=== PATIENT | female | born 1970 | race African-American/Black ===

== ENCOUNTER 2019-11-25 13:17 | Outpatient (CLI) | payer MEDICARE, MEDICAID, SELFPAY ==
--- NOTE | ~2019-11-25 | XR_ITS ---
EXAMINATION: XR chest 2V EXAM DATE: 11/25/2019 14:09 INDICATION: Shortness of breath. TECHNIQUE: Frontal and lateral projections of the chest obtained and reviewed. Comparison is made to prior examination from 07/29/2019. FINDINGS: There is mild to moderate amount of bilateral ill-defined airspace disease right greater t freitas left, with significant interval improvement compared to previous examination. Uncertain whether o r not this is residual from that process or redevelopment of acute airspace disease. Cardiomediastina l silhouette is normal. There is no pneumothorax suspected. There are no pleural effusions. There are no osseous abnormalities identified. IMPRESSION: Patchy bilateral right greater than left airspace disease, clinical correlation. Reviewed, dictated and finalized at location B. OPERATOR IMPRESSION: Patchy bilateral right greater than left airspace disease, clinica l correlation.
[2019-11-25 14:13] LABS: Hematocrit 39.6 % (37.0-47.0); Hemoglobin 12.3 g/dL (12.0-15.0)
[2019-11-25 14:27] LABS: Alanine Aminotransferase 23 U/L (4-35); Alkaline Phosphatase 63 U/L (38-126); Aspartate Amino Transferase 29 U/L (14-36); Bilirubin,Total 0.3 mg/dL (0.2-1.3); Blood Urea Nitrogen 7 mg/dL (7-17); Calcium 9.5 mg/dL (8.4-10.2); Carbon Dioxide 30 mmol/L (22-30); Chloride 96 mmol/L (98-107); Cholesterol 158 mg/dL (0-200); Estimated Glomerular Filt Rate > 60; Glucose 128 mg/dL (65-105); HDL Direct 47 mg/dL; Potassium 3.8 mmol/L (3.4-5.0); Sodium 139 mmol/L (137-145); Triglycerides 180 mg/dL (<150)
[2019-11-25 14:29] LABS: Hemoglobin A1C 6.8 % (<5.7)
[2019-11-25 14:39] LABS: LDL Cholesterol Direct 80 mg/dL
[2019-11-25 14:54] LABS: Creatinine Urine 85.6 mg/dL
[2019-11-25 14:58] LABS: MALB Creatinine Ratio 74.6 mg/g (0-30); Microalbumin Urine Random 63.9 mg/L (0-16.7)
[2019-11-25 15:01] LABS: Thyroid Stimulating Hormone 0.103 uIU/mL (0.465-4.680)
[2019-11-25 15:05] LABS: Iron 41 ug/dL (37-170)
[2019-11-25 15:14] LABS: Percent Iron Saturation 12 % (20-50)
[2019-11-25 15:29] LABS: Vitamin D 25 Hydroxy 27.8 ng/mL
== END 2019-11-25 13:18 | disposition home or self-care (01) ==
PROVIDERS: Referring Provider Nurse Practitioner Family; Visit Provider Internal Medicine
DX: R06.02 Shortness of breath (principal); D50.9 Iron deficiency anemia, unspecified; E11.9 Type 2 diabetes mellitus without complications; I10 Essential (primary) hypertension; Z13.6 Encounter for screening for cardiovascular disorders; E03.9 Hypothyroidism, unspecified; E55.9 Vitamin D deficiency, unspecified
CPT/HCPCS: 36415; 71046; 80053; 80061; 82043; 82306; 83036; 83540; 83550; 84443; 85014; 85018

== ENCOUNTER 2019-12-30 12:22 | Outpatient (CLI) | payer MEDICARE, MEDICAID, SELFPAY ==
[2019-12-30 12:49] LABS: Hematocrit 37.8 % (37.0-47.0); Hemoglobin 11.7 g/dL (12.0-15.0); Mean Corpuscular Hemoglobin 25.4 pg (26-34); Mean Corpuscular Volume 82.2 fl (80-100); Mean Platelet Volume 10.7 fl (7.4-10.4); Platelet Count Result 325 k/mm3 (150-375); White Blood Count 8.3 K/mm3 (4.5-10.0)
[2019-12-30 16:46] LABS: Alanine Aminotransferase 22 U/L (4-35); Albumin Level 3.9 g/dL (3.5-5.1); Alkaline Phosphatase 68 U/L (38-126); Aspartate Amino Transferase 25 U/L (14-36); Bilirubin,Total 0.4 mg/dL (0.2-1.3); Blood Urea Nitrogen 10 mg/dL (7-17); Calcium 9.2 mg/dL (8.4-10.2); Carbon Dioxide 31 mmol/L (22-30); Chloride 100 mmol/L (98-107); Estimated Glomerular Filt Rate > 60; Glucose 143 mg/dL (65-105); Potassium 3.9 mmol/L (3.4-5.0); Sodium 137 mmol/L (137-145)
[2019-12-30 16:54] LABS: Complement C3 163 mg/dL (88-165)
[2020-01-02 04:53] LABS: Lupus dRVVT 1:1 Mix Interpreta Not Indicated; Lupus dRVVT Screen 36 sec (<=45); PTT-LA Screen 35 sec (<=40)
[2020-01-02 10:35] LABS: ANA Cascade Screen Positive (Negative); ANCA Screen P-ANCA POS (Negative); P-ANCA Titer 1:20 Titer (<1:20); P-ANCA Titer Reflex Chg Test YES
[2020-01-03 10:04] LABS: Chromatin (Nucleosomal) Ab <1.0; Chromatin Antibody Charge YES; DNA (ds) Antibody Charge YES; RNP Antibody 1.1; RNP Antibody Charge YES; Sm Antibody <1.0; Sm Antibody Charge YES; Sm/RNP Antibody <1.0; Sm/RNP Antibody Charge YES
== END 2019-12-30 12:23 | disposition home or self-care (01) ==
PROVIDERS: Visit Provider Internal Medicine
DX: J18.9 Pneumonia, unspecified organism (principal); R76.8 Other specified abnormal immunological findings in serum; M19.90 Unspecified osteoarthritis, unspecified site; Z79.899 Other long term (current) drug therapy
CPT/HCPCS: 36415; 80053; 85027; 85613; 85730; 86021; 86038; 86160; 86225; 86235

== ENCOUNTER 2020-01-02 10:32 | Outpatient (CLI) | payer MEDICARE, MEDICAID, SELFPAY ==
--- NOTE | ~2020-01-02 | CT_ITS ---
EXAMINATION: CT chest wo con DATE: 01/02/2020 11:14 INDICATION: Shortness of breath, follow-up pneumonia TECHNIQUE: Computed tomography (CT) of the chest was performed without intravenous contrast. The dose -length product (DLP) was 1034.67 mGy-cm. Automated exposure control and iterative reconstruction gale hnique were employed. COMPARISON: 07/29/2019, 01/17/2019 FINDINGS: Bilateral airspace opacities described on the most recent chest CT have significantly impro una. There are a few scattered groundglass opacities of the lungs. There are several residual nodules scattered throughout all lobes of the lungs has ascites of previously seen larger areas of consolida tion. The largest measures 1.7 x 1.2 cm in the left upper lobe. There is no pleural effusion or pneum othorax. There is chronic mediastinal lymphadenopathy. The heart size is normal. There is moderate th oracic spondylosis. IMPRESSION: 1. Significant improvement in previously described diffuse lung airspace opacities with some residual groundglass and nodular opacities, likely resolving infection/inflammation. The previously described underlying chronic lung disease such as hypersensitivity pneumonitis, chronic infection, or possibly sarcoid could be obscured. Reviewed, dictated and finalized at location A. IMPRESSION: 1. Significant improvement in previously described diffuse lung airspace opacit ies with some residual groundglass and nodular opacities, likely resolving infe ction/inflammation. The previously described underlying chronic lung disease peacock ch as hypersensitivity pneumonitis, chronic infection, or possibly sarcoid coul d be obscured.
== END 2020-01-02 10:33 | disposition home or self-care (01) ==
LOC: ANHIMG 10:33
PROVIDERS: Visit Provider Nurse Practitioner Family
DX: J18.9 Pneumonia, unspecified organism (principal)
CPT/HCPCS: 71250

== ENCOUNTER 2020-06-08 08:11 | Outpatient (CLI) | payer MEDICARE, MEDICAID, SELFPAY ==
--- NOTE | 2020-06-08 17:06 | WPDPFTINT ---
PFT Interpretation PFT Interpretation: DOS: 06/08/2020 REQUESTING: Roger Phillips NP REASON FOR TESTING: no smoking history; asthma-COPD, hypoxia; history of ILD, + pANCA PULMONARY FUNCTION TESTS Results are reliable and reproducible. Spirometry: FEV1 68% mildly decreased. FVC 66%, mildly decreased. Normal FEV1%. PCW76-82% is decreased at 51%. After Bronchodilator there is a 35% increase in the small airways flows. This is statistically significant. Lung volumes: TLC 109% normal. RV 186% consistent with severe air trapping. No increase in airway resistance. Diffusion: DLCO moderately decreased 55%. Flow volume loop: Mild scooping of the expiratory limb. IMPRESSION: Mild obstructive ventilatory impairment, severe in the small airways with good response to bronchodilator in the small airways. Severe air trapping. Moderate diffusion defect. Compared to a study 03/08/2018, the RAT23-98% is much lower 51% compared to 71%. Spirometry values otherwise are similar. DLCO has dropped from 64% to 55% consistent with a progression of interstitial lung disease. Clinical correlation is recommended. Heather Diallo MD
--- NOTE | 2020-06-08 17:32 | WPDSIXMINUTE ---
Six Minute Walk Six Minute Walk: DOS: 06/08/2020 REQUESTING: Roger Phillips NP REASON FOR TESTING: asthma-COPD; ILD SIX MINUTE WALK This test was conductive per ATS guidelines. The patient walked on room air with an initial saturation of 96% and a heart rate of 98. During walking saturation decreased to 88% by the end of the walk. She had to stop for 45 seconds to rest due to knee pain. Heart rate increased to 141. During recovery saturation gradually increased from 88% to baseline 97%. Heart rate remained elevated at the end of recovery at 108 beats per minute. Distance walked was 600 ft/183 m, which is less than predicted per age. IMPRESSION: This walk study shows mild desaturation without randa hypoxemia. Supplemental oxygen is not indicated with exertion. Distance walked is less than expected for age.
== END 2020-06-08 08:12 | disposition home or self-care (01) ==
LOC: ANHPFT 08:15
PROVIDERS: PCP Internal Medicine; Visit Provider Nurse Practitioner Family
DX: R09.02 Hypoxemia (principal); J44.9 Chronic obstructive pulmonary disease, unspecified; R94.2 Abnormal results of pulmonary function studies
CPT/HCPCS: 94060; 94618; 94726; 94729

== ENCOUNTER 2020-07-16 14:27 | Outpatient (CLI) | payer MEDICARE, MEDICAID, SELFPAY ==
[2020-07-16 15:10] LABS: Alanine Aminotransferase 19 U/L (4-35); Albumin Level 3.9 g/dL (3.5-5.1); Alkaline Phosphatase 60 U/L (38-126); Anion Gap 6 mmol/L (8-16); Aspartate Amino Transferase 25 U/L (14-36); Bilirubin,Total 0.3 mg/dL (0.2-1.3); Blood Urea Nitrogen 8 mg/dL (7-17); Calcium 9.3 mg/dL (8.4-10.2); Carbon Dioxide 31 mmol/L (22-30); Chloride 102 mmol/L (98-107); Cholesterol 160 mg/dL (0-200); Estimated Glomerular Filt Rate > 60; Glucose 92 mg/dL (65-105); HDL Direct 55 mg/dL; Hemoglobin A1C 5.6 % (<5.7); Potassium 3.7 mmol/L (3.4-5.0); Sodium 139 mmol/L (137-145); Triglycerides 108 mg/dL (<150)
[2020-07-16 15:21] LABS: LDL Cholesterol Direct 80 mg/dL
[2020-07-16 15:41] LABS: Thyroid Stimulating Hormone 0.031 uIU/mL (0.465-4.680)
[2020-07-16 16:39] LABS: Creatinine Urine 74.5 mg/dL
[2020-07-16 16:43] LABS: Vitamin D 25 Hydroxy 32.5 ng/mL
[2020-07-16 16:44] LABS: MALB Creatinine Ratio 23.8 mg/g (0-30); Microalbumin Urine Random 17.7 mg/L (0-16.7)
== END 2020-07-16 14:28 | disposition home or self-care (01) ==
PROVIDERS: PCP Internal Medicine; Visit Provider Internal Medicine
DX: E11.69 Type 2 diabetes mellitus with other specified complication (principal); E66.9 Obesity, unspecified; I10 Essential (primary) hypertension; E55.9 Vitamin D deficiency, unspecified; E78.5 Hyperlipidemia, unspecified; Z79.899 Other long term (current) drug therapy; E03.9 Hypothyroidism, unspecified
CPT/HCPCS: 36415; 80053; 80061; 82043; 82306; 83036; 84443

== ENCOUNTER 2020-09-14 09:35 | Outpatient (CLI) | payer MEDICARE, MEDICAID, SELFPAY ==
--- NOTE | ~2020-09-14 | CT_ITS ---
EXAMINATION: CT chest high resolution wo co DATE: 09/14/2020 10:19 INDICATION: J84.9 - Interstitial pulmonary disease, unspecified TECHNIQUE: Computed tomography (CT) of the chest was performed without intravenous contrast. Addition al 3D reconstructions utilizing coronal maximum intensity projection (MIP) were performed. Automated exposure control and iterative reconstruction technique were employed. The dose-length product was 10 55.95 mGy-cm. COMPARISON: 01/02/2020 FINDINGS: Improvement in the bilateral diffuse lung disease. The majority of the prior pulmonary nodules have r esolved or significantly decreased in size. There are some residual scattered groundglass opacities p redominantly in the right upper and lower lobes and to a lesser degree left upper lobe. No new lung d isease, pulmonary edema or pleural effusion. Heart size is normal. No pericardial effusion. Ectatic a scending thoracic aorta measuring up to 3.9 x 4.0 cm in maximal diameter. There is increased soft tis britta density interspersed with fat in the anterior mediastinum maintaining a triangular configuration consistent with rebound thymic hyperplasia. Again seen is mild likely reactive mediastinal lymphadeno aurora. Enlargement of the central pulmonary arteries consistent with pulmonary arterial hypertension. Mild to moderate thoracic spondylosis. IMPRESSION: 1. Continued significant improvement in scattered patchy bilateral lung disease which may represented pneumonia, hypersensitivity pneumonitis, organizing pneumonia or sarcoidosis. 2. Ectatic ascending thoracic aorta measuring up to 3.9 x 4.0 cm. 3. Enlargement of the central pulmonary arteries consistent with pulmonary arterial hypertension. 4. Chronic mild mediastinal lymphadenopathy. Reviewed, dictated and finalized at location A. OR PAYROLL MANAGER IMPRESSION: 1. Continued significant improvement in scattered patchy bilateral lung disease which may represented pneumonia, hypersensitivity pneumonitis, organizing pneu monia or sarcoidosis. 2. Ectatic ascending thoracic aorta measuring up to 3.9 x 4.0 cm. 3. Enlargement of the central pulmonary arteries consistent with pulmonary shen rial hypertension. 4. Chronic mild mediastinal lymphadenopathy.
== END 2020-09-14 09:36 | disposition home or self-care (01) ==
PROVIDERS: PCP Internal Medicine; Visit Provider Nurse Practitioner Family
DX: J84.9 Interstitial pulmonary disease, unspecified (principal); I77.810 Thoracic aortic ectasia; M47.814 Spondylosis without myelopathy or radiculopathy, thoracic region; R59.0 Localized enlarged lymph nodes
CPT/HCPCS: 36415; 71250; 86331; 86606; 86609

== ENCOUNTER 2021-02-01 12:31 | Outpatient (CLI) | payer MEDICARE, MEDICAID, SELFPAY ==
[2021-02-01 13:40] LABS: Basophils Percent Auto 0.6 % (0.2-1.2); Eosinophils Absolute Auto 0.2 K/mm3 (0-0.3); Hematocrit 40.4 % (37.0-47.0); Hemoglobin 12.8 g/dL (12.0-15.0); Immature Granulocyte Absolute 0.02 K/mm3 (0.00-0.031); Immature Granulocyte Percent A 0.4 % (0-0.5); Lymphocytes Absolute Auto 1.68 K/mm3 (0.9-3.2); Lymphocytes Percent Auto 33.6 % (18.3-44.2); Mean Corpuscular HGB Conc 31.7 g/dl (32-36); Mean Corpuscular Hemoglobin 27.2 pg (26-34); Mean Platelet Volume 11.4 fl (7.4-10.4); Monocytes Absolute Auto 0.5 K/mm3 (0.1-0.6); Monocytes Percent Auto 9.4 % (2.6-8.5); Neutrophils Absolute Auto 2.6 K/mm3 (1.3-6.7); Platelet Count Result 285 k/mm3 (150-375); Red Cell Distribution Width 15.3 % (11.5-14.5)
[2021-02-01 13:42] LABS: Add Urine Microscopic? NO; Appearance Urine Clear (Clear); Bilirubin Urine Negative (Negative); Blood Urine Negative (Negative); Color Urine Straw (Yellow); Glucose Urine UA Negative (Negative); Ketones Urine Negative (Negative); Leukocyte Esterase Ur Negative LEU/UL (NEGATIVE); Nitrate Urine Negative (Negative); Protein Urine Negative (Negative); Specific Grav Ur 1.005 (1.001-1.035); Urobilinogen Urine Negative mg/dL (<2.0)
[2021-02-01 13:47] LABS: Cholesterol 183 mg/dL (0-200); HDL Direct 71 mg/dL; Triglycerides 177 mg/dL (<150)
[2021-02-01 13:48] LABS: Hemoglobin A1C 5.7 % (<5.7)
[2021-02-01 13:51] LABS: Alanine Aminotransferase 18 U/L (4-35); Albumin Level 4.2 g/dL (3.5-5.1); Alkaline Phosphatase 57 U/L (38-126); Anion Gap 5 mmol/L (8-16); Aspartate Amino Transferase 25 U/L (14-36); Bilirubin,Total 0.2 mg/dL (0.2-1.3); Blood Urea Nitrogen 11 mg/dL (7-17); CRP 0.9 mg/dL (<1.0); Calcium 9.1 mg/dL (8.4-10.2); Carbon Dioxide 32 mmol/L (22-30); Chloride 101 mmol/L (98-107); Estimated Glomerular Filt Rate > 60; Glucose 94 mg/dL (65-105); Potassium 3.7 mmol/L (3.4-5.0); Sodium 138 mmol/L (137-145)
[2021-02-01 13:55] LABS: Complement C3 136 mg/dL (88-165)
[2021-02-01 13:58] LABS: LDL Cholesterol Direct 71 mg/dL
[2021-02-01 14:30] LABS: Iron 48 ug/dL (37-170)
[2021-02-01 14:42] LABS: Erythrocyte Sedimentation Rate 19 mm/hr (0-20)
[2021-02-01 14:47] LABS: Percent Iron Saturation 14 % (20-50)
[2021-02-01 15:07] LABS: Vitamin D 25 Hydroxy 25.6 ng/mL
[2021-02-04 21:11] LABS: Angiotensin Converting Enzyme 57 U/L (9-67)
== END 2021-02-01 12:32 | disposition home or self-care (01) ==
PROVIDERS: PCP Internal Medicine; Referring Provider Internal Medicine; Visit Provider Internal Medicine
DX: E55.9 Vitamin D deficiency, unspecified (principal); E11.69 Type 2 diabetes mellitus with other specified complication; E66.9 Obesity, unspecified; I10 Essential (primary) hypertension; J84.9 Interstitial pulmonary disease, unspecified; R76.8 Other specified abnormal immunological findings in serum; E03.9 Hypothyroidism, unspecified; M19.90 Unspecified osteoarthritis, unspecified site; E78.5 Hyperlipidemia, unspecified; D50.9 Iron deficiency anemia, unspecified
CPT/HCPCS: 36415; 80053; 80061; 81003; 82164; 82306; 83036; 83540; 83550; 84443; 85025; 85652; 86140; 86160

== ENCOUNTER 2021-02-04 08:25 | Outpatient (CLI) | payer MEDICARE, MEDICAID, SELFPAY ==
--- NOTE | 2021-02-04 08:43 | ECHO_ITS ---
Patient Info Name: Veena Sanderson Age: 50 years : 1970 Gender: Female Ht: 63 in Wt: 377 lbs BSA: 2.88 m2 HR: 83 bpm BP: 145 / 93 mmHg Heart Rhythm: Sinus Rhythm Technical Quality: Fair, Good Exam Date: 02/04/2021 9:44 AM Exam Location: [facility] Patient Status: Outpatient Admit Date: 02/04/2021 Staff Ordering Physician: Roger Phillips APRN Mill Control Operator: Paula Milian RDCS Attending Provider: Roger Phillips APRN Referring Physician: Alan BLACKMAN; Exam Type: CA echo doppler color flow Study Info Indications - GUEVARA Complete two-dimensional, color flow and Doppler transthoracic echocardiogram is performed. Summary 1. Complete two-dimensional, color flow and Doppler transthoracic echocardiogram is performed. 2. Left ventricular chamber dimension is mildly enlarged. 3. Left ventricular systolic function is normal, estimated at 60-65%. 4. There is mildly increased left ventricular wall thickness. 5. The left ventricular diastolic function is abnormal. 6. Left atrial chamber dimension is mildly enlarged. 7. There is mild mitral valve regurgitation. 8. There is mild tricuspid valve regurgitation. 9. Moderate pulmonary hypertension, estimated pulmonary arterial systolic pressure is 50 mmHg. 10. There is mild pulmonic regurgitation. Left Ventricle Left ventricular chamber dimension is mildly enlarged. Left ventricular systolic function is normal, estimated at 60-65%. There is mildly increased left ventricular wall thickness. The left ventricular diastolic function is abnormal. Right Ventricle Right ventricular chamber dimension is normal. Right ventricular systolic function is normal. Left Atria Left atrial chamber dimension is mildly enlarged. Right Atria Right atrial chamber dimension is normal. Atrial Septum Intact interatrial septum visualized by color flow imaging. Aortic Valve The aortic valve is probable trileaflet. There is mild aortic valve sclerosis. There is no aortic valve stenosis. There is trace aortic valve regurgitation. Pulmonic Valve The pulmonic valve is normal. There is no pulmonic valve stenosis. There is mild pulmonic regurgitation. Mitral Valve The mitral valve has normal leaflets. There is no mitral valve stenosis. There is mild mitral valve regurgitation. Tricuspid Valve The tricuspid valve leaflets are normal. There is no significant tricuspid valve stenosis. There is mild tricuspid valve regurgitation. Moderate pulmonary hypertension, estimated pulmonary arterial systolic pressure is 50 mmHg. Pericardium/Pleural The pericardium appears normal. There is no pericardial effusion. Inferior Vena Cava Normal inferior vena cava with >50% collapse upon inspiration consistent with elevated right atrial pressure, 10 mmHg. Aorta The aortic root size at the sinus of Valsalva is normal. The prox ascending aorta size is normal. Left Ventricular Outflow Tract Name Value Normal LVOT 2D LVOT Diameter 2.1 cm LVOT Doppler LVOT Peak Gradient 8 mmHg LVOT Mean Gradient 5 mmHg
== END 2021-02-04 08:26 | disposition home or self-care (01) ==
LOC: ANHCARD 08:28
PROVIDERS: PCP Internal Medicine; Visit Provider Nurse Practitioner Family
DX: R06.00 Dyspnea, unspecified (principal); I08.3 Combined rheumatic disorders of mitral, aortic and tricuspid valves
CPT/HCPCS: 93306

== ENCOUNTER 2021-06-15 10:53 | Outpatient (CLI) | payer MEDICARE, MEDICAID, SELFPAY ==
[2021-06-15 11:31] LABS: Hematocrit 38.3 % (37.0-47.0); Hemoglobin 12.2 g/dL (12.0-15.0); Mean Corpuscular HGB Conc 31.9 g/dl (32-36); Mean Corpuscular Volume 84.7 fl (80-100); Mean Platelet Volume 10.8 fl (7.4-10.4); Platelet Count Result 361 k/mm3 (150-375); Red Blood Count 4.52 M/mm3 (4.2-5.4); Red Cell Distribution Width 15.3 % (11.5-14.5); White Blood Count 5.5 K/mm3 (4.5-10.0)
[2021-06-15 14:17] LABS: Add Urine Microscopic? NO; Appearance Urine Clear (Clear); Bilirubin Urine Negative (Negative); Blood Urine Negative (Negative); Color Urine Yellow (Yellow); Glucose Urine UA Negative (Negative); Ketones Urine Negative (Negative); Leukocyte Esterase Ur Negative LEU/UL (Negative); Nitrate Urine Negative (Negative); Protein Urine Negative (Negative); Specific Grav Ur 1.011 (1.001-1.035); Urobilinogen Urine Negative mg/dL (<2.0)
[2021-06-15 14:31] LABS: Erythrocyte Sedimentation Rate 88 mm/hr (0-20)
[2021-06-15 16:56] LABS: Alanine Aminotransferase 22 U/L (4-35); Albumin Level 4.2 g/dL (3.5-5.1); Alkaline Phosphatase 61 U/L (38-126); Anion Gap 7 mmol/L (8-16); Aspartate Amino Transferase 28 U/L (14-36); Bilirubin,Total 0.3 mg/dL (0.2-1.3); Blood Urea Nitrogen 9 mg/dL (7-17); CRP 0.8 mg/dL (<1.0); Calcium 9.3 mg/dL (8.4-10.2); Carbon Dioxide 33 mmol/L (22-30); Chloride 98 mmol/L (98-107); Estimated Glomerular Filt Rate > 60; Glucose 100 mg/dL (65-110); Potassium 3.9 mmol/L (3.4-5.0); Sodium 138 mmol/L (137-145)
== END 2021-06-15 10:54 | disposition home or self-care (01) ==
LOC: ANHLAB 11:03
PROVIDERS: PCP Internal Medicine; Visit Provider Internal Medicine
DX: M19.90 Unspecified osteoarthritis, unspecified site (principal); M35.9 Systemic involvement of connective tissue, unspecified; R76.8 Other specified abnormal immunological findings in serum; J84.9 Interstitial pulmonary disease, unspecified
CPT/HCPCS: 36415; 80053; 81003; 85027; 85652; 86140

== ENCOUNTER 2021-07-24 09:52 | Outpatient (CLI) | payer MEDICARE, MEDICAID, SELFPAY ==
--- NOTE | ~2021-07-24 | XR_ITS ---
EXAMINATION: XR chest 2V DATE: 07/24/2021 10:07 INDICATION: Interstitial pulmonary disease. Dyspnea on exertion. TECHNIQUE: PA and lateral views of the chest were obtained. COMPARISON: Chest radiograph dated 11/25/[address] studies dated between 07/29/2019 and 09/14/2020 FINDINGS: There are multiple scattered nodular opacities throughout the bilateral mid to lower lung zones. No p leural effusion or pneumothorax. Megaly. Enlargement of the main pulmonary artery consistent with pul monary arterial hypertension. Thoracic spondylosis with bridging osteophytes at multiple levels cons istent with diffuse idiopathic skeletal hyperostosis (DISH). IMPRESSION: 1. Multiple nodular opacities throughout the bilateral mid and lower lung zones which could be due to pneumonia, metastatic disease or persistent previously noted patchy bilateral lung disease with diff erential including hypersensitivity pneumonitis, organizing pneumonia or sarcoidosis. 2. Cardiomegaly with enlargement of the central pulmonary arteries consistent with pulmonary arterial hypertension. Reviewed, dictated and finalized at location A. IMPRESSION: 1. Multiple nodular opacities throughout the bilateral mid and lower lung zones which could be due to pneumonia, metastatic disease or persistent previously n oted patchy bilateral lung disease with differential including hypersensitivity pneumonitis, organizing pneumonia or sarcoidosis. 2. Cardiomegaly with enlargement of the central pulmonary arteries consistent w ith pulmonary arterial hypertension.
== END 2021-07-24 09:53 | disposition home or self-care (01) ==
LOC: ANHIMG 09:56
PROVIDERS: PCP Internal Medicine; Visit Provider Internal Medicine
DX: J84.9 Interstitial pulmonary disease, unspecified (principal); E04.2 Nontoxic multinodular goiter; I51.7 Cardiomegaly
CPT/HCPCS: 71046

== ENCOUNTER 2021-08-09 11:47 | Outpatient (CLI) | payer MEDICARE, MEDICAID, SELFPAY ==
[2021-08-09 13:24] LABS: Hemoglobin A1C 5.9 % (<5.7)
[2021-08-09 13:28] LABS: LDL Cholesterol Direct 80 mg/dL
[2021-08-09 13:47] LABS: Alanine Aminotransferase 14 U/L (4-35); Albumin Level 3.9 g/dL (3.5-5.1); Alkaline Phosphatase 59 U/L (38-126); Anion Gap 6 mmol/L (8-16); Aspartate Amino Transferase 25 U/L (14-36); Bilirubin,Total 0.2 mg/dL (0.2-1.3); Blood Urea Nitrogen 6 mg/dL (7-17); Calcium 9.1 mg/dL (8.4-10.2); Carbon Dioxide 31 mmol/L (22-30); Chloride 102 mmol/L (98-107); Cholesterol 192 mg/dL (0-200); Estimated Glomerular Filt Rate > 60; Glucose 104 mg/dL (65-110); HDL Direct 74 mg/dL; Potassium 3.9 mmol/L (3.4-5.0); Sodium 139 mmol/L (137-145); Triglycerides 149 mg/dL (<150)
== END 2021-08-09 11:48 | disposition home or self-care (01) ==
PROVIDERS: PCP Internal Medicine; Visit Provider Internal Medicine
DX: E11.69 Type 2 diabetes mellitus with other specified complication (principal); E66.9 Obesity, unspecified; E78.5 Hyperlipidemia, unspecified; I10 Essential (primary) hypertension; E03.9 Hypothyroidism, unspecified; E55.9 Vitamin D deficiency, unspecified; Z79.899 Other long term (current) drug therapy
CPT/HCPCS: 36415; 80053; 80061; 82306; 83036; 84443

== ENCOUNTER 2021-12-20 07:38 | Outpatient (CLI) | payer MEDICARE, MEDICAID, SELFPAY ==
--- NOTE | ~2021-12-20 | MM_ITS ---
EXAMINATION: MM screening irma BI w maico HISTORY: Screening TECHNIQUE: Craniocaudal and mediolateral oblique 3-D tomosynthesis images were obtained and synthetic 2-D images were generated. CAD analysis was submitted and interpreted. COMPARISON: No prior studies for comparison. BREAST PARENCHYMAL COMPOSITION: The breasts are almost entirely fatty. FINDINGS: There is no evidence of suspicious mass, calcification, or architectural distortion to sugg est malignancy in either breast. There has been no suspicious interval change. IMPRESSION: 1. No mammographic evidence of malignancy. 2. Recommend routine screening mammography in one year. BI-RADS Category 1: Negative Reviewed, dictated and finalized at location A. LE SAWYER
== END 2021-12-20 07:39 | disposition home or self-care (01) ==
LOC: ANHIMG 07:39
PROVIDERS: PCP Internal Medicine; Visit Provider Nurse Practitioner
DX: Z12.31 Encounter for screening mammogram for malignant neoplasm of breast (principal)
CPT/HCPCS: 77063; 77067

== ENCOUNTER 2021-12-20 08:20 | Outpatient (CLI) | payer MEDICARE, MEDICAID, SELFPAY ==
--- NOTE | 2021-12-20 15:33 | WPDSIXMINUTE ---
Six Minute Walk Procedure Procedure Performed Pulmonary Stress Test (6 min walk) Six Minute Walk This is a 6 minute walk test. The test was performed and interpreted in accordance with the 2014 ERS/ATS task force guidelines. Of note the patient stopped at 5 minutes due to severe knee pain. Patient used to wheel walker beginning at 250 ft. The test was completed on room air. Findings: The patient's resting room air oxygen saturation measured by pulse oximetry was 96% and heart rate was 104 bpm. Patient ambulated for 152 meters and oxygen saturation remained 90 to 98%. Heart rate at the end of the study was 117 bpm. The patient did not qualify for supplemental oxygen at rest or with ambulation. There are no prior studies for comparison.
== END 2021-12-20 08:21 | disposition home or self-care (01) ==
PROVIDERS: PCP Internal Medicine; Visit Provider Physician Assistant
DX: R09.02 Hypoxemia (principal)
CPT/HCPCS: 77063; 77067; 94618

== ENCOUNTER 2022-04-04 10:03 | Outpatient (CLI) | payer MEDICARE, MEDICAID, SELFPAY ==
--- NOTE | ~2022-04-04 | US_ITS ---
EXAMINATION: US abdomen complete DATE: 04/04/2022 11:18 INDICATION: Abdominal pain. TECHNIQUE: Multiple grayscale and Doppler ultrasound images of the abdomen were obtained. COMPARISON: None available FINDINGS: Visualized portions of the pancreas are normal. Hyperechoic liver. No surface nodularity. N ormal hepatopetal flow in the main portal vein. The gallbladder is normal with no abnormal wall thick ening, pericholecystic fluid or stones. The normal common bile duct measures 5 mm. There was no sonog raphic Tijerina sign. Minimal fusiform dilation of the distal abdominal aorta up to 2.2 cm. The right kidney measures 11.3 x 4.3 x 5.6 cm. The left kidney measures 11.4 x 5.9 x 4.9. The kidneys demonstrate normal parenchymal echogenicity. There is no hydronephrosis. The spleen is normal in marlon earance and measures 8.8 cm. IMPRESSION: 1. Hyperechoic liver as can be seen with steatosis, fibrosis, or hepatitis. 2. Otherwise normal abdominal ultrasound findings. Reviewed, dictated and finalized at location K.
== END 2022-04-04 10:04 | disposition home or self-care (01) ==
PROVIDERS: PCP Internal Medicine; Visit Provider Nurse Practitioner
DX: R10.9 Unspecified abdominal pain (principal)
CPT/HCPCS: 76700

== ENCOUNTER 2022-06-01 09:58 | Outpatient (CLI) | payer MEDICARE, MEDICAID, SELFPAY ==
[2022-06-01 10:42] LABS: Basophils Absolute Auto 0.1 K/mm3 (0.0-0.1); Basophils Percent Auto 0.7 % (0.2-1.2); Eosinophils Absolute Auto 0.2 K/mm3 (0-0.3); Eosinophils Percent Auto 3.2 % (0-4.4); Hematocrit 35.2 % (37.0-47.0); Hemoglobin 10.8 g/dL (12.0-15.0); Immature Granulocyte Absolute 0.02 K/mm3 (0.00-0.031); Immature Granulocyte Percent A 0.3 % (0-0.5); Lymphocytes Absolute Auto 1.69 K/mm3 (0.9-3.2); Lymphocytes Percent Auto 22.7 % (18.3-44.2); Mean Corpuscular HGB Conc 30.7 g/dl (32-36); Mean Corpuscular Hemoglobin 24.3 pg (26-34); Mean Corpuscular Volume 79.1 fl (80-100); Mean Platelet Volume 10.7 fl (7.4-10.4); Monocytes Absolute Auto 0.7 K/mm3 (0.1-0.6); Monocytes Percent Auto 9.4 % (2.6-8.5); Neutrophils Absolute Auto 4.7 K/mm3 (1.3-6.7); Neutrophils Percent Auto 63.7 % (45.5-73.1); Platelet Count Result 377 k/mm3 (150-375); Red Blood Count 4.45 M/mm3 (4.2-5.4); Red Cell Distribution Width 19.2 % (11.5-14.5); White Blood Count 7.4 K/mm3 (4.5-10.0)
[2022-06-01 10:49] LABS: Cholesterol 176 mg/dL (0-200); HDL Direct 54 mg/dL; Triglycerides 106 mg/dL (<150)
[2022-06-01 10:50] LABS: Alanine Aminotransferase 16 U/L (6-35); Alkaline Phosphatase 61 U/L (38-126); Anion Gap 9 mmol/L (8-16); Aspartate Amino Transferase 24 U/L (14-36); Bilirubin,Total 0.3 mg/dL (0.2-1.3); Blood Urea Nitrogen 13 mg/dL (7-17); Calcium 8.8 mg/dL (8.4-10.2); Carbon Dioxide 31 mmol/L (22-30); Chloride 99 mmol/L (98-107); Estimated Glomerular Filt Rate > 60; Glucose 112 mg/dL (65-110); Potassium 3.5 mmol/L (3.4-5.0); Sodium 139 mmol/L (137-145)
[2022-06-01 11:01] LABS: LDL Cholesterol Direct 68 mg/dL
[2022-06-01 11:08] LABS: Hemoglobin A1C 5.6 % (<5.7)
[2022-06-01 11:19] LABS: Appearance Urine Clear (Clear); Bilirubin Urine Negative (Negative); Blood Urine 2+ (Negative); Color Urine Yellow (Yellow); Glucose Urine UA Negative (Negative); Ketones Urine Negative (Negative); Leukocyte Esterase Ur Negative LEU/UL (Negative); Nitrate Urine Negative (Negative); Protein Urine 3+ mg/dL (Negative); Specific Grav Ur 1.015 (1.001-1.035); Urobilinogen Urine 0.2 mg/dL (<2.0)
[2022-06-01 11:30] LABS: Creatinine Urine 62.4 mg/dL
[2022-06-01 11:37] LABS: Bacteria Urine Trace /hpf; Mucus Urine Rare /lpf; RBC Urine 21-50 /hpf (0-2); Squamous Epithelial Cell Urine Occasional /hpf (Few)
[2022-06-01 11:41] LABS: Add Urine Microscopic? YES
[2022-06-01 12:21] LABS: Erythrocyte Sedimentation Rate 54 mm/hr (0-20)
[2022-06-01 13:02] LABS: Microalbumin Urine Random > 1140.0 mg/L (0-16.7)
[2022-06-06 15:53] LABS: CRP, High Sensitivity >10.0 mg/L (***)
== END 2022-06-01 09:59 | disposition home or self-care (01) ==
LOC: ANHLAB 10:01
PROVIDERS: PCP Internal Medicine; Referring Provider Nurse Practitioner; Visit Provider Internal Medicine
DX: M06.9 Rheumatoid arthritis, unspecified (principal); Z51.81 Encounter for therapeutic drug level monitoring; Z79.899 Other long term (current) drug therapy; E78.5 Hyperlipidemia, unspecified; E03.9 Hypothyroidism, unspecified; E11.69 Type 2 diabetes mellitus with other specified complication
CPT/HCPCS: 36415; 80053; 80061; 81001; 82043; 83036; 84443; 85025; 85652; 86141

== ENCOUNTER 2022-06-21 15:43 | Inpatient (IN) | payer MEDICARE, MEDICAID, SELFPAY ==
[2022-06-21] VITALS (41 sets, daily range): BP systolic 92–147; BP diastolic 56–98; PULSE 95–112; RESP 10–46; TEMP 36.8–37.6; O2SAT 88–98; BMI 64.0
--- NOTE | ~2022-06-21 | XR_ITS ---
EXAMINATION: XR chest 2V DATE: 06/21/2022 16:52 INDICATION: Shortness of breath TECHNIQUE: PA and lateral views of the chest are obtained. COMPARISON: 07/24/2021 FINDINGS: There are moderately severe diffuse interstitial and airspace opacities throughout all lung zones. No pleural effusion or pneumothorax. Cardiomegaly is noted. There are bridging osteophytes at multiple levels in the spine, consistent with diffuse idiopathic skeletal hyperostosis (DISH). IMPRESSION: 1. Diffuse lung disease, consistent with pneumonia and/or pulmonary edema and/or acute respiratory di stress syndrome (ARDS). 2. Cardiomegaly. Reviewed, dictated and finalized at location B. IMPRESSION: 1. Diffuse lung disease, consistent with pneumonia and/or pulmonary edema and/o r acute respiratory distress syndrome (ARDS). 2. Cardiomegaly.
--- NOTE | ~2022-06-21 | US_ITS ---
EXAMINATION: US venous doppler [facility] DATE: 06/22/2022 12:23 INDICATION: Hypoxia, shortness of breath, tachycardia and elevated d-dimer. TECHNIQUE: Grayscale ultrasound images without and with compression and Doppler ultrasound images of the bilateral lower extremity veins were obtained. COMPARISON: None. FINDINGS: The visualized portions of right common femoral vein, profunda (deep) femoral vein, femoral vein, pop liteal vein, posterior tibial veins, peroneal veins, gastrocnemius vein and greater saphenous vein ou tflow are patent. The visualized portions of left common femoral vein, profunda femoral vein, femoral vein, popliteal v ein, posterior tibial veins, peroneal veins, gastrocnemius vein and greater saphenous vein outflow ar e patent. IMPRESSION: 1. No deep venous thrombosis in either lower limb. Reviewed, dictated and finalized at location A.
--- NOTE | ~2022-06-21 | US_ITS ---
EXAMINATION: US biopsy renal DATE: 06/27/2022 13:11 INDICATION: Hematuria, proteinuria and acute renal insufficiency TECHNIQUE: The procedure including the risks, benefits, and alternatives was discussed with the patie nt. Risks discussed included bleeding and infection. The patient understood the risks and agreed to p roceed. A timeout was performed to verify the patient's name, date of , and procedure to be p erformed. The skin overlying the left kidney was prepped and draped in usual sterile fashion. Anest hetic was administered with 1% lidocaine subcutaneously. An 18 gauge core biopsy needle was then use d to obtain 4 core biopsy specimens under continuous sonographic guidance. The entry site was cleaned and dressed. There were no immediate complications. FINDINGS: Ultrasound images demonstrate the needle in the kidney. IMPRESSION: 1. Ultrasound-guided random left kidney core needle biopsy. Reviewed, dictated and finalized at location A.
--- NOTE | ~2022-06-21 | CT_ITS ---
EXAMINATION: CT chest abdomen pelvis wo con DATE: 06/23/2022 21:35 INDICATION: Pneumonia with shortness of breath. TECHNIQUE: Computed tomography (CT) of the chest, abdomen, and pelvis was performed without intraveno us contrast. Automated exposure control and iterative reconstruction technique were employed. The dos e-length product was 1857.35 mGy-cm. COMPARISON: 06/21/2022 FINDINGS: Evaluation moderately limited in the absence of intravenous contrast by patient body habitus with matt ntum mottle and streak artifact. CHEST CT: Patchy consolidation groundglass opacities throughout both lungs suspicious for multifocal pneumonia is less likely pulmonary edema. No pleural effusion or pneumothorax. Cardiomegaly. No pericardial eff usion. Prominent enlargement of the main pulmonary artery which can be seen with pulmonary arterial h ypertension. There are some persistent mild prevascular mediastinal lymphadenopathy.. Enlarged lymph nodes are other mediastinal mass cannot be excluded. Mild thoracic dextrocurvature with moderate spon dylosis. ABDOMEN/PELVIS CT: Liver, gallbladder, spleen, pancreas, bilateral adrenal glands and kidneys are normal. A loop of nono bstructed bowel extends into the right side of a large bilobed umbilical hernia. Small amount of flui d within the smaller left side of the hernia sac. There also appears to be a small amount of fluid wi thin a separate slightly more inferior and lateral right-sided small ventral hernia. No bowel obstruc tion. Coello catheter within the decompressed bladder. Anteverted uterus and right adnexa are unremark able. 3 cm left adnexal cyst. No free intraperitoneal gas or fluid. No pathologically enlarged abdomi nal or pelvic lymphadenopathy. Moderate to severe lower lumbar spondylosis. IMPRESSION: 1. Moderately limited noncontrast study. Patient body habitus and streak artifact. 2. Persistent diffuse bilateral lung disease favor multifocal pneumonia over pulmonary edema. 3. Cardiomegaly and prominent enlargement of the main pulmonary artery which can be seen with pulmona ry arterial hypertension. 4. Mild likely reactive mediastinal lymphadenopathy. 5. Large bilobed umbilical hernia containing a loop of nonobstructed bowel. Reviewed, dictated and finalized at location A. IMPRESSION: 1. Moderately limited noncontrast study. Patient body habitus and streak artifa ct. 2. Persistent diffuse bilateral lung disease favor multifocal pneumonia over pu lmonary edema. 3. Cardiomegaly and prominent enlargement of the main pulmonary artery which ca n be seen with pulmonary arterial hypertension. 4. Mild likely reactive mediastinal lymphadenopathy. 5. Large bilobed umbilical hernia containing a loop of nonobstructed bowel.
--- NOTE | ~2022-06-21 | XR_ITS ---
EXAMINATION: XR chest 1V portable DATE: 06/30/2022 05:14 INDICATION: Respiratory failure TECHNIQUE: frontal view of the chest was obtained. COMPARISON: Chest radiograph dated 06/29/2022 FINDINGS: Endotracheal tube tip 3.9 cm above the bradly. Nasogastric tube with proximal side-port in the body of the stomach and distal tip collimated off the study. Smaller caliber right internal jugular centra l venous catheter tip at the midsuperior vena cava with larger bore left internal jugular central christina ous catheter with distal tip near the superior cavoatrial junction. Again seen are patchy airspace opacities throughout both lungs relatively sparing the subpleural lung . Slight decrease at the lung bases where there appears to be improved aeration. No pleural effusion or pneumothorax. Cardiomegaly. IMPRESSION: 1. Slight interval improvement in diffuse bilateral lung disease which could represent mild to modera te pulmonary edema or pneumonia. 2. Cardiomegaly. Reviewed, dictated and finalized at location A. IMPRESSION: 1. Slight interval improvement in diffuse bilateral lung disease which could re present mild to moderate pulmonary edema or pneumonia. 2. Cardiomegaly.
--- NOTE | ~2022-06-21 | XR_ITS ---
EXAMINATION: XR chest 1V portable DATE: 06/29/2022 05:47 INDICATION: Respiratory failure TECHNIQUE: frontal view of the chest was obtained. COMPARISON: Chest radiograph dated 06/28/22 FINDINGS: Endotracheal tube tip 2.7 cm above the bradly. Right internal jugular central venous catheter with di stal tip in the midsuperior vena cava. Nasogastric tube extends below the left hemidiaphragm with di stal tip collimated off the study. Persistent basilar predominant diffuse increased indistinct interstitial and patchy airspace opacitie s. No pleural effusion or pneumothorax. Cardiomegaly. IMPRESSION: 1. No significant change in diffuse bilateral lung disease which could represent moderate pulmonary e leann or pneumonia. 2. Cardiomegaly. Reviewed, dictated and finalized at location A. IMPRESSION: 1. No significant change in diffuse bilateral lung disease which could represen t moderate pulmonary edema or pneumonia. 2. Cardiomegaly.
--- NOTE | ~2022-06-21 | XR_ITS ---
EXAMINATION: XR chest ET placement INDICATION: Endotracheal tube insertion TECHNIQUE: Portable AP chest at 1054 hours COMPARISON: 0547 hours FINDINGS: An endotracheal tube is been inserted which ends approximately 2.6 cm above the bradly. Dif fuse airspace opacities persist throughout all lung zones with slight worsening in the upper lung zon es. No pleural effusion or pneumothorax. Cardiomegaly is noted. IMPRESSION: 1. Endotracheal tube ending approximately 2.6 cm above the bradly. 2. Diffuse lung disease with interval worsening, consistent with pneumonia and/or pulmonary edema and /or acute respiratory distress syndrome (ARDS). Reviewed, dictated and finalized at location B. IMPRESSION: 1. Endotracheal tube ending approximately 2.6 cm above the bradly. 2. Diffuse lung disease with interval worsening, consistent with pneumonia and/ or pulmonary edema and/or acute respiratory distress syndrome (ARDS).
--- NOTE | ~2022-06-21 | XR_ITS ---
EXAMINATION: XR chest port-a-cath/central INDICATION: Central line insertion TECHNIQUE: Portable AP chest at 1121 hours COMPARISON: 1054 hours FINDINGS: A right internal jugular central venous catheter is been inserted which ends with its tip i n the distal superior vena cava. The endotracheal tube ends approximately 2.6 cm above the bradly. Th e nasogastric tube is followed as far as the stomach. Its tip is beyond the inferior margin of the ra diograph. The lung bases are excluded from the examination. Diffuse opacities persist throughout all lung zones without significant change. No pleural effusion or pneumothorax. Cardiomegaly is noted. IMPRESSION: 1. Right internal jugular central venous catheter ending with its tip in the distal superior vena cav a. Otherwise, no significant change. Reviewed, dictated and finalized at location B. IMPRESSION: 1. Right internal jugular central venous catheter ending with its tip in the di stal superior vena cava. Otherwise, no significant change.
--- NOTE | ~2022-06-21 | XR_ITS ---
EXAMINATION: XR chest 1V portable INDICATION: Endotracheal tube adjustment TECHNIQUE: Portable AP chest at 1032 hours COMPARISON: 0503 hours FINDINGS: The endotracheal tube ends approximately 3.0 cm above the bradly. The nasogastric tube is f ollowed as far as the stomach. Its tip is beyond the inferior margin of the radiograph. A right inter nal jugular central venous catheter ends with its tip in the midsuperior vena cava. A large bore left internal jugular catheter ends with its tip at the superior cavoatrial junction. Diffuse airspace op acities persist throughout all lung zones without significant change. Cardiomegaly is noted. No pleur al effusion or pneumothorax. IMPRESSION: 1. Endotracheal tube now ending approximately 3 cm above the bradly. Otherwise, no significant change . Reviewed, dictated and finalized at location B. IMPRESSION: 1. Endotracheal tube now ending approximately 3 cm above the bradly. Otherwise, no significant change.
--- NOTE | ~2022-06-21 | XR_ITS ---
EXAMINATION: XR abdomen NG/feed tube insert DATE: 06/24/2022 11:05 INDICATION: Nasogastric tube placement. TECHNIQUE: A supine view of the abdomen was obtained. COMPARISON: None. FINDINGS: The lower abdomen and right lateral aspect of the abdomen are excluded. The nasogastric tub e tip is in the stomach. IMPRESSION: 1. Nasogastric tube tip in the stomach. Reviewed, dictated and finalized at location A.
--- NOTE | ~2022-06-21 | XR_ITS ---
EXAMINATION: XR chest 1V portable DATE: 07/02/2022 05:56 INDICATION: Acute respiratory failure. TECHNIQUE: A single frontal view of the chest was obtained. COMPARISON: Chest single view 07/01/2022 FINDINGS: There are airspace opacities in all lung zones bilaterally. No pleural effusion or pneumoth orax. Cardiomegaly is noted. The endotracheal tube tip is 4.7 cm above the bradly. The nasogastric tu be tip is beyond the inferior margin of the radiograph, but at least to the stomach. A right internal jugular central venous catheter is seen with tip in the superior vena cava. IMPRESSION: 1. Stable diffuse lung disease, consistent with pulmonary edema versus pneumonia versus acute respira tory distress syndrome (ARDS). 2. Cardiomegaly. Reviewed, dictated and finalized at location A. IMPRESSION: 1. Stable diffuse lung disease, consistent with pulmonary edema versus pneumoni a versus acute respiratory distress syndrome (ARDS). 2. Cardiomegaly.
--- NOTE | ~2022-06-21 | XR_ITS ---
EXAMINATION: XR chest 1V portable DATE: 07/01/2022 06:06 INDICATION: Acute respiratory failure TECHNIQUE: frontal view of the chest was obtained. COMPARISON: Chest radiograph dated FINDINGS: Endotracheal tube tip 4.2 cm above the bradly. Nasogastric tube with proximal side-port in the body o f the stomach and distal tip collimated off the study. Smaller caliber right internal jugular central venous catheter tip at the midsuperior vena cava with larger bore left internal jugular central veno us catheter with distal tip near the superior cavoatrial junction. Interval worsening of patchy airspace opacities throughout both lungs with lower lung predominance. N o pleural effusion or pneumothorax. Cardiomegaly. IMPRESSION: 1. Worsening diffuse bilateral lung disease consistent with increasing moderate pulmonary edema or pn eumonia. 2. Cardiomegaly. Reviewed, dictated and finalized at location A. IMPRESSION: 1. Worsening diffuse bilateral lung disease consistent with increasing moderate pulmonary edema or pneumonia. 2. Cardiomegaly.
--- NOTE | ~2022-06-21 | XR_ITS ---
XR chest 1V portable DATE: 06/25/2022 06:42 INDICATION: Respiratory failure TECHNIQUE: 2 portable AP views on 06/25/2022 at 0547 hours COMPARISON: 06/24/2022 portable AP chest at 1120 hours FINDINGS: There are persistent severe diffuse bilateral pulmonary infiltrates, largely obliterating c ardiac margins bilaterally. ET tube in satisfactory position 4 cm above bradly. NG tube in stomach. Right internal jugular line has been replaced since 06/24/2022 with left internal jugular central venou s line. No pneumothorax. IMPRESSION: Persistent diffuse bilateral pulmonary infiltrates Reviewed, dictated and finalized at location A.
--- NOTE | ~2022-06-21 | XR_ITS ---
EXAMINATION: XR chest 1V portable DATE: 06/27/2022 05:53 INDICATION: Respiratory failure TECHNIQUE: frontal view of the chest was obtained. COMPARISON: Chest radiograph dated / FINDINGS: Endotracheal tube tip 3.4 cm above the bradly. Right internal jugular central venous catheter tip at the midsuperior vena cava. Larger bore left internal jugular central venous catheter with distal tip at the superior cavoatrial junction. Nasogastric tube extends below the left hemidiaphragm with dist al tip collimated off the study. Increasing patchy airspace opacities throughout both lungs with lower lung predominance. No pneumotho rax or definitive pleural effusion. Cardiomegaly with pulmonary vascular congestion. IMPRESSION: 1. Increasing diffuse bilateral lung disease most likely moderate to severe pulmonary edema although differential includes pneumonia. 2. Cardiomegaly. Reviewed, dictated and finalized at location A. IMPRESSION: 1. Increasing diffuse bilateral lung disease most likely moderate to severe pul monary edema although differential includes pneumonia. 2. Cardiomegaly.
--- NOTE | ~2022-06-21 | CT_ITS ---
EXAMINATION: CTA chest PE protocol DATE: 06/21/2022 19:03 INDICATION: Shortness of breath. TECHNIQUE: Computed tomography angiography (CTA) of the chest was performed with 100 mL Omnipaque-350 intravenous contrast timed to evaluate the pulmonary arteries. Coronal maximum intensity projection 3D-reconstructions were created by the technologist. Automated exposure control and iterative reconst ruction technique were employed. The dose-length product was 1061.83 mGy-cm. COMPARISON: Chest CT 09/14/2020 FINDINGS: There are patchy airspace opacities with air bronchograms involving all lobes. No pleural e ffusion. Cardiomegaly is noted. No pericardial effusion. Main pulmonary artery is enlarged, consisten t with pulmonary arterial hypertension. There is no pulmonary embolus. There is mild mediastinal and bilateral hilar lymphadenopathy. There is moderate thoracic spondylosis. IMPRESSION: 1. Diffuse lung disease, consistent with pneumonia. 2. Mild mediastinal and bilateral hilar lymphadenopathy, likely reactive. 3. No pulmonary embolus. 4. Cardiomegaly. Reviewed, dictated and finalized at location E.
--- NOTE | ~2022-06-21 | XR_ITS ---
EXAMINATION: XR chest 1V portable DATE: 06/24/2022 05:51 INDICATION: Pneumonia. TECHNIQUE: A single frontal view of the chest was obtained. COMPARISON: Chest single view 06/23/2022, chest 2 views 06/21/2022, 07/24/2021, chest CT 06/23/2022 FINDINGS: There are airspace opacities throughout the lungs bilaterally. No pleural effusion or pneum othorax. Cardiomegaly is noted. IMPRESSION: 1. Stable diffuse lung disease, consistent with pulmonary edema versus pneumonia. 2. Cardiomegaly. Reviewed, dictated and finalized at location A. IMPRESSION: 1. Stable diffuse lung disease, consistent with pulmonary edema versus pneumoni a. 2. Cardiomegaly.
--- NOTE | ~2022-06-21 | XR_ITS ---
EXAMINATION: XR chest 1V portable INDICATION: Increasing oxygenation requirements TECHNIQUE: Portable AP chest at 0201 hours COMPARISON: 06/21/2022 FINDINGS: There are diffuse interstitial and airspace opacities throughout all lung zones with interv al worsening. No pleural effusion or pneumothorax. Cardiomegaly is noted. IMPRESSION: 1. Diffuse lung disease with interval worsening, consistent with pneumonia and/or pulmonary edema and /or acute respiratory distress syndrome (ARDS). Reviewed, dictated and finalized at location B. IMPRESSION: 1. Diffuse lung disease with interval worsening, consistent with pneumonia and/ or pulmonary edema and/or acute respiratory distress syndrome (ARDS).
--- NOTE | ~2022-06-21 | XR_ITS ---
EXAMINATION: XR chest 1V portable DATE: 06/28/2022 05:32 INDICATION: Respiratory failure TECHNIQUE: frontal view of the chest was obtained. COMPARISON: Chest radiograph dated FINDINGS: Endotracheal tube tip 5 mm above the bradly. Right internal jugular central venous catheter tip at th e midsuperior vena cava. Larger bore left internal jugular central venous catheter with distal tip at the superior cavoatrial junction. Nasogastric tube extends below the left hemidiaphragm with distal tip collimated off the study. Again seen are diffuse patchy airspace opacities throughout both lungs with lower lung predominance w here there has been slight improvement in aeration. No pneumothorax or definitive pleural effusion. C ardiomegaly. IMPRESSION: 1. Endotracheal tube tip 5 mm above the bradly. Consider withdrawal by 1 cm. 2. Diffuse bilateral lung disease with slight improvement in aeration at the lower lung zones. Differ ential would include moderate pulmonary edema or pneumonia. 2. Cardiomegaly. Reviewed, dictated and finalized at location A. IMPRESSION: 1. Endotracheal tube tip 5 mm above the bradly. Consider withdrawal by 1 cm. 2. Diffuse bilateral lung disease with slight improvement in aeration at the lo wer lung zones. Differential would include moderate pulmonary edema or pneumoni a. 2. Cardiomegaly.
--- NOTE | ~2022-06-21 | CT_ITS ---
EXAMINATION: CT brain wo con DATE: 06/25/2022 10:59 INDICATION: Dilated right pupil TECHNIQUE: Computed tomography (CT) of the head was performed without intravenous contrast. The mA wa s adjusted according to patient size. Iterative reconstruction technique was employed. Exam dose: 60 5.33 mGy-cm total exam DLP. COMPARISON: None FINDINGS: No intracranial mass lesion or hemorrhage or cerebrovascular accident is evident. Minimal r ight basal ganglia calcification. Normal ventricular size. No subdural or epidural hematoma. There is no renal mass lesion. No fracture or bone destruction of the cranial vault. Minimal soft tissue thickening of the right ethmoid air cells. IMPRESSION: Negative; intracranial abnormality Reviewed, dictated and finalized at Location A. Reviewed, dictated and finalized at location A.
--- NOTE | ~2022-06-21 | XR_ITS ---
XR chest 1V portable DATE: 06/26/2022 08:40 INDICATION: Dialysis catheter placement TECHNIQUE: Portable supine AP view on 06/26/2022 0827 hours COMPARISON: 06/26/2022 portable AP chest at 0517 hours FINDINGS: Persistent severe bilateral pulmonary infiltrates, without significant change since earlier today. ET and NG tubes in satisfactory position. Right internal jugular central venous catheter. Interval placement of left internal jugular central v enous line, distal tip overlying superior vena cava. No evidence of pneumothorax. IMPRESSION: Persistent severe bilateral diffuse pulmonary infiltrates Interval placement of left internal jugular central venous catheter, distal tip overlying superior ve na cava; no pneumothorax ET and NG tubes in satisfactory position Reviewed, dictated and finalized at location A. IMPRESSION: Persistent severe bilateral diffuse pulmonary infiltrates Interval placement of left internal jugular central venous catheter, distal tip overlying superior vena cava; no pneumothorax ET and NG tubes in satisfactory position
--- NOTE | ~2022-06-21 | CT_ITS ---
EXAMINATION: CT diagnostic chest wo con DATE: 06/25/2022 10:59 INDICATION: Respiratory failure TECHNIQUE: Computed tomography (CT) of the chest was performed without intravenous contrast. Automate d exposure control and iterative reconstruction technique were employed. Exam dose: 1075.47 mGy-cm t otal exam DLP. COMPARISON: 06/25/2022 portable AP chest 06/23/2022 CT chest abdomen FINDINGS: Extensive severe consolidating infiltrates throughout both lung virgen, increased in severi ty since 06/23/2022. Interval placement of ET tube, distal tip 1.5 cm above bradly. [place] range is 2-5 cm. NG tube in stomach. Cardiomegaly. No pericardial or pleural effusion. Mediastinal lymphadenopathy, likely reactive. Diffuse idiopathic skeletal hyperostosis of the thoracic spine. IMPRESSION: Severe extensive bilateral consolidating pulmonary infiltrates, increased since 06/23/2022 Reviewed, dictated and finalized at Location A. Reviewed, dictated and finalized at location A. IMPRESSION: Severe extensive bilateral consolidating pulmonary infiltrates, in creased since 06/23/2022
--- NOTE | ~2022-06-21 | XR_ITS ---
XR chest 1V portable DATE: 06/26/2022 05:54 INDICATION: Respiratory TECHNIQUE: Portable AP chest on 06/26/2022 at 0517 hours COMPARISON: 06/25/2022 CT chest 06/25/2022 portable AP chest at 05 4 cm FINDINGS: There are persistent severe diffuse bilateral pulmonary infiltrates. Cardiomegaly. No pneumothorax is evident. Right internal jugular central venous catheter tip overlies superior vena cava. ET and NG tubes appea r in satisfactory position. IMPRESSION: Persistent diffuse severe bilateral pulmonary infiltrates Reviewed, dictated and finalized at location A.
--- NOTE | 2022-06-21 15:45 | ECG_ITS ---
Measurements Intervals [place] Rate: 113 P: 71 OR: 150 QRS: 34 QRSD: 92 T: 62 QT: 352 QTc: 483 Interpretive Statements SINUS TACHYCARDIA VENTRICULAR BIGEMINY POSSIBLE RIGHT ATRIAL ENLARGEMENT POSSIBLE LEFT ATRIAL ENLARGEMENT BORDERLINE ST-T WAVE ABNORMALITY- HIGH LATERAL LEADS ABNORMAL ECG COMPARED TO ECG 07/29/2019 02:35:17 VENTRICULAR BIGEMINY NOW PRESENT Electronically Signed On 06-21-2022 16:33:29 CDT by Donte Steele D.O.
[2022-06-21 16:06] LABS: Basophils Absolute Auto 0.1 K/mm3 (0.0-0.1); Basophils Percent Auto 0.4 % (0.2-1.2); Eosinophils Absolute Auto 0.1 K/mm3 (0-0.3); Eosinophils Percent Auto 0.9 % (0-4.4); Hematocrit 29.6 % (37.0-47.0); Hemoglobin 9.4 g/dL (12.0-15.0); Immature Granulocyte Absolute 0.07 K/mm3 (0.00-0.031); Immature Granulocyte Percent A 0.6 % (0-0.5); Lymphocytes Absolute Auto 1.31 K/mm3 (0.9-3.2); Lymphocytes Percent Auto 10.3 % (18.3-44.2); Mean Corpuscular HGB Conc 31.8 g/dl (32-36); Mean Corpuscular Hemoglobin 24.7 pg (26-34); Mean Corpuscular Volume 77.7 fl (80-100); Mean Platelet Volume 10.2 fl (7.4-10.4); Monocytes Absolute Auto 0.6 K/mm3 (0.1-0.6); Monocytes Percent Auto 4.9 % (2.6-8.5); Neutrophils Absolute Auto 10.5 K/mm3 (1.3-6.7); Neutrophils Percent Auto 82.9 % (45.5-73.1); Platelet Count Result 497 k/mm3 (150-375); Red Blood Count 3.81 M/mm3 (4.2-5.4); Red Cell Distribution Width 17.8 % (11.5-14.5); White Blood Count 12.7 K/mm3 (4.5-10.0)
[2022-06-21 16:25] LABS: Alanine Aminotransferase 16 U/L (6-35); Albumin Level 3.8 g/dL (3.5-5.1); Alkaline Phosphatase 76 U/L (38-126); Anion Gap 14 mmol/L (8-16); Aspartate Amino Transferase 37 U/L (14-36); Bilirubin,Total 0.5 mg/dL (0.2-1.3); Blood Urea Nitrogen 13 mg/dL (7-17); Calcium 8.4 mg/dL (8.4-10.2); Carbon Dioxide 27 mmol/L (22-30); Chloride 94 mmol/L (98-107); Estimated CRCL calculation 75 ml/min; Estimated Glomerular Filt Rate 57; Glucose 147 mg/dL (65-110); Potassium 3.7 mmol/L (3.4-5.0); Sodium 135 mmol/L (137-145)
--- NOTE | 2022-06-21 16:38 | PC.NURSE ---
patient placed on 4L O2 NC. patient denies wearing O2 daily at home
--- NOTE | 2022-06-21 17:25 | ECG_ITS ---
Measurements Intervals [place] Rate: 104 P: 75 [place]: 150 QRS: 55 QRSD: 91 T: 70 QT: 350 QTc: 461 Interpretive Statements SINUS TACHYCARDIA POSSIBLE LEFT ATRIAL ENLARGEMENT BORDERLINE ST-T WAVE ABNORMALITY- DIFFUSE LEADS BASELINE WANDER- II, III, AVF, V1 BORDERLINE ECG COMPARED TO ECG 06/21/2022 16:13:53 HR HAS DECREASED Electronically Signed On 06-23-2022 14:38:38 CDT by Donte Steele D.O.
[2022-06-21 17:29] LABS: INR 1.1; Prothrombin Time 14.2 Seconds (11.1-14.7)
[2022-06-21 17:30] LABS: Partial Thromboplastin Time 35.9 SECONDS (22.3-36.8)
--- NOTE | 2022-06-21 17:32 | ED.SOB ---
HPI - SOB/Dyspnea General Chief Complaint: Shortness of Breath/Dyspnea <Maggi Medellin PA-C - Last Filed: 06/21/22 20:13> Stated Complaint: shortness of breath <Maggi Medellin PA-C - Last Filed: 06/21/22 20:13> Time Seen by Provider: 06/21/22 17:13 <Maggi Medellin PA-C - Last Filed: 06/21/22 20:13> Source: patient <LILLIANA Smith Last Filed: 06/21/22 20:13> Mode of arrival: wheelchair <LILLIANA Smith Last Filed: 06/21/22 20:13> Limitations: no limitations <Maggi Medellin PA-C - Last Filed: 06/21/22 20:13> History of Present Illness HPI Narrative: This is a 51-year-old female that presents to the emergency department for worsening dyspnea. Reports she started feeling ill about 4 days ago. Started to have a sore throat, fatigue and cough. She has been feeling more short of breath with exertion since yesterday. She has had a COVID vaccination, but has not had a booster. She does not have any known sick contacts. Denies fever or chest pain. <Maggi Medellin PA-C - Last Filed: 06/21/22 20:13> Related Data Allergies/Adverse Reactions: Allergies Allergy/AdvReac Type Severity Reaction Status Date / Time No Known Allergies Allergy n/a Uncoded 06/21/22 16:03 <Maggi Medellin PA-C - Last Filed: 06/21/22 20:13> Review of Systems Review of Systems: CONSTITUTIONAL: Denies fever ENT: Reports sore throat CARDIOVASCULAR: Denies chest pain, or edema. RESPIRATORY: Reports cough and dyspnea. <LILLIANA Smith Last Filed: 06/21/22 20:13> All systems reviewed & are unremarkable except as noted in HPI and below <Maggi Medellin PA-C - Last Filed: 06/21/22 20:13> [facility] Past Medical History Medical History: Medical History Abnormal antineutrophil cytoplasmic antibody (ANCA) test Anemia Arthritis Asthma COPD (chronic obstructive pulmonary disease) Diabetes Hx of blood clots Hypertension Interstitial lung disease Missed x1 Thyroid disease Undifferentiated connective tissue disease <LILLIANA Smith Last Filed: 06/21/22 20:13> Surgical History Surgical History: Surgical History Delivery by section x4 <Maggi Medellin PA-C - Last Filed: 06/21/22 20:13> Family History Family History: Family History Sibling Patient's sister is in good health Father Family history of malignant neoplasm Mother Family history of malignant neoplasm Patient's mother is Hypertension Family history of cardiovascular disease Grandparent Diabetes mellitus Hypertension <LILLIANA Smith Last Filed: 06/21/22 20:13> Social History Social History: Social History (Updated 06/21/22 @ 20:51 by Damaris Gibson NP) Social History: The patient has 6 children and is . She is considered disabled. She does not have a durable power criminal defense attorney for healthcare. She has never smoked does not use any alcohol marijuana or illicit drugs. Code status full code Smoking status: Never smoker Second hand tobacco smoke exposure: No Alcohol intake: never Substance use: never Substance use type: does not use Spiritual care concerns: No Agree to blood products: No <LILLIANA Smith Last Filed: 06/21/22 20:13> Exam Narrative: GENERAL: Well-appearing, well-nourished, and in no acute distress. HEAD: Normocephalic, atraumatic. EYES: EOMI. ENT: Nares clear, no rhinorrhea or epistaxis. Mucous membranes moist. Oropharynx without tonsillar hypertrophy exudate or other lesions. NECK: Supple. No adenopathy or masses. CHEST: No respiratory distress. Diffuse Rales. No wheezes or rhonchi HEART: Regular rate and rhythm. No murmur heard. Normal peripheral pulses. EXTREMITIES: Normal range of motion. No edema. SKI
[2022-06-21 17:40] LABS: D Dimer 2.97 ug/mL (<0.48)
[2022-06-21 17:41] LABS: Alveolar/Arterial O2 Gradient 177.3 mmHg; Carboxyhemoglobin 0.5 % THb (0-2.0); Fractional Inspired Oxygen 40 %; HCO3 ABG 27.2 mEq/l (22.0-26.0); Methemoglobin ABG 0.1 %THb (0-1.5); Oxygen Content ABG 13.2 %vol (16.0-22.0); Oxygen Saturation ABG 94.9 % (95.0-100.0); Oxyhemoglobin 91.7 % THb (90.0-100.0); PCO2 ABG 35.6 mmHg (35.0-45.0); PO2 FiO2 Ratio Arterial Blood 1.67 %; Reduced Hemoglobin 7.7 %THb (0-5.0); Total Hemoglobin 10.2 g/dL (12.0-18.0); pH ABG 7.501 (7.350-7.450)
[2022-06-21 17:42] LABS: Device NASAL CANNULA; Modified Allen's Test Pass; Site Drawn RIGHT RADIAL
[2022-06-21 17:57] LABS: NT Pro B Type Natriuretic Pept 297 pg/mL (5-100)
[2022-06-21 18:07] LABS: Influenza A QL RT-PCR Negative (Negative); Influenza B QL RT-PCR Negative (Negative); SARS-CoV-2 RNA PCR Negative
[2022-06-21 19:04] LABS: Lactic Acid Reflex 1.1 mmol/L (0.7-2.0)
--- NOTE | 2022-06-21 20:26 | PM.IMHP ---
H&P: HPI History of Present Illness Date/Time: 06/21/22 20:26 Chief Complaint: Shortness of breath Narrative: This is a 51-year-old female patient who has a history of COPD and interstitial lung disease. The patient was brought to the emergency room for worsening dyspnea. The patient does not wear oxygen at home but has a history of sleep apnea and uses a CPAP machine. The patient stated that she started feeling ill about 4 days ago. She had a sore throat, fatigue and cough. She has no known sick contacts and she denies any fever or chest pain. She has had her COVID vaccine but not the booster. The patient was found to be negative for COVID tonight. Her white count was noted to be 12.7. Her H&H is 9.4 and 29.6 which is slightly lower than her baseline. MCV is low at 77.7. D-dimer was noted to be 2.97. On her ABGs her pH was 7.501 with PO2 67.0. O2 saturation was 94.9%. The patient was placed on 5 L per nasal cannula oxygen. Creatinine is 1.2. Glucose 147. She was also negative for influenza a and B. she was given a azithromycin Rocephin and IV fluids in the emergency room. The patient is being admitted to observation status on the date of service of 06/21/2022. Review of Systems Review of Systems: See HPI All systems reviewed & are unremarkable except as noted in HPI and below Constitutional: Constitutional: Reports as per HPI and Reports no additional constitutional complaints Eyes: Eyes: Reports as per HPI and Reports no additional eye complaints ENT: Reports system reviewed and no additional complaints, except as documented and Reports Normal hearing present Cardiovascular: Cardiovascular: Reports no additional cardiovascular complaints Respiratory: Respiratory: Reports no additional respiratory complaints and Reports no additional respiratory complaints Gastrointestinal: Gastrointestinal: Reports as per HPI and Reports no additional gastrointestinal complaints Musculoskeletal: Musculoskeletal: Reports no additional musculoskeletal complaints Integumentary/Breasts: Skin/Breast: Reports system reviewed and no additional complaints, except as docu and Reports as per HPI Neurologic: Reports system reviewed and no additional complaints, except as documented, Reports as per HPI and Reports Normal hearing present Psychiatric: Psychiatric: Reports no additional psychiatric complaints and Reports as per HPI Endocrine: Endocrine: Reports no additional endocrine complaints Hematologic/Lymphatic: Hematologic/Lymphatic: Reports no additional hematologic/lymphatic complaints Allergic/Immunologic: Allergic/Immunologic: Reports no additional allergic/immunologic complaints PMFSH Past Medical History Medical History Abnormal antineutrophil cytoplasmic antibody (ANCA) test Anemia Arthritis Asthma COPD (chronic obstructive pulmonary disease) Diabetes Hx of blood clots Hypertension Interstitial lung disease Missed x1 Thyroid disease Undifferentiated connective tissue disease Surgical History Surgical History Delivery by section x4 Family History Family History Sibling Patient's sister is in good health Father Family history of malignant neoplasm Mother Family history of malignant neoplasm Patient's mother is Hypertension Family history of cardiovascular disease Grandparent Diabetes mellitus Hypertension Social History Social History (Updated 06/21/22 @ 20:51 by Damaris Gibson NP) Social History: The patient has 6 children and is . She is considered disabled. She does not have a durable power state's attorney for healthcare. She has never smoked does not use any alcohol marijuana or illicit drugs. Code status full code Smoking status: Never smoker Second hand tobacco smoke exposure: N
[2022-06-21] MEDS: IPRATROPIUM BR 0.02% INH SOLN 0.5 MG/2.5 ML VIAL INHALATION (21:00)
[2022-06-21] MEDS: ALBUTEROL SULFATE NEB 2.5 MG/3 ML INH INHALATION (21:00)
--- NOTE | 2022-06-21 22:10 | ADMGEN ---
This patient, Veena Sanderson, was admitted to IMU Room 206-02. Patient/family oriented to hospital policies and general routines including ID bracelet, bed and alarms, visiting hours, pain management, procedures, bathroom and other care routines, personal items, smoking policy, room service/diet, and visiting hours. Information on how to activate the Rapid Response Team has been discussed. Patient/Family are encouraged to report perceived risks to care and to ask questions if they do not understand what they are told or what they should do.
[2022-06-21 22:11] LABS: Glucose Point of Care 144 mg/dl (65-105)
--- NOTE | 2022-06-21 23:20 | PCRCNOTE ---
RN called RT stating that the patient's 02 saturations were low and would not improve despite increased liter flows. When RT arrived, pt was on 5L NC with an 02 saturation of 86%. RT placed pt on 8L high flow NC. Pt 02 saturations improved to 91%. Pt wears CPAP at home during the evening for sleep, so RT placed pt on AUTOPAP with a 5L bleed in. Pt desatted to 81%. RT placed pt back on 9L high flow NC. RT and RN both agreed the pt will need BIPAP due to increased 02 needs. RN called MD and MD placed orders of 14/8 with a rate of 20. RT placed pt on BIPAP 14/8 rate of 20 with 60% Fi02. Pt is resting comfortably on the BIPAP with 02 saturation of 94%.
[2022-06-22] VITALS (26 sets, daily range): BP systolic 119–138; BP diastolic 64–77; PULSE 79–107; RESP 20–46; TEMP 36.1–36.8; O2SAT 90–97
--- NOTE | 2022-06-22 00:04 | PCRCNOTE ---
Per MD order, placed pt on AIRVO 50L/65%.
[2022-06-22] MEDS: FUROSEMIDE INJ 40 MG/4 ML VIAL 20 MG IV PUSH (00:08)
[2022-06-22] MEDS: MAGNESIUM SULF 2 GM/WATER 50ML 2 GM/50 ML BAG IVPB (00:08)
[2022-06-22] MEDS: methylPREDNISolone SOD SUCC 125 MG VIAL IV PUSH (00:08)
[2022-06-22] MEDS: LORazepam INJ (*CRX) 2 MG/ML VIAL 1 MG IV PUSH (01:16)
[2022-06-22] MEDS: ALBUTEROL SULFATE NEB 2.5 MG/3 ML INH INHALATION ×4 (01:37→20:56)
[2022-06-22] MEDS: IPRATROPIUM BR 0.02% INH SOLN 0.5 MG/2.5 ML VIAL INHALATION ×4 (01:37→20:56)
[2022-06-22 03:26] LABS: Alveolar/Arterial O2 Gradient 406.3 mmHg; Base Excess ABG 1.2 mEq/l (+/-2.0); Fractional Inspired Oxygen 70 %; HCO3 ABG 24.6 mEq/l (22.0-26.0); Modified Allen's Test Pass; Oxygen Content ABG 12.4 %vol (16.0-22.0); Oxygen Saturation ABG 91.2 % (95.0-100.0); PCO2 ABG 34.3 mmHg (35.0-45.0); PO2 ABG 55.9 mmHg (80.0-100.0); Site Drawn RIGHT RADIAL; pH ABG 7.473 (7.350-7.450)
[2022-06-22 03:27] LABS: Device HIGH FLOW THERAPY
[2022-06-22 04:45] LABS: Hematocrit 28.8 % (37.0-47.0); Hemoglobin 8.9 g/dL (12.0-15.0); Mean Corpuscular HGB Conc 30.9 g/dl (32-36); Mean Corpuscular Hemoglobin 23.9 pg (26-34); Mean Corpuscular Volume 77.2 fl (80-100); Mean Platelet Volume 10.2 fl (7.4-10.4); Platelet Count Result 459 k/mm3 (150-375); Red Blood Count 3.73 M/mm3 (4.2-5.4); Red Cell Distribution Width 17.6 % (11.5-14.5); White Blood Count 14.1 K/mm3 (4.5-10.0)
[2022-06-22 05:19] LABS: Hemoglobin A1C 5.6 % (<5.7)
[2022-06-22 05:21] LABS: Anisocytosis 1+ (NORMAL); Band Neutrophils Percent 1 % (0-6); Basophils Absolute Manual 0.28 K/mm3 (0.0-0.1); Basophils Percent Manual 2 % (0-1); Lymphocytes Absolute Manual 0.56 K/mm3 (1.1-4.5); Monocytes Absolute Manual 0.14 K/mm3 (0.1-0.90); Monocytes Percent Manual 1 % (3-9); Neutrophils Absolute Manual 13.11 K/mm3 (1.7-7.2); Neutrophils Percent Manual 92 % (46-73); Platelet Clumps Present; Total Cells Counted 100
[2022-06-22 05:22] LABS: Macrocytosis 1+ (NORMAL)
[2022-06-22 05:23] LABS: Ovalocytes 1+ (NORMAL); Poikilocytosis 1+ (NORMAL)
[2022-06-22 05:24] LABS: Hypersegmented Neutrophils Present
[2022-06-22 05:25] LABS: Burr Cells 1+ (NORMAL)
[2022-06-22 05:30] LABS: Alanine Aminotransferase 17 U/L (6-35); Albumin Level 3.7 g/dL (3.5-5.1); Alkaline Phosphatase 77 U/L (38-126); Anion Gap 15 mmol/L (8-16); Aspartate Amino Transferase 27 U/L (14-36); Bilirubin,Total 0.5 mg/dL (0.2-1.3); Blood Urea Nitrogen 13 mg/dL (7-17); CRP 15.4 mg/dL (<1.0); Calcium 8.1 mg/dL (8.4-10.2); Carbon Dioxide 26 mmol/L (22-30); Chloride 92 mmol/L (98-107); Estimated CRCL calculation 70 ml/min; Estimated Glomerular Filt Rate 52; Glucose 189 mg/dL (65-110); Magnesium 2.4 mg/dL (1.6-2.3); Potassium 3.8 mmol/L (3.4-5.0); Sodium 133 mmol/L (137-145)
[2022-06-22 05:40] LABS: Lactate Dehydrogenase 242 U/L (120-246)
[2022-06-22] MEDS: LEVOTHYROXINE SODIUM 50 MCG TABLET PO (06:08)
[2022-06-22] MEDS: methylPREDNISolone SOD SUCC 125 MG VIAL 80 MG IV PUSH ×3 (06:08→21:42)
[2022-06-22 08:44] LABS: Glucose Point of Care 183 mg/dl (65-105)
[2022-06-22] MEDS: ENOXAPARIN 40 MG/0.4 ML SYRINGE SUB-Q (09:48)
[2022-06-22] MEDS: azaTHIOprine 50 MG TABLET PO ×2 (09:49→17:56)
[2022-06-22] MEDS: amLODIPine BESYLATE 5 MG TABLET 10 MG PO (09:50)
[2022-06-22] MEDS: hydroCHLOROthiazide 25 MG TABLET PO (09:50)
[2022-06-22] MEDS: FUROSEMIDE 40 MG TABLET PO (09:50)
[2022-06-22] MEDS: LOSARTAN POTASSIUM 100 MG TABLET PO (09:50)
[2022-06-22 12:24] LABS: Glucose Point of Care 157 mg/dl (65-105)
--- NOTE | 2022-06-22 12:44 | PM.IMPN ---
Progress Note: A&P Assessment and Plan (1) Pneumonia: Qualifiers: Laterality: bilateral Lung location: unspecified part of lung Pneumonia type: due to unspecified organism Qualified Code(s): J18.9 - Pneumonia, unspecified organism Code(s): J18.9 - Pneumonia, unspecified organism Status: Acute Assessment and Plan: -continue with antibiotic protocol azithromycin Rocephin -continue with nebulizer treatments -blood and sputum cultures are pending -oxygen as required -she has mild leukocytosis monitor CBC daily -p.r.n. Tylenol (2) Hyperlipidemia: Code(s): E78.5 - Hyperlipidemia, unspecified Status: Acute Assessment and Plan: -continue with current treatment (3) Essential (primary) hypertension: Code(s): I10 - Essential (primary) hypertension Status: Acute Assessment and Plan: -continue with home medications since they are still being reconciled -continue with Norvasc -continue with Lasix -continue with losartan -continue to monitor renal function, creatinine slightly elevated today. (4) Diabetes mellitus type 2 in obese: Code(s): E11.69 - Type 2 diabetes mellitus with other specified complication; E66.9 - Obesity, unspecified Status: Acute Assessment and Plan: -Accu-Cheks AC and HS with sliding scale insulin -hold metformin as her renal functions are slightly elevated today. (5) Hx of pulmonary embolus: Code(s): Z86.711 - Personal history of pulmonary embolism Status: Acute Assessment and Plan: -continue with current treatment (6) Hypothyroidism (acquired): Code(s): E03.9 - Hypothyroidism, unspecified Status: Acute Assessment and Plan: -check thyroid level -continue with levothyroxine (7) LEONARDO (obstructive sleep apnea): Code(s): G47.33 - Obstructive sleep apnea (adult) (pediatric) Status: Acute Assessment and Plan: -continue with home setting for BiPAP Subjective Date/time seen: 06/22/22 12:44 still having significant shortness of breath Exam Const: General: cooperative, comfortable, no acute distress, well developed, alert, awake, Physically active and ill appearing Nutritional Appearance: obese Orientation/consciousness: oriented to person, oriented to place, oriented to time and patient oriented x3 Limitations: no limitations HENMT: Head: normal to inspection, No palpable skull fracture present, normocephalic and atraumatic Ears: hearing grossly normal bilaterally and external ears normal General nose exam: Normal external nose present and Normal nares present Eyes: General: appearance normal, both eyes and all related structures Alignment and Position: alignment normal Periorbital: periorbital findings normal Eyelids: eyelids normal Sclera: sclerae normal Pupils: Equal, round and reactive pupils present EOM: EOMs intact bilaterally Neck: Neck: normal visual inspection Other: Enhanced neck girth Chest: Chest palpation & inspection: normal inspection of the chest Resp: Effort & Inspection: normal respiratory effort Auscultation: diminished lung sounds bilateral Percussion: percussion normal Cardio: Palpation: normal PMI Rate: tachycardic Rhythm: regular rhythm Heart sounds: S1 normal heart sound present and S2 normal heart sound present Peripheral pulses: Peripheral pulses 2+ throughout GI: Inspection: normal to inspection Auscultation: normal bowel sounds Rectal Exam: deferred Back/Spine/Pelvis: Cervical Spine: cervical ROM normal Skin: General skin exam: normal color Lesions: no lesions Rashes: no rashes Trauma: no lacerations or abrasions Wounds: no wounds Hair: normal Nails: normal Neuro: General: oriented to person, oriented to place, oriented to time and patient oriented x3 Cranial nerves: Yes Equal, round and reactive pupils present and Yes Normal hearing present Cognition (Neuro): normal cognition Speech: normal speech Gait exam (N
[2022-06-22 16:24] LABS: Glucose Point of Care 136 mg/dl (65-105)
[2022-06-22 21:36] LABS: Glucose Point of Care 181 mg/dl (65-105)
[2022-06-23] VITALS (27 sets, daily range): BP systolic 105–136; BP diastolic 54–71; PULSE 73–100; RESP 18–40; TEMP 36.3–36.9; O2SAT 91–97
[2022-06-23] MEDS: ALBUTEROL SULFATE NEB 2.5 MG/3 ML INH INHALATION ×4 (03:22→21:45)
[2022-06-23] MEDS: IPRATROPIUM BR 0.02% INH SOLN 0.5 MG/2.5 ML VIAL INHALATION ×4 (03:22→21:45)
[2022-06-23] MEDS: methylPREDNISolone SOD SUCC 125 MG VIAL 80 MG IV PUSH ×3 (06:37→21:46)
[2022-06-23] MEDS: LEVOTHYROXINE SODIUM 50 MCG TABLET PO (06:37)
[2022-06-23 10:09] LABS: Glucose Point of Care 152 mg/dl (65-105)
[2022-06-23 10:16] LABS: Mean Corpuscular Hemoglobin 24.3 pg (26-34); Mean Corpuscular Volume 78.2 fl (80-100); Mean Platelet Volume 10.3 fl (7.4-10.4); Platelet Count Result 525 k/mm3 (150-375); Red Blood Count 3.71 M/mm3 (4.2-5.4); Red Cell Distribution Width 17.5 % (11.5-14.5)
[2022-06-23 10:30] LABS: Anion Gap 14 mmol/L (8-16); Blood Urea Nitrogen 24 mg/dL (7-17); Carbon Dioxide 27 mmol/L (22-30); Chloride 94 mmol/L (98-107); Estimated CRCL calculation 66 ml/min; Estimated Glomerular Filt Rate 48; Glucose 279 mg/dL (65-110); Sodium 135 mmol/L (137-145)
[2022-06-23 10:36] LABS: NT Pro B Type Natriuretic Pept 327 pg/mL (5-100)
[2022-06-23 10:38] LABS: Alveolar/Arterial O2 Gradient 525.6 mmHg; Base Excess ABG 0.6 mEq/l (+/-2.0); Fractional Inspired Oxygen 90 %; HCO3 ABG 24.9 mEq/l (22.0-26.0); Oxygen Content ABG 14.1 %vol (16.0-22.0); Oxygen Saturation ABG 95.6 % (95.0-100.0); Oxyhemoglobin 93.2 % THb (90.0-100.0); PCO2 ABG 38.7 mmHg (35.0-45.0); PO2 ABG 76.4 mmHg (80.0-100.0); PO2 FiO2 Ratio Arterial Blood 0.85 %; Total Hemoglobin 10.7 g/dL (12.0-18.0); pH ABG 7.427 (7.350-7.450)
[2022-06-23 10:38] LABS: Basophils Percent Auto 0.1 % (0.2-1.2); Immature Granulocyte Absolute 0.23 K/mm3 (0.00-0.031); Immature Granulocyte Percent A 1.2 % (0-0.5); Lymphocytes Absolute Auto 0.86 K/mm3 (0.9-3.2); Lymphocytes Percent Auto 4.4 % (18.3-44.2); Monocytes Absolute Auto 0.4 K/mm3 (0.1-0.6); Monocytes Percent Auto 1.9 % (2.6-8.5); Neutrophils Absolute Auto 18.3 K/mm3 (1.3-6.7); Neutrophils Percent Auto 92.4 % (45.5-73.1)
[2022-06-23 10:39] LABS: Device HIGH FLOW THERAPY; Modified Allen's Test Pass; Site Drawn RIGHT RADIAL
[2022-06-23] MEDS: FUROSEMIDE 40 MG TABLET PO (11:55)
[2022-06-23] MEDS: amLODIPine BESYLATE 5 MG TABLET 10 MG PO (11:55)
[2022-06-23] MEDS: hydroCHLOROthiazide 25 MG TABLET PO (11:55)
[2022-06-23] MEDS: ENOXAPARIN 40 MG/0.4 ML SYRINGE SUB-Q (11:55)
[2022-06-23] MEDS: LOSARTAN POTASSIUM 100 MG TABLET PO (11:55)
[2022-06-23] MEDS: azaTHIOprine 50 MG TABLET PO ×2 (11:56→17:07)
[2022-06-23 12:02] LABS: CRP 5.9 mg/dL (<1.0)
[2022-06-23 12:44] LABS: SARS-CoV-2 RNA PCR Negative
[2022-06-23 13:01] LABS: Glucose Point of Care 198 mg/dl (65-105)
--- NOTE | 2022-06-23 16:58 | PM.CNPUL ---
Assessment and Plan Assessment and plan (1) Acute hypoxemic respiratory failure: Code(s): J96.01 - Acute respiratory failure with hypoxia Status: Acute Assessment and Plan: this 51-year-old female presented with shortness of breath, acute hypoxemic respiratory failure related to extensive bilateral consolidations, with no other signs suggestive of fulminant pneumonia. This this chest CT pattern has acute at least 2-3 times over the last 6 years when the patient was similarly hospitalized and received treatment with antibiotics for possible pneumonia and also treatment with IV steroids. The etiology of these bilateral pulmonary opacities is not quite clear. Review of previous chest CTs over the last 6 years shows a recurrent pattern of dense opacities bilaterally more on the right, with occasional air bronchograms and no evidence of pleural effusion. Subsequent chest CTs invariably showed clearing of these opacities with small residual ground-glass opacities and mild nonspecific interstitial lung disease changes. There was no evidence of significant interstitial lung disease such as NSIP or UIP seen in patients with autoimmune disease. The patient has underlying autoimmune disease that has not been fully characterized. Previous serology testing showed negative CHELI, elevated double-stranded DNA, positive Ro antibodies, elevated RF. She also had positive p-ANCA antibodies with a relatively very low titer. no previous testing for MPO or PR3 antibodies. The patient is chronically on immunosuppressive treatment with Imuran. Differential diagnosis of these opacities most likely includes pneumonitis related to underlying unknown connective tissue disease, cryptogenic organizing pneumonia and less likely alveolar hemorrhage or pneumonia. this type of pneumonitis usually occurs in patients with SLE and also in CHELI-negative SLE with Ro antibodies. As stated the patient has no other symptoms to suggest lower respiratory tract infections such as productive cough, fever, chills or hemoptysis. She does not look septic at all. Plan: the patient will need extensive serology testing for underlying autoimmune disease. we will continue with current antibiotic regimen and also IV steroids. Will attempt bronchoscopy with BAL in a.m.. The procedure was explained to the patient who is agreeable. The patient will be kept NPO tonight. (2) Pneumonia: Qualifiers: Laterality: bilateral Lung location: unspecified part of lung Pneumonia type: due to unspecified organism Qualified Code(s): J18.9 - Pneumonia, unspecified organism Code(s): J18.9 - Pneumonia, unspecified organism Status: Acute (3) Morbid obesity with BMI of 60.0-69.9, adult: Code(s): E66.01 - Morbid (severe) obesity due to excess calories; Z68.44 - Body mass index [BMI] 60.0-69.9, adult Status: Acute (4) Undifferentiated connective tissue disease: Code(s): M35.9 - Systemic involvement of connective tissue, unspecified Status: Acute (5) Morbid obesity: Code(s): E66.01 - Morbid (severe) obesity due to excess calories Status: Acute (6) LEONARDO (obstructive sleep apnea): Code(s): G47.33 - Obstructive sleep apnea (adult) (pediatric) Status: Acute History of Present Illness History of Present Illness Consult date: 06/23/22 Chief complaint: Acute Respiratory Failure w/Hypoxia,Pneumonia Narrative: this 51-year-old female presented with 2 day history of shortness of breath. The patient has history of morbid obesity obstructive sleep apnea on CPAP and also history of autoimmune disease for which she has been chronically on Imuran and hydroxychloroquine. the patient was in her usual state of health until approximately 3 days ago when he started having a scratchy throat. The next day she started having shortness of breath which progressively increased to the point to come to the emergency room. She complained also
[2022-06-23 17:18] LABS: Glucose Point of Care 176 mg/dl (65-105)
[2022-06-23 21:38] LABS: Glucose Point of Care 239 mg/dl (65-105)
[2022-06-24] VITALS (44 sets, daily range): BP systolic 80–155; BP diastolic 51–89; PULSE 83–137; RESP 20–52; TEMP 36.4–37.3; O2SAT 73–100; BMI 64.6
[2022-06-24] MEDS: FUROSEMIDE INJ 40 MG/4 ML VIAL IV PUSH (01:09)
[2022-06-24] MEDS: MORPHINE SULFATE (*CRX) 2 MG/ML INJ 1 MG IV PUSH ×2 (01:09→03:25)
[2022-06-24] MEDS: IPRATROPIUM BR 0.02% INH SOLN 0.5 MG/2.5 ML VIAL INHALATION ×2 (03:02→08:29)
[2022-06-24] MEDS: ALBUTEROL SULFATE NEB 2.5 MG/3 ML INH INHALATION ×2 (03:02→08:29)
[2022-06-24 04:58] LABS: Basophils Percent Auto 0.1 % (0.2-1.2); Hematocrit 30.2 % (37.0-47.0); Hemoglobin 9.2 g/dL (12.0-15.0); Immature Granulocyte Absolute 0.24 K/mm3 (0.00-0.031); Immature Granulocyte Percent A 0.9 % (0-0.5); Immature Platelet Fraction Pct 11.7 % (0.9-11.2); Lymphocytes Absolute Auto 0.62 K/mm3 (0.9-3.2); Lymphocytes Percent Auto 2.4 % (18.3-44.2); Mean Corpuscular HGB Conc 30.5 g/dl (32-36); Mean Corpuscular Hemoglobin 24.3 pg (26-34); Mean Corpuscular Volume 79.7 fl (80-100); Monocytes Percent Auto 3.7 % (2.6-8.5); Neutrophils Absolute Auto 23.8 K/mm3 (1.3-6.7); Neutrophils Percent Auto 92.9 % (45.5-73.1); Nucleated Red Blood Cells Perc 0.1 % (0.0-0.2); Red Blood Count 3.79 M/mm3 (4.2-5.4); Red Cell Distribution Width 17.9 % (11.5-14.5); White Blood Count 25.6 K/mm3 (4.5-10.0)
[2022-06-24 05:09] LABS: Anion Gap 12 mmol/L (8-16); Blood Urea Nitrogen 34 mg/dL (7-17); Calcium 7.6 mg/dL (8.4-10.2); Carbon Dioxide 29 mmol/L (22-30); Chloride 95 mmol/L (98-107); Estimated CRCL calculation 76 ml/min; Estimated Glomerular Filt Rate 57; Glucose 192 mg/dL (65-110); Potassium 4.3 mmol/L (3.4-5.0); Sodium 136 mmol/L (137-145)
[2022-06-24 05:19] LABS: Platelet Estimate Adequate (Adequate)
[2022-06-24] MEDS: LEVOTHYROXINE SODIUM 50 MCG TABLET PO (05:52)
[2022-06-24] MEDS: methylPREDNISolone SOD SUCC 125 MG VIAL 80 MG IV PUSH ×3 (05:53→21:27)
--- NOTE | 2022-06-24 09:45 | WPDCNINT ---
Assessment and Plan Assessment and plan (1) Acute hypoxemic respiratory failure: Code(s): J96.01 - Acute respiratory failure with hypoxia Status: Acute Assessment and Plan: Acute hypoxic Respiratory failure secondary to pneumonitis versus ARDS Patient has history of recurrent episodes of this bilateral pneumonia which appears to be noninfectious and likely related to her control check connective tissue disorder no clear diagnosis. Other differential diagnosis includes cryptogenic organizing pneumonia, hypersensitive pneumonitis, acute interstitial pneumonia, ARDS Her hypoxia has been gradually getting worse since she was admitted and now she was on BiPAP with 80-90% FiO2 with still tachypnea and in respiratory distress Pulmonary was planning to do bronchoscopy but was unable do it due to hypoxia and BiPAP. Patient was transferred to ICU and intubated. Although intubation was uneventful patient remained hypoxic despite bagging with a PEEP valve. With bagging her sats could only improve up to 80% and stayed in 70s. Patient was sedated by giving additional sedation and paralyzed with rocuronium. Patient had poor IV access hence a emergent central venous catheter was placed. She is morbidly obese which has complicated the management. I did not see any evidence of hemoptysis during intubation. Post intubation Chest x-ray reviewed and did not show any pneumothorax and showed ET tube in acceptable position Vent settings reviewed. Currently peep is at 15 and FiO2 is at 100%. Tidal volume 6 mL/kg as per ARDS net protocol I have chemically paralyzed patient to prevent patient ventilator asynchrony I will prone patient and if that does not help, will try Flolan inhalation I will defer workup for interstitial lung disease to pulmonary Wireless Sales Representative Continue broad-spectrum antibiotics for bacterial coverage including atypical although this does not appear to be bacterial pneumonia Continue Solu-Medrol ABGs pending Continue Bronchodilators (2) Pneumonitis: Code(s): J18.9 - Pneumonia, unspecified organism Status: Acute (3) Moderate persistent asthma without complication: Code(s): J45.40 - Moderate persistent asthma, uncomplicated Status: Acute Assessment and Plan: See above (4) ILD (interstitial lung disease): Code(s): J84.9 - Interstitial pulmonary disease, unspecified Status: Acute (5) Pulmonary hypertension: Code(s): I27.20 - Pulmonary hypertension, unspecified Status: Acute Assessment and Plan: See above (6) LEONARDO (obstructive sleep apnea): Code(s): G47.33 - Obstructive sleep apnea (adult) (pediatric) Status: Acute Assessment and Plan: Now intubated (7) Diabetes mellitus type 2 in obese: Code(s): E11.69 - Type 2 diabetes mellitus with other specified complication; E66.9 - Obesity, unspecified Status: Acute Assessment and Plan: SSI (8) Essential (primary) hypertension: Code(s): I10 - Essential (primary) hypertension Status: Acute Assessment and Plan: P.o. medications on hold as blood pressure is in adequate range. Will use p.r.n. labetalol and hydralazine if needed (9) Hypothyroidism (acquired): Code(s): E03.9 - Hypothyroidism, unspecified Status: Acute Assessment and Plan: Continue levothyroxine (10) Connective tissue disorder: Code(s): M35.9 - Systemic involvement of connective tissue, unspecified Status: Acute Assessment and Plan: She is currently on steroids. hydroxychloroquine and azathioprine [place] (11) ROCK (acute kidney injury): Code(s): N17.9 - Acute kidney failure, unspecified Status: Acute Assessment and Plan: Patient presented with slightly elevated creatinine. She has been receiving Lasix Hold Lasix at this time Hold Cozaar Check CK level Monitor urine output electrolytes and creatinine UA is ordered look for any hematuria and RBC
[2022-06-24 09:47] LABS: Glucose Point of Care 185 mg/dl (65-105)
[2022-06-24 09:50] LABS: Procalcitonin 0.3 ng/mL
[2022-06-24] MEDS: hydroCHLOROthiazide 25 MG TABLET PO (09:53)
[2022-06-24] MEDS: LOSARTAN POTASSIUM 100 MG TABLET PO (09:53)
[2022-06-24] MEDS: FUROSEMIDE 40 MG TABLET PO (09:53)
--- NOTE | 2022-06-24 10:58 | PM.PNPUL ---
Progress Note: A&P Assessment and Plan (1) Acute hypoxemic respiratory failure: Code(s): J96.01 - Acute respiratory failure with hypoxia Status: Acute Assessment and Plan: ?this 51-year-old female presented with? shortness of breath,? acute hypoxemic respiratory failure related to extensive bilateral consolidations,? with no other signs suggestive of? fulminant pneumonia. ? This chest CT pattern has been seen at least 2-3 times over the last 6 years when the patient was similarly hospitalized and received treatment with antibiotics for possible pneumonia and also treatment with IV steroids.? The etiology of these bilateral pulmonary opacities is not quite clear.? Review of previous chest CTs? over the last 6 years shows a recurrent pattern of dense opacities bilaterally more on the right, with? occasional air bronchograms and no evidence of? pleural effusion. Subsequent chest CTs invariably showed? clearing of these opacities with small? residual ground-glass opacities and mild nonspecific interstitial lung disease changes.? There was no evidence of significant interstitial lung disease such as NSIP or UIP? seen in patients with autoimmune disease. The patient has underlying autoimmune disease that has not been fully characterized.? Previous serology testing showed? negative CHELI,? elevated double-stranded DNA,? positive Ro antibodies, elevated RF.? She also had positive p-ANCA antibodies with a relatively very low titer.? no previous testing for MPO or PR3? antibodies. The patient is chronically on immunosuppressive treatment with Imuran.? Differential diagnosis of these opacities most likely includes pneumonitis related to underlying unknown connective tissue disease, cryptogenic organizing pneumonia and less likely? alveolar hemorrhage or pneumonia. ? this type of pneumonitis usually occurs in patients with SLE and also in CHELI-negative SLE with Ro antibodies. As stated the patient has no other symptoms to suggest lower respiratory tract infections such as productive cough, fever, chills or hemoptysis.? She does not look septic at all.? procalcitonin level not elevated. CRP trending down. on last chest CT there was worsening of bilateral infiltrates. Plan: Patient will be intubated in the intensive care unit. Will proceed with bronchoscopy and BAL. antibiotic coverage was broadened. will continue with current Solu-Medrol dose for now. Serology testing pending. The case was discussed with the financial processing clerk. (2) Pneumonitis: Code(s): J18.9 - Pneumonia, unspecified organism Status: Acute (3) Connective tissue disorder: Code(s): M35.9 - Systemic involvement of connective tissue, unspecified Status: Acute (4) Morbid obesity with BMI of 60.0-69.9, adult: Code(s): E66.01 - Morbid (severe) obesity due to excess calories; Z68.44 - Body mass index [BMI] 60.0-69.9, adult Status: Acute (5) Undifferentiated connective tissue disease: Code(s): M35.9 - Systemic involvement of connective tissue, unspecified Status: Acute (6) COPD with asthma: Code(s): J44.9 - Chronic obstructive pulmonary disease, unspecified Status: Acute (7) LEONARDO (obstructive sleep apnea): Code(s): G47.33 - Obstructive sleep apnea (adult) (pediatric) Status: Acute Subjective Date/time seen: 06/24/22 10:58 Patient Has more shortness of breath this a.m.. FiO2 increased while patient is on BiPAP support. She has no cough fever or chills. Afebrile. She was transferred to the intensive care unit because of worsening hypoxemia. Review of Systems Review of Systems: All system review is negative except as noted in HPI and below Exam Const: Other: GENERAL APPEARANCE: Well developed, well nourished, alert and cooperative, morbidly obese and appears to be in mild respiratory distress while on supplemental oxygen via BIPAP. SKIN: Inspection of the skin reveals no rashes, ulcerations or petechiae.
[2022-06-24] MEDS: MIDAZOLAM HCL (*CRX) 2 MG/2 ML VIAL 5 MG IV PUSH (11:10)
[2022-06-24] MEDS: MIDAZOLAM HCL (*CRX) 2 MG/2 ML VIAL 4 MG IV PUSH (11:10)
[2022-06-24] MEDS: ETOMIDATE 20 MG/10 ML AMPUL 40 MG IV PUSH (11:11)
[2022-06-24] MEDS: fentaNYL CITRATE INJ (*CRX) 100 MCG/2 ML VIAL 50 MCG IV PUSH ×2 (11:11→11:42)
[2022-06-24] MEDS: ROCURONIUM BROMIDE 50 MG/5 ML VIAL IV PUSH (11:12)
[2022-06-24] MEDS: SUCCINYLCHOLINE CHLORIDE 20 MG/ML 10 ML VIAL 200 MG IV PUSH (11:12)
[2022-06-24] MEDS: FENTANYL 2,500MCG/NS250ML(*CRX 2,500 MCG/250 ML BAG 10 MCG IV CONT (11:13)
[2022-06-24] MEDS: MIDAZOLAM 100MG/NS 100ML(*CRX) 100 MG/100 ML BAG IV CONT (11:13)
[2022-06-24] MEDS: CISATRACURIUM BESYLATE 20 MG/10 ML VIAL 24.8 MG IV PUSH (11:23)
--- NOTE | 2022-06-24 11:32 | WPDPROCEDUR ---
Procedures Intubation Intubation Date: 06/24/22 Intubation Time: 10:30 Consent: Verbal consent was obtained from the patient A pre-procedural Time-Out was completed immediately before starting the procedure and confirmed: Patient Identification, Site, Procedure, Patient Position and the Availability of Requisite Equipment: Yes Sedative: etomidate Mg given: 40 Paralytic: succinylcholine Mg given: 200 Laryngoscope: fiber optic video scope Assist device used: fiber optic device ET tube size: cuffed Tube secured depth (cm): 26 Tube secured location: lips Tube placement confirmation: visualized tube passing through cords, equal breath sounds bilaterally, no breath sounds over epigastrium and confirmation by capnometry Patient tolerated procedure: other Intubation complications: hypoxia Additional comments: Initially tube was placed at 26 cm at the lip. After securing the tube with a tube prince tube was at 28 cm. Breath sounds were decreased on the left side. Tube was withdrawn by 3 cm prior to chest x-ray. Chest x-ray was reviewed See separate note for hypoxia
--- NOTE | 2022-06-24 11:33 | P.PCNBED_ITS ---
Procedures Central Line Placement Right IJ: Central Line Date: 06/24/22 Central Line Time: 11:00 Performed Emergently - Given emergent patient condition, temporal constraints may have precluded informed consent.: Yes Time Out Performed: Yes Patient Position: supine Patient placed on monitor/pulse ox: Yes Provider Prep: mask, sterile gown, sterile gloves, Max. sterile barrier precautions, cap and hand hygiene with conventional soap/water or alcohol based hand rub Central line prep: Povidone-Iodine 1% Sterile US Technique with sterile gel/sterile probe covers: Yes Central line lumen inserted: triple Length (cm): 16 Depth of Insertion (cm): 16 Post Procedure: sutured in place, good blood return, all ports aspirated, flushed, capped, transparent dressing, hemostatic product and aseptic technique maintained throughout procedure Post procedure x-ray: tip of catheter in good position and no pneumothorax seen Patient tolerated procedure: well Complications: none Additional comments: Prior to intubation patient of PICC line was discussed with the patient and patient consented line after discussion of risks and benefits. Post intubation patient became hypoxic and unstable. She had only 1 peripheral IV 2nd perip heral IV was not working adequately. She needed multiple infusion including sedation neuromuscular jayden. Patient morbidly obese. PICC line could not be placed quickly. Hence a central venous catheter was placed and emergently in right IJ location
[2022-06-24] MEDS: CISATRACURIUM BESYLATE 200 MG in DEXTROSE 5% 80 ML 14.9 ML IV CONT ×2 (11:39→17:23)
[2022-06-24] MEDS: SODIUM CHLORIDE 0.9% IV 1,000 ML 999 ML IV CONT (11:41)
[2022-06-24 11:53] LABS: Glucose Point of Care 185 mg/dl (65-105)
[2022-06-24 11:58] LABS: Glucose Point of Care 314 mg/dl (65-105)
--- NOTE | 2022-06-24 12:04 | PM.IMPN ---
Progress Note: A&P Assessment and Plan (1) Acute hypoxemic respiratory failure: Code(s): J96.01 - Acute respiratory failure with hypoxia Status: Acute Assessment and Plan: Acute hypoxic Respiratory failure secondary to pneumonitis versus ARDS Patient has history of recurrent episodes of this bilateral pneumonia which appears to be noninfectious and likely related to her control check connective tissue disorder no clear diagnosis. Other differential diagnosis includes cryptogenic organizing pneumonia, hypersensitive pneumonitis, acute interstitial pneumonia, ARDS continue antibiotics, continue Solu-Medrol. Management per ICU (2) Pneumonitis: Code(s): J18.9 - Pneumonia, unspecified organism Status: Acute Assessment and Plan: see plan above (3) Moderate persistent asthma without complication: Code(s): J45.40 - Moderate persistent asthma, uncomplicated Status: Acute Assessment and Plan: See above (4) ILD (interstitial lung disease): Code(s): J84.9 - Interstitial pulmonary disease, unspecified Status: Acute Assessment and Plan: see above (5) Pulmonary hypertension: Code(s): I27.20 - Pulmonary hypertension, unspecified Status: Acute Assessment and Plan: See above (6) LEONARDO (obstructive sleep apnea): Code(s): G47.33 - Obstructive sleep apnea (adult) (pediatric) Status: Acute Assessment and Plan: Now intubated (7) Diabetes mellitus type 2 in obese: Code(s): E11.69 - Type 2 diabetes mellitus with other specified complication; E66.9 - Obesity, unspecified Status: Acute Assessment and Plan: SSI (8) Essential (primary) hypertension: Code(s): I10 - Essential (primary) hypertension Status: Acute Assessment and Plan: P.o. medications on hold as blood pressure is in adequate range. Will use p.r.n. labetalol and hydralazine if needed (9) Hypothyroidism (acquired): Code(s): E03.9 - Hypothyroidism, unspecified Status: Acute Assessment and Plan: Continue levothyroxine (10) Connective tissue disorder: Code(s): M35.9 - Systemic involvement of connective tissue, unspecified Status: Acute Assessment and Plan: She is currently on steroids. hydroxychloroquine and azathioprine [place] (11) ROCK (acute kidney injury): Code(s): N17.9 - Acute kidney failure, unspecified Status: Acute Assessment and Plan: Patient presented with slightly elevated creatinine. She has been receiving Lasix Hold Lasix at this time Hold Cozaar Check CK level Monitor urine output electrolytes and creatinine UA is ordered look for any hematuria and RBC cast Plan DVT prophylaxis -Lovenox Stress ulcer prophylaxis -PPI Nutrition -NPO at this Code Status -patient requests to be Full Code Total Critical Care Time - 100 minutes except separately billed procedures Due to a high probability of clinically significant, life threatening deterioration, the patient required my highest level of preparedness to intervene emergently and I personally spent this critical care time directly and personally managing the patient. This critical care time included obtaining a history; examining the patient; pulse oximetry; ordering and review of studies; arranging urgent treatment with development of a management plan; evaluation of patient's response to treatment; frequent reassessment; and discussions with other providers. It was exclusive of separately billable procedures and treating other patients and teaching time. Please see Assessment and Plan section and the rest of the note for further information on patient assessment and treatment Subjective Date/time seen: 06/24/22 12:04 Patient was on BiPAP this morning. Having some respiratory failure. Transferred ICU and intubated Exam Narrative: General: Pt is now sedated, intubated and on mechanical ventilation Lungs/C
[2022-06-24 12:11] LABS: Alveolar/Arterial O2 Gradient 533.6 mmHg; Base Excess ABG -0.7 mEq/l (+/-2.0); Fractional Inspired Oxygen 100 %; Oxygen Content ABG 11.3 %vol (16.0-22.0); PO2 ABG 60.8 mmHg (80.0-100.0); PO2 FiO2 Ratio Arterial Blood 0.61 %; Total Hemoglobin 10.6 g/dL (12.0-18.0)
[2022-06-24 12:12] LABS: pH ABG 7.049 (7.350-7.450)
[2022-06-24 12:13] LABS: Oxygen Saturation ABG 76.8 % (95.0-100.0); PCO2 ABG 118.6 mmHg (35.0-45.0)
[2022-06-24 12:14] LABS: Device VENTILATOR; Modified Allen's Test Pass; Oxyhemoglobin 75.4 % THb (90.0-100.0); Site Drawn LEFT RADIAL
[2022-06-24] MEDS: INSULIN ASPART (*BKC) 100 UNITS/ML SUB-Q ×2 (12:14→17:16)
[2022-06-24 12:17] LABS: Arterial Blood Gas PEEP 15 cmH2O; Arterial Blood Gas Tidal Volume 650 ml; Arterial Blood Gas Vent Mode CMV; Arterial Blood Gas Ventilator rate 24 /MIN
[2022-06-24 12:18] LABS: Peak Inspiratory Pressure 49 cmH2O
[2022-06-24] MEDS: SODIUM BICARBONATE 8.4% 50 MEQ/50 ML SYRINGE 100 MEQ IV PUSH (12:22)
--- NOTE | 2022-06-24 13:04 | P.PNCROSS_ITS ---
Event Note Event Note Event Note: ABG reviewed. Hypoxia hypercarbia and respiratory acidosis. Ventilation is li mited on the ventilator due to high peak pressures as patient is morbidly obese. Ventilator settings adjusted and rate increased to 28. Sodium bicarbonate to get pH above 7.1. Peep increased to 18. Inhaled Flolan ordered with time saturations at now improved to above 90% in prone position which will be continued through today.
[2022-06-24] MEDS: EPOPROSTENOL SODIUM 0.5 MG VIAL 1 MG INHALATION ×2 (13:27→19:12)
[2022-06-24 13:28] LABS: Appearance Urine Cloudy (Clear); Bilirubin Urine Negative (Negative); Blood Urine 3+ (Negative); Color Urine Yellow (Yellow); Glucose Urine UA Negative (Negative); Ketones Urine Negative (Negative); Leukocyte Esterase Ur Negative LEU/UL (Negative); Nitrate Urine Negative (Negative); Protein Urine 3+ mg/dL (Negative); Specific Grav Ur >= 1.030 (1.001-1.035); Urobilinogen Urine 0.2 mg/dL (<2.0); pH Urine 5.5 (5.0-9.0)
[2022-06-24 13:30] LABS: Appearance Urine Cloudy (Clear); Bilirubin Urine Negative (Negative); Blood Urine 3+ (Negative); Color Urine Yellow (Yellow); Glucose Urine UA Negative (Negative); Ketones Urine Negative (Negative); Leukocyte Esterase Ur Negative LEU/UL (NEGATIVE); Nitrate Urine Negative (Negative); Protein Urine 3+ mg/dL (Negative); Specific Grav Ur >= 1.030 (1.001-1.035); Urobilinogen Urine 0.2 mg/dL (<2.0); pH Urine 5.5 (5.0-9.0)
[2022-06-24 13:51] LABS: Creatine Kinase 37 U/L (30-135)
[2022-06-24 14:00] LABS: Hyaline Casts Urine 50+ /lpf; Mucus Urine Rare /lpf; RBC Urine >75 /hpf (0-2); Squamous Epithelial Cell Urine Few /hpf (Few); WBC Urine 31-50 /hpf
[2022-06-24 14:04] LABS: Bacteria Urine Trace /hpf; Hyaline Casts Urine 30-49 /lpf; Mucus Urine Rare /lpf; RBC Urine >75 /hpf (0-2); Squamous Epithelial Cell Urine Many /hpf (Few); Transitional Epi Cells Urine Rare /hpf (None Seen); WBC Clumps Urine Present /HPF; WBC Urine 51-75 /hpf (0-3)
[2022-06-24] MEDS: CENTRAL LINE FLUSH 10 ML IV PUSH ×3 (14:08→21:27)
[2022-06-24 14:14] LABS: Add Urine Microscopic? YES
[2022-06-24 14:53] LABS: Alveolar/Arterial O2 Gradient 517.9 mmHg; Base Excess ABG 2.4 mEq/l (+/-2.0); Fractional Inspired Oxygen 100 %; HCO3 ABG 33.6 mEq/l (22.0-26.0); Oxygen Content ABG 16.1 %vol (16.0-22.0); Oxygen Saturation ABG 95.1 % (95.0-100.0); Oxyhemoglobin 94.1 % THb (90.0-100.0); PO2 ABG 98.8 mmHg (80.0-100.0); PO2 FiO2 Ratio Arterial Blood 0.99 %; Total Hemoglobin 12.1 g/dL (12.0-18.0)
[2022-06-24 14:54] LABS: PCO2 ABG 96.3 mmHg (35.0-45.0); pH ABG 7.161 (7.350-7.450)
[2022-06-24 14:55] LABS: Arterial Blood Gas PEEP 18 cmH2O; Arterial Blood Gas Vent Mode ASSIST CONTROL; Arterial Blood Gas Ventilator rate 28 /MIN; Device VENTILATOR; Modified Allen's Test Pass; Site Drawn LEFT RADIAL
[2022-06-24 14:56] LABS: Arterial Blood Gas Tidal Volume 350 ml
[2022-06-24] MEDS: NOREPINEPHRINE 8 MG/D5W 250 ML 8 MG/250 ML BAG 9.38 MG IV CONT (15:00)
[2022-06-24 15:41] LABS: Influenza Control Positive
[2022-06-24 17:14] LABS: Glucose Point of Care 219 mg/dl (65-105)
[2022-06-24] MEDS: MINERAL OIL/WHITE PETROLATUM OINTMENT 1 APPLIC EACH EYE (20:32)
[2022-06-24] MEDS: MIDAZOLAM 100MG/NS 100ML(*CRX) 100 MG/100 ML BAG 8 MG IV CONT (23:32)
[2022-06-24 23:45] LABS: Glucose Point of Care 180 mg/dl (65-105)
[2022-06-25] VITALS (96 sets, daily range): BP systolic 81–153; BP diastolic 37–133; PULSE 70–102; RESP 0–32; TEMP 35.8–36.6; O2SAT 82–100
[2022-06-25] MEDS: CISATRACURIUM BESYLATE 200 MG in DEXTROSE 5% 80 ML 14.9 ML IV CONT ×4 (00:02→20:02)
[2022-06-25] MEDS: EPOPROSTENOL SODIUM 0.5 MG VIAL 1 MG INHALATION ×5 (01:32→23:56)
[2022-06-25] MEDS: FENTANYL 2,500MCG/NS250ML(*CRX 2,500 MCG/250 ML BAG 15 MCG IV CONT ×2 (02:22→18:54)
[2022-06-25 05:39] LABS: Alveolar/Arterial O2 Gradient 164.4 mmHg; Base Excess ABG 2.7 mEq/l (+/-2.0); Fractional Inspired Oxygen 40 %; HCO3 ABG 27.4 mEq/l (22.0-26.0); Methemoglobin ABG 0.2 %THb (0-1.5); Oxygen Saturation ABG 94.7 % (95.0-100.0); Oxyhemoglobin 93.4 % THb (90.0-100.0); PCO2 ABG 42.9 mmHg (35.0-45.0); PO2 ABG 71.5 mmHg (80.0-100.0); PO2 FiO2 Ratio Arterial Blood 1.79 %; Reduced Hemoglobin 6.4 %THb (0-5.0); Total Hemoglobin 10.6 g/dL (12.0-18.0); pH ABG 7.423 (7.350-7.450)
[2022-06-25 05:40] LABS: Arterial Blood Gas Vent Mode CMV; Arterial Blood Gas Ventilator rate 24 /MIN; Device VENTILATOR; Modified Allen's Test Pass; Site Drawn LEFT RADIAL
[2022-06-25 05:41] LABS: Arterial Blood Gas PEEP 18 cmH2O; Arterial Blood Gas Tidal Volume 350 ml
[2022-06-25] MEDS: methylPREDNISolone SOD SUCC 125 MG VIAL 80 MG IV PUSH (05:56)
[2022-06-25] MEDS: LEVOTHYROXINE SODIUM 50 MCG TABLET PO (05:57)
[2022-06-25] MEDS: CENTRAL LINE FLUSH 10 ML IV PUSH ×4 (05:57→21:12)
[2022-06-25 06:05] LABS: Glucose Point of Care 198 mg/dl (65-105)
[2022-06-25 06:07] LABS: Hemoglobin 8.6 g/dL (12.0-15.0); Mean Corpuscular HGB Conc 30.7 g/dl (32-36); Mean Corpuscular Hemoglobin 24.5 pg (26-34); Mean Corpuscular Volume 79.8 fl (80-100); Mean Platelet Volume 9.7 fl (7.4-10.4); Platelet Count Result 488 k/mm3 (150-375); Red Blood Count 3.51 M/mm3 (4.2-5.4); Red Cell Distribution Width 17.6 % (11.5-14.5); White Blood Count 26.7 K/mm3 (4.5-10.0)
[2022-06-25 06:18] LABS: Alanine Aminotransferase 75 U/L (6-35); Albumin Level 3.4 g/dL (3.5-5.1); Alkaline Phosphatase 76 U/L (38-126); Anion Gap 13 mmol/L (8-16); Aspartate Amino Transferase 50 U/L (14-36); Bilirubin,Total 0.6 mg/dL (0.2-1.3); Blood Urea Nitrogen 45 mg/dL (7-17); Calcium 7.3 mg/dL (8.4-10.2); Carbon Dioxide 31 mmol/L (22-30); Chloride 92 mmol/L (98-107); Estimated CRCL calculation 49 ml/min; Estimated Glomerular Filt Rate 34; Glucose 244 mg/dL (65-110); Magnesium 2.5 mg/dL (1.6-2.3); Sodium 136 mmol/L (137-145)
[2022-06-25] MEDS: NOREPINEPHRINE 8 MG/D5W 250 ML 8 MG/250 ML BAG 13.13 MG IV CONT (06:23)
--- NOTE | 2022-06-25 08:00 | ECHO_ITS ---
Patient Info Name: Veena Sanderson Age: 51 years : 1970 Gender: Female Ht: 63 in Wt: 365 lbs BSA: 2.83 m2 HR: 88 bpm BP: 126 / 94 mmHg Heart Rhythm: Sinus Rhythm Exam Date: 06/25/2022 2:16 PM Exam Location: [facility] Patient Status: Inpatient Admit Date: 06/22/2022 Staff Ordering Physician: Payam Knott MD Automotive Power Electronics Engineer: Rosendo Diaz RDCS Attending Provider: Sonja Chowdary MD Exam Type: CA echo doppler color flow Study Info Indications J96.90 - Respiratory failure, unspecified, unspecified whether with hypoxia or hypercapnia Complete two-dimensional, color flow and Doppler transthoracic echocardiogram is performed. Summary 1. Complete two-dimensional, color flow and Doppler transthoracic echocardiogram is performed. 2. Left ventricular chamber dimension is normal. 3. Left ventricular systolic function is normal, estimated at 65-70%. 4. There is moderately increased left ventricular wall thickness. 5. The left ventricular diastolic function is grade I diastolic dysfunction. 6. There is trace mitral valve regurgitation. 7. There is no aortic valve stenosis. Left Ventricle Left ventricular chamber dimension is normal. Left ventricular systolic function is normal, estimated at 65-70%. There is moderately increased left ventricular wall thickness. The left ventricular diastolic function is grade I diastolic dysfunction. Right Ventricle Right ventricular chamber dimension is normal. Right ventricular systolic function is normal. Left Atria Left atrial chamber dimension is not well visualized. Right Atria Right atrial chamber dimension is not well visualized. Aortic Valve The aortic valve is not well visualized. There is no aortic valve stenosis. There is no aortic valve regurgitation. Pulmonic Valve The pulmonic valve is not well visualized. Mitral Valve The mitral valve has normal leaflets. There is trace mitral valve regurgitation. Tricuspid Valve The tricuspid valve leaflets are normal. There is trace tricuspid valve regurgitation. Unable to estimate PA systolic pressure due to poor spectral resolution of tricuspid regurgitant jet velocity. Pericardium/Pleural The pericardium appears normal. There is trivial pericardial effusion. Inferior Vena Cava Normal inferior vena cava with <50% collapse upon inspiration consistent with elevated right atrial pressure, 10 mmHg. Aorta The aortic root size at the sinus of Valsalva is normal. Left Ventricular Outflow Tract Name Value Normal LVOT 2D LVOT Diameter 2.0 cm LVOT Doppler LVOT Peak Gradient 10 mmHg LVOT Mean Gradient 6 mmHg LVOT VTI 26 cm LVOT VTI/AV VTI Ratio 0.9 LVOT Stroke Volume 79 ml LVOT CO 6.7 l/min LVOT CI 2.4 l/min/m2 Mitral Valve Name Value Normal
[2022-06-25] MEDS: ENOXAPARIN 40 MG/0.4 ML SYRINGE SUB-Q (08:33)
[2022-06-25] MEDS: SODIUM CHLORIDE 0.9% IV 1,000 ML 100 ML IV CONT (08:33)
[2022-06-25] MEDS: MINERAL OIL/WHITE PETROLATUM OINTMENT 1 APPLIC EACH EYE ×2 (08:34→20:06)
[2022-06-25] MEDS: PANTOPRAZOLE SODIUM IV 40 MG VIAL IV PUSH (08:34)
--- NOTE | 2022-06-25 09:48 | WPDINTPN ---
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 Other differential diagnosis includes cryptogenic organizing pneumonia, hypersensitive pneumonitis, acute interstitial pneumonia, ARDS In the past, she had positive CHELI once, repeat CHELI screen was negative. ANCA p 1:40, her DsDNA is 7 and her SSA high Since admission, her hypoxia had been gradually getting worse since she was admitted and 06/24 she was on BiPAP with 80-90% FiO2 but still tachypnea and in respiratory distress. Pulmonary was planning to do bronchoscopy but was unable do it due to hypoxia and BiPAP. 06/24 Patient was transferred to ICU and intubated. Although intubation was uneventful patient remained hypoxic despite bagging with a PEEP valve. With bagging her sats could only improve up to 80% and stayed in 70s. Patient was sedated by giving additional sedation and paralyzed with rocuronium. She is morbidly obese which has complicated the management. I did not see any evidence of hemoptysis during intubation. Post intubation Chest x-ray reviewed and did not show any pneumothorax and showed ET tube in acceptable position. Patient was placed on high PEEP of 18, placed in prone position, paralyzed with Nimbex, and started on inhaled Flolan. Permissive hypercapnia was tolerated and acidosis was treated with bicarb 06/25 improved oxygen requirement and patient was down to FiO2 of 40%. I have decrease PEEP to 16. I placed patient in supine position. If patient continues to tolerate, will further decrease PEEP. Pulmonary is planning to do a quick bronchoscopy with BAL today Tidal volume changed to 320 to bring in line with 6 mL/kg as per ARDS net protocol although her ventilation has been quite limited due to high peak pressures. Rate is set at 28 Continue Nimbex infusion to prevent patient ventilator asynchrony Continue Flolan inhalation I will defer workup and specific management for interstitial lung disease to pulmonary Tank Truck Mechanic in case again discussed with Dr. Marshall Continue broad-spectrum antibiotics for bacterial coverage including atypical with vancomycin Zosyn and azithromycin although this does not appear to be bacterial pneumonia Continue Solu-Medrol 80 mg IV q.8 hours per Pulmonary Continue Bronchodilators (2) Pneumonitis: Code(s): J18.9 - Pneumonia, unspecified organism Status: Acute (3) Moderate persistent asthma without complication: Code(s): J45.40 - Moderate persistent asthma, uncomplicated Status: Acute Assessment and Plan: See above (4) ILD (interstitial lung disease): Code(s): J84.9 - Interstitial pulmonary disease, unspecified Status: Acute (5) Pulmonary hypertension: Code(s): I27.20 - Pulmonary hypertension, unspecified Status: Acute Assessment and Plan: See above (6) LEONARDO (obstructive sleep apnea): Code(s): G47.33 - Obstructive sleep apnea (adult) (pediatric) Status: Acute Assessment and Plan: Now intubated (7) Diabetes mellitus type 2 in obese: Code(s): E11.69 - Type 2 diabetes mellitus with other specified complication; E66.9 - Obesity, unspecified Status: Acute Assessment and Plan: SSI (8) Essential (primary) hypertension: Code(s): I10 - Essential (primary) hypertension Status: Acute Assessment and Plan: Patient at this time is hypotensive likely secondary to sedatives (9) Hypothyroidism (acquired): Code(s): E03.9 - Hypothyroidism, unspecified Status: Acute Assessment and Plan: Continue levothyroxine (10) Connective tis
--- NOTE | 2022-06-25 10:57 | PM.PNPUL ---
Progress Note: A&P Assessment and Plan (1) Acute hypoxemic respiratory failure: Code(s): J96.01 - Acute respiratory failure with hypoxia Status: Acute Assessment and Plan: ?this 51-year-old female presented with? shortness of breath,? acute hypoxemic respiratory failure related to extensive bilateral consolidations,? with no other signs suggestive of? fulminant pneumonia. ? This chest CT pattern has been seen at least 2-3 times over the last 6 years when the patient was similarly hospitalized and received treatment with antibiotics for possible pneumonia and also treatment with IV steroids.? The etiology of these bilateral pulmonary opacities is not quite clear.? Review of previous chest CTs? over the last 6 years shows a recurrent pattern of dense opacities bilaterally more on the right, with? occasional air bronchograms and no evidence of? pleural effusion. Subsequent chest CTs invariably showed? clearing of these opacities with small? residual ground-glass opacities and mild nonspecific interstitial lung disease changes.? There was no evidence of significant interstitial lung disease such as NSIP or UIP? seen in patients with autoimmune disease. The patient has underlying autoimmune disease that has not been fully characterized.? Previous serology testing showed? negative CHELI,? elevated double-stranded DNA,? positive Ro antibodies, elevated RF.? She also had positive p-ANCA antibodies with a relatively very low titer.? no previous testing for MPO or PR3? antibodies. The patient is chronically on immunosuppressive treatment with Imuran.? Differential diagnosis of these opacities most likely includes pneumonitis related to underlying unknown connective tissue disease, cryptogenic organizing pneumonia and less likely? alveolar hemorrhage or pneumonia. ? this type of pneumonitis usually occurs in patients with SLE and also in CHELI-negative SLE with Ro antibodies. As stated the patient has no other symptoms to suggest lower respiratory tract infections such as productive cough, fever, chills or hemoptysis.? She does not look septic at all.? procalcitonin level not elevated. CRP trending down. on last chest CT there was worsening of bilateral infiltrates. patient was transferred to intensive care unit as her condition had worsened. Bronchoscopy with BAL was scheduled post intubation. However following intubation the patient became severely hypoxemic and required mechanical ventilation in prone position. over the last 24 hours respiratory status has improved. Patient is now back in supine position, FiO2 has decreased down to 45%. She remains fully sedated. She is scheduled to undergo brain CT for unequal pupils. Also chest CT scheduled. Plan: Will proceed with bronchoscopy and BAL today. (2) Pneumonitis: Code(s): J18.9 - Pneumonia, unspecified organism Status: Acute (3) Connective tissue disorder: Code(s): M35.9 - Systemic involvement of connective tissue, unspecified Status: Acute (4) Morbid obesity with BMI of 60.0-69.9, adult: Code(s): E66.01 - Morbid (severe) obesity due to excess calories; Z68.44 - Body mass index [BMI] 60.0-69.9, adult Status: Acute (5) Undifferentiated connective tissue disease: Code(s): M35.9 - Systemic involvement of connective tissue, unspecified Status: Acute (6) COPD with asthma: Code(s): J44.9 - Chronic obstructive pulmonary disease, unspecified Status: Acute (7) LEONARDO (obstructive sleep apnea): Code(s): G47.33 - Obstructive sleep apnea (adult) (pediatric) Status: Acute Subjective Date/time seen: 06/25/22 10:57 patient was transferred to intensive care unit yesterday as her condition had worsened. Patient was subsequently intubated and placed on prone position because of severe hypoxemia. Bronchoscopy with BAL could not be done due to patient's prone position and severe hypoxemia. Patient is now in supine position. Over the las
[2022-06-25] MEDS: SODIUM CHLORIDE 0.9% IV 500 ML BAG 150 ML IRRIGATION (11:54)
[2022-06-25] MEDS: LIDOCAINE HCL 2% LOCAL INJ 20 ML VIAL 4 ML INFILTRATE (11:55)
--- NOTE | 2022-06-25 11:57 | PM.OP ---
Procedure Note - Brief Procedure Note - Brief Date of procedure: 06/25/22 Pre-op diagnosis: Acute Respiratory Failure w/Hypoxia,Pneumonia bilateral pulmonary infiltrates Post-op diagnosis: Other (Alveolar Hemorrhage.) Procedure performed: Bronchoscopy with BAL Description of procedure: POSTOPERATIVE DIAGNOSIS: Alveolar hemorrhage. PROCEDURE PERFORMED: Flexible fiberoptic bronchoscopy diagnostic with BAL COMPLICATIONS: None. INDICATION: bilateral pulmonary infiltrates, severe hypoxemic respiratory failure PROCEDURE: the procedure was carried out in the ICU where the patient is currently intubated fully sedated on mechanical ventilation. The patient had endotracheal tube in place. The patient had appropriate oxygen, blood pressure, heart rate, and respiratory rate monitoring applied and monitored continuously throughout the procedure. The patient was sedated and intubated with a sized 7.5 endotracheal tube. Aliquots of 2 mL of 2% xylocaine instilled through the ET for local anesthesia of the bronchial tree were given twice. The bronchoscope was then advanced through the ET into the lower trachea. Findings: Trachea: Lower trachea appeared normal with no evidence of mucosal erythema, tracheal secretions or intraluminal masses R Bronchial Tree: The right bronchial tree was inspected to the subsegmental level with the following order: right upper lobe, then right middle lobe and then right lower lobe. All segments appear patent. There was no evidence of mucosal erythema, increased amount bronchial secretions, or intraluminal masses. L Bronchial Tree: Left bronchial tree was inspected to the subsegmental bronchi with the following order: Lingula, remainder of the left upper lobe, superior segment of the right the left lower lobe and then remainder of the left lower lobe. All segments appear patent and there was no evidence of mucosal erythema, increased amount of bronchial secretions or intraluminal masses. BAL: The bronchoscope was then wedged in the right middle lobe and bronchoalveolar lavage was obtained using 40 ml of NS. Subsequently the bronchoscope was wedged in the right lower lobe and again lavage was obtained using 40 mL of normal saline. BAL Fluid retrieved from each lobe was hemorrhagic. Additional BAL was obtained from the left lower lobe using again normal saline 40 mL. Fluid retrieved from the left lower lobe was again hemorrhagic. Pre-BAL there was no evidence of visible bleeding from any lobe in both lungs. The bronchoscope was then withdrawn. The patient tolerated the procedure well without evidence of desaturation or complications. Surgeon: Wilmer Marshall MD
--- NOTE | 2022-06-25 11:58 | SUR.OPER ---
150 Normal saline in and 77ml out during bronchoscopy.
[2022-06-25] MEDS: MIDAZOLAM 100MG/NS 100ML(*CRX) 100 MG/100 ML BAG 8 MG IV CONT (12:30)
[2022-06-25 12:52] LABS: Glucose Point of Care 162 mg/dl (65-105)
[2022-06-25] MEDS: methylPREDNISolone SOD SUCC 1,000 MG in DEXTROSE 5% 100 ML 200 MG IVPB (13:41)
[2022-06-25 13:56] LABS: Source Bronchial Fluid Bronchial Lavage
[2022-06-25 13:57] LABS: Appearance Bronchial Fluid Bloody
--- NOTE | 2022-06-25 13:57 | PM.IMPN ---
Progress Note: A&P Assessment and Plan (1) Acute hypoxemic respiratory failure: Code(s): J96.01 - Acute respiratory failure with hypoxia Status: Acute Assessment and Plan: Acute hypoxic Respiratory failure secondary to pneumonitis versus ARDS Patient has history of recurrent episodes of this bilateral pneumonia which appears to be noninfectious and likely related to her control check connective tissue disorder no clear diagnosis. Other differential diagnosis includes cryptogenic organizing pneumonia, hypersensitive pneumonitis, acute interstitial pneumonia, ARDS continue antibiotics, continue Solu-Medrol. Management per ICU 06/25/2022 interval history: morbidly obese female with respiratory failure multifactorial CT scan of the chest showed today severe extensive bilateral consolidating pulmonary infiltrate worsen since 06/23/2022 patient is being treated azithromycin, Zosyn, and vancomycin, patient is seen by slag production worker is scheduled to have a bronchoscope today, discussed with site surveyor prognosis is poor, site surveyor noted asymmetry of pupils to further evaluate patient had a CT scan of the head is negative for any acute injury, patient may be transferred to tertiary care for further evaluation. (2) Pneumonitis: Code(s): J18.9 - Pneumonia, unspecified organism Status: Acute Assessment and Plan: see plan above (3) Moderate persistent asthma without complication: Code(s): J45.40 - Moderate persistent asthma, uncomplicated Status: Acute Assessment and Plan: See above (4) ILD (interstitial lung disease): Code(s): J84.9 - Interstitial pulmonary disease, unspecified Status: Acute Assessment and Plan: see above (5) Pulmonary hypertension: Code(s): I27.20 - Pulmonary hypertension, unspecified Status: Acute Assessment and Plan: See above (6) LEONARDO (obstructive sleep apnea): Code(s): G47.33 - Obstructive sleep apnea (adult) (pediatric) Status: Acute Assessment and Plan: Now intubated (7) Diabetes mellitus type 2 in obese: Code(s): E11.69 - Type 2 diabetes mellitus with other specified complication; E66.9 - Obesity, unspecified Status: Acute Assessment and Plan: SSI (8) Essential (primary) hypertension: Code(s): I10 - Essential (primary) hypertension Status: Acute Assessment and Plan: P.o. medications on hold as blood pressure is in adequate range. Will use p.r.n. labetalol and hydralazine if needed (9) Hypothyroidism (acquired): Code(s): E03.9 - Hypothyroidism, unspecified Status: Acute Assessment and Plan: Continue levothyroxine (10) Connective tissue disorder: Code(s): M35.9 - Systemic involvement of connective tissue, unspecified Status: Acute Assessment and Plan: She is currently on steroids. hydroxychloroquine and azathioprine Atkinson (11) ROCK (acute kidney injury): Code(s): N17.9 - Acute kidney failure, unspecified Status: Acute Assessment and Plan: Patient presented with slightly elevated creatinine. She has been receiving Lasix Hold Lasix at this time Hold Cozaar Check CK level Monitor urine output electrolytes and creatinine UA is ordered look for any hematuria and RBC cast Plan DVT prophylaxis -Lovenox Stress ulcer prophylaxis -PPI Nutrition -NPO at this Code Status -patient requests to be Full Code Subjective Date/time seen: 06/25/22 13:57 06/25/2022 interval history: morbidly obese female with respiratory failure multifactorial CT scan of the chest showed today severe extensive bilateral consolidating pulmonary infiltrate worsen since 06/23/2022 patient is being treated azithromycin, Zosyn, and vancomycin, patient is seen by slag production worker is scheduled to have a bronchoscope today, discussed with site surveyor prognosis is poor, site surveyor noted asymmetry of pupils to further evaluate pat
[2022-06-25 13:58] LABS: Color Bronchial Fluid Red; Lymphocytes Bronchial Fluid 27 %; Neutrophils Bronchial Fluid 58 %
[2022-06-25 13:59] LABS: Erythrocyte Sedimentation Rate > 140 mm/hr (0-20)
[2022-06-25 13:59] LABS: Eosinophils Bronchial Fluid 0 %; Macrophages Bronchial Fluid 15; Monocytes Bronchial Fluid 0 %; Other Cells Bronchial Fluid 0 %
[2022-06-25 17:51] LABS: Creatinine Urine 81.6 mg/dL
[2022-06-25 17:55] LABS: Sodium Urine Random 7 meq/L
[2022-06-25 18:13] LABS: Glucose Point of Care 203 mg/dl (65-105)
[2022-06-25] MEDS: INSULIN ASPART (*BKC) 100 UNITS/ML SUB-Q ×2 (18:33→23:50)
--- NOTE | 2022-06-25 19:25 | PC.NURSE ---
Addendum entered by Melodie Esposito RN 06/27/22 19:10: Patient family reports cpap machine was taken apart, and feces were discovered within the patient's cpap machine. Patient's reports that she uses the cpap machine each night. Original Note: Patient sister reports living conditions at home with significant infestation of peck/mouse population. Sister expressed concern for this environment, and its impact on patient's respiratory status.
[2022-06-25 21:18] LABS: Total Protein Urine Random 253 mg/dL
[2022-06-25 23:51] LABS: Glucose Point of Care 268 mg/dl (65-105)
[2022-06-26] VITALS (46 sets, daily range): BP systolic 99–160; BP diastolic 60–99; PULSE 67–115; RESP 24–32; TEMP 36.6–37.1; O2SAT 92–98
[2022-06-26] MEDS: MIDAZOLAM 100MG/NS 100ML(*CRX) 100 MG/100 ML BAG 8 MG IV CONT ×2 (00:38→15:38)
[2022-06-26] MEDS: CISATRACURIUM BESYLATE 200 MG in DEXTROSE 5% 80 ML 14.9 ML IV CONT (02:43)
[2022-06-26 05:12] LABS: Alveolar/Arterial O2 Gradient 148.6 mmHg; Base Excess ABG 4.7 mEq/l (+/-2.0); Carboxyhemoglobin 0.4 % THb (0-2.0); Fractional Inspired Oxygen 40 %; HCO3 ABG 32.3 mEq/l (22.0-26.0); Methemoglobin ABG 0.4 %THb (0-1.5); Oxygen Content ABG 13.5 %vol (16.0-22.0); PO2 FiO2 Ratio Arterial Blood 1.55 %; Reduced Hemoglobin 12.4 %THb (0-5.0); pH ABG 7.315 (7.350-7.450)
[2022-06-26 05:15] LABS: Oxyhemoglobin 86.8 % THb (90.0-100.0); PCO2 ABG 64.9 mmHg (35.0-45.0)
[2022-06-26 05:16] LABS: Arterial Blood Gas PEEP 14 cmH2O; Arterial Blood Gas Vent Mode CMV; Arterial Blood Gas Ventilator rate 24 /MIN; Device VENTILATOR; Modified Allen's Test Pass; Site Drawn LEFT RADIAL
[2022-06-26 05:17] LABS: Arterial Blood Gas Tidal Volume 320 ml
[2022-06-26] MEDS: CENTRAL LINE FLUSH 10 ML IV PUSH ×4 (05:40→22:54)
[2022-06-26] MEDS: LEVOTHYROXINE SODIUM 50 MCG TABLET PO (05:41)
[2022-06-26 05:46] LABS: Hematocrit 26.9 % (37.0-47.0); Hemoglobin 8.2 g/dL (12.0-15.0); Mean Corpuscular HGB Conc 30.5 g/dl (32-36); Mean Corpuscular Hemoglobin 24.3 pg (26-34); Mean Corpuscular Volume 79.8 fl (80-100); Mean Platelet Volume 10.1 fl (7.4-10.4); Platelet Count Result 484 k/mm3 (150-375); Red Blood Count 3.37 M/mm3 (4.2-5.4); Red Cell Distribution Width 17.8 % (11.5-14.5); White Blood Count 20.3 K/mm3 (4.5-10.0)
[2022-06-26 05:58] LABS: Alanine Aminotransferase 66 U/L (6-35); Albumin Level 3.2 g/dL (3.5-5.1); Alkaline Phosphatase 76 U/L (38-126); Anion Gap 10 mmol/L (8-16); Aspartate Amino Transferase 42 U/L (14-36); Bilirubin,Total 0.6 mg/dL (0.2-1.3); Blood Urea Nitrogen 51 mg/dL (7-17); Calcium 7.7 mg/dL (8.4-10.2); Carbon Dioxide 31 mmol/L (22-30); Chloride 95 mmol/L (98-107); Estimated CRCL calculation 56 ml/min; Estimated Glomerular Filt Rate 38; Glucose 191 mg/dL (65-110); Magnesium 2.8 mg/dL (1.6-2.3); Potassium 4.1 mmol/L (3.4-5.0); Sodium 136 mmol/L (137-145)
[2022-06-26] MEDS: EPOPROSTENOL SODIUM 0.5 MG VIAL 1 MG INHALATION ×3 (06:06→18:07)
[2022-06-26 08:40] LABS: Glucose Point of Care 217 mg/dl (65-105)
--- NOTE | 2022-06-26 08:52 | WPDINTPN ---
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 She was seeing Rheumatology and pulmonaryas an outpatient In the past, she had positive CHELI once, repeat CHELI screen was negative. ANCA p 1:40, her DsDNA is 7 and her SSA high she was on Plaquenil and Imuran as an outpatient She was admitted with respiratory failure with bilateral diffuse infiltrate. COVID and influenza were negative Since admission, her hypoxia had been gradually getting worse since she was admitted and On06/24 she was on BiPAP with 80-90% FiO2 but still tachypnic and in respiratory distress. Pulmonary was planning to do bronchoscopy but was unable do it due to hypoxia and BiPAP. 06/24 Patient was transferred to ICU and intubated. Although intubation was uneventful patient remained hypoxic despite bagging with a PEEP valve. With bagging her sats could only improve up to 80% and stayed in 70s. Patient was sedated by giving additional sedation and paralyzed with rocuronium/nimbex. She is morbidly obese which has complicated the management. no evidence of hemoptysis seen during intubation. Post intubation Chest x-ray reviewed and did not show any pneumothorax and showed ET tube in acceptable position. Patient was placed on high PEEP of 18, placed in prone position, paralyzed with Nimbex, and started on inhaled Flolan. Permissive hypercapnia was tolerated and acidosis was treated with bicarb. patient was already on broad-spectrum antibiotics in the form of vancomycin Zosyn and azithromycin. Autoimmune workup had been sent and pending including ANCA, UA with microscopic, anti DNA antibody, anti GBM antibody 06/25 improved oxygen requirement and patient was down to FiO2 of 40%. I decreased PEEP to 16 and then 14. I placed patient in supine position. Tidal volume changed to 320 to bring in line with 6 mL/kg as per ARDS net protocol although her ventilation has been quite limited due to high peak pressures. Rate was changed to 24 Patient underwent bronchoscopy and BAL which showed alveolar hemorrhage. G stain cultures and other infectious workup was obtained pneumocystis RSV CMV which are also pending Case discussed with Dr. Marshall with pulmonary and Dr. Duffy with nephrology. 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 He does have confuse the picture as she has multiple other antibodies positive on past work and also has other reasons for acute kidney injury as she received contrast was on diuretics. We have started her on pulse dose of Solu-Medrol [address] Duffy recommends plasma exchange and I have placed a he temporary dialysis catheter on his request. he plans to obtain kidney biopsy tomorrow She does need rheumatology consultation which we do not have including access to IV cyclophosphamide or rituximab. I have called [facility] and [facility] and they do not have any bed available. I have patient on wait list for [facility] and [facility] in [place] and waiting for bed availability. Meanwhile, I will continue Nimbex infusion to prevent patient ventilator asynchrony Continue Flolan inhalation and will try to wean down if possible this is not appear to be bacterial pneumonia but will continue broad-spectrum antibiotics for bacterial coverage with Zosyn until all the testing is back. I will discontinue vancomycin and she has alreadycompleted a 5 day course of azithrom
[2022-06-26] MEDS: methylPREDNISolone SOD SUCC 1,000 MG in DEXTROSE 5% 100 ML 200 MG IVPB (09:00)
[2022-06-26] MEDS: ENOXAPARIN 40 MG/0.4 ML SYRINGE SUB-Q (09:13)
[2022-06-26] MEDS: INSULIN ASPART (*BKC) 100 UNITS/ML SUB-Q ×4 (09:13→20:34)
[2022-06-26] MEDS: CISATRACURIUM BESYLATE 200 MG in DEXTROSE 5% 80 ML 29.81 ML IV CONT ×3 (09:14→15:51)
[2022-06-26] MEDS: MINERAL OIL/WHITE PETROLATUM OINTMENT 1 APPLIC EACH EYE ×2 (09:14→20:34)
[2022-06-26] MEDS: INSULIN GLARGINE (*BKC) 100 UNITS/ML 15 UNITS SUB-Q (09:14)
[2022-06-26] MEDS: PANTOPRAZOLE SODIUM IV 40 MG VIAL IV PUSH (09:14)
--- NOTE | 2022-06-26 09:26 | WPDPROCEDUR ---
Procedures Hemodialysis Catheter Placement Left IJ: Discussed w/ patient and/or surrogate, the non-emergent placement of a hemodialysis catheter, including it's clinincal necessity/indication & associated potential risks & complications.: Yes The patient and/or surrogate understand(s) and acknowledge(s) the need to proceed with hemodialysis catheter insertion as an important element of the patient's clinical management.: Yes Consent: consent was obtained from patient's daughter by phone HD Catheter Date: 06/26/22 HD Catheter Time: 08:00 Pre-procedural Time-Out was completed immediately before starting the procedure and confirmed: Patient Identification, Site, Procedure, Patient Position and the Availability of Requisite Equipment.: Yes Patient Position: supine Patient Placed on Monitor/Pulse Ox: Yes Provider Prep: mask, sterile gown, sterile gloves, Max. sterile barrier precautions, cap and hand hygiene Hemodialysis Catheter Prep: Povidone-Iodine 1% Ultrasound Used for Placement: Yes Hemodialysis Catheter Inserted: triple Length (cm): 20 Depth of Insertion (cm): 20 Post Procedure: sutured in place, good blood return, all ports aspirated, flushed, capped, transparent dressing and aseptic technique maintained throughout procedure Post Procedure X-Ray: tip of catheter in good position and no pneumothorax seen Patient Tolerated Procedure: well Complications: none
--- NOTE | 2022-06-26 09:39 | PM.CNNEP ---
Assessment and Plan Assessment and plan (1) ROCK (acute kidney injury): Code(s): N17.9 - Acute kidney failure, unspecified Status: Acute Assessment and Plan: the patient has acute kidney injury. The patient may have some chronic issues with her kidneys. She does have proteinuria. In the past her urine microalbumin was greater than a 1000. Urinalysis this admission shows 3+ protein. She also has hematuria. She does have a Coello catheter in but she also had hematuria in May. Her baseline creatinine is 0.7 and when she came to the hospital it was already 1.2. She has several issues which may be playing a role. The patient had low blood pressure requiring pressors which may explain her creatinine rising from 1.2 to 1.9. Her creatinine has come down a little bit to 1.7 with improvement in blood pressure. She also got some IV fluids. The patient had contrast on admission but her creatinine was back down to 1.2 on the suggesting that this may not be playing a role. a looked at her urine under the microscope and this showed granular casts, uric acid crystals, dysmorphic red cells. I did not see RBC casts nor muddy brown casts. The patient could have a vasculitis causing some of her kidney issues. The patient has a positive p-ANCA, CHELI, anti DNA, and other serology. The patient has proteinuria plus hematuria. So there is significant likelihood that she has some sort of a Glomerulonephritis. the fact that her creatinine came down some with improvement in her blood pressure suggested this may not be an RPGN but strongly suspect that she may have some inflammatory disease in her kidneys. The patient has alveolar hemorrhage. This was seen on bronchoscopy. She has diffuse pulmonary infiltrates. 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 She is already getting pulse dose steroids. Because of the severity of the pulmonary hemorrhage I think we should do plasmapheresis as well. We can start this today. She will need a renal biopsy. If this is microvascular poly angiitis on biopsy then we will need other immunosuppressive is as well, such as cyclophosphamide or rituximab. as ill as this lady is attempts are being made to transfer her to a higher level of care. Long discussion with Dr. Knott. I also had a long discussion with Bethany Sanderson, her daughter. We discussed the kidney biopsy. We discussed the risks ( bleeding), benefits, alternatives, and the process of the biopsy. Bethany agrees to proceed. 30minutes was spent in research, looking at the urine, talking with Dr. Land, and talking with family apart from clinical activities. (2) Pulmonary alveolar hemorrhage: Code(s): R04.89 - Hemorrhage from other sites in respiratory passages Status: Acute Assessment and Plan: this was diagnosed by Dr. Marshall. (3) Shock: Code(s): R57.9 - Shock, unspecified Status: Acute Assessment and Plan: Patient's blood pressure is better. She is now off of norepinephrine. (4) Diabetes mellitus type 2 in obese: Code(s): E11.69 - Type 2 diabetes mellitus with other specified complication; E66.9 - Obesity, unspecified Status: Acute Assessment and Plan: The patient has diabetes. She was on metformin for this. Currently she is on sliding scale insulin. (5) Vitamin D deficiency: Code(s): E55.9 - Vitamin D deficiency, unspecified Status: Acute (6) LEONARDO (obstructive sleep apnea): Code(s): G47.33 - Obstructive sleep apnea (adult) (pediatric) Status: Acute Assessment and Plan: She is on the ventilator now. She uses a CPAP machine at home. History of Present Illness Reason for Consult Consult date: 06/26/22 Chief Complaint Chief complaint: Acute Respiratory Failure w/Hypoxia,Pneumonia History of Present Illness Narrative:
--- NOTE | 2022-06-26 09:41 | PM.PNPUL ---
Progress Note: A&P Assessment and Plan (1) Acute hypoxemic respiratory failure: Code(s): J96.01 - Acute respiratory failure with hypoxia Status: Acute Assessment and Plan: ?this 51-year-old female presented with? shortness of breath,? acute hypoxemic respiratory failure related to extensive bilateral infiltrates,? with no other signs suggestive of? fulminant pneumonia. ? This chest CT pattern has been seen at least 2-3 times over the last 6 years when the patient was similarly hospitalized and received treatment with antibiotics for possible pneumonia and also treatment with IV steroids.? Review of previous chest CTs? over the last 6 years shows a recurrent pattern of dense opacities bilaterally more on the right, with? occasional air bronchograms and no evidence of? pleural effusion. Subsequent chest CTs invariably showed? clearing of these opacities with small? residual ground-glass opacities and mild nonspecific interstitial lung disease changes.? There was no evidence of significant interstitial lung disease such as NSIP or UIP? seen in patients with autoimmune disease. The patient has underlying autoimmune disease that has not been fully characterized.? Previous serology testing showed? negative CHELI,? elevated double-stranded DNA,? positive Ro antibodies, elevated RF.? She also had positive p-ANCA antibodies with a relatively very low titer.? no previous testing for MPO or PR3? antibodies. The patient is chronically on immunosuppressive treatment with Imuran.? the patient underwent bronchoscopy with BAL yesterday. Bronchi appeared unremarkable with no evidence of edema erythema or increased bronchial secretions. Lavage obtained from 3 different lobes was grossly hemorrhagic. BAL culture so far negative. The patient's history in conjunction with current presentation and the BAL findings suggest alveolar hemorrhage. Exact etiology of alveolar hemorrhage not quite known. microscopic polyangiitis is a possibility. Serology testing pending. The patient has been started on Solu-Medrol 1 g IV daily for 3 days. Efforts are underway to transfer patient to tertiary center for evaluation by Rheumatology Services and upgrade in immunosuppression. Nephrology consultation pending. case was discussed with the cheesemaker, Dr Knott. (2) Pneumonitis: Code(s): J18.9 - Pneumonia, unspecified organism Status: Acute (3) Connective tissue disorder: Code(s): M35.9 - Systemic involvement of connective tissue, unspecified Status: Acute (4) Morbid obesity with BMI of 60.0-69.9, adult: Code(s): E66.01 - Morbid (severe) obesity due to excess calories; Z68.44 - Body mass index [BMI] 60.0-69.9, adult Status: Acute (5) Undifferentiated connective tissue disease: Code(s): M35.9 - Systemic involvement of connective tissue, unspecified Status: Acute (6) COPD with asthma: Code(s): J44.9 - Chronic obstructive pulmonary disease, unspecified Status: Acute (7) LEONARDO (obstructive sleep apnea): Code(s): G47.33 - Obstructive sleep apnea (adult) (pediatric) Status: Acute Subjective Date/time seen: 06/26/22 09:41 patient remains fully sedated, paralyzed on mechanical ventilation. Has been hemodynamically stable. FiO2 down to 45%. No new respiratory issues over the last 24 hours. Chest x-ray essentially unchanged. Review of Systems Review of Systems: ROS unobtainable: Yes unobtainable due to endotracheal tube, unobtainable due to medical condition and unobtainable due to mental status Exam Const: Other: GENERAL APPEARANCE: Well developed, well nourished, Fully sedated on mechanical ventilation. SKIN: Inspection of the skin reveals no rashes, ulcerations or petechiae. HEENT: Sclerae anicteric and conjunctivae pink and moist. NECK: Supple. There was no thyroid enlargement, and no tenderness, or masses were felt. CHEST: Normal AP diameter and normal contour without any kyp
[2022-06-26] MEDS: FENTANYL 2,500MCG/NS250ML(*CRX 2,500 MCG/250 ML BAG 20 MCG IV CONT ×2 (11:21→23:25)
--- NOTE | 2022-06-26 11:50 | PM.IMPN ---
Progress Note: A&P Assessment and Plan (1) Acute hypoxemic respiratory failure: Code(s): J96.01 - Acute respiratory failure with hypoxia Status: Acute Assessment and Plan: Acute hypoxic Respiratory failure secondary to pneumonitis versus ARDS Patient has history of recurrent episodes of this bilateral pneumonia which appears to be noninfectious and likely related to her control check connective tissue disorder no clear diagnosis. Other differential diagnosis includes cryptogenic organizing pneumonia, hypersensitive pneumonitis, acute interstitial pneumonia, ARDS continue antibiotics, continue Solu-Medrol. Management per ICU (2) Pneumonitis: Code(s): J18.9 - Pneumonia, unspecified organism Status: Acute Assessment and Plan: see plan above (3) Moderate persistent asthma without complication: Code(s): J45.40 - Moderate persistent asthma, uncomplicated Status: Acute Assessment and Plan: See above (4) ILD (interstitial lung disease): Code(s): J84.9 - Interstitial pulmonary disease, unspecified Status: Acute Assessment and Plan: see above (5) Pulmonary hypertension: Code(s): I27.20 - Pulmonary hypertension, unspecified Status: Acute Assessment and Plan: See above (6) LEONARDO (obstructive sleep apnea): Code(s): G47.33 - Obstructive sleep apnea (adult) (pediatric) Status: Acute Assessment and Plan: Now intubated (7) Diabetes mellitus type 2 in obese: Code(s): E11.69 - Type 2 diabetes mellitus with other specified complication; E66.9 - Obesity, unspecified Status: Acute Assessment and Plan: SSI (8) Essential (primary) hypertension: Code(s): I10 - Essential (primary) hypertension Status: Acute Assessment and Plan: P.o. medications on hold as blood pressure is in adequate range. Will use p.r.n. labetalol and hydralazine if needed (9) Hypothyroidism (acquired): Code(s): E03.9 - Hypothyroidism, unspecified Status: Acute Assessment and Plan: Continue levothyroxine (10) Connective tissue disorder: Code(s): M35.9 - Systemic involvement of connective tissue, unspecified Status: Acute Assessment and Plan: She is currently on steroids. hydroxychloroquine and azathioprine [place] (11) ROCK (acute kidney injury): Code(s): N17.9 - Acute kidney failure, unspecified Status: Acute Assessment and Plan: Patient presented with slightly elevated creatinine. She has been receiving Lasix Hold Lasix at this time Hold Cozaar Check CK level Monitor urine output electrolytes and creatinine UA is ordered look for any hematuria and RBC cast Plan DVT prophylaxis -Lovenox Stress ulcer prophylaxis -PPI Nutrition -NPO at this Code Status -patient requests to be Full Code Total Critical Care Time - 100 minutes except separately billed procedures Due to a high probability of clinically significant, life threatening deterioration, the patient required my highest level of preparedness to intervene emergently and I personally spent this critical care time directly and personally managing the patient. This critical care time included obtaining a history; examining the patient; pulse oximetry; ordering and review of studies; arranging urgent treatment with development of a management plan; evaluation of patient's response to treatment; frequent reassessment; and discussions with other providers. It was exclusive of separately billable procedures and treating other patients and teaching time. Please see Assessment and Plan section and the rest of the note for further information on patient assessment and treatment Subjective Date/time seen: 06/26/22 11:50 intubated Exam Narrative: General: Pt is now sedated chemically paralyzed intubated and on mechanical ventilation Lungs/Chest: Trachea central Coarse BS B/L with few crackles Cardiac: Tachyca
[2022-06-26 12:31] LABS: Glucose Point of Care 225 mg/dl (65-105)
[2022-06-26 12:49] LABS: INR 1.2; Prothrombin Time 14.9 Seconds (11.1-14.7)
[2022-06-26 12:51] LABS: Partial Thromboplastin Time 28.3 SECONDS (22.3-36.8)
[2022-06-26 12:55] LABS: Fibrinogen 547 mg/dl (215-510)
[2022-06-26] MEDS: ALBUMIN HUMAN 5% 25 GM/500 ML BTL IV CONT (14:41)
[2022-06-26] MEDS: CALCIUM GLUC 2,000 MG/NS 100ML 2,000 MG/100 ML BAG 100 MG IVPB (14:42)
[2022-06-26] MEDS: HEPARIN SODIUM, PORCINE 10,000 UNITS/10 ML VIAL 2400 UNITS IV PUSH (16:28)
[2022-06-26 17:44] LABS: Glucose Point of Care 274 mg/dl (65-105)
[2022-06-26] MEDS: CISATRACURIUM BESYLATE 200 MG in DEXTROSE 5% 80 ML 24.84 ML IV CONT ×2 (19:27→23:28)
[2022-06-26 20:19] LABS: Glucose Point of Care 248 mg/dl (65-105)
[2022-06-26 23:35] LABS: Glucose Point of Care 185 mg/dl (65-105)
[2022-06-27] VITALS (45 sets, daily range): BP systolic 99–167; BP diastolic 56–102; PULSE 60–94; RESP 28; TEMP 36.7–37.1; O2SAT 93–97
[2022-06-27] MEDS: EPOPROSTENOL SODIUM 0.5 MG VIAL 1 MG INHALATION ×4 (00:02→12:35)
[2022-06-27] MEDS: CISATRACURIUM BESYLATE 200 MG in DEXTROSE 5% 80 ML 24.84 ML IV CONT ×6 (03:39→23:40)
[2022-06-27] MEDS: MIDAZOLAM 100MG/NS 100ML(*CRX) 100 MG/100 ML BAG 8 MG IV CONT ×2 (03:39→17:27)
[2022-06-27 04:42] LABS: Mean Corpuscular HGB Conc 30.4 g/dl (32-36); Mean Corpuscular Hemoglobin 24.4 pg (26-34); Mean Corpuscular Volume 80.1 fl (80-100); Mean Platelet Volume 10.3 fl (7.4-10.4); Platelet Count Result 405 k/mm3 (150-375); Red Blood Count 2.87 M/mm3 (4.2-5.4); Red Cell Distribution Width 17.6 % (11.5-14.5); White Blood Count 17.7 K/mm3 (4.5-10.0)
[2022-06-27 05:09] LABS: Alanine Aminotransferase 34 U/L (6-35); Albumin Level 2.9 g/dL (3.5-5.1); Alkaline Phosphatase 41 U/L (38-126); Anion Gap 8 mmol/L (8-16); Aspartate Amino Transferase 24 U/L (14-36); Bilirubin,Total 0.6 mg/dL (0.2-1.3); Blood Urea Nitrogen 65 mg/dL (7-17); Calcium 7.7 mg/dL (8.4-10.2); Carbon Dioxide 31 mmol/L (22-30); Chloride 99 mmol/L (98-107); Estimated CRCL calculation 53 ml/min; Estimated Glomerular Filt Rate 36; Glucose 178 mg/dL (65-110); Magnesium 2.9 mg/dL (1.6-2.3); Phosphorus 3.7 mg/dL (2.5-4.5); Potassium 4.1 mmol/L (3.4-5.0); Sodium 138 mmol/L (137-145)
[2022-06-27 05:33] LABS: Base Excess ABG 5.9 mEq/l (+/-2.0); Carboxyhemoglobin 0.3 % THb (0-2.0); Fractional Inspired Oxygen 60 %; Methemoglobin ABG 0.3 %THb (0-1.5); Oxygen Content ABG 12.2 %vol (16.0-22.0); Oxygen Saturation ABG 95.2 % (95.0-100.0); Oxyhemoglobin 93.5 % THb (90.0-100.0); PCO2 ABG 55.9 mmHg (35.0-45.0); PO2 ABG 79.3 mmHg (80.0-100.0); PO2 FiO2 Ratio Arterial Blood 1.32 %; Reduced Hemoglobin 5.9 %THb (0-5.0); Total Hemoglobin 9.2 g/dL (12.0-18.0); pH ABG 7.376 (7.350-7.450)
[2022-06-27 05:34] LABS: Arterial Blood Gas PEEP 14 cmH2O; Arterial Blood Gas Tidal Volume 320 ml; Arterial Blood Gas Vent Mode CMV; Arterial Blood Gas Ventilator rate 28 /MIN; Device VENTILATOR; Modified Allen's Test Unable to perform; Site Drawn RIGHT RADIAL
[2022-06-27] MEDS: CENTRAL LINE FLUSH 10 ML IV PUSH ×4 (05:41→20:26)
--- NOTE | 2022-06-27 08:47 | WPDINTPN ---
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 She was seeing Rheumatology and pulmonary as an outpatient In the past, she had positive CHELI once, repeat CHELI screen was negative. ANCA p 1:40, her DsDNA is 7 and her SSA high She was on Plaquenil and Imuran as an outpatient She was admitted with respiratory failure with bilateral diffuse infiltrate. COVID and influenza were negative Since admission, her hypoxia had been gradually getting worse since she was admitted and On06/24 she was on BiPAP with 80-90% FiO2 but still tachypnic and in respiratory distress. Pulmonary was planning to do bronchoscopy but was unable do it due to hypoxia and BiPAP. 06/24 Patient was transferred to ICU and intubated. Although intubation was uneventful patient remained hypoxic despite bagging with a PEEP valve. With bagging her sats could only improve up to 80% and stayed in 70s. Patient was sedated by giving additional sedation and paralyzed with rocuronium/nimbex. She is morbidly obese which has complicated the management. no evidence of hemoptysis seen during intubation. Post intubation Chest x-ray reviewed and did not show any pneumothorax and showed ET tube in acceptable position. Patient was placed on high PEEP of 18, placed in prone position, paralyzed with Nimbex, and started on inhaled Flolan. Permissive hypercapnia was tolerated and acidosis was treated with bicarb. patient was already on broad-spectrum antibiotics in the form of vancomycin Zosyn and azithromycin. Autoimmune workup had been sent and pending including ANCA, UA with microscopic, anti DNA antibody, anti GBM antibody 06/25 improved oxygen requirement and patient was down to FiO2 of 40%. I decreased PEEP to 16 and then 14. I placed patient in supine position. Tidal volume changed to 320 to bring in line with 6 mL/kg as per ARDS net protocol although her ventilation has been quite limited due to high peak pressures. Rate was changed to 24 Patient underwent bronchoscopy and BAL which showed alveolar hemorrhage. G stain cultures and other infectious workup was obtained pneumocystis RSV CMV which are also pending Case discussed with Dr. Marshall with pulmonary and Dr. Duffy with nephrology. 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 She does have mixed picture as she has multiple other antibodies positive on past work and also has other reasons for acute kidney injury as she received contrast and was on diuretics. We have started her on pulse dose of Solu-Medrol 1 g q.day on 06/25 Dr. Duffy recommended plasma exchange and patient received her 1st treatment on 06/26 She is scheduled for kidney biopsy today She does need rheumatology consultation which we do not have including access to IV cyclophosphamide or rituximab. I have called [facility] and [facility] and they do not have any bed available. I have patient on wait list for [facility] and [facility] and waiting for bed availability. Meanwhile, due to increased oxygen requirement overnight, I will continue Nimbex infusion to prevent patient ventilator asynchrony Continue Flolan inhalation at this time Although this does not appear to be bacterial pneumonia but will continue broad-spectrum antibiotics for bacterial coverage with Zosyn until all the testing is back. I will discontinue vancomycin and she has already completed a 5 d
[2022-06-27 09:14] LABS: Glucose Point of Care 201 mg/dl (65-105)
[2022-06-27] MEDS: LEVOTHYROXINE SODIUM 50 MCG TABLET PO (09:14)
[2022-06-27] MEDS: INSULIN GLARGINE (*BKC) 100 UNITS/ML 15 UNITS SUB-Q (09:14)
[2022-06-27] MEDS: INSULIN ASPART (*BKC) 100 UNITS/ML SUB-Q ×2 (09:15→19:52)
[2022-06-27] MEDS: methylPREDNISolone SOD SUCC 1,000 MG in DEXTROSE 5% 100 ML 200 MG IVPB (09:15)
[2022-06-27] MEDS: PANTOPRAZOLE SODIUM IV 40 MG VIAL IV PUSH ×2 (09:16→20:26)
[2022-06-27] MEDS: polyethylene glycoL 3350 17 GM POWD.PACK PO (09:16)
[2022-06-27] MEDS: MINERAL OIL/WHITE PETROLATUM OINTMENT 1 APPLIC EACH EYE ×2 (09:16→20:26)
--- NOTE | 2022-06-27 11:18 | PM.IMPN ---
Progress Note: A&P Assessment and Plan (1) Acute hypoxemic respiratory failure: Code(s): J96.01 - Acute respiratory failure with hypoxia Status: Acute Assessment and Plan: Management per ICU (2) Pneumonitis: Code(s): J18.9 - Pneumonia, unspecified organism Status: Acute Assessment and Plan: see plan above (3) Moderate persistent asthma without complication: Code(s): J45.40 - Moderate persistent asthma, uncomplicated Status: Acute Assessment and Plan: See above (4) ILD (interstitial lung disease): Code(s): J84.9 - Interstitial pulmonary disease, unspecified Status: Acute Assessment and Plan: see above (5) Pulmonary hypertension: Code(s): I27.20 - Pulmonary hypertension, unspecified Status: Acute Assessment and Plan: See above (6) LEONARDO (obstructive sleep apnea): Code(s): G47.33 - Obstructive sleep apnea (adult) (pediatric) Status: Acute Assessment and Plan: Now intubated (7) Diabetes mellitus type 2 in obese: Code(s): E11.69 - Type 2 diabetes mellitus with other specified complication; E66.9 - Obesity, unspecified Status: Acute Assessment and Plan: SSI (8) Essential (primary) hypertension: Code(s): I10 - Essential (primary) hypertension Status: Acute Assessment and Plan: P.o. medications on hold as blood pressure is in adequate range. Will use p.r.n. labetalol and hydralazine if needed (9) Hypothyroidism (acquired): Code(s): E03.9 - Hypothyroidism, unspecified Status: Acute Assessment and Plan: Continue levothyroxine (10) Connective tissue disorder: Code(s): M35.9 - Systemic involvement of connective tissue, unspecified Status: Acute Assessment and Plan: She is currently on steroids. hydroxychloroquine and azathioprine [place] (11) ROCK (acute kidney injury): Code(s): N17.9 - Acute kidney failure, unspecified Status: Acute Assessment and Plan: monitor cr and electrolytes Subjective Date/time seen: 06/27/22 11:18 intubated Exam Narrative: General: Pt is now sedated chemically paralyzed intubated and on mechanical ventilation Lungs/Chest: Trachea central Coarse BS B/L with few crackles Cardiac: Tachycardic RRR. Normal S1 S2. No murmurs Circulation: Pedal pulses are intact and symmetrical. Abdomen: Decreased bowel sounds. Morbidly Obese. Soft. NT. ND. Extremities: No clubbing, cyanosis or edema. Warm : Coello in place Neurologic: Patient is sedated and chemically paralyzed, anisocoria noticed on 06/25 appears to be not present today and PERRL Objective Data Vital Signs Vital Signs: Vital Signs - 24 hr 06/26/22 11:21 06/26/22 11:21 06/26/22 11:50 Temperature Pulse Rate 95 95 97 Respiratory Rate 28 H 28 H 28 H Blood Pressure Pulse Oximetry 93 Oxygen Delivery Mechanical Ventilation Fraction of Inspired Oxygen 50 06/26/22 11:57 06/26/22 12:24 06/26/22 12:25 Temperature Pulse Rate 97 95 Respiratory Rate 28 H Blood Pressure Pulse Oximetry 93 93 Oxygen Delivery Mechanical Ventilation Fraction of Inspired Oxygen 50 50 06/26/22 12:00 06/26/22 14:12 06/26/22 14:15 Temperature 98 F Pulse Rate 110 H 115 H 115 H Respiratory Rate 28 H 28 H Blood Pressure 158/99 H Pulse Oximetry 92 92 92 Oxygen Delivery Mechanical Ventilation Fraction of Inspired Oxygen 50 06/26/22 12:00 06/26/22 14:00 06/26/22 14:00 Temperature Pulse Rate 93 107 H 107 H Respiratory Rate 28 H Blood Pressure 160/90 H Pulse Oximetry 92 Oxygen Delivery Fraction of Inspired Oxygen 06/26/22 14:47 06/26/22 15:47 06/26/22 16:06 Temperature 98 F 98.5 F 98.5 F Pulse Rate 115 H 99 109 H Respiratory Rate 28 H 28 H 28 H Blood Pressure 160/90 H 140/80 Pulse Oximetry 92 94 93 Oxygen Delivery Fraction of Inspired Oxygen 06/26/22 16:00 06/16
--- NOTE | 2022-06-27 11:40 | PCFNICU ---
ICU Rounding Note: Pt current nutrition is Vital AF 1.2 at 50 ml/hr. Nutrition recommendation: Nepro at 35 ml/hr Last recorded weight is 168.9 kg, up from 165.6 kg on admit. Bowel Motility:No BM reported. Labs Reviewed:Glu 178, GFR 36, BUN 65, Cr 1.8,Alb 2.9, Hct 23.0,Hgb 7.0 Meds Noted:Miralax, Vancomycin, Fentanyl, Versed, Zosyn, Lantus, Synthroid,Flolan, Nimbex Skin: WNL Additional Notes: Patient remains on mechanical vent and tube feedings of Vital AF 1.2. Plans for formula change to Nepro. Renal labs elevated. Recommend goal rate of Nepro at 35 ml/hr, providing 1386 kcals/62 gms protein/892 ml water. Free water flush 30 ml q 4 hours. Agree with diet orders. Following daily in ICU rounds. Will monitor in ICU rounds and reassessing every Monday and Monday.
[2022-06-27 11:56] LABS: Pneumococcal Antigen Urine Not Detected (Not Detected)
[2022-06-27] MEDS: FENTANYL 2,500MCG/NS250ML(*CRX 2,500 MCG/250 ML BAG 20 MCG IV CONT (11:59)
--- NOTE | 2022-06-27 12:13 | P.PNNP_ITS ---
Progress Note: A&P Assessment and Plan (1) ROCK (acute kidney injury): Code(s): N17.9 - Acute kidney failure, unspecified Status: Acute Assessment and Plan: * normal baseline kidney function * however, suspicion is that she may hve some underlying renal insufficiency * noted to have proteinuria/microalbuminuria * urinalysis with 3+ protein as well as hematuria; hematuria has been present in the past as well * noted positive serologies in the past as well * several issues/concerns: * could just be renal hypoperfusion/ATN from hypotension * noted contrast on admission but creatinine improved already after exposure * urine sediment with granular casts but no muddy brown casts or RBC casts * given her positive pANCA, CHELI, and dsDNA-ab in the past + proteinuria + hematuria -- possible underlying vasculitis/glomerulonephritis although less likely RPGN * given her alveolar hemorrhage with her known serological testing, she could have microscopic polyangiitis with renal and pulmonary involvement * pulse dose steroids * plasmapheresis * kidney biopsy today * follow-up on pathology when available (2) Pulmonary alveolar hemorrhage: Code(s): R04.89 - Hemorrhage from other sites in respiratory passages Status: Acute Assessment and Plan: * as noted by bronchoscopy * treatment as noted (see #1) (3) Shock: Code(s): R57.9 - Shock, unspecified Status: Acute Assessment and Plan: * resolved * off vasopressors * follow trend of hemodynamics (4) Diabetes mellitus type 2 in obese: Code(s): E11.69 - Type 2 diabetes mellitus with other specified complication; E66.9 - Obesity, unspecified Status: Acute Assessment and Plan: * follow accuchecks * glycemic control Will continue to follow. Subjective Date/time seen: 06/27/22 12:13 Getting prepped/set-up from renal biopsy at the time of my visit; tolerated plasmapheresis yesterday without any issue or problems after HD catheter placement; off vasopressor therapy with stable hemodynamics; reasonable urine output; remains intubated/sedated/paralyzed and on mechanical ventilation. Exam Narrative: General: WD/WN AA female intubated/sedated/paralyzed but in NAD Heart: normal S1 and S2; no rub Lungs: coarse breath sounds with a few scattered crackles Abdomen: soft, nontender, nondistended, decreased bowel sounds Extremities: no cyanosis or clubbing; no edema Skin: warm and dry Objective Data Vital Signs Vital Signs: Vital Signs Temp Pulse Resp BP Pulse Ox O2 Del Method FiO2 06/27/22 11:59 70 28 H 06/27/22 11:55 70 28 H 06/27/22 10:00 79 06/27/22 08:00 91 06/27/22 11:23 85 28 H 104/67 06/27/22 11:23 73 28 H 104/67 06/27/22 10:33 85 28 H 97 06/27/22 08:10 85 28 H 97 06/27/22 10:32 84 95 Mechanical Ventilation 60 06/27/22 08:00 79 28 H 95 Mechanical Ventilation 60 06/27/22 10:00 79 28 H 131/75 95 06/27/22 08:00 36.8 C 87 28 H 113/69 95 06/27/22 08:31 90 28 H 06/27/22 08:30 84 28 H 06/27/22 08:00 60 06/27/22 08:22 94 97 Mechanical Ventilation 60 06/27/22 07:39 92 28 H 167/102 H 06/27/22 07:39 92 28 H 167/102 H 06/27/22 06:16 9
--- NOTE | 2022-06-27 12:13 | PM.PNNEP ---
Progress Note: A&P Assessment and Plan (1) ROCK (acute kidney injury): Code(s): N17.9 - Acute kidney failure, unspecified Status: Acute Assessment and Plan: normal baseline kidney function however, suspicion is that she may hve some underlying renal insufficiency noted to have proteinuria/microalbuminuria urinalysis with 3+ protein as well as hematuria; hematuria has been present in the past as well noted positive serologies in the past as well several issues/concerns: could just be renal hypoperfusion/ATN from hypotension noted contrast on admission but creatinine improved already after exposure urine sediment with granular casts but no muddy brown casts or RBC casts given her positive pANCA, CHELI, and dsDNA-ab in the past + proteinuria + hematuria -- possible underlying vasculitis/glomerulonephritis although less likely RPGN given her alveolar hemorrhage with her known serological testing, she could have microscopic polyangiitis with renal and pulmonary involvement pulse dose steroids plasmapheresis kidney biopsy today follow-up on pathology when available (2) Pulmonary alveolar hemorrhage: Code(s): R04.89 - Hemorrhage from other sites in respiratory passages Status: Acute Assessment and Plan: as noted by bronchoscopy treatment as noted (see #1) (3) Shock: Code(s): R57.9 - Shock, unspecified Status: Acute Assessment and Plan: resolved off vasopressors follow trend of hemodynamics (4) Diabetes mellitus type 2 in obese: Code(s): E11.69 - Type 2 diabetes mellitus with other specified complication; E66.9 - Obesity, unspecified Status: Acute Assessment and Plan: follow accuchecks glycemic control Will continue to follow. Subjective Date/time seen: 06/27/22 12:13 Getting prepped/set-up from renal biopsy at the time of my visit; tolerated plasmapheresis yesterday without any issue or problems after HD catheter placement; off vasopressor therapy with stable hemodynamics; reasonable urine output; remains intubated/sedated/paralyzed and on mechanical ventilation. Exam Narrative: General: WD/WN AA female intubated/sedated/paralyzed but in NAD Heart: normal S1 and S2; no rub Lungs: coarse breath sounds with a few scattered crackles Abdomen: soft, nontender, nondistended, decreased bowel sounds Extremities: no cyanosis or clubbing; no edema Skin: warm and dry Objective Data Vital Signs Vital Signs: Vital Signs Temp Pulse Resp BP Pulse Ox O2 Del Method FiO2 09/12/22 11:59 70 28 H 06/27/22 11:55 70 28 H 06/27/22 10:00 79 06/27/22 08:00 91 06/27/22 11:23 85 28 H 104/67 06/27/22 11:23 73 28 H 104/67 06/27/22 10:33 85 28 H 97 06/27/22 08:10 85 28 H 97 06/27/22 10:32 84 95 Mechanical Ventilation 60 06/27/22 08:00 79 28 H 95 Mechanical Ventilation 60 06/27/22 10:00 79 28 H 131/75 95 06/27/22 08:00 36.8 C 87 28 H 113/69 95 06/27/22 08:31 90 28 H 06/27/22 08:30 84 28 H 06/27/22 08:00 60 06/27/22 08:22 94 97 Mechanical Ventilation 60 06/27/22 07:39 92 28 H 167/102 H 06/27/22 07:39 92 28 H 167/102 H 06/27/22 06:16 90 97 Mechanical Ventilation 60 06/27/22 06:16 86 28 H 97 06/27/22 06:00 92 28 H 124/74 97 06/27/22 06:00 92 06/27/22 04:00 72 28 H 95 06/27/22 04:00 72 95 Mechanical Ventilation 60 06/27/22 04:00 68 28 H 94 Mechanical Ventilation 60 06/27/22 04:00 37.1 C 68 28 H 99/56 L 94 06/27/22 04:00 50 06/27/22 04:00 68 06/27/22 03:39 68 28 H 06/27/22 03:39 68 28 H 06/27/22 03:39 68 28 H 99/66 L 06/27/22 03:30 68 28 H 99/66 L 06/27/22 02:00 68 06/27/22 02:00 68 28 H 104/59 L 94 06/27/22 02:00 67 93 Mechanical Ventilation 60 06/27/22 02:00
[2022-06-27 13:31] LABS: Glucose Point of Care 173 mg/dl (65-105)
[2022-06-27 13:32] LABS: Hematocrit 25.3 % (37.0-47.0); Hemoglobin 7.6 g/dL (12.0-15.0); Mean Corpuscular Hemoglobin 24.1 pg (26-34); Mean Corpuscular Volume 80.3 fl (80-100); Mean Platelet Volume 10.1 fl (7.4-10.4); Platelet Count Result 452 k/mm3 (150-375); Red Blood Count 3.15 M/mm3 (4.2-5.4); Red Cell Distribution Width 17.7 % (11.5-14.5); White Blood Count 20.7 K/mm3 (4.5-10.0)
--- NOTE | 2022-06-27 13:41 | PM.PNPUL ---
Progress Note: A&P Assessment and Plan (1) Pulmonary alveolar hemorrhage: Code(s): R04.89 - Hemorrhage from other sites in respiratory passages Status: Acute Assessment and Plan: this 51-year-old female presented with? shortness of breath,? acute hypoxemic respiratory failure related to extensive bilateral ? infiltrates,? with no other signs suggestive of? fulminant pneumonia. ? This chest CT pattern has been seen at least 2-3 times over the last 6 years when the patient was similarly hospitalized and received treatment with antibiotics for possible pneumonia and also treatment with IV steroids.?? Review of previous chest CTs? over the last 6 years shows a recurrent pattern of dense opacities bilaterally more on the right, with? occasional air bronchograms and no evidence of? pleural effusion. Subsequent chest CTs invariably showed? clearing of these opacities with small? residual ground-glass opacities and mild nonspecific interstitial lung disease changes.? There was no evidence of significant interstitial lung disease such as NSIP or UIP? seen in patients with autoimmune disease. The patient has underlying autoimmune disease that has not been fully characterized.? Previous serology testing showed? negative CHELI,? elevated double-stranded DNA,? positive Ro antibodies, elevated RF.? She also had positive p-ANCA antibodies with a relatively very low titer.? no previous testing for MPO or PR3? antibodies. The patient is chronically on immunosuppressive treatment with Imuran.? Ceftriaxone and azithromycin from 06/21 through 06/23 then vanco and zosyn. 06/25 Patient was on Solu-Medrol 80 mg IV t.i.d. from 06/21 through 06/25. BAL from 3 different lobes was grossly hemorrhagic and Solu-Medrol 1 g IV q.day was started. 06/26 ?the patient underwent bronchoscopy with BAL yesterday.? Bronchi? appeared unremarkable with no evidence of edema erythema or increased bronchial secretions.? Lavage obtained from 3 different lobes was grossly hemorrhagic.? BAL culture so far negative. ? The patient's history in conjunction with current presentation and the BAL findings suggest alveolar hemorrhage.? Exact etiology of alveolar hemorrhage not quite known. microscopic polyangiitis is a possibility.? Serology testing pending.? The patient has been started on Solu-Medrol 1 g IV daily for 3 days.? Efforts are underway to transfer patient to tertiary center for evaluation by Rheumatology Services and upgrade in immunosuppression.? Nephrology consultation pending. ? case was discussed with the radiology physician, Dr Knott. 06/27 Patient remains intubated, sedated, paralyzed on 60% FiO2 and 14 of peep with a blood gas of 7.38/56/79. Solu-Medrol 1 g given. Plan for renal biopsy later today. Today will be her last day of 1 g of Solu-Medrol as she has completed 3 days. I will change her to 80 mg of Solu-Medrol starting 06/28/2022. day 5 of Zosyn. Vent management per radiology physician. Agree with transfer to higher level of care facility for rheumatology consultation regarding assistance with her rheumatologic disease and immunosuppression. Discussed with Dr. Knott Subjective Date/time seen: 06/27/22 13:41 Interval history: 06/23/2022 Consult date: 06/23/22 Chief complaint: Acute Respiratory Failure w/Hypoxia,Pneumonia Narrative: ?this 51-year-old female presented with 2 day history of shortness of breath.? The patient has history of morbid obesity obstructive sleep apnea on CPAP and also history of autoimmune disease for which she has been chronically on Imuran and hydroxychloroquine. the patient was in her usual state of health until approximately 3 days ago when he started having a scratchy throat.? The next day she started having shortness of breath which progressively increased to the point to come to the emergency room.? She complained also fatigue and mild cough, nonproductive.? She had no fever chills hemoptysis or orthopnea a wheezing or lower extremity edema.? Workup
[2022-06-27 13:48] LABS: INR 1.2; Partial Thromboplastin Time 23.1 SECONDS (22.3-36.8); Prothrombin Time 15.1 Seconds (11.1-14.7)
[2022-06-27 13:49] LABS: Fibrinogen 352 mg/dl (215-510)
[2022-06-27 16:20] LABS: Glucose Point of Care 194 mg/dl (65-105)
[2022-06-27 19:36] LABS: Legionella pneumophila Ag Ur Not Detected (Not Detected)
[2022-06-27 19:45] LABS: Glucose Point of Care 207 mg/dl (65-105)
[2022-06-27 23:51] LABS: Glucose Point of Care 222 mg/dl (65-105)
[2022-06-28] VITALS (68 sets, daily range): BP systolic 93–172; BP diastolic 56–107; PULSE 60–103; RESP 18–28; TEMP 36–36.9; O2SAT 93–100
[2022-06-28] MEDS: INSULIN ASPART (*BKC) 100 UNITS/ML SUB-Q ×3 (00:12→20:17)
[2022-06-28] MEDS: EPOPROSTENOL SODIUM 0.5 MG VIAL 1 MG INHALATION ×2 (00:13→06:07)
[2022-06-28] MEDS: FENTANYL 2,500MCG/NS250ML(*CRX 2,500 MCG/250 ML BAG 20 MCG IV CONT ×2 (01:41→13:13)
[2022-06-28] MEDS: CISATRACURIUM BESYLATE 200 MG in DEXTROSE 5% 80 ML 24.84 ML IV CONT ×6 (03:44→23:44)
[2022-06-28 04:02] LABS: Glucose Point of Care 185 mg/dl (65-105)
[2022-06-28 04:44] LABS: Alveolar/Arterial O2 Gradient 285.7 mmHg; Base Excess ABG 7.9 mEq/l (+/-2.0); Carboxyhemoglobin 0.1 % THb (0-2.0); Fractional Inspired Oxygen 60 %; HCO3 ABG 33.5 mEq/l (22.0-26.0); Methemoglobin ABG 0.6 %THb (0-1.5); Oxygen Content ABG 10.7 %vol (16.0-22.0); Oxygen Saturation ABG 96.2 % (95.0-100.0); Oxyhemoglobin 94.2 % THb (90.0-100.0); PCO2 ABG 53.5 mmHg (35.0-45.0); PO2 ABG 83.3 mmHg (80.0-100.0); PO2 FiO2 Ratio Arterial Blood 1.39 %; Reduced Hemoglobin 5.1 %THb (0-5.0); pH ABG 7.414 (7.350-7.450)
[2022-06-28 04:45] LABS: Device VENTILATOR; Modified Allen's Test Pass; Site Drawn RIGHT RADIAL
[2022-06-28 04:46] LABS: Arterial Blood Gas PEEP 14 cmH2O; Arterial Blood Gas Tidal Volume 320 ml; Arterial Blood Gas Vent Mode CMV; Arterial Blood Gas Ventilator rate 28 /MIN
[2022-06-28 04:52] LABS: Hematocrit 23.3 % (37.0-47.0); Hemoglobin 7.1 g/dL (12.0-15.0); Mean Corpuscular HGB Conc 30.5 g/dl (32-36); Mean Corpuscular Hemoglobin 24.4 pg (26-34); Mean Corpuscular Volume 80.1 fl (80-100); Mean Platelet Volume 9.9 fl (7.4-10.4); Platelet Count Result 405 k/mm3 (150-375); Red Blood Count 2.91 M/mm3 (4.2-5.4); Red Cell Distribution Width 17.8 % (11.5-14.5); White Blood Count 17.1 K/mm3 (4.5-10.0)
[2022-06-28 05:14] LABS: Alanine Aminotransferase 38 U/L (6-35); Alkaline Phosphatase 45 U/L (38-126); Anion Gap 9 mmol/L (8-16); Aspartate Amino Transferase 28 U/L (14-36); Bilirubin,Total 0.5 mg/dL (0.2-1.3); Blood Urea Nitrogen 76 mg/dL (7-17); Calcium 7.7 mg/dL (8.4-10.2); Carbon Dioxide 34 mmol/L (22-30); Chloride 97 mmol/L (98-107); Estimated CRCL calculation 52 ml/min; Estimated Glomerular Filt Rate 36; Glucose 190 mg/dL (65-110); Magnesium 3.1 mg/dL (1.6-2.3); Potassium 4.5 mmol/L (3.4-5.0); Sodium 140 mmol/L (137-145)
[2022-06-28] MEDS: LEVOTHYROXINE SODIUM 50 MCG TABLET PO (05:46)
[2022-06-28] MEDS: CENTRAL LINE FLUSH 10 ML IV PUSH ×4 (05:46→20:10)
[2022-06-28] MEDS: MIDAZOLAM 100MG/NS 100ML(*CRX) 100 MG/100 ML BAG 8 MG IV CONT ×2 (05:50→18:17)
[2022-06-28 08:18] LABS: Glucose Point of Care 175 mg/dl (65-105)
[2022-06-28] MEDS: INSULIN GLARGINE (*BKC) 100 UNITS/ML 20 UNITS SUB-Q (08:36)
[2022-06-28] MEDS: methylPREDNISolone SOD SUCC 125 MG VIAL 80 MG IV PUSH (08:37)
[2022-06-28] MEDS: MINERAL OIL/WHITE PETROLATUM OINTMENT 1 APPLIC EACH EYE ×2 (08:40→20:09)
[2022-06-28] MEDS: PANTOPRAZOLE SODIUM IV 40 MG VIAL IV PUSH ×2 (08:41→20:10)
[2022-06-28] MEDS: polyethylene glycoL 3350 17 GM POWD.PACK PO (08:43)
--- NOTE | 2022-06-28 09:02 | PM.PNPUL ---
Progress Note: A&P Assessment and Plan (1) Pulmonary alveolar hemorrhage: Code(s): R04.89 - Hemorrhage from other sites in respiratory passages Status: Acute Assessment and Plan: this 51-year-old female presented with? shortness of breath,? acute hypoxemic respiratory failure related to extensive bilateral ? infiltrates,? with no other signs suggestive of? fulminant pneumonia. ? This chest CT pattern has been seen at least 2-3 times over the last 6 years when the patient was similarly hospitalized and received treatment with antibiotics for possible pneumonia and also treatment with IV steroids.?? Review of previous chest CTs? over the last 6 years shows a recurrent pattern of dense opacities bilaterally more on the right, with? occasional air bronchograms and no evidence of? pleural effusion. Subsequent chest CTs invariably showed? clearing of these opacities with small? residual ground-glass opacities and mild nonspecific interstitial lung disease changes.? There was no evidence of significant interstitial lung disease such as NSIP or UIP? seen in patients with autoimmune disease. The patient has underlying autoimmune disease that has not been fully characterized.? Previous serology testing showed? negative CHELI,? elevated double-stranded DNA,? positive Ro antibodies, elevated RF.? She also had positive p-ANCA antibodies with a relatively very low titer.? no previous testing for MPO or PR3? antibodies. The patient is chronically on immunosuppressive treatment with Imuran.? Ceftriaxone and azithromycin from 06/21 through 06/23 then vanco and zosyn. 06/25 Patient was on Solu-Medrol 80 mg IV t.i.d. from 06/21 through 06/25. BAL from 3 different lobes was grossly hemorrhagic and Solu-Medrol 1 g IV q.day was started. 06/26 ?the patient underwent bronchoscopy with BAL yesterday.? Bronchi? appeared unremarkable with no evidence of edema erythema or increased bronchial secretions.? Lavage obtained from 3 different lobes was grossly hemorrhagic.? BAL culture so far negative. ? The patient's history in conjunction with current presentation and the BAL findings suggest alveolar hemorrhage.? Exact etiology of alveolar hemorrhage not quite known. microscopic polyangiitis is a possibility.? Serology testing pending.? The patient has been started on Solu-Medrol 1 g IV daily for 3 days.? Efforts are underway to transfer patient to tertiary center for evaluation by Rheumatology Services and upgrade in immunosuppression.? Nephrology consultation pending. ? case was discussed with the undercollar maker, Dr Knott. 06/27 Patient remains intubated, sedated, paralyzed on 60% FiO2 and 14 of peep with a blood gas of 7.38/56/79. Solu-Medrol 1 g given. Plan for renal biopsy later today. Today will be her last day of 1 g of Solu-Medrol as she has completed 3 days. I will change her to 80 mg of Solu-Medrol starting 06/28/2022. day 5 of Zosyn. Vent management per undercollar maker. Agree with transfer to higher level of care facility for rheumatology consultation regarding assistance with her rheumatologic disease and immunosuppression. 06/28 patient remains intubated, sedated, paralyzed on Flolan and 50% FiO2 with peep of 14 with an ABG of 7.41/54/83. chest x-ray with minimal improvement in the by lateral interstitial and alveolar infiltrates. Creatinine is 1.80, white blood cell count of 17.1. Solu-Medrol 80 mg IV Qday for now. Will attempt to decrease Flolan today. renal biopsy performed on 06/27 and awaiting results. Awaiting transfer to higher level of care. Discussed with Dr. Hope Subjective Date/time seen: 06/28/22 09:02 Interval history: 06/23/2022 Consult date: 06/23/22 Chief complaint: Acute Respiratory Failure w/Hypoxia,Pneumonia Narrative: ?this 51-year-old female presented with 2 day history of shortness of breath.? The patient has history of morbid obesity obstructive sleep apnea on CPAP and also history of autoimmune disease for which she has been
--- NOTE | 2022-06-28 09:24 | WPDINTPN ---
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 She was seeing Rheumatology and pulmonary as an outpatient In the past, she had positive CHELI once, repeat CHELI screen was negative. ANCA p 1:40, her DsDNA is 7 and her SSA high She was on Plaquenil and Imuran as an outpatient She was admitted with respiratory failure with bilateral diffuse infiltrate. COVID and influenza were negative Since admission, her hypoxia had been gradually getting worse since she was admitted and On06/24 she was on BiPAP with 80-90% FiO2 but still tachypnic and in respiratory distress. Pulmonary was planning to do bronchoscopy but was unable do it due to hypoxia and BiPAP. 06/24 Patient was transferred to ICU and intubated. Although intubation was uneventful patient remained hypoxic despite bagging with a PEEP valve. With bagging her sats could only improve up to 80% and stayed in 70s. Patient was sedated by giving additional sedation and paralyzed with rocuronium/nimbex. She is morbidly obese which has complicated the management. no evidence of hemoptysis seen during intubation. Post intubation Chest x-ray reviewed and did not show any pneumothorax and showed ET tube in acceptable position. Patient was placed on high PEEP of 18, placed in prone position, paralyzed with Nimbex, and started on inhaled Flolan. Permissive hypercapnia was tolerated and acidosis was treated with bicarb. patient was already on broad-spectrum antibiotics in the form of vancomycin Zosyn and azithromycin. Autoimmune workup had been sent and pending including ANCA, UA with microscopic, anti DNA antibody, anti GBM antibody 06/25 improved oxygen requirement and patient was down to FiO2 of 40%. I decreased PEEP to 16 and then 14. I placed patient in supine position. Tidal volume changed to 320 to bring in line with 6 mL/kg as per ARDS net protocol although her ventilation has been quite limited due to high peak pressures. Rate was changed to 24 Patient underwent bronchoscopy and BAL which showed alveolar hemorrhage. G stain cultures and other infectious workup was obtained pneumocystis RSV CMV which are also pending Case discussed with Dr. Marshall with pulmonary and Dr. Duffy with nephrology. 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 She does have mixed picture as she has multiple other antibodies positive on past work and also has other reasons for acute kidney injury as she received contrast and was on diuretics. We have started her on pulse dose of Solu-Medrol 1 g q.day on 06/25 Dr. Duffy recommended plasma exchange and patient received her 1st treatment on 06/26 She is scheduled for kidney biopsy today She does need rheumatology consultation which we do not have including access to IV cyclophosphamide or rituximab. I have called [facility] and [facility] and they do not have any bed available. I have patient on wait list for [facility] and [facility] and waiting for bed availability. Meanwhile, due to increased oxygen requirement overnight, I will continue Nimbex infusion to prevent patient ventilator asynchrony -will start decreasing Flolan to off Although this does not appear to be bacterial pneumonia but will continue broad-spectrum antibiotics for bacterial coverage with Zosyn until all the testing is back. Vancomycin and azithromycin were discontinued on 06/27 after a 5 day
--- NOTE | 2022-06-28 09:29 | PC.NURSE ---
[facility] transfer line called for update and stated no bed as of now. [employer] updated
--- NOTE | 2022-06-28 09:35 | P.PNNP_ITS ---
Progress Note: A&P Assessment and Plan (1) ROCK (acute kidney injury): Code(s): N17.9 - Acute kidney failure, unspecified Status: Acute Assessment and Plan: * normal baseline kidney function * however, suspicion is that she may hve some underlying renal insufficiency * noted to have proteinuria/microalbuminuria * urinalysis with 3+ protein as well as hematuria; hematuria has been present in the past as well * noted positive serologies in the past as well * several issues/concerns: * could just be renal hypoperfusion/ATN from hypotension * noted contrast on admission but creatinine improved already after exposure * urine sediment with granular casts but no muddy brown casts or RBC casts * given her positive pANCA, CHELI, and dsDNA-ab in the past + proteinuria + hematuria -- possible underlying vasculitis/glomerulonephritis although less likely RPGN * given her alveolar hemorrhage with her known serological testing, she could have microscopic polyangiitis with renal and pulmonary involvement * pulse dose steroids * plasmapheresis * s/p kidney biopsy (on 06/27/22) -- follow-up on pathology when available (2) Acute hypoxemic respiratory failure: Code(s): J96.01 - Acute respiratory failure with hypoxia Status: Acute Assessment and Plan: * 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 * pulse dose steroids * plasmapheresis * antibiotics * fluid overload playing a role?? * plan session of ultrafiltration today and reassess * continue ventilator support (3) Pulmonary alveolar hemorrhage: Code(s): R04.89 - Hemorrhage from other sites in respiratory passages Status: Acute Assessment and Plan: * as noted by bronchoscopy * treatment as noted (see #1 and #2) (4) Shock: Code(s): R57.9 - Shock, unspecified Status: Acute Assessment and Plan: * resolved * off vasopressors * follow trend of hemodynamics (5) Diabetes mellitus type 2 in obese: Code(s): E11.69 - Type 2 diabetes mellitus with other specified complication; E66.9 - Obesity, unspecified Status: Acute Assessment and Plan: * follow accuchecks * glycemic control Will continue to follow. Subjective Date/time seen: 06/28/22 09:35 Remains hemodynamically stable at this time; remains on full mechanical ventilator support; tolerated renal biopsy procedure yesterday without any issues or problems; reasonably urine output noted and renal function remains relatively stable; due for plasmapheresis today. Exam Narrative: General: WD/WN AA female intubated/sedated/paralyzed but in NAD Heart: normal S1 and S2; no rub Lungs: coarse breath sounds with a few scattered crackles Abdomen: soft, nontender, nondistended, decreased bowel sounds Extremities: no cyanosis or clubbing; no edema Skin: warm and intact Objective Data Vital Signs Vital Signs: Vital Signs Temp Pulse Resp BP Pulse Ox O2 Del Method FiO2 06/28/22 08:00 36.7 C 67 28 H 110/65 96 06/28/22 08:00 50 06/28/22 08:00 96 Mechanical Ventilation 50 06/28/22 08:00 63 06/28/22 08:47 75 28 H 96 06/28/22 08:47 96 Mechanical Ventilation 50 06/28/22 07:47 81 28 H 118/66 06/28/22 06:00 73 28 H 125/68 93 06/28/22 06:08 93 Mechanical Ventilation 60
--- NOTE | 2022-06-28 09:35 | PM.PNNEP ---
Progress Note: A&P Assessment and Plan (1) ROCK (acute kidney injury): Code(s): N17.9 - Acute kidney failure, unspecified Status: Acute Assessment and Plan: normal baseline kidney function however, suspicion is that she may hve some underlying renal insufficiency noted to have proteinuria/microalbuminuria urinalysis with 3+ protein as well as hematuria; hematuria has been present in the past as well noted positive serologies in the past as well several issues/concerns: could just be renal hypoperfusion/ATN from hypotension noted contrast on admission but creatinine improved already after exposure urine sediment with granular casts but no muddy brown casts or RBC casts given her positive pANCA, CHELI, and dsDNA-ab in the past + proteinuria + hematuria -- possible underlying vasculitis/glomerulonephritis although less likely RPGN given her alveolar hemorrhage with her known serological testing, she could have microscopic polyangiitis with renal and pulmonary involvement pulse dose steroids plasmapheresis s/p kidney biopsy (on 06/27/22) -- follow-up on pathology when available (2) Acute hypoxemic respiratory failure: Code(s): J96.01 - Acute respiratory failure with hypoxia Status: Acute Assessment and Plan: 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 pulse dose steroids plasmapheresis antibiotics fluid overload playing a role?? plan session of ultrafiltration today and reassess continue ventilator support (3) Pulmonary alveolar hemorrhage: Code(s): R04.89 - Hemorrhage from other sites in respiratory passages Status: Acute Assessment and Plan: as noted by bronchoscopy treatment as noted (see #1 and #2) (4) Shock: Code(s): R57.9 - Shock, unspecified Status: Acute Assessment and Plan: resolved off vasopressors follow trend of hemodynamics (5) Diabetes mellitus type 2 in obese: Code(s): E11.69 - Type 2 diabetes mellitus with other specified complication; E66.9 - Obesity, unspecified Status: Acute Assessment and Plan: follow accuchecks glycemic control Will continue to follow. Subjective Date/time seen: 06/28/22 09:35 Remains hemodynamically stable at this time; remains on full mechanical ventilator support; tolerated renal biopsy procedure yesterday without any issues or problems; reasonably urine output noted and renal function remains relatively stable; due for plasmapheresis today. Exam Narrative: General: WD/WN AA female intubated/sedated/paralyzed but in NAD Heart: normal S1 and S2; no rub Lungs: coarse breath sounds with a few scattered crackles Abdomen: soft, nontender, nondistended, decreased bowel sounds Extremities: no cyanosis or clubbing; no edema Skin: warm and intact Objective Data Vital Signs Vital Signs: Vital Signs Temp Pulse Resp BP Pulse Ox O2 Del Method FiO2 06/28/22 08:00 36.7 C 67 28 H 110/65 96 06/28/22 08:00 50 06/28/22 08:00 96 Mechanical Ventilation 50 06/28/22 08:00 63 06/28/22 08:47 75 28 H 96 06/28/22 08:47 96 Mechanical Ventilation 50 06/28/22 07:47 81 28 H 118/66 06/28/22 06:00 73 28 H 125/68 93 06/28/22 06:08 93 Mechanical Ventilation 60 06/28/22 06:07 72 28 H 93 06/28/22 05:54 76 06/28/22 05:50 77 28 H 06/28/22 05:50 77 28 H 06/28/22 04:27 60 96 Mechanical Ventilation 60 06/28/22 04:26 60 28 H 96 06/28/22 04:00 63 28 H 95 Mechanical Ventilation 60 06/28/22 04:00 36.9 C 63 28 H 107/61 95 06/28/22 04:00 60 06/28/22 04:00 63 06/28/22 03:44 63 28 H 105/63 06/28/22 03:42 63 28 H 105/63 06/28/22 02:12 66 95 Mechanical Ventilation 60 06/28/22 02:12 66 28 H 95 06/28/22 02:00 67 06/28/22 02:00 66 28 H 121/65 96 06/28/22 01:41 70
--- NOTE | 2022-06-28 10:50 | PM.IMPN ---
Progress Note: A&P Assessment and Plan (1) Acute hypoxemic respiratory failure: Code(s): J96.01 - Acute respiratory failure with hypoxia Status: Acute Assessment and Plan: Management per ICU (2) Pneumonitis: Code(s): J18.9 - Pneumonia, unspecified organism Status: Acute Assessment and Plan: see plan above (3) Moderate persistent asthma without complication: Code(s): J45.40 - Moderate persistent asthma, uncomplicated Status: Acute Assessment and Plan: See above (4) ILD (interstitial lung disease): Code(s): J84.9 - Interstitial pulmonary disease, unspecified Status: Acute Assessment and Plan: see above (5) Pulmonary hypertension: Code(s): I27.20 - Pulmonary hypertension, unspecified Status: Acute Assessment and Plan: See above (6) LEONARDO (obstructive sleep apnea): Code(s): G47.33 - Obstructive sleep apnea (adult) (pediatric) Status: Acute Assessment and Plan: Now intubated (7) Diabetes mellitus type 2 in obese: Code(s): E11.69 - Type 2 diabetes mellitus with other specified complication; E66.9 - Obesity, unspecified Status: Acute Assessment and Plan: SSI (8) Essential (primary) hypertension: Code(s): I10 - Essential (primary) hypertension Status: Acute Assessment and Plan: P.o. medications on hold as blood pressure is in adequate range. Will use p.r.n. labetalol and hydralazine if needed (9) Hypothyroidism (acquired): Code(s): E03.9 - Hypothyroidism, unspecified Status: Acute Assessment and Plan: Continue levothyroxine (10) Connective tissue disorder: Code(s): M35.9 - Systemic involvement of connective tissue, unspecified Status: Acute Assessment and Plan: She is currently on steroids. hydroxychloroquine and azathioprine [place] (11) ROCK (acute kidney injury): Code(s): N17.9 - Acute kidney failure, unspecified Status: Acute Assessment and Plan: monitor cr and electrolytes Subjective Date/time seen: 06/28/22 10:50 sedated intubated and paralyzed Exam Narrative: General: Pt is now sedated chemically paralyzed intubated and on mechanical ventilation Lungs/Chest: Trachea central Coarse BS B/L with few crackles Cardiac: Tachycardic RRR. Normal S1 S2. No murmurs Circulation: Pedal pulses are intact and symmetrical. Abdomen: Decreased bowel sounds. Morbidly Obese. Soft. NT. ND. Extremities: No clubbing, cyanosis or edema. Warm : Coello in place Neurologic: Patient is sedated and chemically paralyzed, anisocoria noticed on 06/25 appears to be not present today and PERRL Objective Data Vital Signs Vital Signs: Vital Signs - 24 hr 06/27/22 11:23 06/27/22 11:23 06/27/22 11:55 Temperature Pulse Rate 73 85 70 Respiratory Rate 28 H 28 H 28 H Blood Pressure 104/67 104/67 Pulse Oximetry Oxygen Delivery Fraction of Inspired Oxygen 06/27/22 11:59 06/27/22 12:32 06/27/22 12:33 Temperature Pulse Rate 70 92 92 Respiratory Rate 28 H 28 H Blood Pressure Pulse Oximetry 95 97 Oxygen Delivery Mechanical Ventilation Fraction of Inspired Oxygen 60 06/27/22 12:00 06/27/22 12:00 06/27/22 12:00 Temperature 98.0 F Pulse Rate 77 72 Respiratory Rate 28 H Blood Pressure 137/88 Pulse Oximetry 97 Oxygen Delivery Fraction of Inspired Oxygen 60 06/27/22 12:00 06/27/22 14:01 06/27/22 14:00 Temperature Pulse Rate 77 76 71 Respiratory Rate 28 H Blood Pressure Pulse Oximetry 97 95 Oxygen Delivery Mechanical Ventilation Mechanical Ventilation Fraction of Inspired Oxygen 60 60 06/27/22 14:00 06/27/22 15:12 06/27/22 15:12 Temperature Pulse Rate 71 63 63 Respiratory Rate 28 H 28 H 28 H Blood Pressure 102/59 L 102/61 102/61 Pulse Oximetry 95 Oxygen Delivery Fraction of Inspired Oxygen 06/27/22 16:00 06/27/22 16:24 0
[2022-06-28 11:09] LABS: INR 1.1; Prothrombin Time 13.6 Seconds (11.1-14.7)
[2022-06-28 11:10] LABS: Fibrinogen 360 mg/dl (215-510); Partial Thromboplastin Time 22.2 SECONDS (22.3-36.8)
--- NOTE | 2022-06-28 11:33 | PCNFU ---
Nutrition Follow-Up Complete: Inadequate Oral Intake as related to mechanical ventilation as evidenced by NPO Goal: Meet estimated nutritional needs Patient is progressing towards goal. We will continue current goal. Pt current nutrition is Nepro at 35 ml/hr Last recorded weight is 165.3 kg-stable Bowel Motility: No Bm reported- Miralax started. Labs Reviewed:Glu 190, Cr 1.8,BUN 76, GFR 36, Alb 3.0,Hct 23.3, Hgb 7.1 Meds Noted: Miralax, Vancomycin, Fentanyl, Versed, Zosyn, Lantus, Synthroid,Flolan, Nimbex Skin: WNL Additional Notes: Patient remains on mechanical vent. Tube feeding formula has been changed to Nepro at 35 ml/hr and tolerating per nursing. Current tube feeding is providing 1386 kcals/62 gms protein. Free water flush 30 ml q 4 hours. Renal Biopsy performed. Plans for Dialysis again. Agree with diet orders. Will monitor in ICU rounds and reassessing every Monday and Monday.
[2022-06-28 11:44] LABS: Hepatitis B Surface Antigen Negative (Negative)
[2022-06-28 12:08] LABS: Glucose Point of Care 191 mg/dl (65-105)
[2022-06-28] MEDS: EPOPROSTENOL SODIUM 0.5 MG VIAL INHALATION ×2 (12:18→18:19)
[2022-06-28 12:53] LABS: Angiotensin Converting Enzyme 29.8 U/L (9-67)
[2022-06-28 13:54] LABS: Hepatitis B Surface Anti Res Negative
[2022-06-28] MEDS: ALBUMIN HUMAN 5% 25 GM/500 ML BTL IV CONT ×3 (14:28→14:30)
[2022-06-28] MEDS: CALCIUM GLUC 2,000 MG/NS 100ML 2,000 MG/100 ML BAG 100 MG IVPB (14:30)
[2022-06-28] MEDS: HEPARIN SODIUM, PORCINE 10,000 UNITS/10 ML VIAL 2400 UNITS IV PUSH (14:31)
[2022-06-28 16:57] LABS: Glucose Point of Care 244 mg/dl (65-105)
[2022-06-28 17:41] LABS: CMV DNA Quant PCR IU/mL Not Detected; Cytomegalovirus DNA Quant PCR Not Detected log IU/mL; Cytomegalovirus DNA Source Plasma
[2022-06-28 20:19] LABS: Glucose Point of Care 228 mg/dl (65-105)
[2022-06-28 23:33] LABS: Glucose Point of Care 174 mg/dl (65-105)
[2022-06-29] VITALS (46 sets, daily range): BP systolic 93–162; BP diastolic 54–90; PULSE 69–123; RESP 26–95; TEMP 36.5–37.1; O2SAT 30–98
[2022-06-29] MEDS: EPOPROSTENOL SODIUM 0.5 MG VIAL INHALATION ×2 (00:17→06:14)
[2022-06-29] MEDS: FENTANYL 2,500MCG/NS250ML(*CRX 2,500 MCG/250 ML BAG 20 MCG IV CONT ×2 (01:51→14:52)
[2022-06-29] MEDS: CISATRACURIUM BESYLATE 200 MG in DEXTROSE 5% 80 ML 24.84 ML IV CONT ×2 (03:45→08:00)
[2022-06-29 04:34] LABS: Hematocrit 25.9 % (37.0-47.0); Hemoglobin 7.8 g/dL (12.0-15.0); Mean Corpuscular HGB Conc 30.1 g/dl (32-36); Mean Corpuscular Hemoglobin 24.2 pg (26-34); Mean Corpuscular Volume 80.4 fl (80-100); Mean Platelet Volume 10.1 fl (7.4-10.4); Platelet Count Result 395 k/mm3 (150-375); Red Blood Count 3.22 M/mm3 (4.2-5.4); Red Cell Distribution Width 17.9 % (11.5-14.5); White Blood Count 27.9 K/mm3 (4.5-10.0)
[2022-06-29 04:45] LABS: INR 1.3; Prothrombin Time 15.9 Seconds (11.1-14.7)
[2022-06-29 04:46] LABS: Partial Thromboplastin Time 23.3 SECONDS (22.3-36.8)
[2022-06-29 04:59] LABS: Alanine Aminotransferase 26 U/L (6-35); Albumin Level 2.9 g/dL (3.5-5.1); Alkaline Phosphatase 46 U/L (38-126); Anion Gap 6 mmol/L (8-16); Aspartate Amino Transferase 25 U/L (14-36); Bilirubin,Total 0.5 mg/dL (0.2-1.3); Blood Urea Nitrogen 98 mg/dL (7-17); Carbon Dioxide 32 mmol/L (22-30); Chloride 102 mmol/L (98-107); Estimated CRCL calculation 45 ml/min; Estimated Glomerular Filt Rate 30; Glucose 166 mg/dL (65-110); Potassium 4.5 mmol/L (3.4-5.0); Sodium 140 mmol/L (137-145)
[2022-06-29 05:45] LABS: Alveolar/Arterial O2 Gradient 178.6 mmHg; Base Excess ABG 5.9 mEq/l (+/-2.0); Carboxyhemoglobin 0.3 % THb (0-2.0); Fractional Inspired Oxygen 45 %; HCO3 ABG 32.1 mEq/l (22.0-26.0); Methemoglobin ABG 0.5 %THb (0-1.5); PCO2 ABG 56.2 mmHg (35.0-45.0); PO2 ABG 78.3 mmHg (80.0-100.0); PO2 FiO2 Ratio Arterial Blood 1.74 %; Reduced Hemoglobin 6.2 %THb (0-5.0); Total Hemoglobin 9.1 g/dL (12.0-18.0); pH ABG 7.374 (7.350-7.450)
[2022-06-29 05:46] LABS: Arterial Blood Gas PEEP 14 cmH2O; Arterial Blood Gas Tidal Volume 320 ml; Arterial Blood Gas Vent Mode CMV; Arterial Blood Gas Ventilator rate 28 /MIN; Device VENTILATOR; Modified Allen's Test Unable to perform; Site Drawn RIGHT RADIAL
[2022-06-29] MEDS: CENTRAL LINE FLUSH 10 ML IV PUSH ×4 (06:12→20:18)
[2022-06-29] MEDS: LEVOTHYROXINE SODIUM 50 MCG TABLET PO (06:13)
[2022-06-29 07:14] LABS: Glucose Point of Care 168 mg/dl (65-105)
[2022-06-29] MEDS: MIDAZOLAM 100MG/NS 100ML(*CRX) 100 MG/100 ML BAG 8 MG IV CONT ×2 (08:00→20:36)
--- NOTE | 2022-06-29 08:06 | WPDINTPN ---
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 She was seeing Rheumatology and pulmonary as an outpatient In the past, she had positive CHELI once, repeat CHELI screen was negative. ANCA p 1:40, her DsDNA is 7 and her SSA high She was on Plaquenil and Imuran as an outpatient She was admitted with respiratory failure with bilateral diffuse infiltrate. COVID and influenza were negative - Since admission, her hypoxia had been gradually worsening and on 06/24 she was on BiPAP with 80-90% FiO2 but still tachypnic and in respiratory distress. Pulmonary was planning to do bronchoscopy but was unable do it due to hypoxia and BiPAP. -On 06/24 Patient was transferred to ICU and intubated. Although intubation was uneventful patient remained hypoxic despite bagging with a PEEP valve. With bagging her sats could only improve up to 80% and stayed in 70s. Patient was sedated by giving additional sedation and paralyzed with rocuronium/nimbex. She is morbidly obese which has complicated the management. no evidence of hemoptysis seen during intubation. Post intubation Chest x-ray reviewed and did not show any pneumothorax and showed ET tube in acceptable position. Patient was placed on high PEEP of 18, placed in prone position, paralyzed with Nimbex, and started on inhaled Flolan. Permissive hypercapnia was tolerated and acidosis was treated with bicarb. patient was already on broad-spectrum antibiotics in the form of vancomycin Zosyn and azithromycin. - Autoimmune workup had been sent and pending including ANCA, UA with microscopic, anti DNA antibody, anti GBM antibody - On 06/25 patient underwent bronchoscopy and BAL which showed alveolar hemorrhage. Gram stain and cultures are negative. Pneumocystis is negative, CMV not detected, respiratory virus cultures are pending, Case discussed with Dr. Marshall ( pulmonary) and Dr. Duffy ( nephrology). 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 She does have mixed picture as she has multiple other antibodies positive on past work and also has other reasons for acute kidney injury as she received contrast and was on diuretics. -patient was started on pulse dose of Solu-Medrol 1 g q.day on 06/25 Dr. Duffy recommended plasma exchange and patient received her 1st treatment on 06/26 She does need rheumatology consultation which we do not have including access to IV cyclophosphamide or rituximab. - [facility] and [facility] and they do not have any bed available. Patient is on a wait list for [facility] and [facility] and waiting for bed availability. -chest x-ray, ABGs reviewed, -[place] [id number] [place], and discontinue Flolan today Although this does not appear to be bacterial pneumonia but will continue broad-spectrum antibiotics for bacterial coverage with Zosyn until all the testing is back. Vancomycin and azithromycin were discontinued on 06/27 after a 5 day course Bronchodilators on hold due to patient being on Flolan (2) ROCK (acute kidney injury): Code(s): N17.9 - Acute kidney failure, unspecified Status: Acute Assessment and Plan: Patient presented with slightly elevated creatinine. She has been receiving Lasix during the inpatient stay. She also received contrast for CT on admission continue to hold Lasix and Cozaar Normal CK level Creatinin
[2022-06-29] MEDS: methylPREDNISolone SOD SUCC 125 MG VIAL 80 MG IV PUSH (08:43)
[2022-06-29] MEDS: INSULIN GLARGINE (*BKC) 100 UNITS/ML 24 UNITS SUB-Q (08:44)
[2022-06-29] MEDS: polyethylene glycoL 3350 17 GM POWD.PACK PO (08:45)
[2022-06-29] MEDS: PANTOPRAZOLE SODIUM IV 40 MG VIAL IV PUSH ×2 (08:45→20:18)
[2022-06-29] MEDS: MINERAL OIL/WHITE PETROLATUM OINTMENT 1 APPLIC EACH EYE ×2 (08:45→20:18)
[2022-06-29] MEDS: SODIUM CHLORIDE 0.9% IV 1,000 ML 100 ML IV CONT (08:46)
--- NOTE | 2022-06-29 09:57 | PM.PNPUL ---
Progress Note: A&P Assessment and Plan (1) Pulmonary alveolar hemorrhage: Code(s): R04.89 - Hemorrhage from other sites in respiratory passages Status: Acute Assessment and Plan: this 51-year-old female presented with? shortness of breath,? acute hypoxemic respiratory failure related to extensive bilateral ? infiltrates,? with no other signs suggestive of? fulminant pneumonia. ? This chest CT pattern has been seen at least 2-3 times over the last 6 years when the patient was similarly hospitalized and received treatment with antibiotics for possible pneumonia and also treatment with IV steroids.?? Review of previous chest CTs? over the last 6 years shows a recurrent pattern of dense opacities bilaterally more on the right, with? occasional air bronchograms and no evidence of? pleural effusion. Subsequent chest CTs invariably showed? clearing of these opacities with small? residual ground-glass opacities and mild nonspecific interstitial lung disease changes.? There was no evidence of significant interstitial lung disease such as NSIP or UIP? seen in patients with autoimmune disease. The patient has underlying autoimmune disease that has not been fully characterized.? Previous serology testing showed? negative CHELI,? elevated double-stranded DNA,? positive Ro antibodies, elevated RF.? She also had positive p-ANCA antibodies with a relatively very low titer.? no previous testing for MPO or PR3? antibodies. The patient is chronically on immunosuppressive treatment with Imuran.? Ceftriaxone and azithromycin from 06/21 through 06/23 then vanco and zosyn. 06/25 Patient was on Solu-Medrol 80 mg IV t.i.d. from 06/21 through 06/25. BAL from 3 different lobes was grossly hemorrhagic and Solu-Medrol 1 g IV q.day was started. 06/26 ?the patient underwent bronchoscopy with BAL yesterday.? Bronchi? appeared unremarkable with no evidence of edema erythema or increased bronchial secretions.? Lavage obtained from 3 different lobes was grossly hemorrhagic.? BAL culture so far negative. ? The patient's history in conjunction with current presentation and the BAL findings suggest alveolar hemorrhage.? Exact etiology of alveolar hemorrhage not quite known. microscopic polyangiitis is a possibility.? Serology testing pending.? The patient has been started on Solu-Medrol 1 g IV daily for 3 days.? Efforts are underway to transfer patient to tertiary center for evaluation by Rheumatology Services and upgrade in immunosuppression.? Nephrology consultation pending. ? case was discussed with the disability advocate, Dr Knott. 06/27 Patient remains intubated, sedated, paralyzed on 60% FiO2 and 14 of peep with a blood gas of 7.38/56/79. Solu-Medrol 1 g given. Plan for renal biopsy later today. Today will be her last day of 1 g of Solu-Medrol as she has completed 3 days. I will change her to 80 mg of Solu-Medrol starting 06/28/2022. day 5 of Zosyn. Vent management per disability advocate. Agree with transfer to higher level of care facility for rheumatology consultation regarding assistance with her rheumatologic disease and immunosuppression. 06/28 patient remains intubated, sedated, paralyzed on Flolan and 50% FiO2 with peep of 14 with an ABG of 7.41/54/83. chest x-ray with minimal improvement in the by lateral interstitial and alveolar infiltrates. Creatinine is 1.80, white blood cell count of 17.1. Solu-Medrol 80 mg IV Qday for now. Will attempt to decrease Flolan today. renal biopsy performed on 06/27 and awaiting results. Awaiting transfer to higher level of care. 06/29 patient remains intubated, sedated, paralyzed on Flolan and 45% FiO2 with peep of 14 with an ABG of 7.37/56/78. No hemoptysis from ETT. chest x-ray with no change in bilateral interstitial and alveolar infiltrates. Creatinine is 2.1, white blood cell count of 27.9. Solu-Medrol 80 mg IV scheduled. Will attempt to DC Flolan today. Patient has a leukocytosis and remains on steroids with no change in her oxygen
[2022-06-29 10:11] LABS: Fibrinogen 228 mg/dl (215-510)
[2022-06-29 10:37] LABS: SM Antibody <1.0; SM/RNP Antibody <1.0
--- NOTE | 2022-06-29 11:25 | PCFNICU ---
ICU Rounding Note: Pt current nutrition is Nepro @ 35 ml/h with flushes 30 ml q 4 h. Nutrition recommendation: Nepro at 35 ml/hr, providing 1386 kcals/62 gms protein/892 ml water. Free water flush 30 ml q 4 hours. Agree with diet orders. Last recorded weight is 164.2 kg. Bowel Motility: No BM. Miralax being given Labs Reviewed: Hgb 7.8, Hct 25.9, Alb 2.9, GFR 30, BUN 98, Creat 2.1, Glu 166 Meds Noted: Vancomycin, fentanyl, miralax, versed, solumedrol, Nimbex Skin: WNL Additional Notes: Awaiting transfer to [facility] or [place]. Following daily in ICU rounds. Will monitor in ICU rounds and reassesing every Monday and Monday..
[2022-06-29 11:52] LABS: Glucose Point of Care 214 mg/dl (65-105)
[2022-06-29] MEDS: CISATRACURIUM BESYLATE 200 MG in DEXTROSE 5% 80 ML 22.36 ML IV CONT (12:00)
[2022-06-29] MEDS: INSULIN ASPART (*BKC) 100 UNITS/ML SUB-Q ×3 (12:10→21:27)
--- NOTE | 2022-06-29 12:18 | P.PNNP_ITS ---
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 * given her alveolar hemorrhage with her known serological testing, 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 * continue IV steroids * plasmapheresis x 7 sessions (next treatment tomorrow) * start oral cyclophosphamide * follow repeat labs and UOP * trial of IVFs today on the assumptions aggressive ultrafiltration to blame for decline in renal function/creatinine in last 24 hours (2) Acute hypoxemic respiratory failure: Code(s): J96.01 - Acute respiratory failure with hypoxia Status: Acute Assessment and Plan: * 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 * steroids * plasmapheresis * antibiotics * continue ventilator support (3) Pulmonary alveolar hemorrhage: Code(s): R04.89 - Hemorrhage from other sites in respiratory passages Status: Acute Assessment and Plan: * as noted by bronchoscopy * treatment as noted (see #1 and #2) (4) Shock: Code(s): R57.9 - Shock, unspecified Status: Acute Assessment and Plan: * resolved * off vasopressors * follow trend of hemodynamics (5) Diabetes mellitus type 2 in obese: Code(s): E11.69 - Type 2 diabetes mellitus with other specified complication; E66.9 - Obesity, unspecified Status: Acute Assessment and Plan: * follow accuchecks * glycemic control Discussed case with Dr. Hope. Will continue to follow. Subjective Date/time seen: 06/29/22 12:18 Tolerated ultrafiltration with 2.7L fluid removal; remains on ventilator support although FiO2 has come down a bit; remains hemodynamically stable off vaso pressor therapy; noted drop in urine output and rise in creatinine by AM labs; no apparent distress noted. Exam Narrative: General: WD/WN AA female intubated/sedated in NAD Heart: normal S1 and S2; no rub Lungs: coarse breath sounds with a few scattered crackles Abdomen: soft, nontender, nondistended, decreased bowel sounds Extremities: no cyanosis or clubbing; no edema Skin: no rash Objective Data Vital Signs Vital Signs: Vital Signs Temp Pulse Resp BP Pulse Ox O2 Del Method FiO2 06/29/22 12:04 81 96 Mechanical Ventilation 45 06/29/22 12:00 36.8 C 77 28 H 105/62 95 06/29/22 11:20 75 28 H 106/63 06/29/22 10:00 79 28 H 06/29/22 10:00 79 28 H 06/29/22 10:00 79 28 H 100/66 06/29/22 10:00 79 06/29/22 08:00 45 06/29/22 08:00 96 Mechanical Ventilation 45 06/29/22 10:21 81 28 H 96 06/29/22 08:00 81 06/29/22 08:00 79 28 H 06/29/22 08:00 79 28 H 101/65 06/29/22 08:00 79 28 H 101/65 06/29/22 08:00 79 28
--- NOTE | 2022-06-29 12:18 | PM.PNNEP ---
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 given her alveolar hemorrhage with her known serological testing, 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 continue IV steroids plasmapheresis x 7 sessions (next treatment tomorrow) start oral cyclophosphamide follow repeat labs and UOP trial of IVFs today on the assumptions aggressive ultrafiltration to blame for decline in renal function/creatinine in last 24 hours (2) Acute hypoxemic respiratory failure: Code(s): J96.01 - Acute respiratory failure with hypoxia Status: Acute Assessment and Plan: 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 steroids plasmapheresis antibiotics continue ventilator support (3) Pulmonary alveolar hemorrhage: Code(s): R04.89 - Hemorrhage from other sites in respiratory passages Status: Acute Assessment and Plan: as noted by bronchoscopy treatment as noted (see #1 and #2) (4) Shock: Code(s): R57.9 - Shock, unspecified Status: Acute Assessment and Plan: resolved off vasopressors follow trend of hemodynamics (5) Diabetes mellitus type 2 in obese: Code(s): E11.69 - Type 2 diabetes mellitus with other specified complication; E66.9 - Obesity, unspecified Status: Acute Assessment and Plan: follow accuchecks glycemic control Discussed case with Dr. Hope. Will continue to follow. Subjective Date/time seen: 06/29/22 12:18 Tolerated ultrafiltration with 2.7L fluid removal; remains on ventilator support although FiO2 has come down a bit; remains hemodynamically stable off vasopressor therapy; noted drop in urine output and rise in creatinine by AM labs; no apparent distress noted. Exam Narrative: General: WD/WN AA female intubated/sedated in NAD Heart: normal S1 and S2; no rub Lungs: coarse breath sounds with a few scattered crackles Abdomen: soft, nontender, nondistended, decreased bowel sounds Extremities: no cyanosis or clubbing; no edema Skin: no rash Objective Data Vital Signs Vital Signs: Vital Signs Temp Pulse Resp BP Pulse Ox O2 Del Method FiO2 06/29/22 12:04 81 96 Mechanical Ventilation 45 06/29/22 12:00 36.8 C 77 28 H 105/62 95 06/29/22 11:20 75 28 H 106/63 06/29/22 10:00 79 28 H 06/29/22 10:00 79 28 H 06/29/22 10:00 79 28 H 100/66 06/29/22 10:00 79 06/29/22 08:00 45 06/29/22 08:00 96 Mechanical Ventilation 45 06/29/22 10:21 81 28 H 96 06/29/22 08:00 81 06/29/22 08:00 79 28 H 06/29/22 08:00 79 28 H 101/65 06/29/22 08:00 79 28 H 101/65 06/29/22 08:00 79 28 H 06/29/22 08:00 79 28 H 06/29/22 08:19 83 28 H 97 06/29/22 08:13 83 97 Mechanical Ventilation 45 06/29/22 07:24 36.5 C 76 26 H 93/65 L 97 06/29/22 06:16 78 97 Mechanical Ventilation 45 06/29/22 06:16 78 28 H 97 06/29/22 06:00 78 28 H 93/60 L 98 06/29/22 06:00 78 06/29/22 04:20 76 28 H 96 06/29/22 04:20 76 96 Mechanical Ventilation 45 06/29/22 02:25 73 98 Mechanical Ventilation 45 06/29/22 02:25 73 28 H 98 06/29/22 04:00 98 Mechanical Ventilation 45 06/29/22 04:00 76 06/29/22 04:00 45 06/29/22 04:00 36.6 C 75 28 H 103/55 L 98 0
--- NOTE | 2022-06-29 12:41 | PCRCNOTE ---
Per Dr. Jayy Melgar completed at 1245. Pt's vital signs are HR 78, R 28, SpO2 of 95%. Pt is being monitored.
[2022-06-29 12:45] LABS: RNP Antibodies <1.0; SS-A 3.8; SS-B <1.0
--- NOTE | 2022-06-29 13:29 | PM.IMPN ---
Progress Note: A&P Assessment and Plan (1) Acute hypoxemic respiratory failure: Code(s): J96.01 - Acute respiratory failure with hypoxia Status: Acute Assessment and Plan: Management per ICU 06/29/2022 interval history:? morbidly obese female with respiratory failure multifactorial CT scan of the chest showed today severe extensive bilateral consolidating? pulmonary infiltrate worsen since 06/23/2022? patient was treated azithromycin, Zosyn, and vancomycin, patient is seen by mixer operator tablets had a bronchoscope on 06/25,? on 06/25 discussed with shipping support prognosis is poor, shipping support noted asymmetry of pupils to further evaluate patient had a CT scan of the head is negative for any acute injury, patient continue to be followed by pulmonology, patient remains intubated, sedated and paralyzed on Flolan, currently on Zosyn, there is no significant change with patient, may be transferred to tertiary care for further evaluation. (2) Pneumonitis: Code(s): J18.9 - Pneumonia, unspecified organism Status: Acute Assessment and Plan: see plan above (3) Moderate persistent asthma without complication: Code(s): J45.40 - Moderate persistent asthma, uncomplicated Status: Acute Assessment and Plan: See above (4) ILD (interstitial lung disease): Code(s): J84.9 - Interstitial pulmonary disease, unspecified Status: Acute Assessment and Plan: see above (5) Pulmonary hypertension: Code(s): I27.20 - Pulmonary hypertension, unspecified Status: Acute Assessment and Plan: See above (6) LEONARDO (obstructive sleep apnea): Code(s): G47.33 - Obstructive sleep apnea (adult) (pediatric) Status: Acute Assessment and Plan: Now intubated (7) Diabetes mellitus type 2 in obese: Code(s): E11.69 - Type 2 diabetes mellitus with other specified complication; E66.9 - Obesity, unspecified Status: Acute Assessment and Plan: SSI (8) Essential (primary) hypertension: Code(s): I10 - Essential (primary) hypertension Status: Acute Assessment and Plan: P.o. medications on hold as blood pressure is in adequate range. Will use p.r.n. labetalol and hydralazine if needed (9) Hypothyroidism (acquired): Code(s): E03.9 - Hypothyroidism, unspecified Status: Acute Assessment and Plan: Continue levothyroxine (10) Connective tissue disorder: Code(s): M35.9 - Systemic involvement of connective tissue, unspecified Status: Acute Assessment and Plan: She is currently on steroids. hydroxychloroquine and azathioprine [place] (11) ROCK (acute kidney injury): Code(s): N17.9 - Acute kidney failure, unspecified Status: Acute Assessment and Plan: monitor cr and electrolytes Subjective Date/time seen: 06/29/22 13:29 06/29/2022 interval history:? morbidly obese female with respiratory failure multifactorial CT scan of the chest showed today severe extensive bilateral consolidating? pulmonary infiltrate worsen since 06/23/2022? patient was treated azithromycin, Zosyn, and vancomycin, patient is seen by mixer operator tablets had a bronchoscope on 06/25,? on 06/25 discussed with shipping support prognosis is poor, shipping support noted asymmetry of pupils to further evaluate patient had a CT scan of the head is negative for any acute injury, patient continue to be followed by pulmonology, patient remains intubated, sedated and paralyzed on Flolan, currently on Zosyn, there is no significant change with patient, may be transferred to tertiary care for further evaluation. Exam Narrative: ?morbidly obese Patient is comfortable, NAD HEENT:? ET tube in place LUNGS: normal respiratory effort ABD:? distended Lower extremities: no edema SKIN: nonjaundiced Neuro: grossly intact. Objective Data Vital Signs Vital Signs: Vital Signs - 24 hr 06/28/22 14:00 06/28/22 14:00 06/28/22 14:26
--- NOTE | 2022-06-29 15:50 | PC.NURSE ---
Pt being weaned off of Nimbex. When pt was decreased to 2.5 mcg BP increased to 162/90, HR 130, RR 31. Nimbex increased to 4 mcg.
[2022-06-29 16:18] LABS: Glucose Point of Care 241 mg/dl (65-105)
--- NOTE | 2022-06-29 17:07 | WPDCN ---
Assessment and Plan Assessment and plan (1) Vaginal bleeding: Code(s): N93.9 - Abnormal uterine and vaginal bleeding, unspecified Status: Acute Assessment and Plan: patient was seen for annual visit in 09/2021 where it was documented that patient still has regular menstrual cycles current vaginal bleeding likely due to menses no acute interventions necessary amount of bleeding not concerning at this time as it is within normal limits to require changing 2-3 moderate to fully saturated pads daily during cycle keep area as clean as possible expect cessation of bleeding within next few days would advise continuing to monitor for now if saturating >2 pads per hour, please let us know will sign off for now and allow primary team to continue to manage patient's acute medical issues please reconsult as necessary HPI Data of Consult Date/Time: 06/29/22 17:07 Requesting Physician: Sonja Chowdary MD Primary Care Provider: Arash Lamar DO Consult Narrative Reason for consult: vaginal bleeding Narrative: Veena Sanderson is a 51 year old female who is intubated and sedated in the ICU following admission for respiratory failure. Therefore, unable to obtain history from patient. History obtained from nurse at bedside. Uncertain of when vaginal bleeding began as patient was transferred from IMU to ICU on 06/24. States that since patient was admitted to ICU, she has had a steady flow of blood from vagina. Requires changes 1-2x/day of moderate to fully saturated pads. No passage of large clots noted. Review of Systems Review of Systems: ROS unobtainable: Yes unobtainable due to endotracheal tube PMFSH Past Medical History Medical History (Updated 06/29/22 @ 17:34 by Lupe Austin MD) Abnormal antineutrophil cytoplasmic antibody (ANCA) test Anemia Arthritis Asthma COPD (chronic obstructive pulmonary disease) Diabetes Hx of blood clots Hypertension Interstitial lung disease Missed x1 Pulmonary alveolar hemorrhage Thyroid disease Undifferentiated connective tissue disease Surgical History Surgical History Delivery by section x4 Family History Family History Sibling Patient's sister is in good health Father Family history of malignant neoplasm Mother Family history of malignant neoplasm Patient's mother is Hypertension Family history of cardiovascular disease Grandparent Diabetes mellitus Hypertension Social History Social History Social History: The patient has 6 children and is . She is considered disabled. She does not have a durable power boom storage for healthcare. She has never smoked does not use any alcohol marijuana or illicit drugs. Code status full code Smoking status: Never smoker Second hand tobacco smoke exposure: No Alcohol intake: never Substance use: never Substance use type: does not use Spiritual care concerns: No Agree to blood products: No Meds Home Medications and Allergies Home Medications Medication Instructions Recorded Confirmed Type azathioprine 50 mg tablet (Imuran) 50 mg PO BID #180 tabs 11/04/21 06/21/22 Rx albuterol sulfate 90 mcg/actuation 1 - 2 puff inhalation Q4-6H PRN 02/28/22 06/21/22 Rx aerosol inhaler (ProAir HFA) shortness of breath or wheezing #8.5 grams furosemide 20 mg tablet 40 mg PO DAILY #180 tabs 03/16/22 06/21/22 Rx levothyroxine 50 mcg tablet 50 mcg PO DAILY #90 tabs 03/28/22 06/21/22 Rx metformin 1,000 mg tablet 1,000 mg PO BID #180 tabs 04/08/22 06/21/22 Rx amlodipine 10 mg tablet 10 mg PO DAILY #90 tabs 04/19/22 06/21/22 Rx losartan 100 1 tablet PO DAILY #90 tabs 05/24/22 06/21/22 Rx mg-hydrochlorothiazide 25 mg tablet diclofenac sodium 75 mg 75 mg PO BID PRN Pain (Scale Score 09/0
[2022-06-29] MEDS: CISATRACURIUM BESYLATE 200 MG in DEXTROSE 5% 80 ML 19.87 ML IV CONT ×2 (17:25→21:58)
[2022-06-29 18:57] LABS: Complement Total CH50 >60 U/mL (31-60)
[2022-06-29 21:17] LABS: Glucose Point of Care 207 mg/dl (65-105)
[2022-06-29 23:59] LABS: Glucose Point of Care 167 mg/dl (65-105)
[2022-06-30] VITALS (46 sets, daily range): BP systolic 99–174; BP diastolic 53–103; PULSE 65–126; RESP 28; TEMP 35.7–36.9; O2SAT 94–99
[2022-06-30] MEDS: FENTANYL 2,500MCG/NS250ML(*CRX 2,500 MCG/250 ML BAG 20 MCG IV CONT ×2 (02:34→15:21)
[2022-06-30] MEDS: CISATRACURIUM BESYLATE 200 MG in DEXTROSE 5% 80 ML 19.87 ML IV CONT ×5 (02:54→23:11)
[2022-06-30 04:42] LABS: Hematocrit 22.7 % (37.0-47.0); Mean Corpuscular Hemoglobin 23.9 pg (26-34); Mean Corpuscular Volume 79.6 fl (80-100); Mean Platelet Volume 10.1 fl (7.4-10.4); Platelet Count Result 331 k/mm3 (150-375); Red Blood Count 2.85 M/mm3 (4.2-5.4); White Blood Count 23.5 K/mm3 (4.5-10.0)
[2022-06-30 04:53] LABS: INR 1.2; Partial Thromboplastin Time 25.3 SECONDS (22.3-36.8); Prothrombin Time 14.9 Seconds (11.1-14.7)
[2022-06-30 05:02] LABS: Alanine Aminotransferase 28 U/L (6-35); Albumin Level 2.8 g/dL (3.5-5.1); Alkaline Phosphatase 45 U/L (38-126); Anion Gap 9 mmol/L (8-16); Aspartate Amino Transferase 27 U/L (14-36); Bilirubin,Total 0.4 mg/dL (0.2-1.3); Blood Urea Nitrogen 109 mg/dL (7-17); Calcium 7.7 mg/dL (8.4-10.2); Carbon Dioxide 32 mmol/L (22-30); Chloride 101 mmol/L (98-107); Estimated CRCL calculation 44 ml/min; Estimated Glomerular Filt Rate 30; Glucose 158 mg/dL (65-110); Magnesium 3.1 mg/dL (1.6-2.3); Potassium 4.4 mmol/L (3.4-5.0); Sodium 142 mmol/L (137-145)
[2022-06-30 05:15] LABS: Alveolar/Arterial O2 Gradient 172.9 mmHg; Arterial Blood Gas PEEP 14 cmH2O; Arterial Blood Gas Vent Mode CMV; Arterial Blood Gas Ventilator rate 28 /MIN; Base Excess ABG 4.2 mEq/l (+/-2.0); Carboxyhemoglobin 0.3 % THb (0-2.0); Device VENTILATOR; Fractional Inspired Oxygen 45 %; Methemoglobin ABG 0.5 %THb (0-1.5); Modified Allen's Test Pass; Oxygen Content ABG 13.1 %vol (16.0-22.0); Oxygen Saturation ABG 96.6 % (95.0-100.0); Oxyhemoglobin 94.4 % THb (90.0-100.0); PCO2 ABG 51.5 mmHg (35.0-45.0); PO2 ABG 89.4 mmHg (80.0-100.0); PO2 FiO2 Ratio Arterial Blood 1.99 %; Reduced Hemoglobin 4.8 %THb (0-5.0); Site Drawn RIGHT RADIAL; Total Hemoglobin 9.8 g/dL (12.0-18.0); pH ABG 7.383 (7.350-7.450)
[2022-06-30 05:16] LABS: Arterial Blood Gas Tidal Volume 320 ml
[2022-06-30 05:22] LABS: Fibrinogen 255 mg/dl (215-510)
[2022-06-30] MEDS: CENTRAL LINE FLUSH 10 ML IV PUSH ×4 (05:29→20:00)
[2022-06-30 06:15] LABS: Hexagonal Phase Confirm Positive (Negative); Lupus dRVVT Confirmation Positive (Negative)
[2022-06-30] MEDS: LEVOTHYROXINE SODIUM 50 MCG TABLET PO (06:33)
[2022-06-30 06:46] LABS: Hemoglobin 6.8 g/dL (12.0-15.0)
[2022-06-30 06:47] LABS: Lupus dRVVT 1:1 Mix Interpreta Positive; Lupus dRVVT Screen 63 sec (<=45); PTT-LA Screen 49 sec (<=40)
[2022-06-30 06:53] LABS: Band Neutrophils Percent 1 % (0-6); Lymphocytes Absolute Manual 1.64 K/mm3 (1.1-4.5); Metamyelocytes Percent 1 %; Monocytes Absolute Manual 0.23 K/mm3 (0.1-0.90); Monocytes Percent Manual 1 % (3-9); Neutrophils Absolute Manual 21.38 K/mm3 (1.7-7.2); Neutrophils Percent Manual 90 % (46-73); Platelet Estimate Adequate (Adequate); Total Cells Counted 100
[2022-06-30 06:57] LABS: Anisocytosis 2+ (NORMAL); Hypochromasia 2+ (NORMAL); Ovalocytes 1+ (NORMAL); Poikilocytosis 2+ (NORMAL); Target Cells 1+ (NORMAL)
[2022-06-30] MEDS: polyethylene glycoL 3350 17 GM POWD.PACK PO (08:23)
[2022-06-30] MEDS: PANTOPRAZOLE SODIUM IV 40 MG VIAL IV PUSH ×2 (08:24→20:00)
[2022-06-30] MEDS: MINERAL OIL/WHITE PETROLATUM OINTMENT 1 APPLIC EACH EYE ×2 (08:24→20:00)
[2022-06-30] MEDS: methylPREDNISolone SOD SUCC 125 MG VIAL 80 MG IV PUSH (08:24)
[2022-06-30 08:51] LABS: Glucose Point of Care 154 mg/dl (65-105)
[2022-06-30] MEDS: INSULIN GLARGINE (*BKC) 100 UNITS/ML 24 UNITS SUB-Q (09:03)
[2022-06-30] MEDS: MIDAZOLAM 100MG/NS 100ML(*CRX) 100 MG/100 ML BAG 8 MG IV CONT ×2 (10:23→21:36)
[2022-06-30] MEDS: CALCIUM GLUC 2,000 MG/NS 100ML 2,000 MG/100 ML BAG 100 MG IVPB (10:30)
[2022-06-30 10:47] LABS: Chlamydia pneumoniae by PCR Not Detected
--- NOTE | 2022-06-30 11:20 | PCFNICU ---
ICU Rounding Note: Pt current nutrition is Nepro at 35 ml/hr. Nutrition recommendation: Advancing goal rate to 40 ml/hr Last recorded weight is 171.1 kg, up from 165.6 kg on admit. Bowel Motility:No BM reported- miralax given. Suppository ordered PRN. Labs Reviewed:Glu 158, Cr 2.10,BUN 109, GFR 30, Alb 2.8, Hgb 6.8, Hct 22.7 Meds Noted:Vancomycin, fentanyl, miralax, versed, Solu Medrol, Nimbex Skin: WNL Additional Notes: Patient remains on mechanical vent and tube feedings of Nepro at 35 ml/hr. Patient is getting plasma exchange, 1st treatment noted 06/26. Recommendations for tube feedings to increase to 40 ml/hr no greater than 45 ml/hr. 40 ml/hr- providing 1584 kcals/71 gms protein/640 ml water. Free water flush 30 ml q 4 hours. Meeting 84% caloric needs and 100% protein needs. Agree with diet orders. Following daily in ICU rounds. Will monitor in ICU rounds and reassessing every Monday and Monday.
--- NOTE | 2022-06-30 11:41 | WPDINTPN ---
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 She was seeing Rheumatology and pulmonary as an outpatient In the past, she had positive CHELI once, repeat CHELI screen was negative. ANCA p 1:40, her DsDNA is 7 and her SSA high She was on Plaquenil and Imuran as an outpatient She was admitted with respiratory failure with bilateral diffuse infiltrate. COVID and influenza were negative - Since admission, her hypoxia had been gradually worsening and on 06/24 she was on BiPAP with 80-90% FiO2 but still tachypnic and in respiratory distress. Pulmonary was planning to do bronchoscopy but was unable do it due to hypoxia and BiPAP. -On 06/24 Patient was transferred to ICU and intubated. Although intubation was uneventful patient remained hypoxic despite bagging with a PEEP valve. With bagging her sats could only improve up to 80% and stayed in 70s. Patient was sedated by giving additional sedation and paralyzed with rocuronium/nimbex. She is morbidly obese which has complicated the management. no evidence of hemoptysis seen during intubation. Post intubation Chest x-ray reviewed and did not show any pneumothorax and showed ET tube in acceptable position. Patient was placed on high PEEP of 18, placed in prone position, paralyzed with Nimbex, and started on inhaled Flolan. Permissive hypercapnia was tolerated and acidosis was treated with bicarb. patient was already on broad-spectrum antibiotics in the form of vancomycin Zosyn and azithromycin. - Autoimmune workup had been sent and pending including ANCA, UA with microscopic, anti DNA antibody, anti GBM antibody - On 06/25 patient underwent bronchoscopy and BAL which showed alveolar hemorrhage. Gram stain and cultures are negative. Pneumocystis is negative, CMV not detected, respiratory virus cultures are pending, Case discussed with Dr. Marshall ( pulmonary) and Dr. Duffy ( nephrology). 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 She does have mixed picture as she has multiple other antibodies positive on past work and also has other reasons for acute kidney injury as she received contrast and was on diuretics. -patient was started on pulse dose of Solu-Medrol 1 g q.day on 06/25 Dr. Duffy recommended plasma exchange and patient received her 1st treatment on 06/26 She does need rheumatology consultation which we do not have - [facility] and [facility] and they do not have any bed available. Patient is on a wait list [facility] [place] [facility] in [place] and waiting for bed availability. -chest x-ray, ABGs reviewed, [place] [id number] [place], and discontinue Flolan today Although this does not appear to be bacterial pneumonia but will continue broad-spectrum antibiotics for bacterial coverage with Zosyn until all the testing is back. Vancomycin and azithromycin were discontinued on 06/27 after a 5 day course Bronchodilators on hold due to patient being on Flolan (2) ROCK (acute kidney injury): Code(s): N17.9 - Acute kidney failure, unspecified Status: Acute Assessment and Plan: Patient presented with slightly elevated creatinine. She has been receiving Lasix during the inpatient stay. She also received contrast for CT on admission continue to hold Lasix and Cozaar Normal CK level Patient with better urine output a L of IV fluids over 10 hours
[2022-06-30] MEDS: HEPARIN SODIUM 1,000 UNITS/ML VIAL 2400 UNITS IV PUSH (11:50)
--- NOTE | 2022-06-30 11:59 | PM.PNNEP ---
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 given her alveolar hemorrhage with her known serological testing, 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 continue IV steroids plasmapheresis x 7 sessions (session #3 today) unable to give oral cyclophosphamide (cannot crush pills to give via tube plan IV cyclophasphamide today I would have preferred oral formulation for ease of administration perhaps when she is off the ventilator we can attempt oral dosing azotemia noted - likely from steroids but he catabolic state and inflammation playing a role follow repeat labs and UOP (2) Acute hypoxemic respiratory failure: Code(s): J96.01 - Acute respiratory failure with hypoxia Status: Acute Assessment and Plan: 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 steroids plasmapheresis antibiotics continue ventilator support (3) Pulmonary alveolar hemorrhage: Code(s): R04.89 - Hemorrhage from other sites in respiratory passages Status: Acute Assessment and Plan: as noted by bronchoscopy treatment as noted (see #1 and #2) (4) Anemia: Code(s): D64.9 - Anemia, unspecified Status: Acute Assessment and Plan: several issues at play: menstrual cycle pulmonary hemorrhage acute inflammation acute illness PRBC transfusion per protocol follow trend of H/H consider empiric Epogen (give ROCK/ARF) (5) Shock: Code(s): R57.9 - Shock, unspecified Status: Acute Assessment and Plan: resolved off vasopressors follow trend of hemodynamics (6) Diabetes mellitus type 2 in obese: Code(s): E11.69 - Type 2 diabetes mellitus with other specified complication; E66.9 - Obesity, unspecified Status: Acute Assessment and Plan: follow accuchecks glycemic control Discussed case with Dr. Hope and plasmapheresis nurse. Will continue to follow. Subjective Date/time seen: 06/30/22 11:59 Tolerating plasmapheresis at the time of my visit (seen on plasmapheresis at 11:50AM); remains intubated/sedated and on mechanical ventilation; stable hemodynamics noted and better urine output over the last 24 hours after IVF trial yesterday; scheduled for IV cytoxan dosage today. Exam Narrative: General: WD/WN AA female intubated/sedated in NAD Heart: normal S1 and S2; no rub Lungs: coarse breath sounds with a few scattered crackles Abdomen: soft, nontender, nondistended, decreased bowel sounds Extremities: no cyanosis or clubbing; no edema Skin: no nodules Objective Data Vital Signs Vital Signs: Vital Signs Temp Pulse Resp BP Pulse Ox O2 Del Method FiO2 06/30/22 11:45 36.6 C 117 H 28 H 06/30/22 11:30 36.5 C 94 28 H 06/30/22 11:05 36.5 C 85 28 H 06/30/22 10:45 73 28 H 06/30/22 10:30 36.5 C 68 28 H 96 06/30/22 12:00 36.6 C 119 H 28 H 174/103 H 94 06/30/22 12:00 116 H 06/30/22 10:00 68 06/30/22 08:00 77 06/30/22 11:25 100 96 Mechanical Ventilation 45 06/30/22 11:51 36.6 C 117 H 28 H 165/87 H 95 06/30/22 11:43 36.5 C 94 28 H 152/76 H 96 06/30/22 11:40 36.5 C 94 28 H 152/76 H 96 06/30/22 11:23 36.5 C 90 28 H 122/70 96 06/30/22 11:14 36.5 C 85 28 H 112/60 96 06/30/22 10:00 36.5 C 68 28 H 99/63 L 96
--- NOTE | 2022-06-30 11:59 | P.PNNP_ITS ---
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 * given her alveolar hemorrhage with her known serological testing, 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 * continue IV steroids * plasmapheresis x 7 sessions (session #3 today) * unable to give oral cyclophosphamide (cannot crush pills to give via tube * plan IV cyclophasphamide today * I would have preferred oral formulation for ease of administration * perhaps when she is off the ventilator we can attempt oral dosing * azotemia noted - likely from steroids but he catabolic state and inflammation playing a role * follow repeat labs and UOP (2) Acute hypoxemic respiratory failure: Code(s): J96.01 - Acute respiratory failure with hypoxia Status: Acute Assessment and Plan: * 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 * steroids * plasmapheresis * antibiotics * continue ventilator support (3) Pulmonary alveolar hemorrhage: Code(s): R04.89 - Hemorrhage from other sites in respiratory passages Status: Acute Assessment and Plan: * as noted by bronchoscopy * treatment as noted (see #1 and #2) (4) Anemia: Code(s): D64.9 - Anemia, unspecified Status: Acute Assessment and Plan: * several issues at play: * menstrual cycle * pulmonary hemorrhage * acute inflammation * acute illness * PRBC transfusion per protocol * follow trend of H/H * consider empiric Epogen (give ROCK/ARF) (5) Shock: Code(s): R57.9 - Shock, unspecified Status: Acute Assessment and Plan: * resolved * off vasopressors * follow trend of hemodynamics (6) Diabetes mellitus type 2 in obese: Code(s): E11.69 - Type 2 diabetes mellitus with other specified complication; E66.9 - Obesity, unspecified Status: Acute Assessment and Plan: * follow accuchecks * glycemic control Discussed case with Dr. Hope and plasmapheresis nurse. Will continue to follow. Subjective Date/time seen: 06/30/22 11:59 Tolerating plasmapheresis at the time of my visit (seen on plasmapheresis at 11:50AM); remains intubated/sedated and on mechanical ventilation; stable hemodynamics noted and better urine output over the last 24 hours after IVF trial yesterday; scheduled for IV cytoxan dosage today. Exam Narrative: General: WD/WN AA female intubated/sedated in NAD Heart: normal S1 and S2; no rub Lungs: coarse breath sounds with a few scattered crackles Abdomen: soft, nontender, nondistended, decreased bowel sounds Extremities: no cyanosis or clubbing; no edema Skin: no nodules Objective Data Vital Signs Vital Signs: Vital Signs Temp Pulse Resp BP Pulse Ox O2 Del Method FiO2 06/30/22 11:45 36.6 C 117 H 28 H 06/30/22 11:30 36.5 C 94 2
[2022-06-30 12:14] LABS: Glucose Point of Care 202 mg/dl (65-105)
[2022-06-30] MEDS: INSULIN ASPART (*BKC) 100 UNITS/ML SUB-Q ×4 (12:55→23:23)
[2022-06-30] MEDS: PALONOSETRON HCL 0.25 MG/5 ML VIAL IV PUSH (14:01)
--- NOTE | 2022-06-30 14:51 | PC.NURSE ---
Cyclophosphamide verified with Pipo Bacon RN.
--- NOTE | 2022-06-30 15:03 | PM.IMPN ---
Progress Note: A&P Assessment and Plan (1) Acute hypoxemic respiratory failure: Code(s): J96.01 - Acute respiratory failure with hypoxia Status: Acute Assessment and Plan: Management per ICU 06/30/2022 interval history:? morbidly obese female with respiratory failure multifactorial CT scan of the chest showed today severe extensive bilateral consolidating? pulmonary infiltrate worsen since 06/23/2022? patient was treated azithromycin, Zosyn, and vancomycin, patient is seen by manager biologics had a bronchoscope on 06/25,? 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 (2) Pneumonitis: Code(s): J18.9 - Pneumonia, unspecified organism Status: Acute Assessment and Plan: see plan above (3) Moderate persistent asthma without complication: Code(s): J45.40 - Moderate persistent asthma, uncomplicated Status: Acute Assessment and Plan: See above (4) ILD (interstitial lung disease): Code(s): J84.9 - Interstitial pulmonary disease, unspecified Status: Acute Assessment and Plan: see above (5) Pulmonary hypertension: Code(s): I27.20 - Pulmonary hypertension, unspecified Status: Acute Assessment and Plan: See above (6) LEONARDO (obstructive sleep apnea): Code(s): G47.33 - Obstructive sleep apnea (adult) (pediatric) Status: Acute Assessment and Plan: Now intubated (7) Diabetes mellitus type 2 in obese: Code(s): E11.69 - Type 2 diabetes mellitus with other specified complication; E66.9 - Obesity, unspecified Status: Acute Assessment and Plan: SSI (8) Essential (primary) hypertension: Code(s): I10 - Essential (primary) hypertension Status: Acute Assessment and Plan: P.o. medications on hold as blood pressure is in adequate range. Will use p.r.n. labetalol and hydralazine if needed (9) Hypothyroidism (acquired): Code(s): E03.9 - Hypothyroidism, unspecified Status: Acute Assessment and Plan: Continue levothyroxine (10) Connective tissue disorder: Code(s): M35.9 - Systemic involvement of connective tissue, unspecified Status: Acute Assessment and Plan: She is currently on steroids. hydroxychloroquine and azathioprine [place] (11) ROCK (acute kidney injury): Code(s): N17.9 - Acute kidney failure, unspecified Status: Acute Assessment and Plan: monitor cr and electrolytes Subjective Date/time seen: 06/30/22 15:03 06/30/2022 interval history:? morbidly obese female with respiratory failure multifactorial CT scan of the chest showed today severe extensive bilateral consolidating? pulmonary infiltrate worsen since 06/23/2022? patient was treated azithromycin, Zosyn, and vancomycin, patient is seen by manager bi[employer] had a bronchoscope on 06/25,? 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
[2022-06-30] MEDS: SODIUM CHLORIDE 0.9% IV 500 ML 246 ML IV CONT (15:23)
[2022-06-30] MEDS: SODIUM CHLORIDE 0.9% IV 250 ML 30 ML IV CONT (17:00)
[2022-06-30 18:06] LABS: Glucose Point of Care 261 mg/dl (65-105)
--- NOTE | 2022-06-30 18:48 | PC.NURSE ---
Patient on Chemo precautions until 07/02/22 @1875
[2022-06-30 19:32] LABS: Anti Glomerular Basement Memb <1.0 AI (<1.0)
[2022-06-30 20:21] LABS: Glucose Point of Care 245 mg/dl (65-105)
[2022-06-30 23:28] LABS: Glucose Point of Care 214 mg/dl (65-105)
[2022-07-01] VITALS (59 sets, daily range): BP systolic 87–126; BP diastolic 42–80; PULSE 56–84; RESP 0–28; TEMP 36.3–37; O2SAT 90–100; BMI 62.1
[2022-07-01] MEDS: FENTANYL 2,500MCG/NS250ML(*CRX 2,500 MCG/250 ML BAG 20 MCG IV CONT ×2 (03:51→17:08)
[2022-07-01] MEDS: CISATRACURIUM BESYLATE 200 MG in DEXTROSE 5% 80 ML 19.87 ML IV CONT (04:34)
[2022-07-01 04:55] LABS: Basophils Percent Auto 0.2 % (0.2-1.2); Eosinophils Absolute Auto 0.1 K/mm3 (0-0.3); Eosinophils Percent Auto 0.2 % (0-4.4); Hematocrit 23.8 % (37.0-47.0); Hemoglobin 7.5 g/dL (12.0-15.0); Immature Granulocyte Absolute 1.74 K/mm3 (0.00-0.031); Immature Granulocyte Percent A 7.6 % (0-0.5); Lymphocytes Absolute Auto 1.51 K/mm3 (0.9-3.2); Lymphocytes Percent Auto 6.6 % (18.3-44.2); Mean Corpuscular HGB Conc 31.5 g/dl (32-36); Mean Corpuscular Hemoglobin 25.8 pg (26-34); Mean Corpuscular Volume 81.8 fl (80-100); Monocytes Absolute Auto 1.6 K/mm3 (0.1-0.6); Monocytes Percent Auto 6.8 % (2.6-8.5); Neutrophils Percent Auto 78.6 % (45.5-73.1); Nucleated Red Blood Cells Absolute Auto 0.1 K/mm3 (0.0-0.012); Nucleated Red Blood Cells Perc 0.2 % (0.0-0.2); Platelet Count Result 295 k/mm3 (150-375); Red Blood Count 2.91 M/mm3 (4.2-5.4); Red Cell Distribution Width 18.3 % (11.5-14.5); White Blood Count 22.9 K/mm3 (4.5-10.0)
[2022-07-01 05:05] LABS: Alanine Aminotransferase 20 U/L (6-35); Alkaline Phosphatase 45 U/L (38-126); Anion Gap 10 mmol/L (8-16); Aspartate Amino Transferase 23 U/L (14-36); Bilirubin,Total 0.4 mg/dL (0.2-1.3); Blood Urea Nitrogen 103 mg/dL (7-17); Calcium 7.7 mg/dL (8.4-10.2); Carbon Dioxide 33 mmol/L (22-30); Chloride 104 mmol/L (98-107); Estimated CRCL calculation 50 ml/min; Estimated Glomerular Filt Rate 34; Glucose 150 mg/dL (65-110); Magnesium 2.9 mg/dL (1.6-2.3); Phosphorus 4.7 mg/dL (2.5-4.5); Potassium 4.3 mmol/L (3.4-5.0); Sodium 147 mmol/L (137-145)
[2022-07-01 05:18] LABS: Hypochromasia 1+ (NORMAL); Platelet Estimate Adequate (Adequate)
[2022-07-01 05:19] LABS: Ovalocytes 1+ (NORMAL)
[2022-07-01] MEDS: LEVOTHYROXINE SODIUM 50 MCG TABLET PO (05:19)
[2022-07-01] MEDS: CENTRAL LINE FLUSH 10 ML IV PUSH ×4 (05:20→21:33)
[2022-07-01 05:34] LABS: INR 1.2
[2022-07-01 05:42] LABS: Partial Thromboplastin Time 23.9 SECONDS (22.3-36.8)
[2022-07-01 05:55] LABS: Fibrinogen 235 mg/dl (215-510)
[2022-07-01 05:57] LABS: PCO2 ABG 52.3 mmHg (35.0-45.0); PO2 ABG 65.1 mmHg (80.0-100.0); pH ABG 7.403 (7.350-7.450)
[2022-07-01 05:58] LABS: Base Excess ABG 6.3 mEq/l (+/-2.0); Carboxyhemoglobin 0.3 % THb (0-2.0); HCO3 ABG 31.9 mEq/l (22.0-26.0); Oxygen Content ABG 10.7 %vol (16.0-22.0); Oxygen Saturation ABG 92.5 % (95.0-100.0); Oxyhemoglobin 90.1 % THb (90.0-100.0); Total Hemoglobin 8.4 g/dL (12.0-18.0)
[2022-07-01 05:59] LABS: Arterial Blood Gas Ventilator rate 28 /MIN; Device VENTILATOR; Fractional Inspired Oxygen 40 %; Methemoglobin ABG 0.7 %THb (0-1.5); Modified Allen's Test Pass; PO2 FiO2 Ratio Arterial Blood 1.63 %; Reduced Hemoglobin 8.9 %THb (0-5.0); Site Drawn LEFT RADIAL
[2022-07-01 06:00] LABS: Arterial Blood Gas PEEP 12 cmH2O; Arterial Blood Gas Tidal Volume 320 ml; Arterial Blood Gas Vent Mode CMV
[2022-07-01 08:37] LABS: Glucose Point of Care 148 mg/dl (65-105)
[2022-07-01] MEDS: MIDAZOLAM 100MG/NS 100ML(*CRX) 100 MG/100 ML BAG 9 MG IV CONT (09:01)
[2022-07-01] MEDS: methylPREDNISolone SOD SUCC 125 MG VIAL 80 MG IV PUSH (09:06)
[2022-07-01] MEDS: PANTOPRAZOLE SODIUM IV 40 MG VIAL IV PUSH ×2 (09:06→21:33)
[2022-07-01] MEDS: MINERAL OIL/WHITE PETROLATUM OINTMENT 1 APPLIC EACH EYE ×2 (09:06→21:32)
[2022-07-01] MEDS: INSULIN GLARGINE (*BKC) 100 UNITS/ML 24 UNITS SUB-Q (09:07)
[2022-07-01] MEDS: polyethylene glycoL 3350 17 GM POWD.PACK PO (09:07)
[2022-07-01] MEDS: CISATRACURIUM BESYLATE 200 MG in DEXTROSE 5% 80 ML 17.39 ML IV CONT (09:12)
--- NOTE | 2022-07-01 09:29 | WPDINTPN ---
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 She was seeing Rheumatology and pulmonary as an outpatient In the past, she had positive CHELI once, repeat CHELI screen was negative. ANCA p 1:40, her DsDNA is 7 and her SSA high She was on Plaquenil and Imuran as an outpatient She was admitted with respiratory failure with bilateral diffuse infiltrate. COVID and influenza were negative - Since admission, her hypoxia had been gradually worsening and on 06/24 she was on BiPAP with 80-90% FiO2 but still tachypnic and in respiratory distress. Pulmonary was planning to do bronchoscopy but was unable do it due to hypoxia and BiPAP. -On 06/24 Patient was transferred to ICU and intubated. Although intubation was uneventful patient remained hypoxic despite bagging with a PEEP valve. With bagging her sats could only improve up to 80% and stayed in 70s. Patient was sedated by giving additional sedation and paralyzed with rocuronium/nimbex. She is morbidly obese which has complicated the management. no evidence of hemoptysis seen during intubation. Post intubation Chest x-ray reviewed and did not show any pneumothorax and showed ET tube in acceptable position. Patient was placed on high PEEP of 18, placed in prone position, paralyzed with Nimbex, and started on inhaled Flolan. Permissive hypercapnia was tolerated and acidosis was treated with bicarb. patient was already on broad-spectrum antibiotics in the form of vancomycin Zosyn and azithromycin. - Autoimmune workup had been sent and pending including ANCA, UA with microscopic, anti DNA antibody, anti GBM antibody - On 06/25 patient underwent bronchoscopy and BAL which showed alveolar hemorrhage. Gram stain and cultures are negative. Pneumocystis is negative, CMV not detected, respiratory virus cultures are pending, Case discussed with Dr. Marshall ( pulmonary) and Dr. Duffy ( nephrology). 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 She does have mixed picture as she has multiple other antibodies positive on past work and also has other reasons for acute kidney injury as she received contrast and was on diuretics. -patient was started on pulse dose of Solu-Medrol 1 g q.day on 06/25 Dr. Duffy recommended plasma exchange and patient received her 1st treatment on 06/26 She does need rheumatology consultation which we do not have - [facility] and [facility] and they do not have any bed available. Patient is on a wait list for and [facility] in [place] and waiting for bed availability. -chest x-ray, ABGs reviewed -currently on 40% FiO2 and peep of -06/30 Flolan discontinued Although this does not appear to be bacterial pneumonia but will continue broad-spectrum antibiotics for bacterial coverage with Zosyn for total of 10 days. Vancomycin and azithromycin were discontinued on 06/27 after a 5 day course Bronchodilators on hold due to patient being on Flolan -sedated with fentanyl, Versed. Have asked the bedside RN to start weaning the Nimbex off again (on 06/29 with Nimbex was being weaned patient started to get hypertensive, tachypneic and tachycardic and was dyssynchronous with the ventilator) (2) ROCK (acute kidney injury): Code(s): N17.9 - Acute kidney failure, unspecified Status: Acute Assessment and Plan: Patient presented with slightly elevated creatini
--- NOTE | 2022-07-01 11:09 | PCNFU ---
Nutrition Follow-Up Complete: Inadequate Oral Intake as related to mechanical ventilation as evidenced by NPO goal: Meet estimated nutritional needs Patient is progressing towards goal. We will continue current goal Pt current nutrition is Nepro at 40 ml/hr. Last recorded weight is 159 kg, down from 165.6 kg. Bowel Motility: No BM reported-lactulose started today. Labs Reviewed: BUN 103, Cr 1.9, Glu 150, Mg 2.9,PO4 4.7,Na 147, Alb 3.0 Meds Noted:Vancomycin, fentanyl, miralax, versed, Solu Medrol, Nimbex, Lactulose, Lantus, Synthroid Skin: WNL Additional Notes: Patient remains on mechanical vent. Tolerating tube feedings of Nepro at 40 ml/hr over 22 hours. Current tube feeding is providing patient with 1584 kcals/71 gms protein/640 ml water. Free water flush 30 ml q 4 hours. Current tube feeding is providing 75% calorie needs and 100% protein needs. 1 unit of blood given yesterday. Agree with diet orders. Will monitor in ICU rounds and reassessing every Monday and Monday.
[2022-07-01 12:55] LABS: Glucose Point of Care 187 mg/dl (65-105)
--- NOTE | 2022-07-01 13:22 | P.PNNP_ITS ---
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 * given her alveolar hemorrhage with her known serological testing, 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 * continue IV steroids * plasmapheresis x 7 sessions (session #3 yesterday) * unable to give oral cyclophosphamide (cannot crush pills to give via tube) * s/p IV cyclophasphamide (on 06/30/22) * I would have preferred oral formulation for ease of administration * perhaps when she is off the ventilator we can attempt switch to oral dosing * azotemia noted - likely from steroids but her catabolic state and inflammation playing a role * follow repeat labs and UOP (2) Acute hypoxemic respiratory failure: Code(s): J96.01 - Acute respiratory failure with hypoxia Status: Acute Assessment and Plan: * 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 * steroids * plasmapheresis * antibiotics * continue ventilator support (3) Pulmonary alveolar hemorrhage: Code(s): R04.89 - Hemorrhage from other sites in respiratory passages Status: Acute Assessment and Plan: * as noted by bronchoscopy * treatment as noted (see #1 and #2) (4) Anemia: Code(s): D64.9 - Anemia, unspecified Status: Acute Assessment and Plan: * several issues at play: * menstrual cycle * pulmonary hemorrhage * acute inflammation * acute illness * PRBC transfusion per protocol * follow trend of H/H * consider empiric Epogen (given ROCK/ARF) (5) Shock: Code(s): R57.9 - Shock, unspecified Status: Acute Assessment and Plan: * resolved * off vasopressors * follow trend of hemodynamics (6) Diabetes mellitus type 2 in obese: Code(s): E11.69 - Type 2 diabetes mellitus with other specified complication; E66.9 - Obesity, unspecified Status: Acute Assessment and Plan: * follow accuchecks * glycemic control Will continue to follow. Subjective Date/time seen: 07/01/22 13:22 Remains intubated/sedated/paralyzed and on mechanical ventilation; continues to have stable urine output with relative stability in renal function; remains hemodynamically stable off vasopressor therapy; s/p plasmapheresis yesterday; s/p IV cytoxan yesterday as well. Exam Narrative: General: WD/WN AA female intubated/sedated in NAD Heart: normal S1 and S2; no rub Lungs: coarse breath sounds with a few scattered crackles Abdomen: soft, nontender, nondistended, decreased bowel sounds Extremities: no cyanosis or clubbing; no edema Skin: warm and dry Objective Data Vital Signs Vital Signs: Vital Signs Temp Pulse Resp BP Pulse Ox O2 Del Method FiO2 07/01/22 12:44 59 L 28 H 07/01/22 11:00 59 L 28 H 126/80 07/01/22 12:37 59 L 28 H
--- NOTE | 2022-07-01 13:22 | PM.PNNEP ---
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 given her alveolar hemorrhage with her known serological testing, 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 continue IV steroids plasmapheresis x 7 sessions (session #3 yesterday) unable to give oral cyclophosphamide (cannot crush pills to give via tube) s/p IV cyclophasphamide (on 06/30/22) I would have preferred oral formulation for ease of administration perhaps when she is off the ventilator we can attempt switch to oral dosing azotemia noted - likely from steroids but her catabolic state and inflammation playing a role follow repeat labs and UOP (2) Acute hypoxemic respiratory failure: Code(s): J96.01 - Acute respiratory failure with hypoxia Status: Acute Assessment and Plan: 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 steroids plasmapheresis antibiotics continue ventilator support (3) Pulmonary alveolar hemorrhage: Code(s): R04.89 - Hemorrhage from other sites in respiratory passages Status: Acute Assessment and Plan: as noted by bronchoscopy treatment as noted (see #1 and #2) (4) Anemia: Code(s): D64.9 - Anemia, unspecified Status: Acute Assessment and Plan: several issues at play: menstrual cycle pulmonary hemorrhage acute inflammation acute illness PRBC transfusion per protocol follow trend of H/H consider empiric Epogen (given ROCK/ARF) (5) Shock: Code(s): R57.9 - Shock, unspecified Status: Acute Assessment and Plan: resolved off vasopressors follow trend of hemodynamics (6) Diabetes mellitus type 2 in obese: Code(s): E11.69 - Type 2 diabetes mellitus with other specified complication; E66.9 - Obesity, unspecified Status: Acute Assessment and Plan: follow accuchecks glycemic control Will continue to follow. Subjective Date/time seen: 07/01/22 13:22 Remains intubated/sedated/paralyzed and on mechanical ventilation; continues to have stable urine output with relative stability in renal function; remains hemodynamically stable off vasopressor therapy; s/p plasmapheresis yesterday; s/p IV cytoxan yesterday as well. Exam Narrative: General: WD/WN AA female intubated/sedated in NAD Heart: normal S1 and S2; no rub Lungs: coarse breath sounds with a few scattered crackles Abdomen: soft, nontender, nondistended, decreased bowel sounds Extremities: no cyanosis or clubbing; no edema Skin: warm and dry Objective Data Vital Signs Vital Signs: Vital Signs Temp Pulse Resp BP Pulse Ox O2 Del Method FiO2 07/01/22 12:44 59 L 28 H 07/01/22 11:00 59 L 28 H 126/80 07/01/22 12:37 59 L 28 H 07/01/22 11:47 59 L 100 Mechanical Ventilation 45 07/01/22 10:30 36.7 C 68 28 H 97 07/01/22 10:15 36.6 C 80 0 L 96 07/01/22 10:01 36.7 C 80 28 H 126/80 95 07/01/22 10:00 36.7 C 80 28 H 99 07/01/22 09:45 36.7 C 72 0 L 96 07/01/22 09:30 36.7 C 80 26 H 99 07/01/22 09:15 36.7 C 75 0 L 97 07/01/22 09:01 36.7 C 74 0 L 94/53 L 97 07/01/22 09:00 36.7 C 73 0 L 97 07/01/22 08:45 36.7 C 75 28 H 94 07/01/22 08:38 36.7 C 75 28 H 97 07/01/22 08:15 36.7 C 74 20 97 07/01/22 08:01 36.6 C 75 28 H 94/61 L 97 07/01/22 08:00 36.6
[2022-07-01] MEDS: CISATRACURIUM BESYLATE 200 MG in DEXTROSE 5% 80 ML 9.94 ML IV CONT (15:12)
[2022-07-01] MEDS: INSULIN ASPART (*BKC) 100 UNITS/ML SUB-Q (17:14)
[2022-07-01 17:29] LABS: Glucose Point of Care 215 mg/dl (65-105)
[2022-07-01] MEDS: hetaSTARCH 6%/NACL 500 ML 250 ML IV CONT (19:33)
[2022-07-01 20:17] LABS: Glucose Point of Care 183 mg/dl (65-105)
[2022-07-01] MEDS: MIDAZOLAM 100MG/NS 100ML(*CRX) 100 MG/100 ML BAG 6 MG IV CONT (21:32)
[2022-07-01] MEDS: NOREPINEPHRINE 8 MG/D5W 250 ML 8 MG/250 ML BAG 9.38 MG IV CONT (23:02)
[2022-07-02] VITALS (61 sets, daily range): BP systolic 94–162; BP diastolic 51–95; PULSE 61–124; RESP 25–29; TEMP 36.9–37.9; O2SAT 91–100
[2022-07-02 00:12] LABS: Glucose Point of Care 75 mg/dl (65-105)
[2022-07-02 04:09] LABS: Glucose Point of Care 140 mg/dl (65-105)
[2022-07-02 04:57] LABS: Basophils Percent Auto 0.1 % (0.2-1.2); Eosinophils Absolute Auto 0.1 K/mm3 (0-0.3); Eosinophils Percent Auto 0.6 % (0-4.4); Hematocrit 22.8 % (37.0-47.0); Immature Granulocyte Absolute 0.73 K/mm3 (0.00-0.031); Immature Granulocyte Percent A 3.4 % (0-0.5); Lymphocytes Absolute Auto 1.67 K/mm3 (0.9-3.2); Lymphocytes Percent Auto 7.7 % (18.3-44.2); Mean Corpuscular HGB Conc 30.3 g/dl (32-36); Mean Corpuscular Hemoglobin 25.4 pg (26-34); Mean Corpuscular Volume 83.8 fl (80-100); Mean Platelet Volume 10.1 fl (7.4-10.4); Monocytes Absolute Auto 1.1 K/mm3 (0.1-0.6); Monocytes Percent Auto 5.2 % (2.6-8.5); Neutrophils Absolute Auto 17.9 K/mm3 (1.3-6.7); Nucleated Red Blood Cells Perc 0.1 % (0.0-0.2); Platelet Count Result 277 k/mm3 (150-375); Red Blood Count 2.72 M/mm3 (4.2-5.4); Red Cell Distribution Width 19.4 % (11.5-14.5); White Blood Count 21.6 K/mm3 (4.5-10.0)
[2022-07-02] MEDS: CENTRAL LINE FLUSH 10 ML IV PUSH ×4 (04:59→20:14)
[2022-07-02 05:14] LABS: Alanine Aminotransferase 23 U/L (6-35); Albumin Level 2.6 g/dL (3.5-5.1); Alkaline Phosphatase 45 U/L (38-126); Anion Gap 5 mmol/L (8-16); Aspartate Amino Transferase 33 U/L (14-36); Bilirubin,Total 0.3 mg/dL (0.2-1.3); Blood Urea Nitrogen 101 mg/dL (7-17); Calcium 8.3 mg/dL (8.4-10.2); Carbon Dioxide 32 mmol/L (22-30); Chloride 110 mmol/L (98-107); Estimated CRCL calculation 52 ml/min; Estimated Glomerular Filt Rate 36; Glucose 126 mg/dL (65-110); Magnesium 2.9 mg/dL (1.6-2.3); Phosphorus 3.5 mg/dL (2.5-4.5); Potassium 3.7 mmol/L (3.4-5.0); Sodium 147 mmol/L (137-145)
[2022-07-02 05:18] LABS: Hemoglobin 6.9 g/dL (12.0-15.0)
[2022-07-02 05:19] LABS: Anisocytosis 2+ (NORMAL); Hypochromasia 1+ (NORMAL); Ovalocytes 1+ (NORMAL); Platelet Estimate Adequate (Adequate)
[2022-07-02 05:26] LABS: Alveolar/Arterial O2 Gradient 212.2 mmHg; Base Excess ABG 6.7 mEq/l (+/-2.0); Carboxyhemoglobin 0.3 % THb (0-2.0); Fractional Inspired Oxygen 50 %; HCO3 ABG 31.5 mEq/l (22.0-26.0); Methemoglobin ABG 0.6 %THb (0-1.5); Oxygen Content ABG 10.6 %vol (16.0-22.0); Oxygen Saturation ABG 97.2 % (95.0-100.0); Oxyhemoglobin 94.9 % THb (90.0-100.0); PCO2 ABG 47.1 mmHg (35.0-45.0); PO2 ABG 91.3 mmHg (80.0-100.0); PO2 FiO2 Ratio Arterial Blood 1.83 %; Reduced Hemoglobin 4.2 %THb (0-5.0); pH ABG 7.443 (7.350-7.450)
[2022-07-02 05:28] LABS: Total Hemoglobin 7.8 g/dL (12.0-18.0)
[2022-07-02 05:29] LABS: Device VENTILATOR; Modified Allen's Test Pass; Site Drawn LEFT RADIAL
[2022-07-02 05:30] LABS: Arterial Blood Gas PEEP 12 cmH2O; Arterial Blood Gas Tidal Volume 320 ml; Arterial Blood Gas Vent Mode CMV; Arterial Blood Gas Ventilator rate 28 /MIN
[2022-07-02 05:37] LABS: Fibrinogen 242 mg/dl (215-510)
[2022-07-02 05:38] LABS: INR 1.3; Prothrombin Time 15.3 Seconds (11.1-14.7)
[2022-07-02 05:40] LABS: Partial Thromboplastin Time 94.9 SECONDS (22.3-36.8)
[2022-07-02] MEDS: FENTANYL 2,500MCG/NS250ML(*CRX 2,500 MCG/250 ML BAG 17.5 MCG IV CONT ×2 (05:42→21:02)
[2022-07-02] MEDS: LEVOTHYROXINE SODIUM 50 MCG TABLET PO (05:47)
[2022-07-02 08:15] LABS: Glucose Point of Care 152 mg/dl (65-105)
[2022-07-02] MEDS: INSULIN GLARGINE (*BKC) 100 UNITS/ML 24 UNITS SUB-Q (09:07)
[2022-07-02] MEDS: LACTULOSE 20 GM/30 ML UDC PO (09:08)
[2022-07-02] MEDS: polyethylene glycoL 3350 17 GM POWD.PACK PO (09:09)
[2022-07-02] MEDS: PANTOPRAZOLE SODIUM IV 40 MG VIAL IV PUSH ×2 (09:09→21:06)
[2022-07-02] MEDS: methylPREDNISolone SOD SUCC 125 MG VIAL 80 MG IV PUSH (09:09)
[2022-07-02] MEDS: MINERAL OIL/WHITE PETROLATUM OINTMENT 1 APPLIC EACH EYE ×2 (09:15→21:06)
[2022-07-02] MEDS: SODIUM CHLORIDE 0.9% IV 1,000 ML 10 ML IV CONT (11:00)
[2022-07-02] MEDS: CALCIUM GLUC 2,000 MG/NS 100ML 2,000 MG/100 ML BAG 100 MG IVPB (11:00)
[2022-07-02] MEDS: MIDAZOLAM 100MG/NS 100ML(*CRX) 100 MG/100 ML BAG 7 MG IV CONT (11:15)
--- NOTE | 2022-07-02 12:40 | WPDINTPN ---
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 She was seeing Rheumatology and pulmonary as an outpatient In the past, she had positive CHELI once, repeat CHELI screen was negative. ANCA p 1:40, her DsDNA is 7 and her SSA high She was on Plaquenil and Imuran as an outpatient She was admitted with respiratory failure with bilateral diffuse infiltrate. COVID and influenza were negative - Since admission, her hypoxia had been gradually worsening and on 06/24 she was on BiPAP with 80-90% FiO2 but still tachypnic and in respiratory distress. Pulmonary was planning to do bronchoscopy but was unable do it due to hypoxia and BiPAP. -On 06/24 Patient was transferred to ICU and intubated. Although intubation was uneventful patient remained hypoxic despite bagging with a PEEP valve. With bagging her sats could only improve up to 80% and stayed in 70s. Patient was sedated by giving additional sedation and paralyzed with rocuronium/nimbex. She is morbidly obese which has complicated the management. no evidence of hemoptysis seen during intubation. Post intubation Chest x-ray reviewed and did not show any pneumothorax and showed ET tube in acceptable position. Patient was placed on high PEEP of 18, placed in prone position, paralyzed with Nimbex, and started on inhaled Flolan. Permissive hypercapnia was tolerated and acidosis was treated with bicarb. patient was already on broad-spectrum antibiotics in the form of vancomycin Zosyn and azithromycin. - Autoimmune workup: -ANCA pending - SS-A antibodies positive. total complement CH50 is elevated. -anti ds DNA antibody, Joy antibody, LIGHTING ENGINEERING TECHNICIAN antibody, SS-B antibody all within normal limits -beta 2 glycoprotein antibody within normal limits - On 06/25 patient underwent bronchoscopy and BAL which showed alveolar hemorrhage. Gram stain and cultures are negative. Pneumocystis is negative, CMV not detected, chlamydia pneumonia not detected, urine pneumococcal and antigen is negative, respiratory virus cultures are pending, Case discussed with Dr. Marshall ( pulmonary) and Dr. Duffy ( nephrology). 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 She does have mixed picture as she has multiple other antibodies positive on past work and also has other reasons for acute kidney injury as she received contrast and was on diuretics. -patient was started on pulse dose of Solu-Medrol 1 g q.day on 06/25 Dr. Duffy recommended plasma exchange and patient received her 1st treatment on 06/26 She does need rheumatology consultation which we do not have - [facility] and [facility] and they do not have any bed available. Patient is on a wait list for [facility] and [facility] in [place] and waiting for bed availability. -chest x-ray, ABGs reviewed -currently on 50% FiO2 and peep of 12 -06/30 Flolan discontinued -Although this does not appear to be bacterial pneumonia but will continue broad-spectrum antibiotics for bacterial coverage with Zosyn for total of 10 days. Vancomycin and azithromycin were discontinued on 06/27 after a 5 day course -Bronchodilators restarted -sedated with fentanyl, Versed. -off Nimbex since 07/01: Patient does open her eyes and follows simple command (2) ROCK (acute kidney injury): Code(s): N17.9 - Acute kidney failure, unspecified Status: Acute Assessment and Plan: P
[2022-07-02] MEDS: HEPARIN SODIUM, PORCINE 10,000 UNITS/10 ML VIAL 2400 UNITS IV PUSH (12:45)
--- NOTE | 2022-07-02 12:45 | P.PNNP_ITS ---
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 * given her alveolar hemorrhage with her known serological testing, 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 * continue IV steroids * plasmapheresis x 7 sessions (session #4 today) * unable to give oral cyclophosphamide (cannot crush pills to give via tube) * s/p IV cyclophasphamide (on 06/30/22) * I would have preferred oral formulation for ease of administration * perhaps when she is off the ventilator we can attempt switch to oral dosing * azotemia noted - likely from steroids but her catabolic state and inflammation are playing a role * follow repeat labs and UOP (2) Acute hypoxemic respiratory failure: Code(s): J96.01 - Acute respiratory failure with hypoxia Status: Acute Assessment and Plan: * 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 * steroids * plasmapheresis * antibiotics * continue ventilator support - wean as tolerated (3) Pulmonary alveolar hemorrhage: Code(s): R04.89 - Hemorrhage from other sites in respiratory passages Status: Acute Assessment and Plan: * as noted by bronchoscopy * treatment as noted (see #1 and #2) (4) Anemia: Code(s): D64.9 - Anemia, unspecified Status: Acute Assessment and Plan: * several issues at play: * menstrual cycle * pulmonary hemorrhage * acute inflammation * acute illness * PRBC transfusion per protocol * follow trend of H/H * empiric Epogen (given ROCK/ARF) (5) Shock: Code(s): R57.9 - Shock, unspecified Status: Acute Assessment and Plan: * resolved * off vasopressors * follow trend of hemodynamics (6) Diabetes mellitus type 2 in obese: Code(s): E11.69 - Type 2 diabetes mellitus with other specified complication; E66.9 - Obesity, unspecified Status: Acute Assessment and Plan: * follow accuchecks * glycemic control Will continue to follow. Subjective Date/time seen: 07/02/22 12:45 Tolerating plasmapheresis at the time of my visit (seen on PLEX at 12:25PM); continues to make reasonable urine output with some improvement in creatinine; required levophed overnight transiently for hypotension but is off this by earlier this AM; no apparent distress voiced; no other issues overnight. Exam Narrative: General: WD/WN AA female intubated/sedated in NAD Heart: normal S1 and S2; no rub Lungs: coarse breath sounds Abdomen: soft, nontender, nondistended, decreased bowel sounds Extremities: no cyanosis or clubbing; no edema Skin: warm and intact Objective Data Vital Signs Vital Signs: Vital Signs Temp Pulse Resp BP Pulse Ox O2 Del Method FiO2 07/02/22 12:45 37.1 C 92 28 H 07/02/22 11:35 36.9 C 61 28 H 07/02/22 13:56 99
--- NOTE | 2022-07-02 12:45 | PM.PNNEP ---
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 given her alveolar hemorrhage with her known serological testing, 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 continue IV steroids plasmapheresis x 7 sessions (session #4 today) unable to give oral cyclophosphamide (cannot crush pills to give via tube) s/p IV cyclophasphamide (on 06/30/22) I would have preferred oral formulation for ease of administration perhaps when she is off the ventilator we can attempt switch to oral dosing azotemia noted - likely from steroids but her catabolic state and inflammation are playing a role follow repeat labs and UOP (2) Acute hypoxemic respiratory failure: Code(s): J96.01 - Acute respiratory failure with hypoxia Status: Acute Assessment and Plan: 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 steroids plasmapheresis antibiotics continue ventilator support - wean as tolerated (3) Pulmonary alveolar hemorrhage: Code(s): R04.89 - Hemorrhage from other sites in respiratory passages Status: Acute Assessment and Plan: as noted by bronchoscopy treatment as noted (see #1 and #2) (4) Anemia: Code(s): D64.9 - Anemia, unspecified Status: Acute Assessment and Plan: several issues at play: menstrual cycle pulmonary hemorrhage acute inflammation acute illness PRBC transfusion per protocol follow trend of H/H empiric Epogen (given ROCK/ARF) (5) Shock: Code(s): R57.9 - Shock, unspecified Status: Acute Assessment and Plan: resolved off vasopressors follow trend of hemodynamics (6) Diabetes mellitus type 2 in obese: Code(s): E11.69 - Type 2 diabetes mellitus with other specified complication; E66.9 - Obesity, unspecified Status: Acute Assessment and Plan: follow accuchecks glycemic control Will continue to follow. Subjective Date/time seen: 07/02/22 12:45 Tolerating plasmapheresis at the time of my visit (seen on PLEX at 12:25PM); continues to make reasonable urine output with some improvement in creatinine; required levophed overnight transiently for hypotension but is off this by earlier this AM; no apparent distress voiced; no other issues overnight. Exam Narrative: General: WD/WN AA female intubated/sedated in NAD Heart: normal S1 and S2; no rub Lungs: coarse breath sounds Abdomen: soft, nontender, nondistended, decreased bowel sounds Extremities: no cyanosis or clubbing; no edema Skin: warm and intact Objective Data Vital Signs Vital Signs: Vital Signs Temp Pulse Resp BP Pulse Ox O2 Del Method FiO2 07/02/22 12:45 37.1 C 92 28 H 07/02/22 11:35 36.9 C 61 28 H 07/02/22 13:56 99 98 Mechanical Ventilation 50 07/02/22 11:00 36.9 C 63 28 H 98 07/02/22 12:00 36.9 C 70 28 H 120/62 100 07/02/22 12:00 71 07/02/22 12:00 50 07/02/22 12:00 100 Mechanical Ventilation 50 07/02/22 12:45 37.1 C 94 28 H 162/83 H 100 07/02/22 12:30 37.1 C 74 28 H 126/64 100 07/02/22 12:15 37.0 C 69 28 H 123/60 100 07/02/22 12:00 36.9 C 68 28 H 120/62 100 07/02/22 11:55 36.9 C 63 28 H 119/58 L 07/02/22 11:45 36.9 C 63 28 H 119/58 L 100 07/02/22 11:44 36.9 C 65 28 H 115/59 L 07/02/22 11:43 36.9 C 65 28 H 115/5
[2022-07-02] MEDS: LEVALBUTEROL NEB 1.25 MG/3 ML 0.63 MG INHALATION ×2 (13:44→20:11)
[2022-07-02] MEDS: IPRATROPIUM BR 0.02% INH SOLN 0.5 MG/2.5 ML VIAL INHALATION ×2 (13:44→20:11)
[2022-07-02] MEDS: SODIUM CHLORIDE 0.9% IV 250 ML 30 ML IV CONT (14:39)
--- NOTE | 2022-07-02 14:40 | PM.IMPN ---
Progress Note: A&P Assessment and Plan (1) Acute hypoxemic respiratory failure: Code(s): J96.01 - Acute respiratory failure with hypoxia Status: Acute Assessment and Plan: Management per ICU 07/02/2022 interval history:? morbidly obese female with respiratory failure multifactorial CT scan of the chest showed today severe extensive bilateral consolidating? pulmonary infiltrate worsen since 06/23/2022? patient was treated azithromycin, Zosyn, and vancomycin, patient is seen by temper mill roller had a bronchoscope on 06/25,? 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 (2) Pneumonitis: Code(s): J18.9 - Pneumonia, unspecified organism Status: Acute Assessment and Plan: see plan above (3) Moderate persistent asthma without complication: Code(s): J45.40 - Moderate persistent asthma, uncomplicated Status: Acute Assessment and Plan: See above (4) ILD (interstitial lung disease): Code(s): J84.9 - Interstitial pulmonary disease, unspecified Status: Acute Assessment and Plan: see above (5) Pulmonary hypertension: Code(s): I27.20 - Pulmonary hypertension, unspecified Status: Acute Assessment and Plan: See above (6) LEONARDO (obstructive sleep apnea): Code(s): G47.33 - Obstructive sleep apnea (adult) (pediatric) Status: Acute Assessment and Plan: Now intubated (7) Diabetes mellitus type 2 in obese: Code(s): E11.69 - Type 2 diabetes mellitus with other specified complication; E66.9 - Obesity, unspecified Status: Acute Assessment and Plan: SSI (8) Essential (primary) hypertension: Code(s): I10 - Essential (primary) hypertension Status: Acute Assessment and Plan: P.o. medications on hold as blood pressure is in adequate range. Will use p.r.n. labetalol and hydralazine if needed (9) Hypothyroidism (acquired): Code(s): E03.9 - Hypothyroidism, unspecified Status: Acute Assessment and Plan: Continue levothyroxine (10) Connective tissue disorder: Code(s): M35.9 - Systemic involvement of connective tissue, unspecified Status: Acute Assessment and Plan: She is currently on steroids. hydroxychloroquine and azathioprine [place] (11) ROCK (acute kidney injury): Code(s): N17.9 - Acute kidney failure, unspecified Status: Acute Assessment and Plan: monitor cr and electrolytes Subjective Date/time seen: 07/02/22 14:40 07/02/2022 interval history:? morbidly obese female with respiratory failure multifactorial CT scan of the chest showed today severe extensive bilateral consolidating? pulmonary infiltrate worsen since 06/23/2022? patient was treated azithromycin, Zosyn, and vancomycin, patient is seen by temper mill roller had a bronchoscope on 06/25,? on 06/25 discussed with locomotive crane operator prognosis is poor, locomotive crane operator noted asymmetry of pupils to further evaluate patient had a CT scan of the head is negative for any acute injury, patient continue to be followed by pulmonology, patient remains intubated, sedated and paralyzed on Flolan, currently on Zosyn, patient is seen by stock clerk RENAL BIOPSY:?Focal necrotizing and crescentic glomerulonephritis with imm
[2022-07-02] MEDS: EPOETIN ALFA-EPBX 20,000 UNITS/ML VIAL 20000 UNITS SUB-Q (14:42)
[2022-07-02 17:42] LABS: Glucose Point of Care 191 mg/dl (65-105)
[2022-07-02 21:18] LABS: Glucose Point of Care 148 mg/dl (65-105)
[2022-07-02 21:20] LABS: ANCA Screen P-ANCA POS (Negative)
[2022-07-02 21:35] LABS: P-ANCA Titer Reflex Chg Test YES
[2022-07-03] VITALS (18 sets, daily range): BP systolic 90–155; BP diastolic 49–77; PULSE 58–110; RESP 25–28; TEMP 37.2–37.6; O2SAT 100
[2022-07-03 00:27] LABS: Glucose Point of Care 134 mg/dl (65-105)
[2022-07-03] MEDS: IPRATROPIUM BR 0.02% INH SOLN 0.5 MG/2.5 ML VIAL INHALATION ×2 (02:02→08:09)
[2022-07-03] MEDS: LEVALBUTEROL NEB 1.25 MG/3 ML 0.63 MG INHALATION ×2 (02:02→08:08)
[2022-07-03] MEDS: MIDAZOLAM 100MG/NS 100ML(*CRX) 100 MG/100 ML BAG 8 MG IV CONT ×2 (02:23→10:30)
[2022-07-03] MEDS: CENTRAL LINE FLUSH 10 ML IV PUSH (05:10)
--- NOTE | 2022-07-03 05:40 | PC.NURSE ---
Bethany Sanderson called for consent for transport to [facility]. No answer, message left to return phone call.
[2022-07-03 05:59] LABS: Alveolar/Arterial O2 Gradient 159.6 mmHg; Base Excess ABG 6.3 mEq/l (+/-2.0); Carboxyhemoglobin 0.2 % THb (0-2.0); Fractional Inspired Oxygen 45 %; HCO3 ABG 31.6 mEq/l (22.0-26.0); Methemoglobin ABG 0.6 %THb (0-1.5); Oxygen Content ABG 12.3 %vol (16.0-22.0); Oxygen Saturation ABG 97.8 % (95.0-100.0); Oxyhemoglobin 95.5 % THb (90.0-100.0); PO2 ABG 104.4 mmHg (80.0-100.0); PO2 FiO2 Ratio Arterial Blood 2.32 %; Reduced Hemoglobin 3.7 %THb (0-5.0); pH ABG 7.419 (7.350-7.450)
[2022-07-03 06:00] LABS: Arterial Blood Gas Ventilator rate 28 /MIN; Device VENTILATOR; Modified Allen's Test Unable to perform; Site Drawn RIGHT RADIAL
[2022-07-03 06:01] LABS: Arterial Blood Gas PEEP 12 cmH2O; Arterial Blood Gas Tidal Volume 320 ml; Arterial Blood Gas Vent Mode CMV
[2022-07-03 06:06] LABS: Basophils Percent Auto 0.1 % (0.2-1.2); Eosinophils Absolute Auto 0.2 K/mm3 (0-0.3); Hematocrit 26.6 % (37.0-47.0); Hemoglobin 8.2 g/dL (12.0-15.0); Immature Granulocyte Absolute 0.26 K/mm3 (0.00-0.031); Immature Granulocyte Percent A 1.2 % (0-0.5); Lymphocytes Absolute Auto 1.82 K/mm3 (0.9-3.2); Lymphocytes Percent Auto 8.4 % (18.3-44.2); Mean Corpuscular HGB Conc 30.8 g/dl (32-36); Mean Corpuscular Hemoglobin 26.7 pg (26-34); Mean Corpuscular Volume 86.6 fl (80-100); Mean Platelet Volume 11.2 fl (7.4-10.4); Monocytes Absolute Auto 1.3 K/mm3 (0.1-0.6); Monocytes Percent Auto 5.8 % (2.6-8.5); Neutrophils Percent Auto 83.5 % (45.5-73.1); Nucleated Red Blood Cells Perc 0.1 % (0.0-0.2); Platelet Count Result 257 k/mm3 (150-375); Red Blood Count 3.07 M/mm3 (4.2-5.4); Red Cell Distribution Width 19.9 % (11.5-14.5); White Blood Count 21.6 K/mm3 (4.5-10.0)
--- NOTE | 2022-07-03 06:10 | PC.NURSE ---
10 attempts made to reach daughter for consent to transfer. Order received from Dr White for consent to transfer per ambulance. Will continue to attempt to reach daughter.
[2022-07-03] MEDS: LEVOTHYROXINE SODIUM 50 MCG TABLET PO (06:17)
[2022-07-03 06:18] LABS: Alanine Aminotransferase 29 U/L (6-35); Albumin Level 2.9 g/dL (3.5-5.1); Alkaline Phosphatase 45 U/L (38-126); Anion Gap 6 mmol/L (8-16); Aspartate Amino Transferase 41 U/L (14-36); Bilirubin,Total 0.4 mg/dL (0.2-1.3); Blood Urea Nitrogen 77 mg/dL (7-17); Calcium 8.2 mg/dL (8.4-10.2); Carbon Dioxide 33 mmol/L (22-30); Chloride 115 mmol/L (98-107); Estimated CRCL calculation 57 ml/min; Estimated Glomerular Filt Rate 41; Glucose 140 mg/dL (65-110); Magnesium 2.6 mg/dL (1.6-2.3); Phosphorus 3.6 mg/dL (2.5-4.5); Potassium 3.9 mmol/L (3.4-5.0); Sodium 154 mmol/L (137-145)
[2022-07-03 06:30] LABS: INR 1.3; Partial Thromboplastin Time 26.1 SECONDS (22.3-36.8); Prothrombin Time 15.3 Seconds (11.1-14.7)
[2022-07-03 06:37] LABS: Platelet Estimate Adequate (Adequate)
[2022-07-03 06:39] LABS: Anisocytosis 1+ (NORMAL); Ovalocytes 1+ (NORMAL)
[2022-07-03 06:40] LABS: Hypochromasia 1+ (NORMAL); Target Cells 1+ (NORMAL)
--- NOTE | 2022-07-03 06:46 | PC.NURSE ---
Found phone number for son Jo and he is aware of transfer. He is going to try to reach his sister Bethany.
[2022-07-03] MEDS: LACTATED RINGERS 1,000 ML 999 ML IV CONT (08:39)
[2022-07-03] MEDS: methylPREDNISolone SOD SUCC 125 MG VIAL 80 MG IV PUSH (08:40)
[2022-07-03] MEDS: PANTOPRAZOLE SODIUM IV 40 MG VIAL IV PUSH (08:41)
[2022-07-03] MEDS: MINERAL OIL/WHITE PETROLATUM OINTMENT 1 APPLIC EACH EYE (08:41)
[2022-07-03 08:44] LABS: Glucose Point of Care 161 mg/dl (65-105)
[2022-07-03] MEDS: INSULIN GLARGINE (*BKC) 100 UNITS/ML 24 UNITS SUB-Q (08:44)
[2022-07-03] MEDS: FENTANYL 2,500MCG/NS250ML(*CRX 2,500 MCG/250 ML BAG 17.5 MCG IV CONT (10:31)
--- NOTE | 2022-07-03 10:50 | WPDINTPN ---
Progress Note: A&P Assessment and Plan (1) Acute hypoxemic respiratory failure: Code(s): J96.01 - Acute respiratory failure with hypoxia Status: Acute Assessment and Plan: Acute hypoxic Respiratory failure? 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 like picture? for which she has been treated multiple times in the past and it improved conservative treatment.? She was seeing Rheumatology? and pulmonary as an outpatient In the past, she had positive CHELI once, repeat CHELI screen was negative. ANCA p 1:40, her DsDNA is 7 and her SSA high She was on Plaquenil and Imuran as an outpatient She was admitted with respiratory failure with bilateral? diffuse infiltrate. COVID and influenza were negative - Since admission, her hypoxia had been gradually worsening and on 06/24 she was on BiPAP with 80-90% FiO2 but still tachypnic and in respiratory distress. Pulmonary was planning to do bronchoscopy but was unable do it due to hypoxia and BiPAP. -On 06/24 Patient was transferred to ICU and intubated.? Although intubation was uneventful patient remained hypoxic despite bagging with a PEEP valve.? With bagging her sats could only improve up to 80% and stayed in 70s.? Patient was sedated by giving additional sedation and paralyzed with rocuronium/nimbex.? She is morbidly obese which has complicated the management. ? no evidence of hemoptysis? seen during intubation. Post intubation Chest x-ray reviewed and did not show any pneumothorax and showed ET tube in acceptable position.? Patient was placed on high PEEP of 18, placed in prone position, paralyzed with Nimbex, and started on inhaled Flolan.? Permissive hypercapnia was tolerated and acidosis was treated with bicarb. patient was already on broad-spectrum antibiotics in the form of vancomycin Zosyn and azithromycin. - Autoimmune workup: -ANCA pending - SS-A antibodies positive.? total complement CH50 is elevated. -anti ds DNA antibody, Joy antibody, TUNNEL HEADING SUPERVISOR antibody, SS-B antibody all within normal limits -beta 2 glycoprotein antibody within normal limits - On 06/25 patient underwent bronchoscopy and BAL which? showed alveolar hemorrhage.? Gram? stain and cultures are negative.? Pneumocystis is negative, CMV not detected, chlamydia pneumonia not detected, urine pneumococcal and antigen is negative,?respiratory virus cultures are pending, Case discussed with Dr. Marshall ( pulmonary) and Dr. Duffy ( nephrology). In light of positive p-ANCA,? alveolar hemorrhage on BAL,? 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 She does have mixed picture as she has multiple other antibodies positive on past work and also has other reasons for acute kidney injury as she received contrast? and was on diuretics. -patient was started on pulse dose of Solu-Medrol 1 g q.day on 06/25 ?Dr. Duffy recommended? plasma exchange and? patient received her 1st treatment on 06/26 She does need rheumatology consultation which we do not have - [facility] and [facility] and they do not have any bed available.? Patient is on a wait list? for [facility] and [facility] in [place] and waiting for bed availability. -chest x-ray, ABGs reviewed -currently on 50% FiO2 and peep of 12 -06/30 Flolan discontinued -Although this? does not appear to be bacterial pneumonia but will continue broad-spectrum antibiotics for bacterial coverage? with Zosyn for total of 10 days. ?Vancomycin and azithromycin were discontinued on 06/27 after a 5 day course -Bronchodilators restarted -sedated with fentanyl, Versed.? -off Nimbex since 07/01:? Patient does open her eyes and follows simple command (2) ROCK (acute kidney injury): Code(s): N17.9 - Acute kidney failure, unspecified Status: Acute Assessment and Plan: Patient p
--- NOTE | 2022-07-04 07:39 | PM.TDS ---
Transfer Discharge Sum: Prov Provider Date of admission: 06/22/22 07:39 Primary care physician: Arash Lamar DO Admitting clinician: Sonja Chowdary MD Consults: 06/23/22 Consult to Physician Routine Comment: Consulting Provider: Wilmer Marshall call center representative/MD group to consult: pulm Reason for consultation: pna Has provider been notified: Yes 06/24/22 Consult to Physician Routine Comment: Consulting Provider: Paaym Knott Reason for consultation: icu transfer Has provider been notified: Yes 06/25/22 Consult to Physician Routine Comment: Consulting Provider: Lewis Duffy call center representative/MD group to consult: Nephrology Reason for consultation: Pulmonary renal Syndrome Has provider been notified: Yes 06/29/22 10:14 Consult to Physician Routine Comment: Called office and notified them of consult Consulting Provider: Lupe Austin call center representative/MD group to consult: PHYSICAL SECURITY MANAGER Reason for consultation: vaginal bleeding Has provider been notified: Yes DS: Admitting Diagnosis Discharge Date 07/03/22 Admitting Diagnosis Shortness of breath DS: Discharge Diagnosis Discharge Diagnosis (1) Acute hypoxemic respiratory failure: Code(s): J96.01 - Acute respiratory failure with hypoxia Status: Acute Assessment and Plan: Management per ICU 07/02/2022 interval history:? morbidly obese female with respiratory failure multifactorial CT scan of the chest showed today severe extensive bilateral consolidating? pulmonary infiltrate worsen since 06/23/2022? patient was treated azithromycin, Zosyn, and vancomycin, patient is seen by gis scientist had a bronchoscope on 06/25,? 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 (2) Pneumonitis: Code(s): J18.9 - Pneumonia, unspecified organism Status: Acute Assessment and Plan: see plan above (3) Moderate persistent asthma without complication: Code(s): J45.40 - Moderate persistent asthma, uncomplicated Status: Acute Assessment and Plan: See above (4) ILD (interstitial lung disease): Code(s): J84.9 - Interstitial pulmonary disease, unspecified Status: Acute Assessment and Plan: see above (5) Pulmonary hypertension: Code(s): I27.20 - Pulmonary hypertension, unspecified Status: Acute Assessment and Plan: See above (6) LEONARDO (obstructive sleep apnea): Code(s): G47.33 - Obstructive sleep apnea (adult) (pediatric) Status: Acute Assessment and Plan: Now intubated (7) Diabetes mellitus type 2 in obese: Code(s): E11.69 - Type 2 diabetes mellitus with other specified complication; E66.9 - Obesity, unspecified Status: Acute Assessment and Plan: SSI (8) Essential (primary) hypertension: Code(s): I10 - Essential (primary) hypertension Status: Acute Assessment and Plan: P.o. medications on hold as blood pressure is in adequate range. Will use p.r.n. labetalol and hydralazine if needed (9) Hypothyroidism (acquired): Code(s): E03.9 - Hypothyroidism, unspecified Status: Acute Assessment and Plan: Continue levothyroxine (10) Connective tissue disorder: Code(s): M35.9 - Systemic involveme
[2022-07-07 15:47] LABS: Thrombin Time 19 sec
== END 2022-07-03 10:31 | disposition short-term general hospital (02) | DRG 207 ==
LOC: ANHED 20:13 → ANHIMU 21:40 → ANHICU 06-24 10:38 → ANHIMU 07-04 11:17
PROVIDERS: Chiropractor; Emergency Medicine; Internal Medicine; Internal Medicine Nephrology; Internal Medicine Pulmonary Disease; Nurse Practitioner; Physician Assistant; Admitting Provider Internal Medicine; Emergency Provider Emergency Medicine; PCP Internal Medicine; Visit Provider Internal Medicine
PROC: 0BJ08ZZ Inspection of Tracheobronchial Tree, Via Natural or Artificial Opening Endoscopic (ICD-10-PCS; CPT 31622; principal; 2022-06-25 11:30)
DX: J44.0 Chronic obstructive pulmonary disease with (acute) lower respiratory infection; Z68.44 Body mass index [BMI] 60.0-69.9, adult; R57.9 Shock, unspecified; R04.89 Hemorrhage from other sites in respiratory passages; E66.01 Morbid (severe) obesity due to excess calories; I77.89 Other specified disorders of arteries and arterioles; J45.40 Moderate persistent asthma, uncomplicated; G47.33 Obstructive sleep apnea (adult) (pediatric); H57.02 Anisocoria; I10 Essential (primary) hypertension; E03.9 Hypothyroidism, unspecified; D64.9 Anemia, unspecified; M35.9 Systemic involvement of connective tissue, unspecified; E78.5 Hyperlipidemia, unspecified; E55.9 Vitamin D deficiency, unspecified; J96.01 Acute respiratory failure with hypoxia; J18.9 Pneumonia, unspecified organism; N17.9 Acute kidney failure, unspecified; I27.20 Pulmonary hypertension, unspecified; E11.69 Type 2 diabetes mellitus with other specified complication; N05.8 Unspecified nephritic syndrome with other morphologic changes; N93.9 Abnormal uterine and vaginal bleeding, unspecified; Z20.822 Contact with and (suspected) exposure to COVID-19; Z79.51 Long term (current) use of inhaled steroids; Z79.84 Long term (current) use of oral hypoglycemic drugs; Z86.711 Personal history of pulmonary embolism
CPT/HCPCS: 36415; 36430; 36514; 36600; 50200; 70450; 71045; 71046; 71250; 71275; 74176; 76942; 80048; 80053; 81001; 81002; 81050; 82164; 82375; 82550; 82570; 82728; 82805; 82948; 83036; 83050; 83520; 83605; 83615; 83735; 83880; 84100; 84145; 84156; 84300; 84443; 85025; 85027; 85055; 85380; 85384; 85597; 85598; 85610; 85613; 85652; 85670; 85730; 85999; 86036; 86140; 86146; 86160; 86162; 86225; 86235; 86706; 86850; 86900; 86901; 86920; 87015; 87040; 87070; 87086; 87116; 87205; 87206; 87281; 87340; 87449; 87486; 87497; 87502; 87804; 87899; 88300; 88305; 88313; 88329; 88342; 88346; 88348; 88350; 93005; 93306; 93970; 94002; 94003; 94640; 96365; 96366; 96367; 96375; 96376; 99291; A9270; C1751; C1752; C9113; C9803; G0257; G0378; J0330; J0456; J0610; J0696; J1100; J1644; J1650; J1815; J1940; J2060; J2250; J2270; J2469; J2543; J2930; J3010; J3370; J3475; J7030; J7040; J7050; J7120; J9070; P9016; P9017; P9045; Q5105; Q9967; U0003; U0005

== ENCOUNTER 2022-09-19 13:07 | Outpatient (CLI) | payer MEDICARE, MEDICAID, SELFPAY ==
[2022-09-19 14:05] LABS: Alanine Aminotransferase 17 U/L (6-35); Alkaline Phosphatase 52 U/L (38-126); Anion Gap 7 mmol/L (8-16); Aspartate Amino Transferase 24 U/L (14-36); Bilirubin,Total 0.3 mg/dL (0.2-1.3); Blood Urea Nitrogen 18 mg/dL (7-17); Calcium 9.5 mg/dL (8.4-10.2); Carbon Dioxide 34 mmol/L (22-30); Chloride 101 mmol/L (98-107); Cholesterol 257 mg/dL (0-200); Estimated Glomerular Filt Rate > 60; Glucose 124 mg/dL (65-110); HDL Direct 68 mg/dL; Potassium 3.4 mmol/L (3.4-5.0); Sodium 142 mmol/L (137-145); Triglycerides 144 mg/dL (<150)
[2022-09-19 14:07] LABS: Hemoglobin A1C 5.7 % (<5.7)
[2022-09-19 14:17] LABS: LDL Cholesterol Direct 112 mg/dL
[2022-09-19 14:42] LABS: Vitamin D 25 Hydroxy 16.2 ng/mL
== END 2022-09-19 13:08 | disposition home or self-care (01) ==
PROVIDERS: PCP Internal Medicine; Visit Provider Nurse Practitioner
DX: E78.5 Hyperlipidemia, unspecified (principal); R73.02 Impaired glucose tolerance (oral); E03.9 Hypothyroidism, unspecified; E55.9 Vitamin D deficiency, unspecified
CPT/HCPCS: 36415; 80053; 80061; 82306; 83036; 84443

== ENCOUNTER 2022-12-12 10:59 | Outpatient (CLI) | payer MEDICARE, MEDICAID, SELFPAY ==
--- NOTE | ~2022-12-12 | CT_ITS ---
EXAMINATION: CT diagnostic chest wo con DATE: 12/12/2022 11:22 INDICATION: Shortness of breath TECHNIQUE: Computed tomography (CT) of the chest was performed without intravenous contrast. The dose -length product was 960.16 mGy-cm. Automated exposure control and iterative reconstruction technique were employed. COMPARISON: CT dated 06/25/2022 FINDINGS: There is mediastinal lymphadenopathy. Cardiomegaly. No significant pleural or pericardial e ffusion. There is multifocal patchy consolidation in both lungs, although significantly improved comp ared with prior CT. No endobronchial lesions. No pneumothorax. No acute osseous abnormality. Mild tho racic spondylosis. IMPRESSION: 1. Improved patchy consolidation throughout both lungs, compatible with pneumonia. 2: Mediastinal lymphadenopathy mild likely reactive. Reviewed, dictated and finalized at location B. ENGINEER IMPRESSION: 1. Improved patchy consolidation throughout both lungs, compatible with pneumon ia. 2: Mediastinal lymphadenopathy mild likely reactive.
== END 2022-12-12 11:00 | disposition home or self-care (01) ==
PROVIDERS: PCP Internal Medicine; Visit Provider Internal Medicine Pulmonary Disease
DX: I77.82 Antineutrophilic cytoplasmic antibody [ANCA] vasculitis (principal); R06.02 Shortness of breath; R59.0 Localized enlarged lymph nodes; R91.8 Other nonspecific abnormal finding of lung field
CPT/HCPCS: 71250

== ENCOUNTER 2023-01-09 10:10 | Outpatient (CLI) | payer MEDICARE, MEDICAID, SELFPAY ==
[2023-01-09 10:30] VITALS: PULSE 77; O2SAT 94
[2023-01-09 10:50] VITALS: PULSE 112; O2SAT 95
[2023-01-09 10:55] VITALS: PULSE 114; O2SAT 97
--- NOTE | 2023-01-09 11:30 | HOMEO2EVAL ---
Evaluation was performed at [facility] Home Oxygen Evaluation RC: Home Oxygen (O2) Evaluation Start: 01/09/23 11:28 Freq: Status: Active Protocol: RPE Activity Type Activity Date Activity User E-sign Co-sign Detail Recorded Client Recorded Date Recorded By Document 01/09/23 10:30 [facility] [id number] 01/09/23 11:30 [facility] Document 01/09/23 10:50 [facility] [id number] 01/09/23 11:30 [facility] Document 01/09/23 10:55 [facility] [id number] 01/09/23 11:30 [facility] 01/09/23 01/09/23 01/09/23 10:30 10:50 10:55 Home O2 Evaluation [Oxygen] -Test Phase Resting Exercise Resting -Oxygen Delivery Room Air Room Air Room Air [Pulse Oximetry] -Pulse Oximetry (90-100 %) 94 95 97 [Pulse Rate] -Pulse Rate (60-100 beats/min) 77 112 H 114 H [Charges] -Treatment Charges O2 Evaluation - Outpatient
--- NOTE | 2023-01-09 17:43 | P.PCNPFT_ITS ---
PFT Procedure Performed PFT Procedure Performed Spirometry with Pre/Post Bronchodilator Plethysmography (Lung Vol) Diffusing Cap (DLCO) Flow Vol Loop PFT Interpretation DOS: 01/09/2023 REQUESTING: Wero Romano MD REASON FOR TESTING: no smoking history; asthma-COPD, hypoxia; history of ILD, + pANCA PULMONARY FUNCTION TESTS Results are reliable and reproducible. Spirometry: Pre-bronchodilator FEV1 is 72%, 1.63 L, mildly decreased. Pre- bronchodilator FVC is 75%, 2.12 L, lower limit of normal. Normal FEV1: FVC ration, 77%. After bronchodilator there is a 4% increase in the FEV1 and 2% increase in the FVC. These are not statistically significant. The FEV1:FVC ratio is 79% after bronchodilator. Lung volumes: TLC is 100%, 4.33 L, normal. RV is 2.21 L, 134%, normal range. RV/TLC is increased 51% consistent with air trapping. No increase in airway resistance. Diffusion: DLCO is 13.7, 62% predicted, below normal. DLCO/VA is 5.17, 112%, normal. Flow volume loop: Mild scooping of the expiratory limb. IMPRESSION: This full pulmonary function test shows a mild decrease in FEV1 with a normal FEV1:FVC ratio, air trapping, and a mild diffusion impairment which corrects for alveolar volume. Lack of response to bronchodilator should not preclude use if clinically indicated. A prior test on 06/08/2022 showed similar values. The FEV1 was 1.66 L, now 1.63 L. The FEV1:FVC ratio is stable, 77% now and 78% in 2019. There was a more significant small airways pattern on the older study, [id number]% was 51% with a 35% increase after bronchodilator, now 64% with 17% increase. Air trapping has imprioved, RV was 186%, now 134%. DLCO was 55%, now 62%. Heather Diallo MD
== END 2023-01-09 10:11 | disposition home or self-care (01) ==
LOC: ANHPFT 10:11
PROVIDERS: PCP Internal Medicine; Visit Provider Internal Medicine Pulmonary Disease
DX: R06.00 Dyspnea, unspecified (principal); I77.6 Arteritis, unspecified; R04.89 Hemorrhage from other sites in respiratory passages; R94.2 Abnormal results of pulmonary function studies
CPT/HCPCS: 94060; 94618; 94726; 94729

== ENCOUNTER 2023-01-14 12:06 | Outpatient (CLI) | payer MEDICARE, MEDICAID, SELFPAY ==
[2023-01-14 12:42] LABS: Hematocrit 33.8 % (37.0-47.0); Hemoglobin 10.3 g/dL (12.0-15.0); Mean Corpuscular HGB Conc 30.5 g/dl (32-36); Mean Corpuscular Hemoglobin 26.7 pg (26-34); Mean Corpuscular Volume 87.6 fl (80-100); Mean Platelet Volume 11.2 fl (7.4-10.4); Platelet Count Result 306 k/mm3 (150-375); Red Blood Count 3.86 M/mm3 (4.2-5.4); Red Cell Distribution Width 17.4 % (11.5-14.5); White Blood Count 7.5 K/mm3 (4.5-10.0)
[2023-01-14 12:45] LABS: Appearance Urine Clear (Clear); Bacteria Urine None Seen /hpf; Bilirubin Urine Negative (Negative); Blood Urine 2+ (Negative); Color Urine Yellow (Yellow); Glucose Urine UA Negative (Negative); Ketones Urine Negative (Negative); Leukocyte Esterase Ur Negative LEU/UL (Negative); Nitrate Urine Negative (Negative); Non Pathogenic Casts 0-2; Protein Urine 3+ mg/dL (Negative); Specific Grav Ur 1.008 (1.001-1.035); Squamous Epithelial Cell Urine None seen /hpf (Few); Urobilinogen Urine 0.2 mg/dL (<2.0); WBC Urine 0-5 /hpf
[2023-01-14 12:47] LABS: Add Urine Microscopic? YES
[2023-01-14 12:50] LABS: Hemoglobin A1C 5.7 % (<5.7)
[2023-01-14 12:52] LABS: Cholesterol 232 mg/dL (0-200); HDL Direct 56 mg/dL; Triglycerides 148 mg/dL (<150)
[2023-01-14 12:56] LABS: Alanine Aminotransferase 14 U/L (6-35); Albumin Level 3.6 g/dL (3.5-5.1); Alkaline Phosphatase 63 U/L (38-126); Anion Gap 3 mmol/L (8-16); Aspartate Amino Transferase 20 U/L (14-36); Bilirubin,Total 0.4 mg/dL (0.2-1.3); Blood Urea Nitrogen 30 mg/dL (7-17); CRP < 0.5 mg/dL (<1.0); Calcium 8.6 mg/dL (8.4-10.2); Carbon Dioxide 38 mmol/L (22-30); Chloride 99 mmol/L (98-107); Estimated Glomerular Filt Rate 34; Glucose 99 mg/dL (65-110); Potassium 3.7 mmol/L (3.4-5.0); Sodium 140 mmol/L (137-145)
[2023-01-14 13:02] LABS: Complement C3 116 mg/dL (88-165)
[2023-01-14 13:04] LABS: LDL Cholesterol Direct 102 mg/dL
[2023-01-14 13:09] LABS: Erythrocyte Sedimentation Rate 110 mm/hr (0-20)
[2023-01-14 14:33] LABS: Vitamin D 25 Hydroxy 23.2 ng/mL
[2023-01-19 16:11] LABS: Myeloperoxidase Antibody 2.3 AI (<1.0); Proteinase 3 PR3 Antibodies <1.0 AI (<1.0)
== END 2023-01-14 12:07 | disposition home or self-care (01) ==
PROVIDERS: Internal Medicine; PCP Internal Medicine; Visit Provider Internal Medicine
DX: I77.82 Antineutrophilic cytoplasmic antibody [ANCA] vasculitis (principal); M19.90 Unspecified osteoarthritis, unspecified site; N08 Glomerular disorders in diseases classified elsewhere; R76.8 Other specified abnormal immunological findings in serum; J84.9 Interstitial pulmonary disease, unspecified; E78.5 Hyperlipidemia, unspecified; E55.9 Vitamin D deficiency, unspecified; E66.9 Obesity, unspecified; E03.9 Hypothyroidism, unspecified; E11.69 Type 2 diabetes mellitus with other specified complication
CPT/HCPCS: 36415; 80053; 80061; 81001; 82306; 83036; 84443; 85027; 85652; 86036; 86140; 86160; 86480

== ENCOUNTER 2023-01-19 08:06 | Outpatient (CLI) | payer MEDICARE, MEDICAID, SELFPAY ==
--- NOTE | 2023-02-13 09:31 | WPDSLEEPSTUD ---
Sleep Study Date of Study: 01/19/23 Ordering Provider: Wero Romano MD Interpreting Physician: Heather Diallo MD Sleep Study Type: Split Polysomnogram Height: 1.6 m Weight: 160.118 kg Body Mass Index: 62.5 Neck Circumference (inches): 17.5 [place]: 7 Reason for Sleep Study Obstructive sleep apnea on CPAP at home, her device has been recalled. She had acute hypoxemic respiratory failure with alveolar hemorrhage and acute renal failure in the fall of 2021; she has ANCA associated vasculitis. * 02/23/2017, weight was 400 lb and BMI 70.8; split night study, severe obstructive sleep apnea AHI 66.3, severe oxygen desaturation, adequate titration to 16 cm. Sleep History Veena Sanderson is a 52-year-old woman with a history of obstructive sleep apnea on CPAP with an initial diagnosis in 2016. Her optimal pressure was 16 cm. In the fall she was diagnosed with ANCA associated vasculitis, presented with acute hypoxemic respiratory failure, was intubated, treated with Flolan, steroids, and bronchoscopy with bronchoalveolar lavage showing alveolar hemorrhage. She also had acute kidney injury. her current diagnosis is ANCA associated vasculitis, managed by Rheumatology. On 11/21/2022 overnight oximetry on 2 L nasal cannula showed desaturation to 66% and oxygen desaturation index of 15 point 5 with sharp drops in saturation. She was not using CPAP due to a recall machine. She was increased to 4 L of oxygen at night. She occasionally wakes from sleep feeling short of breath. She rarely awakens at night with heartburn, belching or coughing. She always snores loudly enough that others complain. She frequently has trouble sleeping with a cold. She occasionally wakes up gasping for breath at night. She occasionally has breathing problems at night observed by others. She rarely sweats excessively at night. She occasionally notices her heart pounding or beating irregularly night. She occasionally falls asleep during the day. She rarely falls asleep involuntarily, rarely falls asleep while driving. She rarely has loss of muscle tone with strong emotion. She does not have daytime difficulties due to excessive daytime sleepiness. She rarely has vivid dreamlike scenes upon awakening or falling asleep. She does not feel afraid to go to sleep. She does not feel paralyzed on waking or falling asleep. She has headaches and fatigue. Normal bedtime is 12 midnight, falling asleep quickly, typically waking 2-4 times at night to go to the bathroom. She is able to return to sleep quickly. These awakenings occur in the middle of the night. She keeps the same schedule on weekends. She estimates getting 5-6 hours of sleep at night. She does not take naps in the afternoon or evening. On occasion a short nap lasting 10 or 15 minutes might be refreshing. She feels better in the morning and afternoon compared to the evening. Habits: Never smoked tobacco. No caffeine, alcohol or recreational substances. 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
[2023-02-13 10:19] VITALS: BMI 62.5
== END 2023-01-20 06:36 | disposition home or self-care (01) ==
LOC: ANHCSM 08:08
PROVIDERS: PCP Family Medicine; Visit Provider Internal Medicine Pulmonary Disease
DX: G47.33 Obstructive sleep apnea (adult) (pediatric) (principal); R09.02 Hypoxemia; N18.32 Chronic kidney disease, stage 3b; I12.9 Hypertensive chronic kidney disease with stage 1 through stage 4 chronic kidney disease, or unspecified chronic kidney disease; E11.22 Type 2 diabetes mellitus with diabetic chronic kidney disease; E03.9 Hypothyroidism, unspecified
CPT/HCPCS: 95811

== ENCOUNTER 2023-02-03 14:19 | Outpatient (CLI) | payer MEDICARE, MEDICAID, SELFPAY ==
[2023-02-03 16:10] LABS: Alanine Aminotransferase 15 U/L (6-35); Albumin Level 3.5 g/dL (3.5-5.1); Alkaline Phosphatase 55 U/L (38-126); Anion Gap 1 mmol/L (8-16); Aspartate Amino Transferase 21 U/L (14-36); Bilirubin,Total 0.4 mg/dL (0.2-1.3); Blood Urea Nitrogen 29 mg/dL (7-17); Calcium 8.8 mg/dL (8.4-10.2); Carbon Dioxide 38 mmol/L (22-30); Chloride 101 mmol/L (98-107); Estimated Glomerular Filt Rate 32; Glucose 99 mg/dL (65-110); Potassium 3.6 mmol/L (3.4-5.0); Sodium 140 mmol/L (137-145)
[2023-02-03 16:11] LABS: Creatinine Urine 112.5 mg/dL
[2023-02-03 16:31] LABS: Free T4 Free Thyroxine 1.23 ng/mL (0.78-2.19)
[2023-02-03 16:46] LABS: Total Protein Urine Random > 600 mg/dL
== END 2023-02-03 14:20 | disposition home or self-care (01) ==
PROVIDERS: Internal Medicine; PCP Family Medicine; Referring Provider Internal Medicine Nephrology; Visit Provider Internal Medicine
DX: I77.82 Antineutrophilic cytoplasmic antibody [ANCA] vasculitis (principal); N08 Glomerular disorders in diseases classified elsewhere; E03.9 Hypothyroidism, unspecified
CPT/HCPCS: 36415; 80053; 82570; 84156; 84439; 84443

== ENCOUNTER 2023-02-20 10:17 | Outpatient (CLI) | payer MEDICARE, MEDICAID, SELFPAY ==
--- NOTE | ~2023-02-20 | US_ITS ---
US renal BI 02/20/2023 11:13 Procedure: Realtime transabdominal ultrasound of the kidneys and bladder. Indication: Abnormal hematologic test Comparison: 06/27/2022 Findings: Renal echotexture is normal bilaterally without hydronephrosis, contour deforming mass or r enal calculus. The right kidney measures 12 cm and left kidney measures 12.2 cm. Bladder within norm al limits. Impression: 1: Unremarkable renal ultrasound. No stones, masses or hydronephrosis. Reviewed, dictated and finalized at location B. Impression: 1: Unremarkable renal ultrasound. No stones, masses or hydronephrosis.
--- NOTE | ~2023-02-20 | US_ITS ---
EXAMINATION:US venous doppler LE LT INDICATION:Abnormal immunologic testing TECHNIQUE: Multiple grayscale, color flow and Doppler images of the left lower extremity deep venous systems were obtained and reviewed. COMPARISON:Ultrasound dated 06/22/2022 FINDINGS: The common femoral, superficial femoral and popliteal veins demonstrate normal respiratory variation, augmentation and compressibility. Color flow is also seen within the greater saphenous an d profunda veins. The posterior tibial and peroneal veins are not well visualized. IMPRESSION: 1: No lower extremity deep venous thrombosis. Reviewed, dictated and finalized at location B.
[2023-02-20 11:39] LABS: Basophils Percent Auto 0.6 % (0.2-1.2); Eosinophils Absolute Auto 0.4 K/mm3 (0-0.3); Eosinophils Percent Auto 6.1 % (0-4.4); Hemoglobin 10.7 g/dL (12.0-15.0); Immature Granulocyte Absolute 0.02 K/mm3 (0.00-0.031); Immature Granulocyte Percent A 0.3 % (0-0.5); Lymphocytes Absolute Auto 2.31 K/mm3 (0.9-3.2); Lymphocytes Percent Auto 37.3 % (18.3-44.2); Mean Corpuscular HGB Conc 30.6 g/dl (32-36); Mean Corpuscular Volume 88.2 fl (80-100); Mean Platelet Volume 10.4 fl (7.4-10.4); Monocytes Absolute Auto 0.6 K/mm3 (0.1-0.6); Neutrophils Absolute Auto 2.8 K/mm3 (1.3-6.7); Neutrophils Percent Auto 45.7 % (45.5-73.1); Platelet Count Result 304 k/mm3 (150-375); Red Blood Count 3.97 M/mm3 (4.2-5.4); Red Cell Distribution Width 15.7 % (11.5-14.5); White Blood Count 6.2 K/mm3 (4.5-10.0)
[2023-02-20 11:45] LABS: Anion Gap 6 mmol/L (8-16); Blood Urea Nitrogen 22 mg/dL (7-17); Calcium 9.2 mg/dL (8.4-10.2); Carbon Dioxide 34 mmol/L (22-30); Chloride 102 mmol/L (98-107); Estimated Glomerular Filt Rate 38; Glucose 101 mg/dL (65-110); Phosphorus 4.9 mg/dL (2.5-4.5); Potassium 3.8 mmol/L (3.4-5.0); Sodium 142 mmol/L (137-145)
[2023-02-20 11:46] LABS: Alanine Aminotransferase 19 U/L (6-35); Albumin Level 4.1 g/dL (3.5-5.1); Alkaline Phosphatase 56 U/L (38-126); Anion Gap 4 mmol/L (8-16); Aspartate Amino Transferase 24 U/L (14-36); Bilirubin,Total 0.4 mg/dL (0.2-1.3); Blood Urea Nitrogen 21 mg/dL (7-17); CRP < 0.5 mg/dL (<1.0); Calcium 8.8 mg/dL (8.4-10.2); Carbon Dioxide 33 mmol/L (22-30); Chloride 103 mmol/L (98-107); Estimated Glomerular Filt Rate 38; Glucose 100 mg/dL (65-110); Potassium 3.7 mmol/L (3.4-5.0); Sodium 140 mmol/L (137-145)
[2023-02-20 12:00] LABS: Creatinine Urine 93.7 mg/dL
[2023-02-20 12:18] LABS: Erythrocyte Sedimentation Rate 83 mm/hr (0-20)
[2023-02-20 12:20] LABS: Appearance Urine Clear (Clear); Bacteria Urine None Seen /hpf; Bilirubin Urine Negative (Negative); Blood Urine 2+ (Negative); Color Urine Yellow (Yellow); Glucose Urine UA Negative (Negative); Ketones Urine Negative (Negative); Leukocyte Esterase Ur Negative LEU/UL (NEGATIVE); Need Manual Microscopic Reviewed; Nitrate Urine Negative (Negative); Protein Urine 4+ mg/dL (Negative); RBC Urine 21-50 /hpf (0-2); Specific Grav Ur 1.018 (1.001-1.035); Squamous Epithelial Cell Urine Occasional /hpf (Few); Urobilinogen Urine 0.2 mg/dL (<2.0)
[2023-02-20 12:22] LABS: Add Urine Microscopic? YES
[2023-02-20 12:27] LABS: Total Protein Urine Random > 600 mg/dL
[2023-02-25 21:13] LABS: ANCA Screen Negative (Negative)
== END 2023-02-20 10:18 | disposition home or self-care (01) ==
PROVIDERS: Internal Medicine; PCP Family Medicine; Visit Provider Internal Medicine Nephrology
DX: N17.9 Acute kidney failure, unspecified (principal); R76.8 Other specified abnormal immunological findings in serum; R60.0 Localized edema; I77.82 Antineutrophilic cytoplasmic antibody [ANCA] vasculitis; N08 Glomerular disorders in diseases classified elsewhere; M19.90 Unspecified osteoarthritis, unspecified site; J84.9 Interstitial pulmonary disease, unspecified
CPT/HCPCS: 36415; 76775; 80053; 80069; 81001; 82570; 83970; 84156; 85025; 85027; 85652; 86036; 86140; 93971

== ENCOUNTER 2023-03-17 03:36 | Outpatient (CLI) | payer MEDICARE, MEDICAID, SELFPAY ==
[2023-03-16 14:07] VITALS: BMI 63.8
--- NOTE | 2023-03-16 14:07 | PC.NURSE ---
Pre Radiology instructions Report to the outpatient hospital for special care on date 03/17/23 at time 0830 for procedure Time: 1030. YOU MAY BE MONITORED AT HOSPITAL FOR UP TO 4 HOURS AFTER YOUR PROCEDURE. A visitor will be allowed to accompany the patient into the hospital. You and your visitor will be asked to self-screen and do not enter if you have any COVID symptoms. A mask is OPTIONAL within the hospital. Patients are to have no food or drink 6 hours prior to procedure time Driving will be restricted after the procedure, you must have a person to drive you home. Labs will be drawn in preop area and once reviewed, you will be taken to radiology area for procedure. When the procedure is completed, you will be taken to outpatient where you will be monitored for several hours. You may have one visitor in this area. Other than holding anti-coagulants, patient may take other medication(s) as scheduled. Prior to your appointment date patients are instructed to hold anti-coagulants after discussing with ordering provider to stop. If unable to discontinue anti-coagulants please notify radiologist. ? No aspirin or warfarin (Coumadin) for 7 days prior to the procedure. ? No clopidogrel (Plavix), ticagrelor (Brilinta), prasugrel (Effient) or dabigatran (Pradaxa) for 5 days prior to the procedure. ? No rivaroxaban (Xarelto), apixaban (Eliquis), dipyridamole (Aggrenox or Persantine) or cilostazol (Pletal) for 2 days prior to the procedure. Medications to discontinue per physician: N/A Date to take last dose: N/A Please leave all valuables, including medications, at home the day of procedure. The hospital will not accept responsibility for valuables. Wear comfortable, loose fitting clothing.? Follow any additional instructions given to you from ordering provider. Telephone instructions given to PT - JACQUELIN RICE and asked if any additional questions and then verbalized understanding. Patient advised to call scheduling provider office or registration scheduling [phone] if any additional questions.
[2023-03-17 08:45] VITALS: BP 153/90; PULSE 82; RESP 18; TEMP 36.9; O2SAT 100
[2023-03-17 09:10] VITALS: BMI 67.1
[2023-03-17 09:29] LABS: INR 0.9; Prothrombin Time 12.8 Seconds (11.1-14.7)
--- NOTE | 2023-03-17 10:41 | SUR.PHASEII ---
PER RADIOLOGY CASE WAS CANCELED IN THEIR AREA DUE TO ELEVATED BP PATIENT DISCHARGED FROM THEIR AREA
== END 2023-03-17 03:37 | disposition home or self-care (01) ==
PROVIDERS: PCP Family Medicine; Referring Provider Internal Medicine Nephrology; Visit Provider Radiology Diagnostic Radiology
DX: I77.6 Arteritis, unspecified (principal)
CPT/HCPCS: 36415; 85610

== ENCOUNTER 2023-04-05 14:31 | Outpatient (CLI) | payer MEDICARE, MEDICAID, SELFPAY ==
[2023-04-05 15:33] LABS: Basophils Percent Auto 0.8 % (0.2-1.2); Eosinophils Absolute Auto 0.2 K/mm3 (0-0.3); Eosinophils Percent Auto 4.5 % (0-4.4); Hematocrit 33.9 % (37.0-47.0); Hemoglobin 10.3 g/dL (12.0-15.0); Immature Granulocyte Absolute 0.02 K/mm3 (0.00-0.031); Immature Granulocyte Percent A 0.4 % (0-0.5); Lymphocytes Absolute Auto 1.73 K/mm3 (0.9-3.2); Lymphocytes Percent Auto 32.8 % (18.3-44.2); Mean Corpuscular HGB Conc 30.4 g/dl (32-36); Mean Corpuscular Hemoglobin 26.7 pg (26-34); Mean Corpuscular Volume 87.8 fl (80-100); Mean Platelet Volume 11.1 fl (7.4-10.4); Monocytes Absolute Auto 0.6 K/mm3 (0.1-0.6); Neutrophils Absolute Auto 2.7 K/mm3 (1.3-6.7); Neutrophils Percent Auto 50.5 % (45.5-73.1); Platelet Count Result 293 k/mm3 (150-375); Red Blood Count 3.86 M/mm3 (4.2-5.4); Red Cell Distribution Width 14.6 % (11.5-14.5); White Blood Count 5.3 K/mm3 (4.5-10.0)
[2023-04-05 15:39] LABS: Appearance Urine Clear (Clear); Bacteria Urine None Seen /hpf; Bilirubin Urine Negative (Negative); Blood Urine 2+ (Negative); Color Urine Yellow (Yellow); Glucose Urine UA Negative (Negative); Ketones Urine Negative (Negative); Leukocyte Esterase Ur Trace LEU/UL (Negative); Need Manual Microscopic Reviewed; Nitrate Urine Negative (Negative); Protein Urine 4+ mg/dL (Negative); RBC Urine 21-50 /hpf (0-2); Specific Grav Ur 1.018 (1.001-1.035); Squamous Epithelial Cell Urine None seen /hpf (Few); Urobilinogen Urine 0.2 mg/dL (<2.0); WBC Urine 21-50 /hpf
[2023-04-05 15:42] LABS: Add Urine Microscopic? YES
[2023-04-05 16:00] LABS: Alanine Aminotransferase 15 U/L (6-35); Albumin Level 3.8 g/dL (3.5-5.1); Alkaline Phosphatase 55 U/L (38-126); Anion Gap 6 mmol/L (8-16); Aspartate Amino Transferase 24 U/L (14-36); Bilirubin,Total 0.2 mg/dL (0.2-1.3); Blood Urea Nitrogen 32 mg/dL (7-17); CRP < 0.5 mg/dL (<1.0); Calcium 8.6 mg/dL (8.4-10.2); Carbon Dioxide 30 mmol/L (22-30); Chloride 105 mmol/L (98-107); Estimated Glomerular Filt Rate 36; Glucose 87 mg/dL (65-110); Potassium 3.9 mmol/L (3.4-5.0); Sodium 141 mmol/L (137-145)
[2023-04-05 17:18] LABS: Erythrocyte Sedimentation Rate 85 mm/hr (0-20)
[2023-04-05 20:54] LABS: Creatinine Urine 100.6 mg/dL
[2023-04-05 21:33] LABS: Total Protein Urine Random > 600 mg/dL
== END 2023-04-05 14:32 | disposition home or self-care (01) ==
LOC: ANHLAB 14:32
PROVIDERS: PCP Family Medicine; Visit Provider Internal Medicine
DX: I77.6 Arteritis, unspecified (principal); M17.0 Bilateral primary osteoarthritis of knee; M19.90 Unspecified osteoarthritis, unspecified site
CPT/HCPCS: 36415; 80053; 81001; 82570; 84156; 85025; 85652; 86140; 87086; 87088

== ENCOUNTER 2023-04-11 13:05 | Outpatient (CLI) | payer MEDICARE, MEDICAID, SELFPAY ==
--- NOTE | ~2023-04-11 | XR_ITS ---
EXAMINATION: XR lg joint inject/asp w image, XR lg joint inject/asp add DATE: 04/11/2023 14:25 INDICATION: Bilateral knee injections for osteoarthritis and knee pain. TECHNIQUE: A time-out was performed to verify the patient's name, date of , and procedure to b e performed. The procedure including the risks, benefits, and alternatives was discussed with the pat ient. Risks discussed included bleeding and infection. The patient understood the risks and agreed to proceed. Attention was first turned to the right knee. The skin overlying the lateral aspect of the right knee joint was prepped and draped in usual sterile fashion. Anesthetic was administered with 1 % lidocaine subcutaneously. A 22 G needle was advanced under fluoroscopic guidance into the joint. Injection of 3 mL of Omnipaque 240 confirmed intra-articular position of the needle. Subsequently, i njectate consisting of 7 mL a 5:2 mixture of 1% lidocaine: 10 mg/mL Kenalog for a total dosage of 20 mg Kenalog was instilled. Washout of contrast was seen confirming intra-articular administration. The needle was removed and the entry site was cleaned and dressed. Attention was intensity left knee. The patient has repositioned and the skin overlying the lateral as pect of the left knee was prepped and draped in usual sterile fashion. Anesthetic was administered wi th 1% lidocaine subcutaneously. A 22 G needle was advanced under fluoroscopic guidance into the join t. Injection of 3 mL of Omnipaque 240 confirmed intra-articular position of the needle. Subsequentl y, injectate consisting of 7 mL a 5:2 mixture of 1% lidocaine: 10 mg/mL Kenalog for a total dosage of 20 mg Kenalog was instilled. Washout of contrast was seen confirming intra-articular administration. The needle was removed and the entry site was cleaned and dressed. There were no immediate complicat ions. Fluoroscopy exposure time for the combined procedures was 0.6 minutes. The total number of imag es was 4. FINDINGS: Real-time fluoroscopy demonstrates the needle in first the right knee joint and subsequentl y the left knee joint.. Patient's pain prior to procedure:04/24. Patient's pain following the procedu re: 12/23. IMPRESSION: 1. Successful joint injection of of local anesthetic and steroid into both the left and right knees w ith decrease in the patient's presenting pain. Reviewed, dictated and finalized at location A. IMPRESSION: 1. Successful joint injection of of local anesthetic and steroid into both the left and right knees with decrease in the patient's presenting pain.
== END 2023-04-11 13:06 | disposition home or self-care (01) ==
LOC: ANHIMG 13:07
PROVIDERS: PCP Family Medicine; Visit Provider Nurse Practitioner
DX: M17.0 Bilateral primary osteoarthritis of knee (principal)
CPT/HCPCS: 20610; 77002; J3301; Q9966

== ENCOUNTER 2023-07-18 11:02 | Outpatient (RCR) | payer MEDICARE, MEDICAID, SELFPAY ==
[2023-07-18 11:10] VITALS: BMI 67.8
[2023-07-18 13:33] VITALS: BMI 67.8
== END 2023-10-02 09:35 | disposition home or self-care (01) ==
LOC: ANHDMC 11:02
PROVIDERS: PCP Nurse Practitioner Family; Visit Provider Family Medicine
DX: E11.69 Type 2 diabetes mellitus with other specified complication (principal); E66.01 Morbid (severe) obesity due to excess calories; I12.9 Hypertensive chronic kidney disease with stage 1 through stage 4 chronic kidney disease, or unspecified chronic kidney disease; N18.32 Chronic kidney disease, stage 3b; G47.33 Obstructive sleep apnea (adult) (pediatric); M17.0 Bilateral primary osteoarthritis of knee; Z71.3 Dietary counseling and surveillance
CPT/HCPCS: 36415; 80053; 81001; 82306; 82570; 83970; 84100; 84156; 85027; 85652; 86036; 86140; 86160; 87086; 97802

== ENCOUNTER 2023-07-18 12:12 | Outpatient (CLI) | payer MEDICARE, MEDICAID, SELFPAY ==
[2023-07-18 12:59] LABS: Hematocrit 32.8 % (37.0-47.0); Hemoglobin 9.8 g/dL (12.0-15.0); Mean Corpuscular HGB Conc 29.9 g/dl (32-36); Mean Corpuscular Hemoglobin 26.3 pg (26-34); Mean Corpuscular Volume 87.9 fl (80-100); Mean Platelet Volume 11.5 fl (7.4-10.4); Platelet Count Result 284 k/mm3 (150-375); Red Blood Count 3.73 M/mm3 (4.2-5.4); Red Cell Distribution Width 14.2 % (11.5-14.5); White Blood Count 5.1 K/mm3 (4.5-10.0)
[2023-07-18 13:07] LABS: Phosphorus 4.4 mg/dL (2.5-4.5)
[2023-07-18 13:13] LABS: Appearance Urine Clear (Clear); Bacteria Urine None Seen /hpf; Bilirubin Urine Negative (Negative); Blood Urine 1+ (Negative); Color Urine Yellow (Yellow); Glucose Urine UA Negative (Negative); Ketones Urine Negative (Negative); Leukocyte Esterase Ur Negative LEU/UL (Negative); Need Manual Microscopic Reviewed; Nitrate Urine Negative (Negative); Protein Urine 3+ mg/dL (Negative); Specific Grav Ur 1.014 (1.001-1.035); Squamous Epithelial Cell Urine Occasional /hpf (Few); Urobilinogen Urine 0.2 mg/dL (<2.0)
[2023-07-18 13:16] LABS: Creatinine Urine 81.8 mg/dL
[2023-07-18 13:17] LABS: Add Urine Microscopic? YES
[2023-07-18 13:18] LABS: Alanine Aminotransferase 16 U/L (6-35); Albumin Level 4.2 g/dL (3.5-5.1); Alkaline Phosphatase 56 U/L (38-126); Anion Gap 10 mmol/L (8-16); Aspartate Amino Transferase 24 U/L (14-36); Bilirubin,Total 0.4 mg/dL (0.2-1.3); Blood Urea Nitrogen 35 mg/dL (7-17); CRP < 0.5 mg/dL (<1.0); Calcium 9.2 mg/dL (8.4-10.2); Carbon Dioxide 29 mmol/L (22-30); Chloride 103 mmol/L (98-107); Estimated Glomerular Filt Rate 28; Glucose 96 mg/dL (65-110); Potassium 3.7 mmol/L (3.4-5.0); Sodium 142 mmol/L (137-145)
[2023-07-18 13:23] LABS: Complement C3 136 mg/dL (88-165)
[2023-07-18 13:25] LABS: Total Protein Urine Random 390 mg/dL; Ur Ttl Prot Creatinine Ratio 4.77 mg/mg (0-0.20)
[2023-07-18 13:25] LABS: Parathyroid Intact 124.7 pg/mL (7.5-53.5)
[2023-07-18 13:39] LABS: Vitamin D 25 Hydroxy 29.5 ng/mL
[2023-07-18 15:12] LABS: Erythrocyte Sedimentation Rate 63 mm/hr (0-20)
[2023-07-24 22:31] LABS: ANCA Screen Negative (Negative)
== END 2023-07-18 12:13 | disposition home or self-care (01) ==
PROVIDERS: PCP Nurse Practitioner Family; Referring Provider Internal Medicine; Visit Provider Internal Medicine Nephrology
DX: I77.6 Arteritis, unspecified (principal); M19.90 Unspecified osteoarthritis, unspecified site; E21.1 Secondary hyperparathyroidism, not elsewhere classified; R76.8 Other specified abnormal immunological findings in serum; R94.4 Abnormal results of kidney function studies
CPT/HCPCS: 36415; 80053; 81001; 82306; 82570; 83970; 84100; 84156; 85027; 85652; 86036; 86140; 86160; 87086

== ENCOUNTER 2023-08-11 13:31 | Outpatient (CLI) | payer MEDICARE, MEDICAID, SELFPAY ==
--- NOTE | ~2023-08-11 | US_ITS ---
EXAMINATION: US knee asp inj w image RT, US knee asp inj w image LT DATE: 08/11/2023 15:14 (accession [id number]), 08/11/2023 15:13 (accession [id number]) INDICATION: Bilateral knee joint steroid injections for osteoarthritis with bilateral knee pain. TECHNIQUE: The procedure including the risks and benefits was discussed with the patient. Risks discu ssed included bleeding, infection and allergic reaction. The patient understood the risks and agreed to proceed. The skin overlying the right knee was prepped and draped in usual sterile fashion. Anes thetic was administered with 1% lidocaine subcutaneously. An 25 gauge needle was advanced under cont inuous ultrasound observation to the fluid-filled lateral gutter of the right suprapatellar pouch. 7 mm a 5:2 mixture of 1% lidocaine: 10 mg/mg Kenalog for a total dose of 20 mg Kenalog was injected. Th e slightly echogenic injectate was observed with ultrasound extending into the anechoic joint fluid. The needle was removed and the entry site was cleaned and dressed. Attention was then turned to the contralateral left knee. The skin overlying the left knee was preppe d and draped in usual sterile fashion. Anesthetic was administered with 1% lidocaine subcutaneously. An 25 gauge needle was advanced under continuous ultrasound observation to the fluid-filled medial gu tter of the left suprapatellar pouch. 7 mm a 5:2 mixture of 1% lidocaine: 10 mg/mg Kenalog for a tota l dose of of 20 mg Kenalog was injected. The slightly echogenic injectate was observed with ultrasoun d extending into the anechoic joint fluid. The needle was removed and the entry site was cleaned and dressed. FINDINGS: Ultrasound images demonstrate a moderate-sized bilateral knee joint effusions at the suprap atellar pouch. Subsequent images demonstrate the needle and injected steroid within the suprapatellar pouch of the right knee. Subsequent images demonstrate a second needle and injected steroid within t he suprapatellar pouch of the left knee. Patient's pain prior to procedure:01/23. Patient's pain foll owing the procedure: 11/25. IMPRESSION: 1. Successful Ultrasound-guided right knee joint injection of local anesthetic and steroid with decre ase in the patient's presenting pain. 2. Successful Ultrasound-guided left knee joint injection of local anesthetic and steroid with decrea se in the patient's presenting pain. Reviewed, dictated and finalized at location A. IMPRESSION: 1. Successful Ultrasound-guided right knee joint injection of local anesthetic and steroid with decrease in the patient's presenting pain. 2. Successful Ultrasound-guided left knee joint injection of local anesthetic a nd steroid with decrease in the patient's presenting pain.
== END 2023-08-11 13:32 | disposition home or self-care (01) ==
PROVIDERS: PCP Nurse Practitioner Family; Visit Provider Nurse Practitioner
DX: M17.0 Bilateral primary osteoarthritis of knee (principal)
CPT/HCPCS: 20610; 20611; 77002; J3301; Q9967

== ENCOUNTER 2023-08-30 05:25 | Outpatient (CLI) | payer MEDICARE, MEDICAID, SELFPAY ==
[2023-08-24 15:32] VITALS: BMI 66.6
--- NOTE | 2023-08-24 15:32 | PC.NURSE ---
Pre Radiology instructions Report to the outpatient [facility] on date 08/30/23 at time 0730 for procedure Time: 0930. YOU MAY BE MONITORED AT HOSPITAL FOR UP TO 4 HOURS AFTER YOUR PROCEDURE. A visitor will be allowed to accompany the patient into the hospital. You and your visitor will be asked to self-screen and do not enter if you have any COVID symptoms. A mask is OPTIONAL within the hospital. Patients are to have no food or drink 8 hours prior to procedure time Driving will be restricted after the procedure, you must have a person to drive you home. Labs will be drawn in preop area and once reviewed, you will be taken to radiology area for procedure. When the procedure is completed, you will be taken to outpatient where you will be monitored for several hours. You may have one visitor in this area. Other than holding anti-coagulants, patient may take other medication(s) as scheduled. Prior to your appointment date patients are instructed to hold anti-coagulants after discussing with ordering provider to stop. If unable to discontinue anti-coagulants please notify radiologist. ? No aspirin or warfarin (Coumadin) for 7 days prior to the procedure. ? No clopidogrel (Plavix), ticagrelor (Brilinta), prasugrel (Effient) or dabigatran (Pradaxa) for 5 days prior to the procedure. ? No rivaroxaban (Xarelto), apixaban (Eliquis), dipyridamole (Aggrenox or Persantine) or cilostazol (Pletal) for 2 days prior to the procedure. Medications to discontinue per physician: N/A Date to take last dose: N/A Please leave all valuables, including medications, at home the day of procedure. The hospital will not accept responsibility for valuables. Wear comfortable, loose fitting clothing.? Follow any additional instructions given to you from ordering provider. Telephone instructions given to PT - JACQUELIN RICE and asked if any additional questions and then verbalized understanding. Patient advised to call scheduling provider office or registration scheduling [phone] if any additional questions.
[2023-08-30] VITALS (12 sets, daily range): BP systolic 120–153; BP diastolic 51–85; PULSE 69–94; RESP 15–16; TEMP 36.7; O2SAT 100
--- NOTE | ~2023-08-30 | US_ITS ---
EXAMINATION: US biopsy renal DATE: 08/30/2023 10:27 INDICATION: Arthritis. TECHNIQUE: The procedure including the risks, benefits, and alternatives was discussed with the patie nt. Risks discussed included bleeding and infection. The patient understood the risks and agreed to p roceed. A timeout was performed to verify the patient's name, date of , and procedure to be p erformed. The skin overlying the left kidney was prepped and draped in usual sterile fashion. Anest hetic was administered with 1% lidocaine subcutaneously. An 18 gauge core biopsy needle was then use d to obtain 7 core biopsy specimens under continuous sonographic guidance. The entry site was cleaned and dressed. There were no immediate complications. FINDINGS: Ultrasound images demonstrate the needle in the kidney. IMPRESSION: 1. Ultrasound-guided random left kidney core needle biopsy. Reviewed, dictated and finalized at location A. ER HELPER
[2023-08-30 08:27] LABS: Mean Platelet Volume 10.6 fl (7.4-10.4); Platelet Count Result 249 k/mm3 (150-375)
[2023-08-30 08:59] LABS: INR 0.9; Prothrombin Time 12.9 Seconds (11.1-14.7)
[2023-08-30] MEDS: ACETAMINOPHEN 500 MG TABLET 1000 MG PO (10:45)
== END 2023-08-30 14:45 | disposition home or self-care (01) ==
PROVIDERS: PCP Nurse Practitioner Family; Referring Provider Internal Medicine Nephrology; Visit Provider Radiology Diagnostic Radiology
PROC: (CPT 76942; principal; 2023-08-30 09:30)
DX: I77.6 Arteritis, unspecified (principal); N26.9 Renal sclerosis, unspecified
CPT/HCPCS: 36415; 50200; 76942; 85049; 85610; 88300; 88305; 88313; 88329; 88346; 88348; 88350; A9270

== ENCOUNTER 2023-11-13 10:26 | Outpatient (CLI) | payer MEDICARE, MEDICAID, SELFPAY ==
[2023-11-13 11:30] LABS: Eosinophils Absolute Auto 0.1 K/mm3 (0-0.3); Eosinophils Percent Auto 3.5 % (0-4.4); Hematocrit 34.8 % (37.0-47.0); Hemoglobin 10.5 g/dL (12.0-15.0); Immature Granulocyte Absolute 0.01 K/mm3 (0.00-0.031); Immature Granulocyte Percent A 0.3 % (0-0.5); Lymphocytes Absolute Auto 1.17 K/mm3 (0.9-3.2); Lymphocytes Percent Auto 29.4 % (18.3-44.2); Mean Corpuscular HGB Conc 30.2 g/dl (32-36); Mean Corpuscular Hemoglobin 25.7 pg (26-34); Mean Corpuscular Volume 85.3 fl (80-100); Mean Platelet Volume 11.3 fl (7.4-10.4); Monocytes Absolute Auto 0.5 K/mm3 (0.1-0.6); Monocytes Percent Auto 11.3 % (2.6-8.5); Neutrophils Absolute Auto 2.2 K/mm3 (1.3-6.7); Neutrophils Percent Auto 54.5 % (45.5-73.1); Platelet Count Result 276 k/mm3 (150-375); Red Blood Count 4.08 M/mm3 (4.2-5.4); Red Cell Distribution Width 13.9 % (11.5-14.5)
[2023-11-13 11:33] LABS: Appearance Urine Clear (Clear); Bacteria Urine Rare /hpf; Bilirubin Urine Negative (Negative); Blood Urine 1+ (Negative); Color Urine Yellow (Yellow); Glucose Urine UA Negative (Negative); Ketones Urine Negative (Negative); Leukocyte Esterase Ur 1+ LEU/UL (Negative); Nitrate Urine Negative (Negative); Protein Urine 3+ mg/dL (Negative); Specific Grav Ur 1.016 (1.001-1.035); Squamous Epithelial Cell Urine Few /hpf (Few); Urobilinogen Urine 0.2 mg/dL (<2.0)
[2023-11-13 11:42] LABS: Cholesterol 210 mg/dL (0-200); HDL Direct 51 mg/dL; Triglycerides 151 mg/dL (<150)
[2023-11-13 11:45] LABS: Alanine Aminotransferase 10 U/L (6-35); Albumin Level 3.9 g/dL (3.5-5.1); Alkaline Phosphatase 54 U/L (38-126); Anion Gap 7 mmol/L (8-16); Aspartate Amino Transferase 18 U/L (14-36); Bilirubin,Total 0.4 mg/dL (0.2-1.3); Blood Urea Nitrogen 25 mg/dL (7-17); CRP < 0.5 mg/dL (<1.0); Calcium 9.1 mg/dL (8.4-10.2); Carbon Dioxide 32 mmol/L (22-30); Chloride 101 mmol/L (98-107); Estimated Glomerular Filt Rate 28; Glucose 92 mg/dL (65-110); Phosphorus 3.6 mg/dL (2.5-4.5); Potassium 3.7 mmol/L (3.4-5.0); Sodium 140 mmol/L (137-145)
[2023-11-13 11:50] LABS: Complement C3 123 mg/dL (88-165)
[2023-11-13 11:58] LABS: Erythrocyte Sedimentation Rate 51 mm/hr (0-20)
[2023-11-13 11:59] LABS: Parathyroid Intact 103.9 pg/mL (7.5-53.5)
[2023-11-13 12:00] LABS: LDL Cholesterol Direct 92 mg/dL
[2023-11-13 12:06] LABS: Hemoglobin A1C 5.3 % (<5.7)
[2023-11-13 12:07] LABS: Add Urine Microscopic? YES
[2023-11-13 12:25] LABS: Vitamin D 25 Hydroxy 29.9 ng/mL
[2023-11-13 12:38] LABS: Free T4 Free Thyroxine 1.29 ng/mL (0.78-2.19)
[2023-11-14 12:22] LABS: Creatinine Urine 167.1 mg/dL
[2023-11-14 13:10] LABS: Total Protein Urine Random 394 mg/dL; Ur Ttl Prot Creatinine Ratio 2.36 mg/mg (0-0.20)
[2023-11-18 22:24] LABS: ANCA Screen C-ANCA POS (Negative)
[2023-11-18 22:47] LABS: C-ANCA Titer 1:40 Titer (<1:20); C-ANCA Titer Reflex Chg Test YES
== END 2023-11-13 10:27 | disposition home or self-care (01) ==
PROVIDERS: PCP Nurse Practitioner Family; Referring Provider Internal Medicine Nephrology; Visit Provider Internal Medicine
DX: I77.6 Arteritis, unspecified (principal); M19.90 Unspecified osteoarthritis, unspecified site; E11.69 Type 2 diabetes mellitus with other specified complication; E66.9 Obesity, unspecified; I10 Essential (primary) hypertension; R76.8 Other specified abnormal immunological findings in serum; R94.4 Abnormal results of kidney function studies; D50.9 Iron deficiency anemia, unspecified; E78.5 Hyperlipidemia, unspecified; E03.9 Hypothyroidism, unspecified; E66.01 Morbid (severe) obesity due to excess calories; Z68.44 Body mass index [BMI] 60.0-69.9, adult
CPT/HCPCS: 36415; 80053; 80061; 81001; 82306; 82570; 83036; 83970; 84100; 84156; 84439; 84443; 85025; 85652; 86036; 86140; 86160; 87086

== ENCOUNTER 2024-03-18 11:30 | Outpatient (CLI) | payer MEDICARE, MEDICAID, SELFPAY ==
[2024-03-18 12:39] LABS: Hematocrit 31.3 % (37.0-47.0); Hemoglobin 9.6 g/dL (12.0-15.0); Mean Corpuscular HGB Conc 30.7 g/dl (32-36); Mean Corpuscular Hemoglobin 25.9 pg (26-34); Mean Corpuscular Volume 84.6 fl (80-100); Platelet Count Result 272 k/mm3 (150-375); Red Cell Distribution Width 14.6 % (11.5-14.5); White Blood Count 6.5 K/mm3 (4.5-10.0)
[2024-03-18 12:54] LABS: Creatinine Urine 92.6 mg/dL; Total Protein Urine Random 92 mg/dL; Ur Ttl Prot Creatinine Ratio 0.99 mg/mg (0-0.20)
[2024-03-18 12:56] LABS: Alanine Aminotransferase 11 U/L (6-35); Albumin Level 4.2 g/dL (3.5-5.1); Alkaline Phosphatase 55 U/L (38-126); Anion Gap 8 mmol/L (4-12); Aspartate Amino Transferase 19 U/L (14-36); Bilirubin,Total 0.4 mg/dL (0.2-1.3); Blood Urea Nitrogen 34 mg/dL (7-17); Carbon Dioxide 29 mmol/L (22-30); Chloride 102 mmol/L (98-107); Cholesterol 201 mg/dL (0-200); Estimated Glomerular Filt Rate 24; Glucose 93 mg/dL (65-110); HDL Direct 55 mg/dL; Potassium 3.4 mmol/L (3.4-5.0); Sodium 139 mmol/L (137-145); Triglycerides 75 mg/dL (<150)
[2024-03-18 12:56] LABS: Creatinine Urine 91.5 mg/dL
[2024-03-18 12:57] LABS: Phosphorus 3.9 mg/dL (2.5-4.5)
[2024-03-18 13:02] LABS: Complement C3 132 mg/dL (88-165)
[2024-03-18 13:06] LABS: Parathyroid Intact 72.4 pg/mL (7.5-53.5)
[2024-03-18 13:08] LABS: LDL Cholesterol Direct 98 mg/dL
[2024-03-18 13:24] LABS: MALB Creatinine Ratio 463.1 mg/g (0-30); Microalbumin Urine Random 423.7 mg/L (0-16.7)
--- NOTE | 2024-03-18 13:55 | WPDPFTINT ---
PFT Procedure Performed PFT Procedure Performed Spirometry with Pre/Post Bronchodilator Plethysmography (Lung Vol) Diffusing Cap (DLCO) Flow Vol Loop PFT Interpretation Lung volumes were measured with the body plethysmography method. Lung volumes are unremarkable. Spirometry showed diminished FEV1 and a normal FEV1 to FVC ratio of 75%. Following administration of a bronchodilator, there was no significant increase in expiratory flow rates. Lung diffusion capacity is borderline normal at 70% predicted. In comparison to previous study in December of 2022, the post bronchodilator FVC and FEV1 are now greater by approximately 0.15 L each. Lung diffusion is also higher from a previous measurement of 60% predicted to 70% predicted, which is borderline normal. Impression: Spirometry and lung volumes within normal range. Borderline normal lung diffusion capacity. Overall study improved since previous study in 2022.
[2024-03-18 14:01] LABS: Vitamin D 25 Hydroxy 52.6 ng/mL
[2024-03-18 14:13] LABS: Erythrocyte Sedimentation Rate 134 mm/hr (0-20)
[2024-03-22 15:14] LABS: ANCA Screen NEGATIVE (NEGATIVE)
== END 2024-03-18 11:31 | disposition home or self-care (01) ==
PROVIDERS: Nurse Practitioner Family; PCP Internal Medicine Nephrology; Referring Provider Internal Medicine; Visit Provider Internal Medicine Pulmonary Disease
DX: I77.6 Arteritis, unspecified (principal); J84.9 Interstitial pulmonary disease, unspecified; E55.9 Vitamin D deficiency, unspecified; E21.1 Secondary hyperparathyroidism, not elsewhere classified; E11.69 Type 2 diabetes mellitus with other specified complication; E66.9 Obesity, unspecified; I12.9 Hypertensive chronic kidney disease with stage 1 through stage 4 chronic kidney disease, or unspecified chronic kidney disease; N18.32 Chronic kidney disease, stage 3b; E78.5 Hyperlipidemia, unspecified; G47.33 Obstructive sleep apnea (adult) (pediatric); M19.90 Unspecified osteoarthritis, unspecified site; D64.9 Anemia, unspecified; Z99.89 Dependence on other enabling machines and devices; Z13.228 Encounter for screening for other metabolic disorders; Z13.0 Encounter for screening for diseases of the blood and blood-forming organs and certain disorders involving the immune mechanism
CPT/HCPCS: 36415; 80053; 80061; 82043; 82306; 82570; 83036; 83970; 84100; 84156; 85027; 85652; 86036; 86160; 94060; 94726; 94729

== ENCOUNTER 2024-05-10 11:32 | Outpatient (CLI) | payer MEDICARE, MEDICAID, SELFPAY ==
[2024-05-10 12:02] LABS: Hematocrit 33.2 % (37.0-47.0); Hemoglobin 9.9 g/dL (12.0-15.0); Mean Corpuscular HGB Conc 29.8 g/dl (32-36); Mean Corpuscular Hemoglobin 25.1 pg (26-34); Mean Corpuscular Volume 84.3 fl (80-100); Mean Platelet Volume 10.7 fl (7.4-10.4); Platelet Count Result 327 k/mm3 (150-375); Red Blood Count 3.94 M/mm3 (4.2-5.4); Red Cell Distribution Width 14.8 % (11.5-14.5); White Blood Count 5.7 K/mm3 (4.5-10.0)
[2024-05-10 12:12] LABS: Albumin Level 4.2 g/dL (3.5-5.1); Anion Gap 11 mmol/L (4-12); Blood Urea Nitrogen 29 mg/dL (7-17); Carbon Dioxide 30 mmol/L (22-30); Chloride 97 mmol/L (98-107); Estimated Glomerular Filt Rate 22; Glucose 94 mg/dL (65-110); Phosphorus 4.1 mg/dL (2.5-4.5); Potassium 3.8 mmol/L (3.4-5.0); Sodium 138 mmol/L (137-145)
[2024-05-10 12:22] LABS: Creatinine Urine 51.6 mg/dL; Total Protein Urine Random 97 mg/dL; Ur Ttl Prot Creatinine Ratio 1.88 mg/mg (0-0.20)
[2024-05-10 14:26] LABS: Vitamin D 25 Hydroxy 39.4 ng/mL
== END 2024-05-10 11:33 | disposition home or self-care (01) ==
LOC: ANHLAB 11:36
PROVIDERS: PCP Nurse Practitioner Family; Visit Provider Internal Medicine Nephrology
DX: N18.32 Chronic kidney disease, stage 3b (principal); E21.1 Secondary hyperparathyroidism, not elsewhere classified
CPT/HCPCS: 36415; 80069; 82306; 82570; 83970; 84156; 85027

== ENCOUNTER 2024-06-20 08:21 | Outpatient (CLI) | payer MEDICARE, MEDICAID, SELFPAY ==
[2024-06-20 09:03] LABS: Hematocrit 31.2 % (37.0-47.0); Hemoglobin 9.4 g/dL (12.0-15.0); Mean Corpuscular HGB Conc 30.1 g/dl (32-36); Mean Corpuscular Hemoglobin 25.8 pg (26-34); Mean Corpuscular Volume 85.7 fl (80-100); Platelet Count Result 321 k/mm3 (150-375); Red Blood Count 3.64 M/mm3 (4.2-5.4); Red Cell Distribution Width 15.6 % (11.5-14.5); White Blood Count 7.3 K/mm3 (4.5-10.0)
[2024-06-20 09:23] LABS: Anion Gap 11 mmol/L (4-12); Blood Urea Nitrogen 51 mg/dL (7-17); Calcium 8.8 mg/dL (8.4-10.2); Carbon Dioxide 30 mmol/L (22-30); Chloride 99 mmol/L (98-107); Estimated Glomerular Filt Rate 21; Glucose 83 mg/dL (65-110); Phosphorus 4.7 mg/dL (2.5-4.5); Potassium 3.4 mmol/L (3.4-5.0); Sodium 140 mmol/L (137-145)
[2024-06-20 10:17] LABS: Sodium Urine Random 52 meq/L
[2024-06-20 10:22] LABS: Parathyroid Intact 75.2 pg/mL (14.5-75.2)
[2024-06-20 11:13] LABS: Creatinine Urine 84.1 mg/dL; Total Protein Urine Random 164 mg/dL; Ur Ttl Prot Creatinine Ratio 1.95 mg/mg (0-0.20)
== END 2024-06-20 08:22 | disposition home or self-care (01) ==
LOC: ANHLAB 08:29
PROVIDERS: PCP Nurse Practitioner Family; Visit Provider Internal Medicine Nephrology
DX: E78.5 Hyperlipidemia, unspecified (principal); N18.32 Chronic kidney disease, stage 3b
CPT/HCPCS: 36415; 80069; 82570; 83970; 84156; 84300; 85027

== ENCOUNTER 2024-08-05 09:59 | Outpatient (CLI) | payer MEDICARE, MEDICAID, SELFPAY ==
--- NOTE | ~2024-08-05 | US_ITS ---
EXAMINATION: US renal BI DATE: 08/05/2024 10:39 INDICATION: Stage IIIb chronic kidney disease TECHNIQUE: Multiple ultrasound grayscale images of the kidneys were obtained. COMPARISON: 02/20/2023 FINDINGS: The right kidney measures 11.3 x 3.6 x 5.0 cm. The left kidney measures 10.9 x 5.6 x 4.2 cm. The kidn eys demonstrate normal echogenicity. There is no hydronephrosis in either kidney. No stones identifi ed. The bladder is normal. IMPRESSION: 1. Normal kidneys without hydronephrosis. Reviewed, dictated and finalized at location A.
== END 2024-08-05 10:00 | disposition home or self-care (01) ==
PROVIDERS: PCP Nurse Practitioner Family; Visit Provider Internal Medicine Nephrology
DX: N18.32 Chronic kidney disease, stage 3b (principal)
CPT/HCPCS: 76775

== ENCOUNTER 2024-08-28 10:24 | Outpatient (CLI) | payer MEDICARE, MEDICAID, SELFPAY ==
[2024-08-28 11:32] LABS: Anion Gap 7 mmol/L (4-12); Blood Urea Nitrogen 40 mg/dL (7-17); Calcium 8.9 mg/dL (8.4-10.2); Carbon Dioxide 28 mmol/L (22-30); Chloride 105 mmol/L (98-107); Estimated Glomerular Filt Rate 23; Glucose 91 mg/dL (65-110); Potassium 3.8 mmol/L (3.4-5.0); Sodium 140 mmol/L (137-145)
== END 2024-08-28 10:25 | disposition home or self-care (01) ==
PROVIDERS: PCP Nurse Practitioner Family; Visit Provider Internal Medicine Nephrology
DX: N18.4 Chronic kidney disease, stage 4 (severe) (principal)
CPT/HCPCS: 36415; 80048

== ENCOUNTER 2024-11-15 14:15 | Outpatient (RCR) | payer MEDICARE, MEDICAID, SELFPAY ==
--- NOTE | 2024-10-10 15:30 | PCPTNOTE ---
pt called and canceled today's PT evaluation appt.
--- NOTE | 2024-11-01 14:34 | OPREHPOC ---
Outpatient Therapy Plan of Care This is a Multidisciplinary Plan of Care that may contain components documented by all disciplines (PT, OT, and ST.) PT Problem 1 PT Problem #1 Knowledge Deficit PT Goal 1 Goal / Goal Update *indep with HEP on land and in the water Target Visit 8 PT Problem 2 PT Problem #2 Pain PT Goal 1 Goal / Goal Update * pt report pain at worst rating of 4/10 both knees Target Visit 8 PT Goal 2 Goal / Goal Update *improve self assessment with LE functional scale rating of 60% limitation in activity level Target Visit 8 PT Problem 3 PT Problem #3 Impaired Flexibility PT Goal 1 Goal / Goal Update increase knee active flexion ROM in sitting, to improve transfer skills: 1* R to 100' 2* L to 100' Target Visit 8 PT Problem 4 PT Problem #4 Impaired Strength PT Goal 1 Goal / Goal Update * increase strength of both hips and knees, to improve transfer and mobility skills: 1* 5 reps sit/stand time of 20 seconds 2* 2 minute walking test distance of 225' Target Visit 8
--- NOTE | 2024-11-01 14:35 | PTOPEVAL1 ---
Assessment and note entered by Valeria Luong, PT Evaluation Information Assessment Status Evaluation ICD-10 Condition Codes (PT) Pain in right knee M25.561,Pain in left knee M25. 562 Other ICD-10 Condition Codes ( effusion R knee M25.461; effusion L knee M25.426 PT) Onset about 2 years ago Subjective Information have an issue with chronic knee pain; have seen ortho dr in the past- over year ago, Dr James gave her injections and they did not last too long; had recent injections in both knees from Dr Castro and helped her knees; L knee is worse than R knee and having problems bending it now when walking; have not had any falls; Activity: use cane when walking out of the house/ usually not use in the house; do have a wheeled walker at home, but do not use it. is not working outside of home; have basement- does not go down there; family assist with basement laundry; Reported Pain Level Pain Score Self Report Additional Pain Score Comments pain range in the past week 3-5/10; L knee more pain than R; less pain in both since had injections in knees; increase pain: standing/walk- on feet about 5 minutes; sitting 1 hour, then have to get up decrease pain: voltran cream, heat, rub knees generally sleep is OK- sometimes knees bother her Assessment PT Clinical Summary Veena has the diagnosis of bilateral knee OA, pain and effusions. She reports chronic issues with knee pain. The recent injections have helped her pain. LE functional scale rating of 73% limitation in activity level. She is not working and has issues on stairs. With the evaluation, she has decreased ROM of both knees, with decreased strength of hips and knees; 2 minute walking test distance of 160' with cane 5 reps sit/stand time of 28 seconds with both UE's; Skilled PT services are indicated for aquatic and land exercises to increase hip and knee strength and ROM, with education for HEP and modalities PRN for pain control. Plan of Care Interventions Aquatic Therapy,Electrical Stimulation,Hot Pack/ Cold Pack,Manual Therapy,Neuro Re-education, Patient/Caregiver Education,Therapeutic Activities ,Therapeutic Exercise,Ultrasound,Other Other Interventions taping PT Services Indicated Yes Treatment Frequency and 1-2x/wk for 8 visits Duration These treatments will address the objective and functional deficits as defined above. The patient will be advanced safely and appropriately in order for the patient to progress towards his/her prior level of function. Additional exercises will be introduced and as well as a comprehensive home exercise program upon discharge, if needed, ?to ensure carryover of functional gains achieved in the clinic. This treatment plan has been reviewed and agreement upon by the patient.
--- NOTE | 2024-11-22 11:45 | PCPTNOTE ---
Pt canceled today due to illness.
--- NOTE | 2024-11-27 11:05 | PCPTNOTE ---
Pt canceled today due to family emergency.
--- NOTE | 2024-11-29 13:31 | PCPTNOTE ---
Pt did not show for visit today however had family emergency earlier this involving her son.
--- NOTE | 2024-12-04 12:39 | PCPTNOTE ---
pt called and canceled today's reeval appt.
--- NOTE | 2024-12-27 13:45 | PTOPDC ---
Assessment and note entered by Valeria Luong, PT Assessment Status Discharge - Pt Not Present ICD-10 Condition Codes (PT) Pain in right knee M25.561,Pain in left knee M25. 562 Other ICD-10 Condition Codes ( effusion R knee M25.461; effusion L knee M25.426 PT) Onset about 2 years ago Subjective Information pt was not seen this date Assessment PT Clinical Summary Veena has received 3 PT sessions, from November 01 to . She then called and canceled 4 appointments in November. And has not returned for any further treatments. Discharge PT. The goals were not addressed. Plan of Care PT Services Indicated No
== END 2024-12-27 14:30 | disposition home or self-care (01) ==
LOC: ANHPT 14:15
PROVIDERS: PCP Nurse Practitioner Family; Visit Provider Anesthesiology Pain Medicine
DX: M17.0 Bilateral primary osteoarthritis of knee (principal); M25.561 Pain in right knee; M25.562 Pain in left knee; M25.461 Effusion, right knee; M25.462 Effusion, left knee
CPT/HCPCS: 97110; 97113; 97161; 97530

== ENCOUNTER 2025-01-02 10:21 | Outpatient (CLI) | payer MEDICARE, MEDICAID, SELFPAY ==
[2025-01-02 11:01] LABS: Hematocrit 30.8 % (37.0-47.0); Hemoglobin 9.4 g/dL (12.0-15.0); Mean Corpuscular HGB Conc 30.5 g/dl (32-36); Mean Corpuscular Hemoglobin 26.5 pg (26-34); Mean Corpuscular Volume 86.8 fl (80-100); Mean Platelet Volume 11.1 fl (7.4-10.4); Platelet Count Result 250 k/mm3 (150-375); Red Blood Count 3.55 M/mm3 (4.2-5.4); Red Cell Distribution Width 14.6 % (11.5-14.5); White Blood Count 4.1 K/mm3 (4.5-10.0)
--- OUTSIDE RECORDS SUMMARY | 2025-01-02 11:06 | XMS_ITS | Clinical Summary ---
Author Organization [facility] [employer] Address [address] [place] [address] Care Team Providers Care Engraver Signature Name Role Phone Manuel Lamardiguanaco Lindsey Primary Care Provider [phone] Source Comments [facility],non-owned Affiliates and Associated Physician Practices is amultiple site organization consisting of ambulatory clinics and hospital sitesin [place], [place], [place] and [place]. This disclosure is being madepursuant to the Care Everywhere program and may not contain all information available regarding this patient. Last updated 18.[facility] [employer] Social History Tobacco Use Types Packs/Day Years Used Date Smoking Tobacco: Never Assessed Sex and Gender Information Value Date Recorded Sex Assigned at Not on file Gender Identity Not on file Sexual Orientation Not on file Last Filed Vital Signs Vital Sign Reading Time Taken Comments Blood Pressure - - Pulse - - Temperature 36.6 C (97.9 F) 05/26/2021 12:58 PM CDT Respiratory Rate - - Oxygen Saturation - - Inhaled Oxygen Concentration - - Weight 169.3 kg (373 lb 3.2 oz) 021 12:57 PM CDT Height 160 cm (5' 3 ) 05/26/2021 12:57 PM CDT Body Mass Index 66.11 05/26/2021 12:57 PM CDT Plan of Treatment Health Maintenance Due Date Last Done Comments COLOGUARD (AGES 45-75) - COL ON CA SCREENING 1970 COLON MONITORING 1970 COLONOSCOPY - COLON CA SCREENING 1970 CT COLONOGRAPHY - COLON CA SCREENING 1970 Colorectal Cancer Screening 1970 FIT - COLON CA SCREENING 1970 FLEX SIG - COLON CA SCREENING 1970 LIPID TESTING 1970 MAMMOGRAM 1970 MEDICARE AWV 12 MONTHS 1970 PAP SMEAR 1970 HIV SCREENING 1985 HEPATITIS C SCREENING 08/01/1988 DTAP/TDAP/TD VACCINES (1 - Tdap) 1989 HEPATITIS B VACCINE (1 of 3 - 19+ 3-dose series) 1989 PNEUMOCOCCAL VACCINE 50+ (1 of 1 - PCV) 2020 ZOSTER VACCINE (1 of 2) 2020 COVID-19 VACCINE (1 - 2023-2 5 season) 2024 INFLUENZA VACCINE (#1) 2024 DEPRESSION SCREENING 10/16/2024 MEDICARE AWV CALENDAR YEAR 2024 HIB VACCINE Aged Out No longer eligi ble based on patient's age to complete this topic HPV VACCINE Aged Out No longer eligi ble based on patient's age to complete this topic MENINGOCOCCAL (Group B) VACC INE SHARED DECISION-MAKING Aged Out No longer eligibl e based on patient's age to complete this topic MENINGOCOCCAL GROUPS A/C/Y/W VACCINE Aged Out No longer eligible b ased on patient's age to complete this topic Care Teams Engraver Signature Relationship Specialty Start Date End Date Arash Lamar DO [address] [place], [place] [id number] PCP - General 07/01/22
[2025-01-02 11:12] LABS: Anion Gap 7 mmol/L (4-12); Blood Urea Nitrogen 35 mg/dL (7-17); Calcium 8.9 mg/dL (8.4-10.2); Carbon Dioxide 29 mmol/L (22-30); Chloride 103 mmol/L (98-107); Estimated Glomerular Filt Rate 13; Glucose 92 mg/dL (65-110); Phosphorus 4.9 mg/dL (2.5-4.5); Potassium 4.2 mmol/L (3.4-5.0); Sodium 139 mmol/L (137-145)
[2025-01-02 11:29] LABS: Parathyroid Intact 125.3 pg/mL (14.5-75.2)
[2025-01-02 11:51] LABS: Alanine Aminotransferase 15 U/L (6-35); Alkaline Phosphatase 59 U/L (38-126); Aspartate Amino Transferase 21 U/L (14-36); Bilirubin,Total 0.3 mg/dL (0.2-1.3); Cholesterol 210 mg/dL (0-200); HDL Direct 65 mg/dL; Triglycerides 72 mg/dL (<150)
[2025-01-02 12:03] LABS: LDL Cholesterol Direct 86 mg/dL
[2025-01-02 13:13] LABS: Creatinine Urine 59.4 mg/dL
[2025-01-02 13:18] LABS: Total Protein Urine Random 301 mg/dL; Ur Ttl Prot Creatinine Ratio 5.07 mg/mg (0-0.20)
[2025-01-02 16:07] LABS: Free T4 Free Thyroxine Reflex 1.21 ng/dL (0.78-2.19)
[2025-01-02 17:01] LABS: Total Triiodothyronine (T3) 1.19 NG/ML (0.97-1.69)
== END 2025-01-02 10:22 | disposition home or self-care (01) ==
LOC: ANHLAB 10:22
PROVIDERS: PCP Nurse Practitioner Family; Referring Provider Nurse Practitioner Family; Visit Provider Internal Medicine Nephrology
DX: E11.22 Type 2 diabetes mellitus with diabetic chronic kidney disease (principal); N18.4 Chronic kidney disease, stage 4 (severe); E03.9 Hypothyroidism, unspecified; R93.5 Abnormal findings on diagnostic imaging of other abdominal regions, including retroperitoneum; E66.9 Obesity, unspecified; Z79.891 Long term (current) use of opiate analgesic
CPT/HCPCS: 36415; 80061; 80069; 80076; 82570; 83970; 84156; 84439; 84443; 84480; 85027

== ENCOUNTER 2025-01-28 13:23 | Outpatient (CLI) | payer MEDICARE, MEDICAID, SELFPAY ==
--- NOTE | ~2025-01-28 | US_ITS ---
EXAMINATION:US venous doppler LE LT INDICATION:Left leg swelling TECHNIQUE: Multiple grayscale, color flow and Doppler images of the left lower extremity deep venous systems were obtained and reviewed. COMPARISON:No prior studies for comparison. FINDINGS: The common femoral, superficial femoral and popliteal veins demonstrate normal respiratory variation, augmentation and compressibility. Color flow is also seen within the posterior tibial, pe roneal, greater saphenous and profunda veins. IMPRESSION: 1: No lower extremity deep venous thrombosis. Reviewed, dictated and finalized at location B.
--- OUTSIDE RECORDS SUMMARY | 2025-01-28 14:21 | XMS_ITS | Clinical Summary ---
Author Organization [facility] [employer] Address [address] [place] [address] Care Team Providers Care Hospital Aides And Assistants Teacher Name Role Phone Manuel Lamardiguanaco Lindsey Primary Care Provider [phone] Source Comments [facility],non-owned Affiliates and Associated Physician Practices is amultiple site organization consisting of ambulatory clinics and hospital sitesin [place], [place], [place] and [place]. This disclosure is being madepursuant to the Care Everywhere program and may not contain all information available regarding this patient. Last updated 18.[facility] [employer] Social History Tobacco Use Types Packs/Day Years Used Date Smoking Tobacco: Never Assessed Comments Unknown Sex and Gender Information Value Date Recorded Sex Assigned at Not on file Legal Sex Female 11:49 AM CDT Gender Identity Not on file Sexual Orientation [...] VACCINE (1 - 2023-2 5 season) 2024 DEPRESSION SCREENING 10/16/2024 MEDICARE AWV CALENDAR YEAR 2024 INFLUENZA VACCINE (Season Ended) 2025 HIB VACCINE Aged Out No longer eligi [...] on patient's age to complete this topic Insurance MEDICARE MEDICARE MEDICAID - OUT OF STATE UHC MANAGED MEDICARE ADV Care Teams Hospital Aides And Assistants Teacher Relationship Specialty Start Date End Date Arash Lamar DO [address] [place] [address] PCP - General 07/01/22
== END 2025-01-28 13:24 | disposition home or self-care (01) ==
PROVIDERS: PCP Nurse Practitioner Family; Visit Provider Nurse Practitioner Family
DX: M79.89 Other specified soft tissue disorders (principal)
CPT/HCPCS: 93971

== ENCOUNTER 2025-02-08 11:14 | Outpatient (CLI) | payer MEDICARE, MEDICAID, SELFPAY ==
--- OUTSIDE RECORDS SUMMARY | 2025-02-08 11:16 | XMS_ITS | Clinical Summary ---
Author Organization [facility] [employer] Address [address] [place] [address] Care Team Providers Care Correctional Therapy Director Name Role Phone Manuel Lamardiguanaco Lindsey Primary Care Provider [phone] Source Comments [facility],non-owned Affiliates and Associated Physician Practices is amultiple site organization consisting of ambulatory clinics and hospital sitesin [place], [place], [place] and [place]. This disclosure is being madepursuant to the Care Everywhere program and may not contain all information available regarding this patient. Last updated 18.[facility] [employer] Social History Tobacco Use Types Packs/Day Years [...] VACCINE (1 of 2) 2020 COVID-19 VACCINE ( - 2023-2 5 season) 2024 DEPRESSION SCREENING 10/16/2024 INFLUENZA VACCINE (Season Ended) 2025 HIB VACCINE [...] STATE UHC MANAGED MEDICARE ADV Care Teams Correctional Therapy Director Relationship Specialty Start Date End Date Arash Lamar DO [address] [place] [address] PCP - General 07/01/22
[2025-02-08 12:09] LABS: Add Urine Microscopic? YES; Appearance Urine Clear (Clear); Bacteria Urine None Seen /hpf; Bilirubin Urine Negative (Negative); Blood Urine 1+ (Negative); Color Urine Yellow (Yellow); Glucose Urine UA Negative (Negative); Ketones Urine Negative (Negative); Leukocyte Esterase Ur Negative LEU/UL (Negative); Nitrate Urine Negative (Negative); Non Pathogenic Casts 0-2; Protein Urine 3+ mg/dL (Negative); Specific Grav Ur 1.007 (1.001-1.035); Squamous Epithelial Cell Urine None Seen /hpf (Few); Urobilinogen Urine 0.2 mg/dL (<2.0); WBC Urine 0-5 /hpf (0-3)
[2025-02-08 12:15] LABS: Albumin Level 4.2 g/dL (3.5-5.1); Anion Gap 10 mmol/L (4-12); Blood Urea Nitrogen 49 mg/dL (7-17); Calcium 8.8 mg/dL (8.4-10.2); Carbon Dioxide 28 mmol/L (22-30); Chloride 101 mmol/L (98-107); Estimated Glomerular Filt Rate 10; Glucose 87 mg/dL (65-110); Phosphorus 5.2 mg/dL (2.5-4.5); Sodium 139 mmol/L (137-145)
[2025-02-08 12:20] LABS: Creatinine Urine 40.1 mg/dL
[2025-02-08 12:24] LABS: Sodium Urine Random 41 meq/L
== END 2025-02-08 11:15 | disposition home or self-care (01) ==
PROVIDERS: PCP Nurse Practitioner Family; Visit Provider Internal Medicine Nephrology
DX: R82.81 Pyuria (principal); N18.4 Chronic kidney disease, stage 4 (severe); I77.6 Arteritis, unspecified
CPT/HCPCS: 36415; 80069; 81001; 82570; 84300; 86036; 87086

== ENCOUNTER 2025-02-11 11:48 | Outpatient (CLI) | payer MEDICARE, MEDICAID, SELFPAY ==
[2025-02-11 12:23] LABS: Basophils Absolute Auto 0.1 K/mm3 (0.0-0.1); Basophils Percent Auto 1.3 % (0.2-1.2); Eosinophils Absolute Auto 0.2 K/mm3 (0-0.3); Eosinophils Percent Auto 4.9 % (0-4.4); Hematocrit 31.6 % (37.0-47.0); Hemoglobin 9.4 g/dL (12.0-15.0); Immature Granulocyte Absolute 0.01 K/mm3 (0.00-0.031); Immature Granulocyte Percent A 0.2 % (0-0.5); Lymphocytes Absolute Auto 1.32 K/mm3 (0.9-3.2); Lymphocytes Percent Auto 29.5 % (18.3-44.2); Mean Corpuscular HGB Conc 29.7 g/dl (32-36); Mean Corpuscular Hemoglobin 25.8 pg (26-34); Mean Corpuscular Volume 86.8 fl (80-100); Mean Platelet Volume 10.8 fl (7.4-10.4); Monocytes Absolute Auto 0.5 K/mm3 (0.1-0.6); Monocytes Percent Auto 11.9 % (2.6-8.5); Neutrophils Absolute Auto 2.3 K/mm3 (1.3-6.7); Neutrophils Percent Auto 52.2 % (45.5-73.1); Platelet Count Result 264 k/mm3 (150-375); Red Blood Count 3.64 M/mm3 (4.2-5.4); Red Cell Distribution Width 14.3 % (11.5-14.5); White Blood Count 4.5 K/mm3 (4.5-10.0)
[2025-02-11 12:33] LABS: Albumin Level 4.2 g/dL (3.5-5.1); Anion Gap 8 mmol/L (4-12); Blood Urea Nitrogen 46 mg/dL (7-17); Calcium 8.8 mg/dL (8.4-10.2); Carbon Dioxide 28 mmol/L (22-30); Chloride 103 mmol/L (98-107); Creatine Kinase 161 U/L (30-135); Estimated Glomerular Filt Rate 10; Glucose 89 mg/dL (65-110); Phosphorus 4.8 mg/dL (2.5-4.5); Potassium 4.2 mmol/L (3.4-5.0); Sodium 139 mmol/L (137-145)
[2025-02-11 12:44] LABS: Creatinine Urine 73.8 mg/dL
[2025-02-11 12:49] LABS: Bacteria Urine None Seen /hpf; Bilirubin Urine Negative (Negative); Blood Urine 1+ (Negative); Color Urine Yellow (Yellow); Glucose Urine UA Negative (Negative); Ketones Urine Negative (Negative); Leukocyte Esterase Ur Trace LEU/UL (Negative); Nitrate Urine Negative (Negative); Non Pathogenic Casts 0-2; Protein Urine 3+ mg/dL (Negative); Squamous Epithelial Cell Urine None Seen /hpf (Few); Urobilinogen Urine 0.2 mg/dL (<2.0)
[2025-02-11 12:52] LABS: Add Urine Microscopic? YES; Appearance Urine Clear (Clear)
[2025-02-11 12:53] LABS: Sodium Urine Random 53 meq/L
--- OUTSIDE RECORDS SUMMARY | 2025-02-11 13:06 | XMS_ITS | Clinical Summary ---
Author Organization [facility] [employer] Address [address] [place] [address] Care Team Providers Care Tire Bagger Name Role Phone Manuel Lamardiguanaco Lindsey Primary Care Provider [phone] Source Comments [facility],non-owned Affiliates and Associated Physician Practices is amultiple site organization consisting of ambulatory clinics and hospital sitesin [place], [place], [place] and [place]. This disclosure is being madepursuant to the Care Everywhere program and may not contain all information available regarding this patient. Last updated 18.[facility] [employer] Social History Tobacco Use Types Packs/Day Years [...] STATE UHC MANAGED MEDICARE ADV Care Teams Tire Bagger Relationship Specialty Start Date End Date Arash Lamar DO [address] [place] [address] PCP - General 07/01/22
[2025-02-11 13:17] LABS: Hypochromasia 1+; Platelet Estimate Adequate (Adequate)
[2025-02-11 13:18] LABS: Anisocytosis 1+; Schistocytes None Seen
[2025-02-11 15:54] LABS: Free T4 Free Thyroxine Reflex 1.43 ng/dL (0.78-2.19)
[2025-02-11 16:46] LABS: Total Triiodothyronine (T3) 1.14 NG/ML (0.97-1.69)
[2025-02-12 18:12] LABS: Amphetamines NEGATIVE ng/mL (<500); Barbiturates NEGATIVE ng/mL (<300); Benzodiazepines NEGATIVE ng/mL (<100); Cocaine Metabolite NEGATIVE ng/mL (<150); Marijuana Metabolite NEGATIVE ng/mL (<20); Methadone Metabolite NEGATIVE ng/mL (<100); Opiates NEGATIVE ng/mL (<100); Oxidant NEGATIVE mcg/mL (<200); PCP NEGATIVE ng/mL (<25); pH 7.2 (4.5-9.0)
== END 2025-02-11 11:49 | disposition home or self-care (01) ==
LOC: ANHLAB 11:49
PROVIDERS: PCP Nurse Practitioner Family; Referring Provider Nurse Practitioner Family; Visit Provider Internal Medicine Nephrology
DX: E03.9 Hypothyroidism, unspecified (principal); I12.9 Hypertensive chronic kidney disease with stage 1 through stage 4 chronic kidney disease, or unspecified chronic kidney disease; N18.4 Chronic kidney disease, stage 4 (severe)
CPT/HCPCS: 36415; 80069; 80307; 81001; 82550; 82570; 84300; 84439; 84443; 84480; 85025

== ENCOUNTER 2025-02-13 13:59 | Outpatient (CLI) | payer MEDICARE, MEDICAID, SELFPAY ==
--- OUTSIDE RECORDS SUMMARY | 2025-02-13 14:51 | XMS_ITS | Clinical Summary ---
Author Organization [facility] [email or web address] Address [address] [place] [address] Care Team Providers Care Store Sales Manager Name Role Phone Manuel Lamardiguanaco Lindsey Primary Care Provider [phone] Source Comments [facility],non-owned Affiliates and Associated Physician Practices is amultiple site organization consisting of ambulatory clinics and hospital sitesin [place], [place], [place] and [place]. This disclosure is being madepursuant to the Care Everywhere program and may not contain all information available regarding this patient. Last updated 18.[facility] [email or web address] Social History Tobacco Use Types Packs/Day Years [...] STATE UHC MANAGED MEDICARE ADV Care Teams Store Sales Manager Relationship Specialty Start Date End Date Arash Lamar DO [address] [place] [address] PCP - General 07/01/22
== END 2025-02-13 14:00 | disposition home or self-care (01) ==
PROVIDERS: PCP Nurse Practitioner Family; Visit Provider Internal Medicine Nephrology
DX: R82.81 Pyuria (principal)
CPT/HCPCS: 87086

== ENCOUNTER 2025-03-14 10:29 | Outpatient (CLI) | payer MEDICARE, MEDICAID, SELFPAY ==
--- NOTE | ~2025-03-14 | US_ITS ---
Renal-Bladder ultrasound Clinical History: Chronic kidney disease Technique: Real-time sonographic imaging of the kidneys and urinary bladder was performed. Findings: The right kidney measures 10.9 cm in length and the left kidney measures 9.6 cm. There is n o hydronephrosis or renal calculus identified. Renal cortical echogenicity is within normal limits. N o renal mass lesion is identified. The urinary bladder is moderately distended at the time of this exam. No intraluminal echoes are iden tified. No abnormal wall thickening is seen. Impression: Unremarkable ultrasound of the kidneys and urinary bladder. Reviewed, dictated and finalized at location M. Impression: Unremarkable ultrasound of the kidneys and urinary bladder.
--- NOTE | ~2025-03-14 | US_ITS ---
US soft tissue abdomen 03/14/2025 11:45 Indication: Umbilical hernia without obstruction or gangrene Procedure: High-resolution Limited ultrasound of the anterior abdominal wall Comparison: 03/14/2025 Findings: There is a fat-containing umbilical hernia with neck measuring measuring 1.6 cm. There is a small fluid collection adjacent to the hernia measuring 2.1 x 2.7 x 1.1 cm, nonspecific. Impression: 1: Fat-containing umbilical hernia. No definite bowel intrusion. Hernia neck measures 1.6 cm. 2: Small fluid collection adjacent to the neck measures 2.7 cm, nonspecific. Consider correlation wit h CT abdomen with contrast. Reviewed, dictated and finalized at location A. Impression: 1: Fat-containing umbilical hernia. No definite bowel intrusion. Hernia neck me asures 1.6 cm. 2: Small fluid collection adjacent to the neck measures 2.7 cm, nonspecific. Co nsider correlation with CT abdomen with contrast.
--- NOTE | ~2025-03-14 | US_ITS ---
Limited Abdominal Sonogram: Real-time sonographic imaging of the right upper quadrant was performed. Clinical History: Umbilical hernia Findings: The liver appears normal with no evidence of mass lesion or bile duct dilatation. Main por ros vein demonstrates normal direction of flow. The gallbladder is well distended, and appears normal with no evidence of gallstone or wall thickening. The common bile duct measures 7 mm. The visualize d pancreas, aorta, and IVC are unremarkable. Impression: No significant abnormality seen. Reviewed, dictated and finalized at location . Impression: No significant abnormality seen.
== END 2025-03-14 10:30 | disposition home or self-care (01) ==
PROVIDERS: PCP Nurse Practitioner Family; Visit Provider Nurse Practitioner Family
DX: R93.5 Abnormal findings on diagnostic imaging of other abdominal regions, including retroperitoneum (principal); K42.9 Umbilical hernia without obstruction or gangrene; N18.4 Chronic kidney disease, stage 4 (severe)
CPT/HCPCS: 76705; 76775

== ENCOUNTER 2025-04-03 10:41 | Outpatient (CLI) | payer MEDICARE, MEDICAID, SELFPAY ==
[2025-04-03 11:36] LABS: Hematocrit 32.9 % (37.0-47.0); Hemoglobin 9.8 g/dL (12.0-15.0); Mean Corpuscular HGB Conc 29.8 g/dl (32-36); Mean Corpuscular Hemoglobin 25.8 pg (26-34); Mean Corpuscular Volume 86.6 fl (80-100); Platelet Count Result 334 k/mm3 (150-375); Red Cell Distribution Width 14.6 % (11.5-14.5); White Blood Count 4.1 K/mm3 (4.5-10.0)
[2025-04-03 11:49] LABS: Albumin Level 4.2 g/dL (3.5-5.1); Anion Gap 8 mmol/L (4-12); Blood Urea Nitrogen 47 mg/dL (7-17); Calcium 9.2 mg/dL (8.4-10.2); Carbon Dioxide 30 mmol/L (22-30); Chloride 100 mmol/L (98-107); Creatinine Urine 67.7 mg/dL; Estimated Glomerular Filt Rate 13; Glucose 87 mg/dL (65-110); Phosphorus 4.3 mg/dL (2.5-4.5); Potassium 3.9 mmol/L (3.4-5.0); Sodium 138 mmol/L (137-145); Total Protein Urine Random 151 mg/dL; Ur Ttl Prot Creatinine Ratio 2.23 mg/mg (0-0.20)
== END 2025-04-03 10:42 | disposition home or self-care (01) ==
PROVIDERS: PCP Nurse Practitioner Family; Referring Provider Nurse Practitioner Family; Visit Provider Internal Medicine Nephrology
DX: I12.9 Hypertensive chronic kidney disease with stage 1 through stage 4 chronic kidney disease, or unspecified chronic kidney disease (principal); N18.4 Chronic kidney disease, stage 4 (severe); E03.9 Hypothyroidism, unspecified
CPT/HCPCS: 36415; 80069; 82570; 84156; 84443; 85027

== ENCOUNTER 2025-04-23 16:11 | Outpatient (CLI) | payer MEDICARE, SELFPAY ==
--- NOTE | ~2025-04-23 | CT_ITS ---
Non-contrast CT scan of the Abdomen and Pelvis Clinical indication: Ascites Technique: 2.5 mm axial scans were obtained through the abdomen and pelvis without intravenous or or al contrast. Dose reduction technique was used on this scan by utilizing automated exposure control a nd iterative reconstruction technique. The dose-length product (DLP) was 1520.31 mGy-cm. COMPARISON: 06/23/2022 Findings: Images through the lung bases reveal no abnormalities. There is no evidence of renal or ureteral calculi. The kidneys and the ureters are nondilated. The liver, spleen, pancreas, gallbladder, and adrenals appear normal. There is no aortic aneurysm. There is no evidence of bowel obstruction. There is a large complex ventral hernia, with extension to both right and left umbilicus. There are multiple small bowel loops in the right-sided portion herni a. There is fluid in the left-sided portion of the hernia. Images through the pelvis were performed. There is no evidence of ascites or lymphadenopathy. Urinary bladder unremarkable. No adnexal mass seen. Impression: Large complex ventral/umbilical hernia, with multiple small bowel loops and fluid as well as mesenter ic fat in the hernia, essentially stable from prior exam. No bowel obstruction. No ascites evident other than small amount of fluid in the hernia. Reviewed, dictated and finalized at location . Impression: Large complex ventral/umbilical hernia, with multiple small bowel loops and flu id as well as mesenteric fat in the hernia, essentially stable from prior exam. No bowel obstruction. No ascites evident other than small amount of fluid in the hernia.
== END 2025-04-23 16:12 | disposition home or self-care (01) ==
PROVIDERS: PCP Nurse Practitioner Family; Visit Provider Nurse Practitioner Family
DX: R93.5 Abnormal findings on diagnostic imaging of other abdominal regions, including retroperitoneum (principal); K43.9 Ventral hernia without obstruction or gangrene; K42.9 Umbilical hernia without obstruction or gangrene; R18.8 Other ascites
CPT/HCPCS: 74176

== ENCOUNTER 2025-07-05 10:57 | Outpatient (CLI) | payer MEDICARE, SELFPAY ==
--- OUTSIDE RECORDS SUMMARY | 2025-07-05 11:01 | XMS_ITS | Clinical Summary ---
Author Organization [facility] Address [address] [place] [address] Care Team Providers Care Inner Tube Tuber Machine Operator Name Role Phone Manuel Lamardiguanaco Lindsey Primary Care Provider [phone] Source Comments [facility],non-owned Affiliates and Associated Physician Practices is amultiple site organization consisting of ambulatory clinics and hospital sitesin [place], [place] and [place]. This disclosure is being madepursuant to the Care Everywhere program and may not contain all information available regarding this patient. Last updated 18.[facility] Social History Tobacco Use Types Packs/Day Years [...] 12:57 PM CDT Height 160 cm (5' 3) 05/26/2021 12:57 PM CDT Body Mass Index [...] SCREENING 1970 LIPID TESTING 1970 MAMMOGRAM 1970 HIV SCREENING 1985 HEPATITIS C SCREENING 08/01/1988 DTAP/TDAP/TD VACCINES (1 - Tdap) 1989 HEPATITIS B VACCINE (1 of 3 - 19+ 3-dose series) 1989 PAP SMEAR 1991 PNEUMOCOCCAL VACCINE 50+ (1 of 1 - PCV) 2020 ZOSTER VACCINE (1 of 2) 2020 DEPRESSION SCREENING 10/16/2024 MEDICARE AWV CALENDAR YEAR 2024 COVID-19 VACCINE (1 - 2023-2 5 season) 2025 INFLUENZA VACCINE (#1) 2025 HIB VACCINE Aged Out No longer [...] STATE UHC MANAGED MEDICARE ADV Care Teams Inner Tube Tuber Machine Operator Relationship Specialty Start Date End Date Arash Lamar DO [address] [place] [address] PCP - General 07/01/22
[2025-07-05 11:28] LABS: Hematocrit 27.9 % (37.0-47.0); Hemoglobin 8.6 g/dL (12.0-15.0); Immature Granulocyte Percent A 0.2 % (0-0.5); Lymphocytes Absolute Auto 1.23 K/mm3 (0.9-3.2); Mean Corpuscular HGB Conc 30.8 g/dl (32-36); Mean Corpuscular Hemoglobin 26.3 pg (26-34); Mean Corpuscular Volume 85.3 fl (80-100); Nucleated Red Blood Cells Absolute Auto 0.000 K/mm3 (0.0-0.012); Nucleated Red Blood Cells Perc 0.0 % (0.0-0.2); Platelet Count Result 237 k/mm3 (150-375); Red Blood Count 3.27 M/mm3 (4.2-5.4); White Blood Count 4.1 K/mm3 (4.5-10.0)
[2025-07-05 11:34] LABS: Add Urine Microscopic? YES; Appearance Urine Clear (Clear); Glucose Urine UA Negative (Negative); Leukocyte Esterase Ur Trace LEU/UL (Negative); Nitrate Urine Negative (Negative); Non Pathogenic Casts 0-2; Specific Grav Ur 1.009 (1.001-1.035)
[2025-07-05 11:45] LABS: Anion Gap 6 mmol/L (4-12); Bilirubin,Total 0.3 mg/dL (0.2-1.3); Blood Urea Nitrogen 53 mg/dL (7-17); Calcium 8.5 mg/dL (8.4-10.2); Carbon Dioxide 28 mmol/L (22-30); Chloride 104 mmol/L (98-107); Estimated Glomerular Filt Rate 12; Glucose 86 mg/dL (65-110); Potassium 3.8 mmol/L (3.4-5.0); Sodium 138 mmol/L (137-145)
[2025-07-05 11:46] LABS: Alanine Aminotransferase 14 U/L (6-35); Albumin Level 3.8 g/dL (3.5-5.1); Alkaline Phosphatase 53 U/L (38-126); Aspartate Amino Transferase 22 U/L (14-36); CRP < 0.5 mg/dL (<1.0); Total Protein 6.5 g/dL (6.3-8.2)
== END 2025-07-05 10:58 | disposition home or self-care (01) ==
PROVIDERS: PCP Nurse Practitioner Family; Visit Provider Internal Medicine
DX: M06.9 Rheumatoid arthritis, unspecified (principal)
CPT/HCPCS: 36415; 80053; 80069; 81001; 85025; 85652; 86140

== ENCOUNTER 2025-07-26 10:19 | Outpatient (CLI) | payer MEDICARE, SELFPAY ==
[2025-07-26 10:54] LABS: Hematocrit 28.6 % (37.0-47.0); Hematocrit 29.0 % (37.0-47.0); Hemoglobin 8.8 g/dL (12.0-15.0); Hemoglobin 8.9 g/dL (12.0-15.0); Immature Granulocyte Percent A 0.4 % (0-0.5); Lymphocytes Absolute Auto 1.36 K/mm3 (0.9-3.2); Mean Corpuscular HGB Conc 30.7 g/dl (32-36); Mean Corpuscular HGB Conc 30.8 g/dl (32-36); Mean Corpuscular Hemoglobin 26.0 pg (26-34); Mean Corpuscular Volume 84.6 fl (80-100); Mean Corpuscular Volume 84.8 fl (80-100); Nucleated Red Blood Cells Absolute Auto 0.000 K/mm3 (0.0-0.012); Nucleated Red Blood Cells Perc 0.0 % (0.0-0.2); Platelet Count Result 279 k/mm3 (150-375); Platelet Count Result 288 k/mm3 (150-375); Red Blood Count 3.38 M/mm3 (4.2-5.4); Red Blood Count 3.42 M/mm3 (4.2-5.4); White Blood Count 4.5 K/mm3 (4.5-10.0)
[2025-07-26 11:06] LABS: Hemoglobin A1C 4.6 % (<5.7)
[2025-07-26 11:14] LABS: Albumin Level 3.9 g/dL (3.5-5.1); Anion Gap 7 mmol/L (4-12); Blood Urea Nitrogen 48 mg/dL (7-17); Calcium 8.4 mg/dL (8.4-10.2); Carbon Dioxide 29 mmol/L (22-30); Chloride 100 mmol/L (98-107); Estimated Glomerular Filt Rate 11; Glucose 86 mg/dL (65-110); Potassium 3.9 mmol/L (3.4-5.0); Sodium 136 mmol/L (137-145)
[2025-07-26 11:16] LABS: Total Protein Urine Random 90 mg/dL; Ur Ttl Prot Creatinine Ratio 1.55 mg/mg (0-0.20)
[2025-07-26 11:27] LABS: Parathyroid Intact 150.2 pg/mL (14.5-75.2)
[2025-07-26 11:31] LABS: Cannabinoid Screen Urine Negative (Negative)
== END 2025-07-26 10:20 | disposition home or self-care (01) ==
PROVIDERS: PCP Nurse Practitioner Family; Visit Provider Internal Medicine Nephrology
DX: E11.22 Type 2 diabetes mellitus with diabetic chronic kidney disease (principal); E11.69 Type 2 diabetes mellitus with other specified complication; N18.4 Chronic kidney disease, stage 4 (severe); E66.9 Obesity, unspecified; D64.9 Anemia, unspecified; E55.9 Vitamin D deficiency, unspecified; Z79.891 Long term (current) use of opiate analgesic
CPT/HCPCS: 36415; 80069; 80307; 82306; 82570; 83036; 83970; 84156; 85025; 85027; 86037

== ENCOUNTER 2025-09-01 01:11 | Day surgery (SDC) | payer MEDICARE, SELFPAY ==
[2025-08-18 11:16] VITALS: BMI 52.5
--- OUTSIDE RECORDS SUMMARY | 2025-09-01 01:14 | XMS_ITS | Clinical Summary ---
Author Organization [facility] Address [address] [place] [address] Care Team Providers Care Tape Controlled Machine Stitcher Name Role Phone Manuel Lamardiguanaco Lindsey Primary Care Provider [phone] Source Comments [facility],non-owned Affiliates and Associated Physician Practices is amultiple site organization consisting of ambulatory clinics and hospital sitesin [place], [place], [place] and [place]. This disclosure is being madepursuant to the Care Everywhere program and may not contain all information available regarding this patient. Last updated 18.[facility] Social History Tobacco Use Types Packs/Day Years [...] STATE UHC MANAGED MEDICARE ADV Care Teams Tape Controlled Machine Stitcher Relationship Specialty Start Date End Date Arash Lamar DO [address] [place] [address] PCP - General 07/01/22
[2025-09-01 10:16] VITALS: BP 176/85; PULSE 95; RESP 18; TEMP 36.1; O2SAT 100; BMI 50.9
[2025-09-01] MEDS: LACTATED RINGERS 1,000 ML 150 ML IV CONT (10:33)
--- NOTE | 2025-09-01 10:46 | P.PNAN_ITS ---
Anes - Initial Pre Proc Eval Procedure: Operation Date: 09/01/25 11:30 Proposed Procedures p Diagnostic Colonoscopy - Horacio Bocanegra MD Date/Time: 09/01/25 10:46 Surgeon: Horacio Bocanegra MD Pre Op Diagnosis: Anemia, unspecified Patient Data Age: 55 Gender: F Height: 1.6 m Weight: 130.4 kg Last Vital Signs Temp 36.1 C L 09/01/25 10:16 Pulse 95 09/01/25 10:16 Resp 18 09/01/25 10:16 BP 176/85 H 09/01/25 10:16 Pulse Ox 100 09/01/25 10:16 O2 Del Method Room Air 09/01/25 10:16 Allergies Allergy/AdvReac Type Severity Reaction Status Date / Time Tswdxil-DYO-UcA Reductase AdvReac Mild Heartburn Verified 09/01/25 10:14 Inhibitor Home Medications ?Medication ?Instructions ?Recorded ?Confirmed ?Type albuterol sulfate 90 mcg/actuation 1 - 2 puff inhalati on Q4-6H PRN 02/28/22 08/18/25 Rx aerosol inhaler (ProAir HFA) shortness of breath or wh eezing #8.5 grams ferrous sulfate 325 mg (65 mg 325 mg PO DAILY 04/05/23 09/01/25 History iron) tablet (Feosol) hydroxychloroquine 200 mg tablet 400 mg (2 x 200 mg) P O DAILY #180 11/20/23 09/01/25 Rx tabs hydrochlorothiazide 25 mg tablet 25 mg PO DAILY #30 ta bs 04/11/24 09/01/25 Rx lactulose 10 gram/15 mL oral 10 g (15 mL) PO .COMPLEX PRN 02/12/25 08/18/25 Rx solution constipation #473 mL amlodipine 10 mg tablet See Rx Instructions .Route 0 03/12/25 09/01/25 Rx .COMPLEX #90 tabs Airsupra 90 mcg-80 mcg/actuation 2 inh inhalation ONCE PRN as 03/18/25 08/18/25 Rx HFA aerosol inhaler needed for cough, shortness of (albuterol-budesonide) breath, wheezing #10.7 grams mycophenolate mofetil 500 mg tablet See Rx Instruction s .Route 03/21/25 09/01/25 Rx .COMPLEX #60 tabs levothyroxine 75 mcg tablet 75 mcg PO DAILY #90 tabs 0 04/25/25 09/01/25 Rx tramadol 50 mg tablet 100 mg (2 x 50 mg) PO BID SD N pain 08/05/25 08/18/25 Rx #120 tabs tirzepatide 15 mg/0.5 mL See Rx Instructions .Route 1 09/01/25 Rx subcutaneous pen injector .COMPLEX #2 mL (Mounjaro) Laboratory Tests 09/01/25 10:31 POC Capillary Glucose 92 mg/dl (65-105) Patient hx anesthesia problems: none Family hx anesthesia problems: none Results Review: All pre-operative results and documents have been reviewed as part of the pre- operative evaluation. 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 She is considered disabled. She does not have a durable power sports attorney for healthcare. She has never smoked does not use any alcohol marijuana or illicit drugs. Code status full code Smoking status: Never smoker Second hand tobacco smoke exposure: Yes (mother and spouse for years) Alcohol intake: never Substance use: never Substance use type: does not use Do You Feel Safe in your Home?: Yes Lack of Transportation: No Lack of Food: Never True Current Housing: I Have Housing Concerned About Future Housing: No Difficulty Paying Gas/Electric Bills: No Difficulty Paying for Meds: No Currently Unemployed: No Education: Trade/Vocational Certificate Difficulty w/ Childcare or Family Care: No Living arrangements: with family Occupation/Education: unemployed Gender identity (if verbalized by the patient): Female Spiritual care concerns: No Agree to blood products: No Anes - Eval Final PreProcedure Day of Procedure 09/01/25 10:46 Patient weight: super morbidly obese Heart: regular rate and rhythm Lungs: clear to auscultation Airway: Mallampati scale class III Neurological: alert and oriented Last oral intake: >/= 8 hours ASA classification: IV Emergent: no Anesthetic plan: proceed Anesthesia type and monitoring: general GIVS and standard monitoring Results Review: All pre-operative results and documents have been reviewed as part of the pre- operative evaluation. Informed Consent: The patient's anesthetic plan and its attendant risks and benefits were discussed with the patient/family/POA. Questions were solicited and answers provided to the satisfaction of the patient/family/POA.
--- NOTE | 2025-09-01 11:26 | P.HP_ITS ---
History of Present Illness History of Present Illness Consent: Risks, benefits, and alternatives have been discussed and questions answered. Patient agrees to proceed with procedure. Chief complaint: colon screening Narrative: Veena Sanderson is a 55 year old female here for first screening colonoscopy Review of Systems Review of Systems: All systems reviewed & are unremarkable except as noted in HPI and below PMFSH Past Medical History Medical History (Updated 09/01/25 @ 11:29 by Horacio Bocanegra MD) Colon cancer screening Morbid obesity Arthralgia of both knees Chronic kidney disease Chronic pain Effusion of both knee joints Osteoarthritis of both knees Opioid use Chronic kidney disease, stage 4 (severe) Obesity ANCA-associated vasculitis CKD stage G3b/A2, GFR 30-44 and albumin creatinine ratio 30-299 mg/g Hypothyroidism 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 She is considered disabled. 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 She has never smoked does not use any alcohol marijuana or illicit drugs. Code status full code Smoking status: Never smoker Second hand tobacco smoke exposure: Yes (mother and spouse for years) Alcohol intake: never Substance use: never Substance use type: does not use Do You Feel Safe in your Home?: Yes Lack of Transportation: No Lack of Food: Never True Current Housing: I Have Housing Concerned About Future Housing: No Difficulty Paying Gas/Electric Bills: No Difficulty Paying for Meds: No Currently Unemployed: No Education: Trade/Vocational Certificate Difficulty w/ Childcare or Family Care: No Living arrangements: with family Occupation/Education: unemployed Gender identity (if verbalized by the patient): Female Spiritual care concerns: No Agree to blood products: No Meds Home Medications and Allergies Home Medications ?Medication ?Instructions ?Recorded ?Confirmed ?Type albuterol sulfate 90 mcg/actuation 1 - 2 puff inhalati on Q4-6H PRN 02/28/22 08/18/25 Rx aerosol inhaler (ProAir HFA) shortness of breath or wh eezing #8.5 grams ferrous sulfate 325 mg (65 mg 325 mg PO DAILY 04/05/23 09/01/25 History iron) tablet (Feosol) hydroxychloroquine 200 mg tablet 400 mg (2 x 200 mg) P O DAILY #180 11/20/23 09/01/25 Rx tabs hydrochlorothiazide 25 mg tablet 25 mg PO DAILY #30 ta bs 04/11/24 09/01/25 Rx lactulose 10 gram/15 mL oral 10 g (15 mL) PO .COMPLEX PRN 02/12/25 08/18/25 Rx solution constipation #473 mL amlodipine 10 mg tablet See Rx Instructions .Route 0 03/12/25 09/01/25 Rx .COMPLEX #90 tabs Airsupra 90 mcg-80 mcg/actuation 2 inh inhalation ONCE PRN as 03/18/25 08/18/25 Rx HFA aerosol inhaler needed for cough, shortness of (albuterol-budesonide) breath, wheezing #10.7 grams mycophenolate mofetil 500 mg tablet See Rx Instruction s .Route 03/21/25 09/01/25 Rx .COMPLEX #60 tabs levothyroxine 75 mcg tablet 75 mcg PO DAILY #90 tabs 0 04/25/25 09/01/25 Rx tramadol 50 mg tablet 100 mg (2 x 50 mg) PO BID TX N pain 08/05/25 08/18/25 Rx #120 tabs tirzepatide 15 mg/0.5 mL See Rx Instructions .Route 1 09/01/25 Rx subcutaneous pen injector .COMPLEX #2 mL (Mounjaro) Allergies Allergy/AdvReac Type Severity Reaction Status Date / Time Oxqrazs-ROS-PtA Reductase AdvReac Mild Heartburn Verified 09/01/25 10:14 Inhibitor Vital Signs Vital Signs - 24 hr 09/01/25 10:16 Temperature 97 F L Pulse Rate 95 Respiratory Rate 18 Blood Pressure 176/85 H Pulse Oximetry 100 Oxygen Delivery Room Air Exam Const: General: comfortable, no acute distress and obese Orientation/consciousness: patient oriented x3 HENMT: Face/Nose/Sinus: Normal nares present Resp: Auscultation: clear to auscultation bilaterally Cardio: Rate: regular rate Rhythm: regular rhythm GI: Inspection: non-distended GI Palp: Yes Soft to palpation Skin: General skin exam: normal color Extrem: General: normal to inspection Psych: Mental Status: mental status grossly normal Assessment and Plan Assessment and plan (1) Colon cancer screening: Code(s): Z12.11 - Encounter for screening for malignant neoplasm of colon Status: Acute Assessment and Plan: colonoscopy
--- NOTE | 2025-09-01 11:43 | S_PTH ---
PATIENT: Veena Sanderson LOC: [facility]#:[id number] AGE/SX: 55/F ROOM: RE09/01/[address]: Horacio Bocanegra MD : 1970 BED: DIS: 09/01/2025 SPEC #: [id number] RECD: 09/01/25 11:47 STATUS: RUMA REQ #: [id number] MIGUEL A: 09/01/25 11:[address]: Horacio Bocanegra DEPT: [facility] Surgical RECD BY: Karen Merritt ENTERED: 09/01/25 11:48 SP TYPE: Surgical OTHR DR: Valerie Mccauley APRN Tissues: A - Colon Polypectomy Procedures: Hematoxylin and Eosin Stain Gross and Microscopic Level 4
[2025-09-01 11:44] VITALS: BP 120/67; PULSE 73; RESP 20; O2SAT 100
[2025-09-01 11:54] VITALS: BP 133/69; PULSE 68; RESP 21; O2SAT 100
[2025-09-01 12:04] VITALS: BP 144/62; PULSE 63; RESP 17; O2SAT 100
== END 2025-09-01 12:28 | disposition home or self-care (01) ==
PROVIDERS: PCP Nurse Practitioner Family; Referring Provider Nurse Practitioner Family; Visit Provider Internal Medicine Gastroenterology
PROC: 0DJD8ZZ Inspection of Lower Intestinal Tract, Via Natural or Artificial Opening Endoscopic (ICD-10-PCS; CPT 45378; principal; 2025-09-01 11:30)
DX: Z12.11 Encounter for screening for malignant neoplasm of colon (principal); K63.5 Polyp of colon; K57.30 Diverticulosis of large intestine without perforation or abscess without bleeding; K64.8 Other hemorrhoids; I12.9 Hypertensive chronic kidney disease with stage 1 through stage 4 chronic kidney disease, or unspecified chronic kidney disease; E11.22 Type 2 diabetes mellitus with diabetic chronic kidney disease; N18.4 Chronic kidney disease, stage 4 (severe); E66.01 Morbid (severe) obesity due to excess calories; Z68.43 Body mass index [BMI] 50.0-59.9, adult
CPT/HCPCS: 45380; 82948; 88305; J2704; J7120